=== PATIENT | male | born 1935 | race Caucasian/White ===

== ENCOUNTER 2023-05-04 15:18 | Emergency (ER) | payer MEDICARE, OTHER, SELFPAY ==
[2023-05-04 15:20] VITALS: BP 172/98
[2023-05-04 15:56] LABS: % Basophils 0.7 % (0-2); % Eosinophils 2.4 % (0-6); % Immature Granulocytes 1.1 % (0-0.5); % Lymphocytes 17.7 % (20.5-51.1); % Monocytes 7.9 % (1.7-9.3); % Neutrophils 70.2 % (42.2-75.2); Absolute Basophils 0.1 10^3/uL (0-0.2); Absolute Eosinophils 0.2 10^3/uL (0-0.7); Absolute Immature Granulocytes 0.1 10^3/uL (0-0.05); Absolute Lymphocytes 1.3 10^3/uL (1.2-3.4); Absolute Monocytes 0.6 10^3/uL (0.1-0.6); Hematocrit 36.3 % (39.0-52.0); Hemoglobin 12.8 g/dL (13.0-18.0); Mean Corp Hgb Conc. 35.3 g/dL (33.0-37.0); Mean Corpuscular Hgb 29.8 pg (27.0-31.0); Mean Corpuscular Volume 84.4 fL (80.0-94.0); Mean Platelet Volume 9.8 fL (7.4-10.4); Nucleated Red Blood Cells % 0 % (-); Platelet Count 232 10^3/uL (130-400); White Blood Cell Count 7.1 10^3/uL (4.8-10.8)
[2023-05-04 16:07] LABS: ALT (SGPT) 15 U/L (0-50); AST (SGOT) 20 U/L (17-59); Albumin 4.1 g/dl (3.5-5.0); Alkaline Phosphatase 80 U/L (38-126); Blood Urea Nitrogen 19 mg/dl (9-20); Calcium 9.5 mg/dl (8.4-10.2); Carbon Dioxide 27 mmol/L (22-30); Chloride 102 mmol/L (98-107); Glucose 137 mg/dl (70-99); Potassium 3.6 mmol/L (3.5-5.1); Sodium 139 mmol/L (135-145); Total Bilirubin 0.7 mg/dl (0.2-1.3); Total Protein 6.7 g/dl (6.3-8.2); eGFR > 60.00
[2023-05-04 16:23] VITALS: BMI 23.3
[2023-05-04 17:00] VITALS: BP 166/96
[2023-05-04 17:01] LABS: Urine Albumin Trace (Neg - Trace); Urine Bilirubin Negative (Negative); Urine Character Clear (Clear); Urine Color Yellow; Urine Glucose Negative (Negative); Urine Ketone Negative (Negative); Urine Leukocyte Negative (Negative); Urine Nitrite Negative (Negative); Urine Occult Blood Negative (Negative); Urine Urobilinogen Negative (Neg - 1+)
--- NOTE | 2023-05-04 17:20 | ED.GENMED ---
History of Present Illness
General
Chief Complaint: Weakness
Source: patient
Exam Limitations: none
Time Seen by Provider: 05/04/23 16:53
Travel History
Have you had any contact with someone who has COVID-19?: No
Do you have any symptoms of coronavirus? Fever > 100 degrees, chills, cough, shortness of breath, sore throat, loss of taste or smell, muscle aches, or headache?: No
History of Present Illness
History of Present Illness:
87-year-old male presents from home where he lives with his stating that for the past 2 weeks he had a progressive decline and weakness of both legs. Typically is ambulatory with a walker. He has been more reliant on wheelchair last several
days. No fever. No urinary symptoms. No cough. He denies shortness of breath. No headache. He is anticoagulated for A-fib. No known sick contacts. No other complaints at this time
Past History
Past History
ED Past Medical History: Arrthythmia, HTN, Hypercholesterolemia, NIDDM, Other (Kidney stones) and Other (Syncope)
ED Past Surgical History: Negative Cardiac
Social History
Tobacco: Non-smoker
Alcohol: Occasional
Drug: None
Personal:
Living: with family
Employment: Retired
Family History
Family History: Other (Noncontributory)
Phy Exam
Physical Exam
Physical Exam:
General: Well-appearing male no acute respiratory distress
HEENT: Normal cephalic atraumatic mucosa moist neck is supple
Heart: Irregular rate and rhythm no murmurs
Lungs: Clear no wheeze or rales
Extremities: No cyanosis or edema
Skin: Warm no rash
Abdomen soft nontender numbness
Course
Orders/Labs/Results
Orders:
Orders
05/04/23 15:29
Complete Blood Count/With Diff Urgent
Comprehensive Metabolic Panel Urgent
UA [Urinalysis] Urgent
Date Specimen was Collected: 05/04/23
Time Specimen was Collected: 15:24
05/04/23 17:18
CR Chest - 2 Views Urgent
Comment:
Reason For Exam: weakness
05/04/23 18:09
COVID-19 Antigen Urgent
Source: Nasal Swab
Influenza A+B Rapid Molecular Urgent
MARY Source: Nasal Swab
Specimen Description:
05/04/23 21:11
Case Management Consult ONCE
Case Management Consult: VN/Home Care
Abnormal Lab Results
05/04/23
15:29
RBC 4.30 L 10^6/uL
(4.70-6.10)
Hgb 12.8 L g/dL
(13.0-18.0)
Hct 36.3 L %
(39.0-52.0)
RDW 15.0 H %
(11.5-14.5)
Abs Immat Gran (auto) 0.1 H 10^3/uL
(0-0.05)
Immature Gran % 1.1 H %
(0-0.5)
Lymphocytes % 17.7 L %
(20.5-51.1)
Glucose 137 H mg/dl
(70-99)
05/04/23 15:29
05/04/23 15:29
Vital Signs
Initial and Last Documented VS:
Initial Vital Signs
Temp Pulse Resp BP Pulse Ox
97.6 F 69 18 172/98 99
05/04/23 15:20 05/04/23 15:20 05/04/23 15:20 05/04/23 15:20 05/04/23 15:20
Last Documented Vital Signs
Temp Pulse Resp BP Pulse Ox
97.6 F 69 18 172/98 92
05/04/23 15:20 05/04/23 15:20 05/04/23 15:20 05/04/23 15:20 05/04/23 17:00
MDM/Problems Addressed
Differential Diagnosis Includes:
Generalized weakness. No unilateral findings to suggest stroke. Consider underlying infectious source such as UTI COVID or flu. Will check chest x-ray for pneumonia. Check labs
*Critical Care Note
Total Time (30-74mins, 75-104mins- exclusive of procedures): Not Applicable
Update Note
Update Note:
Workup here essentially negative. Upon further questioning patient states he has been declining over 9 months. I suspect no acute change. Patient has been to rehab. Patient was given a walker here and he was able to ambulate down and back on the
hallway without any evidence of instability. At this point they are comfortable going home. Will consult case management for them to call tomorrow to help set up visiting nurses or home care. Return precautions were given
ED Attending Note
-
Portions of this chart may have been created with voice recognition software.� Occasional wrong word or��sound alike� substitutions may have occurred due to the inherent limitations of voice recognition software.
Discharge Plan
Departure
Patient Disposition: Home (Routine Discharge)
Date of Disposition: 05/04/23
Time of Disposition: 21:13
Patient with high blood pressure during this ER visit?: No
Discharge Problem:
Ambulatory dysfunction
Instructions: Generalized Weakness (DC)
Prescriptions:
No Action
diltiazem HCl 120 MG capsule,extended release 24hr
120 mg PO DAILY
metformin 500 MG tablet extended release 24 hr
500 mg PO BID
Eliquis 5 MG tablet
5 mg PO BID
tolterodine 2 mg capsule,extended release 24hr
2 mg PO HS
latanoprost 0.005 % drops
1 drp BOTH EYES HS
tamsulosin 0.4 mg capsule
0.4 mg PO BID
bepotastine besilate 1.5 % drops
1 drp BOTH EYES DAILY
labetalol 100 mg Tablet
100 mg PO BID Qty: 30 0RF
Referrals:
Shon Zambrano MD [Family Provider] -
Activity Restrictions/Additional Instructions:
Please continue to use walker for ambulation. Please follow-up with family doctor. Case management should be calling to help set up visiting nurses. Return here for any worsening symptoms
Interventions
Interventions:
*Risk Screen - Suicide Last Done: 05/04/23 15:22
*General Assessment Last Done: 05/04/23 15:22
*Neglect/Abuse Screening Last Done: 05/04/23 15:22
ED- Fall Risk Assessment Last Done: 05/04/23 16:23
*ED COVID-19 Vaccine History Last Done: 05/04/23 16:23
ED- Cardiac Assessment Last Done: 05/04/23 16:23
ED- Neurological Assessment Last Done: 05/04/23 16:23
ED- Pulmonary Assessment Last Done: 05/04/23 16:23
[2023-05-04 18:08] VITALS: BP 168/86
[2023-05-04 18:34] LABS: COVID-19 Antigen Negative (Negative)
[2023-05-04 19:00] VITALS: BP 160/103
[2023-05-04 20:00] VITALS: BP 180/93
--- NOTE | 2023-05-05 10:22 | CM ---
CM received consult to discuss home care options with patient. CM spoke with patient's via phone. Patient's stated that they have had home care in the past, but cannot remember the agency. Patient's is now agreeable to [facility]. CM sent
referral via [facility] for [facility].
PLAN: Home with [facility].
--- NOTE | 2023-05-05 12:03 | CM ---
[facility] has accepted.
== END 2023-05-04 21:57 | disposition home or self-care (01) ==
LOC: EMR 15:18
PROVIDERS: Physician Assistant; Student in an Organized Health Care Education/Training Program; EMERGENCY PHYSICIAN Emergency Medicine; FAMILY PHYSICIAN Family Medicine
DX: R26.2 Difficulty in walking, not elsewhere classified (principal); R53.1 Weakness; I48.91 Unspecified atrial fibrillation; Z79.01 Long term (current) use of anticoagulants; Z11.52 Encounter for screening for COVID-19; E11.9 Type 2 diabetes mellitus without complications; I10 Essential (primary) hypertension
CPT/HCPCS: 99284; 71046; 80053; 81003; 85025; 87502; 87811

== ENCOUNTER → 2023-05-25 11:48 | Outpatient (REF) | payer MEDICARE, OTHER, SELFPAY ==
[2023-05-25 12:42] LABS: % Basophils 0.6 % (0-2); % Eosinophils 3.9 % (0-6); % Immature Granulocytes 0.5 % (0-0.5); % Lymphocytes 18.5 % (20.5-51.1); % Monocytes 7.4 % (1.7-9.3); % Neutrophils 69.1 % (42.2-75.2); Absolute Eosinophils 0.3 10^3/uL (0-0.7); Absolute Lymphocytes 1.2 10^3/uL (1.2-3.4); Absolute Monocytes 0.5 10^3/uL (0.1-0.6); Absolute Neutrophils 4.6 10^3/uL (1.4-6.5); Hemoglobin 12.6 g/dL (13.0-18.0); Mean Corp Hgb Conc. 34.1 g/dL (33.0-37.0); Mean Corpuscular Hgb 29.4 pg (27.0-31.0); Mean Corpuscular Volume 86.2 fL (80.0-94.0); Mean Platelet Volume 10.1 fL (7.4-10.4); Nucleated Red Blood Cells % 0 % (-); Platelet Count 215 10^3/uL (130-400); Red Blood Cell Count 4.29 10^6/uL (4.70-6.10); White Blood Cell Count 6.6 10^3/uL (4.8-10.8)
[2023-05-25 12:56] LABS: ALT (SGPT) 16 U/L (0-50); AST (SGOT) 20 U/L (17-59); Albumin 3.9 g/dl (3.5-5.0); Alkaline Phosphatase 84 U/L (38-126); Blood Urea Nitrogen 17 mg/dl (9-20); Calcium 8.9 mg/dl (8.4-10.2); Carbon Dioxide 26 mmol/L (22-30); Chloride 106 mmol/L (98-107); Glucose 147 mg/dl (70-99); Potassium 3.9 mmol/L (3.5-5.1); Sodium 136 mmol/L (135-145); Total Bilirubin 0.8 mg/dl (0.2-1.3); Total Protein 6.6 g/dl (6.3-8.2); eGFR 58.89
[2023-05-26 11:15] LABS: Glycohemoglobin (HgbA1c) 7.5 % (4.0-5.6)
== END ==
LOC: OLAB 11:48
PROVIDERS: ATTENDING PHYSICIAN Family Medicine
DX: E11.21 Type 2 diabetes mellitus with diabetic nephropathy (principal); I10 Essential (primary) hypertension
CPT/HCPCS: 80053; 83036; 85025

== ENCOUNTER → 2023-05-29 14:24 | Outpatient (REF) | payer MEDICARE, OTHER, SELFPAY ==
[2023-05-29 15:48] LABS: Urine Albumin Trace (Neg - Trace); Urine Bilirubin 1+ (Negative); Urine Character Slightly Cloudy (Clear); Urine Color Yellow; Urine Glucose 2+ (Negative); Urine Ketone Trace (Negative); Urine Leukocyte Trace (Negative); Urine Nitrite Negative (Negative); Urine Occult Blood 4+ (Negative); Urine Urobilinogen Negative (Neg - 1+)
[2023-05-29 15:57] LABS: Urine Bacteria Few (Negative); Urine Hyaline Cast 0-2 /LPF (0-2); Urine Red Blood Cell >100 /HPF (0-2); Urine Squamous Cell 0-2 /LPF (Few); Urine White Cell 0-2 /HPF (0-5)
== END ==
LOC: REG 14:24
PROVIDERS: ATTENDING PHYSICIAN Family Medicine
DX: R35.0 Frequency of micturition (principal)
CPT/HCPCS: 81003; 81015; 87086

== ENCOUNTER → 2023-06-05 13:25 | Outpatient (REF) | payer MEDICARE, OTHER, SELFPAY ==
[2023-06-05 13:59] LABS: Urine Albumin 1+ (Neg - Trace); Urine Bilirubin 1+ (Negative); Urine Character Clear (Clear); Urine Color Yellow; Urine Glucose Trace (Negative); Urine Ketone Negative (Negative); Urine Leukocyte Negative (Negative); Urine Nitrite Negative (Negative); Urine Occult Blood Negative (Negative); Urine Urobilinogen Negative (Neg - 1+)
[2023-06-05 14:09] LABS: Urine Bacteria Few (Negative); Urine Mucus Few; Urine Red Blood Cell 0-2 /HPF (0-2); Urine Squamous Cell 0-2 /LPF (Few); Urine White Cell 0-2 /HPF (0-5)
== END ==
LOC: REG 13:25
PROVIDERS: ATTENDING PHYSICIAN Surgery; FAMILY PHYSICIAN Family Medicine
DX: N39.0 Urinary tract infection, site not specified (principal)
CPT/HCPCS: 81003; 81015; 87086

== ENCOUNTER → 2023-10-05 15:11 | Outpatient (REF) | payer MEDICARE, OTHER, SELFPAY ==
[2023-10-05 15:43] LABS: Urine Albumin 2+ (Neg - Trace); Urine Bilirubin 2+ (Negative); Urine Character Very Cloudy (Clear); Urine Color Brown; Urine Glucose Trace (Negative); Urine Ketone 1+ (Negative); Urine Leukocyte 1+ (Negative); Urine Nitrite Positive (Negative); Urine Occult Blood 4+ (Negative); Urine Urobilinogen 1+ (Neg - 1+)
[2023-10-05 15:51] LABS: Urine Red Blood Cell >100 /HPF (0-2)
[2023-10-05 15:52] LABS: Urine Bacteria Many (Negative)
== END ==
LOC: REG 15:11
PROVIDERS: ATTENDING PHYSICIAN Surgery; FAMILY PHYSICIAN Family Medicine
DX: N39.0 Urinary tract infection, site not specified (principal)
CPT/HCPCS: 81003; 81015; 87086

== ENCOUNTER 2023-10-07 22:12 | Emergency (ER) | payer MEDICARE, OTHER, SELFPAY ==
[2023-10-07 22:13] VITALS: BP 146/95; BMI 24.2
[2023-10-07 22:33] LABS: % Basophils 0.5 % (0-2); % Eosinophils 3.2 % (0-6); % Immature Granulocytes 0.4 % (0-0.5); % Lymphocytes 13.7 % (20.5-51.1); % Monocytes 7.1 % (1.7-9.3); % Neutrophils 75.1 % (42.2-75.2); Absolute Basophils 0.1 10^3/uL (0-0.2); Absolute Eosinophils 0.3 10^3/uL (0-0.7); Absolute Lymphocytes 1.5 10^3/uL (1.2-3.4); Absolute Monocytes 0.8 10^3/uL (0.1-0.6); Hematocrit 36.5 % (39.0-52.0); Hemoglobin 12.8 g/dL (13.0-18.0); Mean Corp Hgb Conc. 35.1 g/dL (33.0-37.0); Mean Corpuscular Hgb 29.1 pg (27.0-31.0); Mean Platelet Volume 8.8 fL (7.4-10.4); Nucleated Red Blood Cells % 0 % (-); Platelet Count 226 10^3/uL (130-400); Red Cell Dist. Width 14.5 % (11.5-14.5); White Blood Cell Count 10.7 10^3/uL (4.8-10.8)
[2023-10-07 22:36] LABS: Urine Albumin 1+ (Neg - Trace); Urine Bilirubin Negative (Negative); Urine Character Clear (Clear); Urine Color Yellow; Urine Glucose Negative (Negative); Urine Ketone Trace (Negative); Urine Leukocyte Trace (Negative); Urine Nitrite Negative (Negative); Urine Occult Blood 4+ (Negative); Urine Urobilinogen Negative (Neg - 1+); Urine pH 6.5 (5.0-9.0)
[2023-10-07 22:55] LABS: ALT (SGPT) 14 U/L (0-50); Albumin 4.6 g/dl (3.5-5.0); Alkaline Phosphatase 83 U/L (38-126); Blood Urea Nitrogen 31 mg/dl (9-20); Calcium 9.6 mg/dl (8.4-10.2); Carbon Dioxide 26 mmol/L (22-30); Chloride 102 mmol/L (98-107); Estimated Creatinine Clearance 32 ml/min; Glucose 159 mg/dl (70-99); Lipase 51 U/L (23-300); Sodium 137 mmol/L (135-145); Total Bilirubin 0.6 mg/dl (0.2-1.3); eGFR 45.06
[2023-10-07 23:08] LABS: AST (SGOT) 18 U/L (17-59); Urine Red Blood Cell 60-70 /HPF (0-2); Urine Squamous Cell 0-2 /LPF (Few)
[2023-10-07 23:09] LABS: Urine Bacteria Few (Negative)
--- NOTE | 2023-10-08 00:39 | ED.GENMED ---
History of Present Illness
General
Chief Complaint: Abdominal Pain
Source: patient and family
Exam Limitations: none
Time Seen by Provider: 10/08/23 00:29
Nursing documentation reviewed up to this point in time: agreed with
History of Present Illness
History of Present Illness:
87-year-old male with past medical history of A-fib currently on Eliquis, hypertension hyperlipidemia, previous kidney stones presenting to the emergency department today for concerns of intermittent flank pain as well as hematuria over the past few
days. Denies any nausea vomiting diarrhea or fevers.
Past History
Past History
ED Past Medical History: Arrthythmia, HTN, Hypercholesterolemia, NIDDM, Other (Kidney stones) and Other (Syncope)
ED Past Surgical History: Negative Cardiac
Social History
Tobacco: Non-smoker
Alcohol: Occasional
Drug: None
Personal:
Living: with family
Employment: Retired
Family History
Family History: Other (Noncontributory)
Review of Systems
Review of Systems
Allergies reviewed?: Yes
All Other Systems: ROS reviewed and negative except as documented in HPI and ROS
Phy Exam
Physical Exam
Physical Exam:
GENERAL: Alert , in no apparent distress
EYE: pupils equal and reactive
NECK: Supple, no significant adenopathy.
ENT: o/p clr, mmm.
CARDIAC: Regular rate and rhythm .
LUNGS: Clear breath sounds bilaterally, no acute respiratory distress, no wheezes/rales/rhonchi
ABDOMEN: Soft, without focal tenderness, no r/g, no cvat
NEUROLOGICAL: Alert and oriented, no focal neuro deficits
SKIN: Warm and dry, skin intact.
MUSCULOSKELETAL: No edema, well perfused.
PSYCH: Normal and appropriate interaction.
Course
Orders/Labs/Results
Orders:
Orders
10/07/23 22:25
Complete Blood Count/With Diff Urgent
Comprehensive Metabolic Panel Urgent
Lipase Urgent
Urinalysis Reflex To Culture Urgent
Date Specimen was Collected: 10/07/23
Time Specimen was Collected: 22:16
Urine Microscopic Reflex Cult Urgent
Urine Culture Urgent
MARY Source: U
Specimen Description:
Date Specimen was Collected: 10/07/23
Time Specimen was Collected: 22:16
10/08/23 00:35
CT Abd/pel Without Iv Or Oral Urgent
Comment:
Reason For Exam: flank pain hematuria hx of stones
10/08/23 00:40
0.9% Sodium Chloride 500 ml [Nss] 500 ml IV BOLUS
Abnormal Lab Results
10/07/23
22:25
RBC 4.40 L 10^6/uL
(4.70-6.10)
Hgb 12.8 L g/dL
(13.0-18.0)
Hct 36.5 L %
(39.0-52.0)
Absolute Neuts (auto) 8.0 H 10^3/uL
(1.4-6.5)
Absolute Monos (auto) 0.8 H 10^3/uL
(0.1-0.6)
Lymphocytes % 13.7 L %
(20.5-51.1)
BUN 31 H mg/dl
(9-20)
Creatinine 1.5 H mg/dL
(0.7-1.3)
Glucose 159 H mg/dl
(70-99)
Urine Ketones Trace A
(Negative)
Ur Occult Blood Reflex 4+ A
(Negative)
Leukocyte Esterase Rfl Trace A
(Negative)
Urine RBC 60-70 A /HPF
(0-2)
Urine WBC (Reflex) 11-15 A /HPF
(0-5)
Urine Bacteria (Reflex) Few A
(Negative)
Urine Albumin (Reflex) 1+ A
(Neg - Trace)
10/07/23 22:25
10/07/23 22:25
Vital Signs
Initial and Last Documented VS:
Initial Vital Signs
Temp Pulse Resp BP Pulse Ox
98.2 F 70 20 146/95 96
10/07/23 22:13 10/07/23 22:13 10/07/23 22:13 10/07/23 22:13 10/07/23 22:13
Last Documented Vital Signs
Temp Pulse Resp BP Pulse Ox
98.2 F 70 20 146/95 96
10/07/23 22:13 10/07/23 22:13 10/07/23 22:13 10/07/23 22:13 10/07/23 22:13
MDM/Problems Addressed
MDM/Problems Addressed:
87-year-old male presenting to the emergency department today with concerns of intermittent abdominal pain flank pain over the past few days as well as hematuria. Upon arrival patient in no distress vital signs normal no white count creatinine 1.5
slightly above patient's baseline was given some fluids. Additionally urinalysis showing 60-70 red blood cells 11-15 white blood cells few bacteria trace leuks nitrites. CT scan showing evidence of likely recently passed stone. This was discussed
with the patient he was treated for potential mild and otherwise will follow-up closely as an outpatient return precautions given.
*Critical Care Note
Total Time (30-74mins, 75-104mins- exclusive of procedures): Not Applicable
ED Attending Note
-
Portions of this chart may have been created with voice recognition software.� Occasional wrong word or��sound alike� substitutions may have occurred due to the inherent limitations of voice recognition software.
Discharge Plan
Departure
Patient Disposition: Home (Routine Discharge)
Date of Disposition: 10/08/23
Time of Disposition: 02:32
Patient with high blood pressure during this ER visit?: No
Condition: Good
Covid-19: Not Applicable
Discharge Problem:
Kidney stone, UTI (urinary tract infection)
Instructions: Urinary Tract Infection, Adult ED
Prescriptions:
New
cephalexin 500 mg capsule
500 mg PO TID 7 Days Qty: 21 0RF
No Action
diltiazem HCl 120 MG capsule,extended release 24hr
120 mg PO DAILY
metformin 500 MG tablet extended release 24 hr
500 mg PO BID
Eliquis 5 MG tablet
5 mg PO BID
tolterodine 2 mg capsule,extended release 24hr
2 mg PO HS
latanoprost 0.005 % drops
1 drp BOTH EYES HS
tamsulosin 0.4 mg capsule
0.4 mg PO BID
bepotastine besilate 1.5 % drops
1 drp BOTH EYES DAILY
labetalol 100 mg Tablet
100 mg PO BID Qty: 30 0RF
Referrals:
Alejo Brewer MD [Active] - Follow up in 5-7 days
Shon Zambrano MD [Family Provider] -
Activity Restrictions/Additional Instructions:
You came to the emergency department today with concerns of urinary symptoms. It appears that you have a recently passed stone on your CT scan. Please take the antibiotics to treat any potential infection otherwise please follow-up closely with
urology. Return to the emergency department for any worsening, new or concerning symptoms.
Interventions
Interventions:
*Risk Screen - Suicide Last Done: 10/07/23 22:13
*Neglect/Abuse Screening Last Done: 10/07/23 22:13
ED- Fall Risk Assessment Last Done: 10/07/23 22:13
Discharge Date and Time
Print Language: MONTSERRATIAN
[2023-10-08 01:00] VITALS: BP 146/85
[2023-10-08 01:30] VITALS: BP 153/75
[2023-10-08] MEDS: KEFLEX 500 MG PO (03:03)
[2023-10-08] MEDS: NSS 500 IV (03:04)
== END 2023-10-08 03:33 | disposition home or self-care (01) ==
LOC: EMR 22:12
PROVIDERS: Student in an Organized Health Care Education/Training Program; EMERGENCY PHYSICIAN Emergency Medicine; FAMILY PHYSICIAN Family Medicine
DX: N39.0 Urinary tract infection, site not specified (principal); N13.2 Hydronephrosis with renal and ureteral calculous obstruction; I48.91 Unspecified atrial fibrillation; Z79.01 Long term (current) use of anticoagulants; I10 Essential (primary) hypertension; E78.00 Pure hypercholesterolemia, unspecified
CPT/HCPCS: 99284; 96360; 74176; 80053; 81003; 81015; 83690; 85025; 87086

== ENCOUNTER → 2023-11-01 12:29 | Outpatient (REF) | payer MEDICARE, OTHER, SELFPAY ==
[2023-11-01 14:00] LABS: % Basophils 0.6 % (0-2); % Eosinophils 3.5 % (0-6); % Immature Granulocytes 0.4 % (0-0.5); % Lymphocytes 17.5 % (20.5-51.1); % Monocytes 7.8 % (1.7-9.3); % Neutrophils 70.2 % (42.2-75.2); Absolute Eosinophils 0.2 10^3/uL (0-0.7); Absolute Lymphocytes 1.2 10^3/uL (1.2-3.4); Absolute Monocytes 0.5 10^3/uL (0.1-0.6); Absolute Neutrophils 4.8 10^3/uL (1.4-6.5); Hematocrit 35.3 % (39.0-52.0); Hemoglobin 12.1 g/dL (13.0-18.0); Mean Corp Hgb Conc. 34.3 g/dL (33.0-37.0); Mean Corpuscular Hgb 29.9 pg (27.0-31.0); Mean Corpuscular Volume 87.2 fL (80.0-94.0); Mean Platelet Volume 9.7 fL (7.4-10.4); Nucleated Red Blood Cells % 0 % (-); Platelet Count 232 10^3/uL (130-400); Red Blood Cell Count 4.05 10^6/uL (4.70-6.10); Red Cell Dist. Width 14.7 % (11.5-14.5); White Blood Cell Count 6.8 10^3/uL (4.8-10.8)
[2023-11-01 14:36] LABS: ALT (SGPT) 13 U/L (0-50); AST (SGOT) 17 U/L (17-59); Alkaline Phosphatase 79 U/L (38-126); Blood Urea Nitrogen 23 mg/dl (9-20); Calcium 9.3 mg/dl (8.4-10.2); Carbon Dioxide 28 mmol/L (22-30); Chloride 101 mmol/L (98-107); Glucose 184 mg/dl (70-99); HDL Cholesterol 45 mg/dl; LDL Cholesterol, Calculated 118 mg/dl; Potassium 4.4 mmol/L (3.5-5.1); Sodium 136 mmol/L (135-145); Total Bilirubin 0.6 mg/dl (0.2-1.3); Total Cholesterol 182 mg/dl (50-199); Total Protein 6.3 g/dl (6.3-8.2); Triglyceride 98 mg/dl (10-149); Very Low Density Lipoprotein 19 mg/dl (0-30); eGFR 58.53
[2023-11-02 08:30] LABS: Glycohemoglobin (HgbA1c) 7.1 % (4.0-5.6)
== END ==
LOC: REG 12:29
PROVIDERS: ATTENDING PHYSICIAN Family Medicine
DX: I10 Essential (primary) hypertension (principal); E11.21 Type 2 diabetes mellitus with diabetic nephropathy; E78.2 Mixed hyperlipidemia
CPT/HCPCS: 36415; 80053; 80061; 83036; 85025

== ENCOUNTER 2024-05-23 10:06 | Emergency (ER) | payer MEDICARE, OTHER, SELFPAY ==
[2024-05-23 10:08] VITALS: BP 184/93
--- NOTE | 2024-05-23 10:16 | ED.GENMED ---
ED Provider Triage
<Traci Leon PA-C - Last Filed: 05/23/24 10:18>
-
Patient seen by provider in Triage?: Seen in Triage
88-year-old male with a history of multiple kidney stones, A-fib on Eliquis presents for intermittent abdominal discomfort in the center of his abdomen radiating to his right back since yesterday. Patient had some pain similar to this about 3 weeks
ago but it resolved. This morning he was having some nausea and dry heaves. He feels the urge to urinate but then does not need to pee. He does not necessarily think this is his kidney stones. He has not had any diarrhea, fever.
A medical screening examination has been initiated by a qualified medical provider. Based on the assessment performed at this time, it has been determined that an emergent medical condition may exist and the patient has been informed that further
medical evaluation and possible additional diagnostic testing may be needed.
HPI: This is a medical evaluation conducted in person to initiate diagnostic evaluation and provide initial therapeutics. Please see further documentation by the treating clinician.
GENERAL: Alert , in no apparent distress pale
ENT: No visible abnormalities
LUNGS: No acute respiratory distress
abd: No focal tenderness
Mild right lumbar tenderness
NEUROLOGICAL: Alert and oriented
SKIN: Skin intact. No visible changes.
MUSCULOSKELETAL: Moving extremities normally
PSYCH: Normal and appropriate interaction.
On review the patient's previous CT scans he has multiple stones in both kidneys, he could have obstructive uropathy versus small bowel obstruction versus diverticulitis , cholelithiasis etc. At this point I want to defer imaging based off of labs
and abdominal exam while the patient is supine
Will start with screening labs and urine
History of Present Illness
<Traci Leon PA-C - Last Filed: 05/23/24 10:18>
General
Chief Complaint: Abdominal Pain
Time Seen by Provider: 05/23/24 12:02
<Waylon Paula Jr., PA-C - Last Filed: 05/23/24 14:07>
General
Source: patient
Exam Limitations: none
Nursing documentation reviewed up to this point in time: agreed with
History of Present Illness
History of Present Illness:
88-year-old male past medical history of A-fib currently on Eliquis, diabetes presenting to the emergency department today with concerns of left flank starting this morning. Had similar symptoms a few days ago that self resolved. Has had nausea
and vomiting associated. Denies any chest pain shortness of breath. Denies any diarrhea
Past History
<Traci Leon PA-C - Last Filed: 05/23/24 10:18>
Past History
ED Past Medical History: Arrthythmia, HTN, Hypercholesterolemia, NIDDM, Other (Kidney stones) and Other (Syncope)
ED Past Surgical History: Negative Cardiac
Social History
Tobacco: Non-smoker
Alcohol: Occasional
Drug: None
Personal:
Living: with family
Employment: Retired
Family History
Family History: Other (Noncontributory)
Review of Systems
<Waylon Paula Jr., PA-C - Last Filed: 05/23/24 14:07>
Review of Systems
Allergies reviewed?: Yes
All Other Systems: ROS reviewed and negative except as documented in HPI and ROS
Phy Exam
<Waylon Paula Jr., PA-C - Last Filed: 05/23/24 14:07>
Physical Exam
Physical Exam:
GENERAL: Alert , in no apparent distress
EYE: pupils equal and reactive
NECK: Supple, no significant adenopathy.
ENT: o/p clr, mmm.
CARDIAC: Regular rate and rhythm .
LUNGS: Clear breath sounds bilaterally, no acute respiratory distress, no wheezes/rales/rhonchi
ABDOMEN: Soft, without focal tenderness, no r/g, no cvat
NEUROLOGICAL: Alert and oriented, no focal neuro deficits
SKIN: Warm and dry, skin intact.
MUSCULOSKELETAL: No edema, well perfused.
PSYCH: Normal and appropriate interaction.
Course
<Traci Leon PA-C - Last Filed: 05/23/24 10:18>
Orders/Labs/Results
Orders:
Orders
05/23/24 10:30
Complete Blood Count/With Diff Urgent
Comprehensive Metabolic Panel Urgent
Lipase Urgent
Urinalysis Reflex To Culture Urgent
Date Specimen was Collected: 05/23/24
Time Specimen was Collected: 10:21
Urine Microscopic Reflex Cult Urgent
05/23/24 12:22
Acetaminophen [Tylenol] 1,000 mg PO NOW STA
Ondansetron Injectable [Zofran] 4 mg IV NOW STA
05/23/24 12:23
CT Abd/pel Without Iv Or Oral Urgent
Comment:
Reason For Exam: right flank pain
0.9% Sodium Chloride 500 ml [Nss] 500 ml IV BOLUS
05/23/24 14:01
Prochlorperazine [Compazine] 5 mg IV NOW STA
Abnormal Lab Results
05/23/24
10:30
RBC 4.26 L 10^6/uL
(4.70-6.10)
Hgb 12.8 L g/dL
(13.0-18.0)
Hct 37.1 L %
(39.0-52.0)
RDW 14.7 H %
(11.5-14.5)
Absolute Neuts (auto) 8.8 H 10^3/uL
(1.4-6.5)
Absolute Lymphs (auto) 0.9 L 10^3/uL
(1.2-3.4)
Neutrophils % 84.7 H %
(42.2-75.2)
Lymphocytes % 8.7 L %
(20.5-51.1)
Glucose 204 H mg/dl
(70-99)
Urine Ketones 1+ A
(Negative)
Ur Occult Blood Reflex 4+ A
(Negative)
Urine RBC 90-100 A /HPF
(0-2)
Urine Glucose 2+ A
(Negative)
Urine Albumin (Reflex) 3+ A
(Neg - Trace)
05/23/24 10:30
05/23/24 10:30
Vital Signs
Initial and Last Documented VS:
Initial Vital Signs
Temp Pulse Resp BP Pulse Ox
97.7 F 79 16 184/93 99
05/23/24 10:08 05/23/24 10:08 05/23/24 10:08 05/23/24 10:08 05/23/24 10:08
Last Documented Vital Signs
Temp Pulse Resp BP Pulse Ox
97.7 F 79 16 184/93 99
05/23/24 10:08 05/23/24 10:08 05/23/24 10:08 05/23/24 10:08 05/23/24 10:08
<Waylon Paula Jr., PA-C - Last Filed: 05/23/24 14:07>
Orders/Labs/Results
Orders:
Orders
05/23/24 10:30
Complete Blood Count/With Diff Urgent
Comprehensive Metabolic Panel Urgent
Lipase Urgent
Urinalysis Reflex To Culture Urgent
Date Specimen was Collected: 05/23/24
Time Specimen was Collected: 10:21
Urine Microscopic Reflex Cult Urgent
05/23/24 12:22
Acetaminophen [Tylenol] 1,000 mg PO NOW STA
Ondansetron Injectable [Zofran] 4 mg IV NOW STA
05/23/24 12:23
CT Abd/pel Without Iv Or Oral Urgent
Comment:
Reason For Exam: right flank pain
0.9% Sodium Chloride 500 ml [Nss] 500 ml IV BOLUS
05/23/24 14:01
Prochlorperazine [Compazine] 5 mg IV NOW STA
Abnormal Lab Results
05/23/24
10:30
RBC 4.26 L 10^6/uL
(4.70-6.10)
Hgb 12.8 L g/dL
(13.0-18.0)
Hct 37.1 L %
(39.0-52.0)
RDW 14.7 H %
(11.5-14.5)
Absolute Neuts (auto) 8.8 H 10^3/uL
(1.4-6.5)
Absolute Lymphs (auto) 0.9 L 10^3/uL
(1.2-3.4)
Neutrophils % 84.7 H %
(42.2-75.2)
Lymphocytes % 8.7 L %
(20.5-51.1)
Glucose 204 H mg/dl
(70-99)
Urine Ketones 1+ A
(Negative)
Ur Occult Blood Reflex 4+ A
(Negative)
Urine RBC 90-100 A /HPF
(0-2)
Urine Glucose 2+ A
(Negative)
Urine Albumin (Reflex) 3+ A
(Neg - Trace)
05/23/24 10:30
05/23/24 10:30
Vital Signs
Initial and Last Documented VS:
Initial Vital Signs
Temp Pulse Resp BP Pulse Ox
97.7 F 79 16 184/93 99
05/23/24 10:08 05/23/24 10:08 05/23/24 10:08 05/23/24 10:08 05/23/24 10:08
Last Documented Vital Signs
Temp Pulse Resp BP Pulse Ox
97.7 F 79 16 184/93 99
05/23/24 10:08 05/23/24 10:08 05/23/24 10:08 05/23/24 10:08 05/23/24 10:08
<Waylon Paula Jr., PA-C - Last Filed: 05/23/24 14:07>
MDM/Problems Addressed
MDM/Problems Addressed:
88-year-old male presenting to the emergency department today with concerns of left flank discomfort starting this morning abruptly. Does have a history of kidney stones. Vital signs normal on arrival other than elevated blood pressure which did
improve after receiving symptomatic treatment. Labs unremarkable urinalysis with red blood cells. CT scan showing 4 mm ureteral stone likely explaining patient's symptoms. Patient was given a strainer but otherwise no signs of complication no
evidence of infection or renal dysfunction stable for outpatient follow-up with urology return precautions given.
<Waylon Paula Jr., PA-C - Last Filed: 05/23/24 14:07>
*Critical Care Note
Total Time (30-74mins, 75-104mins- exclusive of procedures): Not Applicable
ED Attending Note
<Traci Leon PA-C - Last Filed: 05/23/24 10:18>
-
Portions of this chart may have been created with voice recognition software.� Occasional wrong word or��sound alike� substitutions may have occurred due to the inherent limitations of voice recognition software.
Discharge Plan
Departure
Patient Disposition: Home (Routine Discharge)
Date of Disposition: 05/23/24
Time of Disposition: 14:04
Patient with high blood pressure during this ER visit?: No
Condition: Good
Covid-19: Not Applicable
Discharge Problem:
Kidney stone
Instructions: Kidney Stones (DC)
Prescriptions:
New
ondansetron 4 mg tablet,disintegrating
4 mg PO Q6H PRN (Reason: nausea and vomiting) Qty: 7 0RF
tamsulosin [Flomax] 0.4 mg capsule
0.4 mg PO HS 7 Days Qty: 7 0RF
No Action
diltiazem HCl 120 MG capsule,extended release 24hr
120 mg PO DAILY
metformin 500 MG tablet extended release 24 hr
500 mg PO BID
Eliquis 5 MG tablet
5 mg PO BID
tolterodine 2 mg capsule,extended release 24hr
2 mg PO HS
latanoprost 0.005 % drops
1 drp BOTH EYES HS
tamsulosin 0.4 mg capsule
0.4 mg PO BID
bepotastine besilate 1.5 % drops
1 drp BOTH EYES DAILY
labetalol 100 mg Tablet
100 mg PO BID Qty: 30 0RF
cephalexin 500 mg capsule
500 mg PO TID 7 Days Qty: 21 0RF
Referrals:
Alejo Brewer MD [Active] - Follow up in 5-7 days
Shon Zambrano MD [Family Provider] -
Activity Restrictions/Additional Instructions:
You came to the emergency department today with concerns of flank pain. You are found to have a kidney stone likely causing your symptoms. Please take the prescribed medications as needed and follow-up closely with urology for ongoing symptoms.
Return for any worsening, new or concerning symptoms.
Interventions
Interventions:
*Risk Screen - Suicide Last Done: 05/23/24 10:11
*General Assessment Last Done: 05/23/24 13:23
*Neglect/Abuse Screening Last Done: 05/23/24 10:11
AH-Dqynzg-Kcjsejyeln Assessment Last Done: 05/23/24 13:23
Discharge Date and Time
Print Language: AUSTRIAN
[2024-05-23 10:45] LABS: % Basophils 0.4 % (0-2); % Eosinophils 1.4 % (0-6); % Immature Granulocytes 0.3 % (0-0.5); % Lymphocytes 8.7 % (20.5-51.1); % Monocytes 4.5 % (1.7-9.3); % Neutrophils 84.7 % (42.2-75.2); Absolute Eosinophils 0.2 10^3/uL (0-0.7); Absolute Lymphocytes 0.9 10^3/uL (1.2-3.4); Absolute Monocytes 0.5 10^3/uL (0.1-0.6); Absolute Neutrophils 8.8 10^3/uL (1.4-6.5); Hematocrit 37.1 % (39.0-52.0); Hemoglobin 12.8 g/dL (13.0-18.0); Mean Corp Hgb Conc. 34.5 g/dL (33.0-37.0); Mean Corpuscular Volume 87.1 fL (80.0-94.0); Mean Platelet Volume 9.2 fL (7.4-10.4); Nucleated Red Blood Cells % 0 % (-); Platelet Count 226 10^3/uL (130-400); Red Blood Cell Count 4.26 10^6/uL (4.70-6.10); Red Cell Dist. Width 14.7 % (11.5-14.5); White Blood Cell Count 10.4 10^3/uL (4.8-10.8)
[2024-05-23 10:56] LABS: ALT (SGPT) 15 U/L (0-50); AST (SGOT) 18 U/L (17-59); Albumin 4.3 g/dl (3.5-5.0); Alkaline Phosphatase 88 U/L (38-126); Blood Urea Nitrogen 20 mg/dl (9-20); Calcium 9.4 mg/dl (8.4-10.2); Carbon Dioxide 26 mmol/L (22-30); Chloride 101 mmol/L (98-107); Glucose 204 mg/dl (70-99); Lipase 29 U/L (23-300); Potassium 4.2 mmol/L (3.5-5.1); Sodium 136 mmol/L (135-145); Total Protein 6.9 g/dl (6.3-8.2); eGFR > 60.00
[2024-05-23 11:08] LABS: Urine Albumin 3+ (Neg - Trace); Urine Bilirubin Negative (Negative); Urine Character Clear (Clear); Urine Color Yellow; Urine Glucose 2+ (Negative); Urine Ketone 1+ (Negative); Urine Leukocyte Negative (Negative); Urine Nitrite Negative (Negative); Urine Occult Blood 4+ (Negative); Urine Specific Gravity 1.015 (<1.030); Urine Urobilinogen Negative (Neg - 1+)
[2024-05-23 12:18] LABS: Urine Amorphous Seen; Urine Mucus Few; Urine Squamous Cell 0-2 /LPF (Few); Urine Urothelial Cell 0-2 /LPF (FEW)
[2024-05-23 12:19] LABS: Urine Hyaline Cast 0-2 /LPF (0-2)
[2024-05-23 12:20] LABS: Urine Red Blood Cell 90-100 /HPF (0-2); Urine White Cell 0-2 /HPF (0-5)
[2024-05-23] MEDS: ZOFRAN 4 MG IV (12:33)
[2024-05-23] MEDS: NSS 500 IV (12:33)
[2024-05-23] MEDS: TYLENOL 1000 MG PO (12:34)
== END 2024-05-23 14:33 | disposition home or self-care (01) ==
LOC: EMR 10:06
PROVIDERS: Emergency Medicine; Physician Assistant; EMERGENCY PHYSICIAN Emergency Medicine; FAMILY PHYSICIAN Family Medicine
DX: N20.0 Calculus of kidney (principal); I10 Essential (primary) hypertension; E78.00 Pure hypercholesterolemia, unspecified; E11.9 Type 2 diabetes mellitus without complications; I48.91 Unspecified atrial fibrillation; Z79.01 Long term (current) use of anticoagulants; Z87.442 Personal history of urinary calculi
CPT/HCPCS: 99284; 74176; 80053; 81003; 81015; 83690; 85025

== ENCOUNTER → 2024-09-23 12:22 | Outpatient (REF) | payer MEDICARE, OTHER, SELFPAY ==
[2024-09-23 13:12] LABS: % Basophils 0.7 % (0-2); % Eosinophils 2.2 % (0-6); % Immature Granulocytes 0.3 % (0-0.5); % Lymphocytes 21.2 % (20.5-51.1); % Monocytes 6.3 % (1.7-9.3); % Neutrophils 69.3 % (42.2-75.2); Absolute Basophils 0.1 10^3/uL (0-0.2); Absolute Eosinophils 0.2 10^3/uL (0-0.7); Absolute Lymphocytes 1.6 10^3/uL (1.2-3.4); Absolute Monocytes 0.5 10^3/uL (0.1-0.6); Absolute Neutrophils 5.2 10^3/uL (1.4-6.5); Hematocrit 34.1 % (39.0-52.0); Hemoglobin 11.8 g/dL (13.0-18.0); Mean Corp Hgb Conc. 34.6 g/dL (33.0-37.0); Mean Corpuscular Hgb 30.3 pg (27.0-31.0); Mean Corpuscular Volume 87.7 fL (80.0-94.0); Mean Platelet Volume 9.6 fL (7.4-10.4); Nucleated Red Blood Cells % 0 % (-); Platelet Count 212 10^3/uL (130-400); Red Blood Cell Count 3.89 10^6/uL (4.70-6.10); Red Cell Dist. Width 14.4 % (11.5-14.5); White Blood Cell Count 7.4 10^3/uL (4.8-10.8)
[2024-09-23 14:15] LABS: Glycohemoglobin (HgbA1c) 7.4 % (4.0-5.6)
[2024-09-23 14:58] LABS: ALT (SGPT) 17 U/L (0-50); AST (SGOT) 15 U/L (17-59); Albumin 4.2 g/dl (3.5-5.0); Alkaline Phosphatase 76 U/L (38-126); Blood Urea Nitrogen 22 mg/dl (9-20); Calcium 9.4 mg/dl (8.4-10.2); Carbon Dioxide 26 mmol/L (22-30); Chloride 106 mmol/L (98-107); Glucose 200 mg/dl (70-99); Sodium 141 mmol/L (135-145); Total Bilirubin 0.6 mg/dl (0.2-1.3); Total Protein 6.8 g/dl (6.3-8.2); eGFR 53.17
[2024-09-23 14:59] LABS: TSH 1.32 uIU/ml (0.47-4.68)
== END ==
LOC: REG 12:22
PROVIDERS: ATTENDING PHYSICIAN Family Medicine
DX: E11.21 Type 2 diabetes mellitus with diabetic nephropathy (principal); I10 Essential (primary) hypertension; E78.2 Mixed hyperlipidemia; N18.31 Chronic kidney disease, stage 3a; E11.42 Type 2 diabetes mellitus with diabetic polyneuropathy; D50.9 Iron deficiency anemia, unspecified; I48.0 Paroxysmal atrial fibrillation
CPT/HCPCS: 36415; 80053; 83036; 84443; 85025

== ENCOUNTER 2024-11-11 11:15 | Inpatient (IN) | payer MEDICARE, OTHER, SELFPAY ==
[2024-11-11] VITALS (22 sets, daily range): BP systolic 150–196; BP diastolic 73–119; BMI 22.4
[2024-11-11 03:52] LABS: Hematocrit 33.8 % (39.0-52.0); Hemoglobin 11.5 g/dL (13.0-18.0); Mean Corp Hgb Conc. 34.0 g/dL (33.0-37.0); Mean Corpuscular Volume 86.9 fL (80.0-94.0); Nucleated Red Blood Cells % 0 % (-); Platelet Count 208 10^3/uL (130-400); Red Cell Dist. Width 14.1 % (11.5-14.5)
[2024-11-11 04:16] LABS: ALT (SGPT) 13 U/L (0-50); AST (SGOT) 16 U/L (17-59); Albumin 4.1 g/dl (3.5-5.0); Alkaline Phosphatase 79 U/L (38-126); Blood Urea Nitrogen 19 mg/dl (9-20); Calcium 9.5 mg/dl (8.4-10.2); Carbon Dioxide 26 mmol/L (22-30); Chloride 107 mmol/L (98-107); Estimated Creatinine Clearance 46 ml/min; Glucose 173 mg/dl (70-99); Potassium 3.4 mmol/L (3.5-5.1); Sodium 140 mmol/L (135-145); Total Protein 6.8 g/dl (6.3-8.2); eGFR > 60.00
[2024-11-11 05:55] LABS: Urine Character Clear (Clear)
--- NOTE | 2024-11-11 06:41 | ED.GENMED ---
History of Present Illness
General
Chief Complaint: Male Genito-Urinary Symptoms
Source: patient
Exam Limitations: none
Time Seen by Provider: 11/11/24 06:28
History of Present Illness
History of Present Illness:
89-year-old male on Eliquis with history of BPH presents with urinary incontinence worsening recently. There was a constant flow of urine he was unable to control. His states that she was having difficulty keeping up with cleaning the sheets.
He denies significant pain. He does recall having a kidney stone about a year ago without any discomfort that presented this way. He denies fever. No other complaints at this time
Past History
Past History
ED Past Medical History: Arrthythmia, HTN, Hypercholesterolemia, NIDDM, Other (Kidney stones) and Other (Syncope)
ED Past Surgical History: Negative Cardiac
Social History
Tobacco: Non-smoker
Alcohol: Occasional
Drug: None
Personal:
Living: with family
Employment: Retired
Family History
Family History: Other (Noncontributory)
Phy Exam
Physical Exam
Physical Exam:
General: Well-appearing male no acute distress
HEENT: Normocephalic atraumatic
Heart: Irregular rate and rhythm
Lungs: Clear no wheeze
Abdomen is soft nontender
Extremities: No cyanosis
Course
Orders/Labs/Results
Orders:
Orders
11/11/24 03:38
Bladder Scan- Treatment ONCE
Bladder Scan As Directed
Follow Bladder Retention/Intermittent Cath Algorithm?: Yes
PRN if no void in __ hours: 6
Frequency: Per Retention Algorithm
If Bladder Scan Result >: 400
then:: Straight cath
Straight Cath As Directed
Frequency: Per Retention Algorithm
Additional Instructions: straight cath as needed per acute urinary retention algorithm for 24 hrs
Additional Instructions: for bladder scan greater than 400 mL
11/11/24 03:42
CMP [Comprehensive Metabolic Panel] Urgent
Complete Blood Count/With Diff Urgent
11/11/24 05:32
Urinalysis Reflex To Culture Urgent
Date Specimen was Collected: 11/11/24
Time Specimen was Collected: 03:37
Urine Microscopic Reflex Cult Urgent
11/11/24 06:41
CT Abd/pel Without Iv Or Oral Urgent
Comment:
Reason For Exam: hematuria, frequency
Abnormal Lab Results
11/11/24 11/11/24
03:42 05:32
RBC 3.89 L 10^6/uL
(4.70-6.10)
Hgb 11.5 L g/dL
(13.0-18.0)
Hct 33.8 L %
(39.0-52.0)
Lymphocytes % 16.4 L %
(20.5-51.1)
Potassium 3.4 L mmol/L
(3.5-5.1)
Glucose 173 H mg/dl
(70-99)
AST 16 L U/L
(17-59)
Ur Occult Blood Reflex 4+ A
(Negative)
Urine RBC 16-20 A /HPF
(0-2)
Urine Glucose 1+ A
(Negative)
Urine Albumin (Reflex) 2+ A
(Neg - Trace)
11/11/24 03:42
11/11/24 03:42
Vital Signs
Initial and Last Documented VS:
Initial Vital Signs
Temp Pulse Resp
97.6 F 82 18
11/11/24 03:29 11/11/24 03:29 11/11/24 03:29
Last Documented Vital Signs
Temp Pulse Resp BP Pulse Ox
97.6 F 80 19 178/86 96
11/11/24 03:29 11/11/24 05:30 11/11/24 05:30 11/11/24 05:00 11/11/24 06:43
MDM/Problems Addressed
Differential Diagnosis Includes:
Patient presents with uncontrollable urinary incontinence. This is gotten worse recently. No significant pain. Consider UTI versus kidney stone versus urinary retention
Bedside bladder scan upon arrival showed volume of 122 mL. Condom catheter was placed. Urinalysis with hematuria but no sign of infection. Will order CT scan
*Pulse Oximetry
SaO2: 96
Oxygen Mode of Delivery: Room air
Patient hypoxic: no
*Critical Care Note
Total Time (30-74mins, 75-104mins- exclusive of procedures): Not Applicable
Update Note
Update Note:
CT demonstrates bilateral UVJ stones. Right measures 2 mm left measures 5 mm. No infection in the urine. Discussed with urology who is recommending patient stay in the hospital for operative intervention. Will keep the patient n.p.o.
ED Attending Note
-
Portions of this chart may have been created with voice recognition software.� Occasional wrong word or��sound alike� substitutions may have occurred due to the inherent limitations of voice recognition software.
Discharge Plan
Departure
Patient Disposition: Admit
Date of Disposition: 11/11/24
Time of Disposition: 08:37
Presentation/result/management discussed w/ accepting MD/DO: Hospitalist
Discharge Problem:
Bilateral ureteral calculi
Prescriptions:
No Action
diltiazem HCl 120 MG capsule,extended release 24hr
120 mg PO DAILY
metformin 500 MG tablet extended release 24 hr
500 mg PO BID
Eliquis 5 MG tablet
5 mg PO BID
tolterodine 2 mg capsule,extended release 24hr
2 mg PO HS
latanoprost 0.005 % drops
1 drp BOTH EYES HS
tamsulosin 0.4 mg capsule
0.4 mg PO BID
bepotastine besilate 1.5 % drops
1 drp BOTH EYES DAILY
labetalol 100 mg Tablet
100 mg PO BID Qty: 30 0RF
cephalexin 500 mg capsule
500 mg PO TID 7 Days Qty: 21 0RF
ondansetron 4 mg tablet,disintegrating
4 mg PO Q6H PRN (Reason: nausea and vomiting) Qty: 7 0RF
tamsulosin [Flomax] 0.4 mg capsule
0.4 mg PO HS 7 Days Qty: 7 0RF
Referrals:
UNKNOWN - PT DOES,NOT KNOW [Family Provider]
Interventions
Interventions:
*Risk Screen - Suicide Last Done: 11/11/24 03:29
*General Assessment Last Done: 11/11/24 03:29
*Neglect/Abuse Screening Last Done: 11/11/24 03:29
*ED- Fall Risk Assessment Last Done: 11/11/24 03:29
*ED COVID-19 Vaccine History Last Done: 11/11/24 03:29
ED-Male Genitourinary Assessment Last Done: 11/11/24 04:39
Discharge Date and Time
Print Language: ZIMBABWEAN
[2024-11-11 07:18] LABS: Urine Red Blood Cell 16-20 /HPF (0-2)
--- NOTE | 2024-11-11 09:01 | HPS.HSE ---
Family Physician
-
Family Physician: NOT KNOW UNKNOWN - PT DOES
Chief Complaint
-
Worsening Urinary Incontinence
History of Present Illness
89M mod afib Eliquis HTn NIDDM Dementia p/w with worsening urinary incontinence frequency. NERY Lara also endorses difficulty taking care of patient at home, requesting placement. AOx2 disoriented to time. Endorses constipation, denies
significant pain including CVA tenderness or dysuria. Hypertensive but otherwise stable respiratory status on room air appears comfortable at rest. CT abd/pelvis obtained revealed mild right hydronephrosis 2/2 2mm calculus Rt UVJ and chronic
moderate left hydronephrosis 2/2 5 mm calculus distal left ureter. Lt periureteral and perinephric inflammatory changes with associate Left perinephric and retroperitoneal lymphadenopathy. Case was discussed with urology who recommended NPO for OR
stent placement and possible Stone removal.
Medical History
Past Medical History
Past Medical History: Reports Other (as above)
Past Surgical History: Reports Other (as above)
Social History
Tobacco: Non-smoker
Alcohol: None
Drug: None
Personal:
Living: With Family
Family History
Family History: Not pertinent (reviewed)
Allergies / Home Medications
Allergies reflects when Allergies were last updated in [facility].
Home Medications with original date entered in [facility]
Allergy/Medication List:
Allergies
Allergy/AdvReac Type Severity Reaction Status Date / Time
No Known Allergies Allergy Verified 11/11/24 03:29
Home Medications
apixaban 5 mg tablet (Eliquis) 5 mg PO BID Blood clot prevention/tx 04/10/19
diltiazem HCl 120 mg capsule,extended release 24 hr 120 mg PO DAILY Blood pressure 04/10/19
metformin 500 mg tablet,extended release 24 hr 500 mg PO BID Diabetes 04/10/19
bepotastine besilate 1.5 % eye drops 1 drp BOTH EYES DAILY Eye Condition 11/10/22
latanoprost 0.005 % eye drops 1 drp BOTH EYES HS Eye Condition 11/10/22
tamsulosin 0.4 mg capsule 0.4 mg PO BID Urinary Issue 11/10/22
tolterodine 2 mg capsule,extended release 24 hr 2 mg PO BID Urinary Issue 11/10/22
Brioschi Digestive Aid 1 tsp PO BID Supplement 11/11/24
ascorbic acid (vitamin C) 500 mg tablet (Vitamin C) 500 mg PO DAILY Supplement 11/11/24
cholecalciferol (vitamin D3) 25 mcg (1,000 unit) tablet (Vitamin D3) 25 mcg PO DAILY Supplement 11/11/24
cyanocobalamin (vitamin B-12) 1,000 mcg tablet 1,000 mcg PO DAILY Supplement 11/11/24
labetalol 100 mg tablet 100 mg PO BID Blood Pressure 11/11/24
Review of Systems
-
A 12 point ROS was completed and negative except as noted: Yes
Constitutional: Reports Other (as below)
Physical Exam
Vital Signs
Vital Signs
Temp Pulse Resp BP Pulse Ox
97.6 F 86 16 153/119 96
11/11/24 03:29 11/11/24 08:53 11/11/24 08:53 11/11/24 08:53 11/11/24 08:53
Physical Exam
General: Other (as below)
Laboratory Results
-
11/11/24 03:42
11/11/24 03:42
Laboratory Results
Total Bilirubin 0.9 mg/dl (0.2-1.3) 11/11/24 03:42
AST 16 U/L (17-59) L 11/11/24 03:42
ALT 13 U/L (0-50) 11/11/24 03:42
Alkaline Phosphatase 79 U/L (38-126) 11/11/24 03:42
Impression/Plan
-
ROS
General: Denies fever chills night sweats unexpected weight loss
Neuro: Denies seizure shaking loss of consciousness dizziness vertigo
Psych: denies depression hallucinations confusion manic episodes
Endocrine: Denies polyuria polydipsia polyphagia heat/cold intolerance
HEENT: Denies blindness visual disturbances epistaxis
Pulmonary: denies coughing hemoptysis sneezing sob dyspnea on exertion
Cardiovascular: denies chest pain palpitations leg swelling
Hematology: denies signs symptoms of anemia easy bruising/bleeding
Gastrointestinal: Reports constipation denies nausea vomiting diarrhea hematemesis hematochezia melena
: denies retention dysuria reports urinary frequency incontinence
Musculoskeletal: denies joint pain weakness
Dermatology: denies rash laceration bruising
Physical Exam
General: No pallor, cyanosis, or jaundice.
HEENT: Throat clear. PERRLA Normocephalic atraumatic Hard of Hearing
NECK: Supple. No JVD Carotid Bruits
RESPIRATORY: Lungs clear to auscultation. No crackles wheezes stridor
CVS: S1, S2 normal. RRR. No murmur, rub or gallop.
ABDOMEN: Soft, non-tender. No distension. BS+/normal.
EXTREMITIES: No peripheral cyanosis or edema.
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
IMPRESSION:
89M mod afib Eliquis HTn NIDDM Dementia p/w with worsening urinary incontinence frequency. NERY Lara also endorses difficulty taking care of patient at home, requesting placement. AOx2 disoriented to time. Endorses constipation, denies
significant pain including CVA tenderness or dysuria. Hypertensive but otherwise stable respiratory status on room air appears comfortable at rest. CT abd/pelvis obtained revealed mild right hydronephrosis 2/2 2mm calculus Rt UVJ and chronic
moderate left hydronephrosis 2/2 5 mm calculus distal left ureter. Lt periureteral and perinephric inflammatory changes with associate Left perinephric and retroperitoneal lymphadenopathy. Case was discussed with urology who recommended NPO for OR
stent placement and possible Stone removal.
PLAN:
#B/L Kidney Stones with associate Hydronephrosis
#Urinary urgency incontinence
#Dementia, poa unable to take care at [facility]
Tele admit
Urology Eval Appreciated npo for OR stent placement and possible stone removal
urinalysis not suggestive of infection, Vital signs stable.
Eventual PT/OT eval
case mgmt consult for discharge planning/placement
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
hold Eliquis for procedure as above
resume home Cardizem with holding parameters
#HTN
home Cardizem labetalol with holding parameters
#DM
recent A1c 7.4
low dose sliding scale for now
glycemic control
hold home Metformin for now
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
unchanged from prior imaging
abd soft nontender
monitor for now
#Constipation
bowel regimen
DVT ppx scd
DNR as per patient and patient's nery Lara
I spent a total of 80 minutes with the patient or on the floor. More than 50% of this time involved counseling and coordination of care.
--- NOTE | 2024-11-11 10:57 | CM ---
Addendum entered by Joselyn Jaffe 11/11/24 11:11:
Hx [facility] and [facility]
Original Note:
CM met with pt bedside in ED and spoke to his Jane over the phone. Pt lives with in 2 story home, has half BA on first floor, has stair glide to get to second floor.
Per pt needs assistance with ADLs and personal care, has RW but cannot stand or walk. Does have wheelchair.
Per they have a woman who comes 3 mornings a week and does housework, also has a man who comes 2 mornings a week to assist with Antonio's personal care, per [employer] pays for that.
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
Jane states they have looked at [facility] for placement for Antonio, she doesn't think they can afford to pay for it. She is also interested in [facility]. We discussed SNF and need for 3 night stay to have it covered by insurance.
They have 3 children, 1 son lives a mile away and provides support, other son lives in [place], visits weekly. Their daughter is estranged from them.
PCP: Dr Shon Zambrano
Pharmacy: [facility] [place] [address] [place]
CM will continue to follow for all discharge planning needs.
[2024-11-11] MEDS: LR 1000 IV ×2 (11:25→15:29)
--- NOTE | 2024-11-11 12:13 | CONS.URO ---
Consultation
-
Date/Time Consultation Performed: 1213 on 11/11/24
Performing Provider: Peffer
Reason for Consultation: Kidney stones
Medical History
History of Present Illness
89-year-old male on Eliquis with history of BPH, last seeing Dr. Brewer around 12/2023
Was in ER 04/2024 for urinary symptoms and was found to have a 4mm L distal ureteral stone
It does not appear that he follow up after this
Presents today with urinary incontinence worsening recently. There was a constant flow of urine he was unable to control. His states that she was having difficulty keeping up with cleaning the sheets.
He denies significant pain - no flank pain or gross hematuria
No fevers, chills, nausea or vomiting
He does recall having a kidney stone about a year ago without any discomfort that presented this way
CT scan showed bilateral distal ureteral stones
5mm on L and 2mm on R
A few small b/l renal stones
Past Medical History
Past Medical History: Other ( Arrthythmia, HTN, Hypercholesterolemia, NIDDM, Other (Kidney stones) and Other (Syncope))
Past Surgical History: Cardiac
Social History
Tobacco: Non-smoker
Alcohol: Occasional
Drug: None
Family History
Family History: Reviewed & Not Pertinent
Allergies/Home Medications
Allergies
Allergy/AdvReac Type Severity Reaction Status Date / Time
No Known Allergies Allergy Verified 11/11/24 03:29
Home Medications
�Medication �Instructions �Recorded �Confirmed �Type
apixaban 5 mg tablet (Eliquis) 5 mg PO BID Blood clot 04/10/19 11/11/24 History
prevention/tx
diltiazem HCl 120 mg 120 mg PO DAILY Blood pressure 04/10/19 11/11/24 History
capsule,extended release 24 hr
metformin 500 mg tablet,extended 500 mg PO BID Diabetes 04/10/19 11/11/24 History
release 24 hr
bepotastine besilate 1.5 % eye 1 drp BOTH EYES DAILY 11/10/22 11/11/24 History
drops
latanoprost 0.005 % eye drops 1 drp BOTH EYES HS 11/10/22 11/11/24 History
tamsulosin 0.4 mg capsule 0.4 mg PO BID 11/10/22 11/11/24 History
tolterodine 2 mg capsule,extended 2 mg PO BID 11/10/22 11/11/24 History
release 24 hr
labetalol 100 mg tablet 100 mg PO BID #30 tabs 11/14/22 11/11/24 Rx
Brioschi Digestive Aid 1 tsp PO BID 11/11/24 11/11/24 History
ascorbic acid (vitamin C) 500 mg 500 mg PO DAILY 11/11/24 11/11/24 History
tablet (Vitamin C)
cholecalciferol (vitamin D3) 25 25 mcg PO DAILY 11/11/24 11/11/24 History
mcg (1,000 unit) tablet (Vitamin
D3)
cyanocobalamin (vitamin B-12) 1,000 mcg PO DAILY 11/11/24 11/11/24 History
1,000 mcg tablet
Physical Exam
Vital Signs
Vital Signs
Temp Pulse Resp BP Pulse Ox
97.6 F 89 16 168/80 97
11/11/24 03:29 11/11/24 11:44 11/11/24 11:44 11/11/24 11:44 11/11/24 11:44
Lab / Testing Results
Laboratory Results
11/11/24 03:42
11/11/24 03:42
Physical Exam
General: Well Developed, Well Nourished and No Apparent Distress
Respiratory: Clear
GI: Soft and Non Tender
Genito-urinary: No Costovertebral Tend
Neuro: AO x 3
Psych: Calm and Intact Judgement
Assessment / Plan
-
89M presenting with urinary frequency and incontinence found to have bilateral distal ureteral stones
No acute renal failure or sepsis
No symptoms of infection and negative UA
- Given presence of b/l partially obstructing ureteral stones and likely persistence of the L ureteral stone since at least 04/2024, recommend OR for cystoscopy, bilateral ureteral stent placement, possible bilateral ureteroscopy if able to access
stones and not impaired by bleeding due to active anticoagulation on Eliquis
- Ceftriaxone for ppx
- NPO
- Hold Eliquis today, okay to resume tomorrow if minimal hematuria
- Some chronic retroperitoneal lymphadenopathy which may require further assessment in follow up
Data Reviewed
-
CT Scan: Image personally visualized and interpreted
Lab Data: Labs Reviewed
--- NOTE | 2024-11-11 13:12 | W.SUR.PREOP ---
Pre-Operative Surgical Note
-
I have examined this patient prior to the performance of the scheduled procedure.
The patient's condition is unchanged from the time of the current History and
Physical and the patient is able to undergo the scheduled procedure.
2 mm right UVJ and 5 mm distal left ureteral stones w/ obstruction.
On Eliquis (held this AM).
- To OR for bilateral URS/stone extraction (possible)/stent placement
- Surgical consent signed on chart
- IV Ancef 2g ordered
D/w patient.
--- NOTE | 2024-11-11 13:42 | W.IMMPOSTOP ---
Surgical Immed Post Op Note
-
Primary Surgeon: Osman
Pre-op Diagnosis: Obstructing right UVJ and distal left ureteral stones, BPH
Post-op Diagnosis: Same, bulbar urethral stricture
Procedure Performed: cystoscopy + bulbar stricture dilation, bilateral ureteral stent placement, complicated catheter placement
Anesthesia Type: LMA
Specimen / Cultures: None/None
Drains:
1. 4.7Fr x 24 cm JJ bilateral ureteral stents
2. 18Fr Coude catheter
Estimated Blood Loss: Negligible
Complications: None
Operative Findings:
Moderate bulbar urethral stricture dilated w/ rigid cystoscope - due to impaired visualization from mild oozing (on Eliquis), bilateral ureteral stent placement ONLY performed.
No bladder tumors/stones on detailed cystoscopy.
Urine hand-irrigated to clear at conclusion of procedure.
[2024-11-11 14:02] LABS: Glucose - Point of Care 137 mg/dl (70-99)
--- NOTE | 2024-11-11 14:48 | SUR.PHASEI ---
Pt will elevated bp and Dr Rodriguez made aware. No tx at this time.
[2024-11-11] MEDS: CARDIZEM CD 120 MG PO (16:06)
[2024-11-11] MEDS: APRESOLINE 5 MG IV (16:06)
[2024-11-11 17:05] LABS: Glucose - Point of Care 145 mg/dl (70-99)
--- NOTE | 2024-11-11 17:06 | CM ---
Spoke with patient's spouse and she would like patient skilled at [facility], if patient qualifies.
Plan; Await PT/OT and send referral to [facility].
[2024-11-11] MEDS: NOVOLOG FLEXPEN-LOW RESISTANCE SC (17:11)
[2024-11-11] MEDS: TRANDATE 100 MG PO (17:37)
--- NOTE | 2024-11-11 18:00 | PTCARENOTE ---
11/11- Patient was on commode having a bowel movement. This RN observed him groaning and mumbling then leaned forward onto bed. He was responsive to tactile stimulation but still mumbling incoherent speech and no eye contact. Pupils equal at 2mm
and reactive. HR=55, RR=12, MT=045/88, POX=98%. Skin=pale with cool extremities but +PulsesX4. Patient made eye contact and responded to verbal after ~1minute. He was still mumbling but coherent. Large brown BM found in commode. After cleaning
patient and helping him back into bed without issue, cleaned BM. Heme-tested BM, and was positive. Notified Physician.
--- NOTE | 2024-11-11 18:03 | PTCARENOTE ---
Patient arrived from PACU, at 1600, accompanied by and son. AAO x 3, hard of hearing. Unsteady gait when moving from stretcher to bed--requires a two person assist. Skin check completed by two RNs. BP elevated. Provider notified. PRN
hydralazine administered yet, ineffective; thus, evening dose of labetalol administered--approved by provider. See order history. Will recheck. Estrada catheter in place draining blood colored urine. Catheter care completed. Patient oriented to room.
Bed alarm in place. Call zavala and personal belongings within reach.
[2024-11-11] MEDS: SENOKOT-S 1 TABLET PO (20:36)
[2024-11-11] MEDS: FLOMAX 0.4 MG PO (20:37)
[2024-11-11] MEDS: XALATAN OPHTHALMIC SOLUTION 1 DROP BOTH EYES (21:38)
[2024-11-11 22:14] LABS: Glucose - Point of Care 250 mg/dl (70-99)
[2024-11-12] VITALS (8 sets, daily range): BP systolic 137–166; BP diastolic 70–98; PULSE 71–72; O2SAT 94
[2024-11-12] MEDS: LR 1000 IV (03:03)
[2024-11-12 07:40] LABS: Glucose - Point of Care 181 mg/dl (70-99)
[2024-11-12 07:58] LABS: Hematocrit 32.3 % (39.0-52.0); Hemoglobin 11.2 g/dL (13.0-18.0); Mean Corp Hgb Conc. 34.7 g/dL (33.0-37.0); Mean Corpuscular Volume 85.7 fL (80.0-94.0); Platelet Count 209 10^3/uL (130-400); Red Cell Dist. Width 13.9 % (11.5-14.5)
[2024-11-12 08:25] LABS: Blood Urea Nitrogen 18 mg/dl (9-20); Calcium 8.9 mg/dl (8.4-10.2); Carbon Dioxide 26 mmol/L (22-30); Chloride 105 mmol/L (98-107); Estimated Creatinine Clearance 46 ml/min; Glucose 179 mg/dl (70-99); Potassium 3.4 mmol/L (3.5-5.1); Sodium 137 mmol/L (135-145); eGFR > 60.00
[2024-11-12 08:41] LABS: Magnesium 1.4 mg/dl (1.6-2.3)
[2024-11-12] MEDS: VITAMIN C 500 MG PO (08:49)
[2024-11-12] MEDS: VITAMIN B-12 1000 MCG PO (08:49)
[2024-11-12] MEDS: FLOMAX 0.4 MG PO ×2 (08:49→20:00)
[2024-11-12] MEDS: SENOKOT-S 1 TABLET PO ×2 (08:50→20:00)
[2024-11-12] MEDS: VITAMIN D3 (cholecalciferol) 25 MCG PO (08:50)
[2024-11-12] MEDS: CARDIZEM CD 120 MG PO (08:54)
[2024-11-12] MEDS: MIRALAX 17 GRAMS PO (08:54)
[2024-11-12] MEDS: TRANDATE 100 MG PO ×2 (08:54→20:00)
[2024-11-12] MEDS: NOVOLOG FLEXPEN-LOW RESISTANCE 1 UNITS SC (08:55)
[2024-11-12] MEDS: OLOPATADINE 0.1% OPHTHALMIC SOLUTION 1 DROP OPHTH (08:55)
--- NOTE | 2024-11-12 08:58 | W.PN.HOSP.TC ---
Addendum entered and electronically signed by Jean Claude Ireland MD 11/13/24 09:43:
permanent atrial fibrillation
Original Note:
Today's Communication/Plan
-
Discharge planning SNF rehab
Assessment / Plan
Assessment / Plan
Physical Exam
General: No pallor, cyanosis, or jaundice.
HEENT: Throat clear. PERRLA Normocephalic atraumatic Hard of Hearing
NECK: Supple. No JVD Carotid Bruits
RESPIRATORY: Lungs clear to auscultation. No crackles wheezes stridor
CVS: S1, S2 normal. RRR. No murmur, rub or gallop.
ABDOMEN: Soft, non-tender. No distension. BS+/normal.
EXTREMITIES: No peripheral cyanosis or edema.
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
IMPRESSION:
89M mod afib Eliquis HTn NIDDM Dementia p/w with worsening urinary incontinence frequency. NERY Lara also endorsed difficulty taking care of patient at home, requesting placement. AOx2 disoriented to time. Endorsed constipation, denied
significant pain including CVA tenderness or dysuria. Hypertensive but otherwise stable respiratory status on room air appeared comfortable at rest. CT abd/pelvis obtained revealed mild right hydronephrosis 2/2 2mm calculus Rt UVJ and chronic
moderate left hydronephrosis 2/2 5 mm calculus distal left ureter. Lt periureteral and perinephric inflammatory changes with associate Left perinephric and retroperitoneal lymphadenopathy. Case was discussed with urology who recommended NPO for OR
stent placement and possible Stone removal.
PLAN:
#B/L Kidney Stones with associate Hydronephrosis
#Urinary urgency incontinence
#Dementia, poa unable to take care of pt at home
Tele admit
Urology Eval Appreciated s/p cystoscopy 11/11/24 b/l ureteral stent placement incidental finding urethral stricture dilated, Estrada placed to maintain at discharge to allow stricture healing, cleared to resume Eliquis,
Outpatient follow up with Dr. Brewer to discuss eventual ureteroscopy and ureteral stone removal
urinalysis not suggestive of infection, Vital signs stable.
PT/OT eval appreciated SNF rehab
case mgmt consult appreciated
#Afib
air sampling and monitoring
Eliquis resumed
resume home Cardizem with holding parameters
#HTN
home Cardizem labetalol with holding parameters
#DM
recent A1c 7.4
low dose sliding scale for now
glycemic control
hold home Metformin for now
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
unchanged from prior imaging
abd soft nontender
monitor for now
#Constipation
bowel regimen
DVT ppx scd
DNR
discussed with pt and pt's Jane
I spent a total of 45 minutes with the patient or on the floor. More than 50% of this time involved counseling and coordination of care.
Anticipated Discharge: 24 - 48 hours
Subjective/Interval History
-
Date of Service: November 12, 2024
No acute distress, resting comfortably in bed, overall reports feeling well. Jane present during evaluation.
Objective Data
-
Labs:
Laboratory Results
11/12/24
07:34
WBC 9.4
Hgb 11.2 L
Hct 32.3 L
Plt Count 209
Sodium 137
Potassium 3.4 L
Chloride 105
Carbon Dioxide 26
BUN 18
Creatinine 1.0
Glucose 179 H
Calcium 8.9
Vital Signs:
Vital Signs
Temp Pulse Resp BP Pulse Ox
98.8 F 96 18 155/86 96
11/12/24 07:00 11/12/24 07:00 11/12/24 07:00 11/12/24 07:00 11/12/24 07:00
I&O
08/11/12/24 11/13/24
06:59 06:59 06:59
Intake Total 680 / 680
Output Total 450 / 450 500 / 500
Balance 230 / 230 -500 / -500
[2024-11-12] MEDS: KCL 40 MEQ PO (10:40)
[2024-11-12] MEDS: MAGNESIUM SULFATE 100 IV (10:42)
[2024-11-12 11:37] LABS: Glucose - Point of Care 200 mg/dl (70-99)
[2024-11-12] MEDS: NOVOLOG FLEXPEN-LOW RESISTANCE 2 UNITS SC ×2 (11:42→16:59)
--- NOTE | 2024-11-12 12:10 | W.PN.URO.CBU ---
Today's Communication / Plan
-
- Maintain conklin catheter at discharge to allow stricture healing
- Okay to resume Eliquis, trend hematuria
- Outpatient follow up with Dr. Brewer to discuss eventual ureteroscopy and ureteral stone removal
Assessment / Plan
-
89M presenting with urinary frequency and incontinence found to have bilateral distal ureteral stones
s/p cystoscopy 11/11/24 for bilateral ureteral stent placement, incidentally found urethral stricture which was dilated
- Maintain conklin catheter at discharge to allow stricture healing
- Okay to resume Eliquis, trend hematuria
- Outpatient follow up with Dr. Brewer to discuss eventual ureteroscopy and ureteral stone removal
Dr. Brewer will have the office call to arrange follow up
Diagnosis
-
Date of Service: November 12, 2024
-
Patient Diagnosis:
bilateral ureteral stones
urethral stricture
Post Op Day: s/p dilation of urethral stricture, bilateral ureteral stent placement
Subjective
-
no events overnight
Objective
-
Vital Signs
Temp Pulse Resp BP Pulse Ox
98.1 F 78 16 143/90 98
11/12/24 11:24 11/12/24 11:24 11/12/24 11:24 11/12/24 11:24 11/12/24 11:24
Intake and Output
11/11/24 11/12/24 11/13/24
06:59 06:59 06:59
Intake Total 680 / 680
Output Total 450 / 450 500 / 500
Balance 230 / 230 -500 / -500
Intake:
Oral fluids 480 / 480
IV fluids (Total) 200 / 200
Normosol 200 / 200
Output:
Urine, Conklin 450 / 450
Urine, Voided 500 / 500
Laboratory Results
11/12/24 07:34
11/12/24 07:34
Physical Exam
-
General - well developed, well nourished, no acute distress
Chest - clear bilaterally
Abdomen - soft, non-tender
Conklin in place, light pink urine
--- NOTE | 2024-11-12 14:49 | PN.CDI ---
CDI
- -
CDI:
Physician Documentation Request
Admit Date: 11/11/24 11:15
Dear Doctor Shu,
Please review the following and provide your response in the progress notes.
Clinical Indicators:
Pt admitted with bilateral kidney stone with obstruction s/p bilateral ureteral stenting
Documented per H&P, ' #Afib nuclear monitoring technician hold Eliquis for procedure as above resume home Cardizem with holding parameters...'
Documented per past visit progress note 11/11/22, ' Permanent atrial fibrillation Resume calcium channel blockers, Cardizem CD 120 mg daily On anticoagulation, Eliquis 5 mg p.o. twice a day...'
If possible, please provide further specificity regarding atrial fibrillation, such as:
Permanent atrial fibrillation - when a decision has been made to accept the presence of AF and there is no further attempt to restore or maintain sinus rhythm
Paroxysmal atrial fibrillation - terminates spontaneously or with intervention within 7 days of onset
Persistent atrial fibrillation - episodes of continuous AF that last more than 7 days and do not self-terminate
Other - please specify
Use of terms such as suspected, likely, concern for, or probable (associated with a specific diagnosis that is being evaluated, monitored, or treated as if it exists) are acceptable and can be coded in the inpatient setting, when documented at the
time of discharge.
Thank you,
Sarah Hinton RN
CDI Specialist
[employer]
Please use your independent medical judgment in providing your response.
[2024-11-12 16:37] LABS: Glucose - Point of Care 243 mg/dl (70-99)
[2024-11-12] MEDS: XALATAN OPHTHALMIC SOLUTION 1 DROP BOTH EYES (20:00)
[2024-11-12] MEDS: ELIQUIS 5 MG PO (20:00)
[2024-11-12 21:53] LABS: Glucose - Point of Care 250 mg/dl (70-99)
[2024-11-13] VITALS (9 sets, daily range): BP systolic 127–211; BP diastolic 88–115; PULSE 101–112
--- NOTE | 2024-11-13 02:54 | DOWNTIME ---
There was a [employer] Client Die Developer Downtime on 11/13/2024 from 0100 to 11/13/2024 at 0235. Downtime documentation of patient's care, including medication administrations, has been reconciled in the electronic record per guidelines. Refer to the
patient's paper chart under the miscellaneous tab to see printed paper medication records and downtime forms.
[2024-11-13] MEDS: LR 1000 IV (07:20)
--- NOTE | 2024-11-13 07:57 | W.PN.HOSP.TC ---
Today's Communication/Plan
-
transferred to IVU for closer monitoring titratable Cardizem
strict NPO tentative plan for EGD tomorrow
prn IV labetalol hydralazine for hypertension
Eliquis on hold for hematuria possible TOV tomorrow
Glycemic control
Empiric Ceftriaxone started for possible UTI
Assessment / Plan
Assessment / Plan
Physical Exam
General: No pallor, cyanosis, or jaundice.
HEENT: Throat clear. PERRLA Normocephalic atraumatic Hard of Hearing
NECK: Supple. No JVD Carotid Bruits
RESPIRATORY: Lungs clear to auscultation. No crackles wheezes stridor
CVS: S1, S2 normal. RRR. No murmur, rub or gallop.
ABDOMEN: Soft, non-tender. No distension. BS+/normal.
EXTREMITIES: No peripheral cyanosis or edema.
UROLOGY PHYSICIAN: AOx2 disoriented to Time
Psych: occasional tangential speech endorsing suicidal ideation unclear sincerity no plan 'the problem is we need a plan'
IMPRESSION:
89M mod afib Eliquis HTn NIDDM Dementia p/w with worsening urinary incontinence frequency. NERY Lara also endorsed difficulty taking care of patient at home, requesting placement. AOx2 disoriented to time. Endorsed constipation, denied
significant pain including CVA tenderness or dysuria. Hypertensive but otherwise stable respiratory status on room air appeared comfortable at rest. CT abd/pelvis obtained revealed mild right hydronephrosis 2/2 2mm calculus Rt UVJ and chronic
moderate left hydronephrosis 2/2 5 mm calculus distal left ureter. Lt periureteral and perinephric inflammatory changes with associate Left perinephric and retroperitoneal lymphadenopathy. Case was discussed with urology who recommended NPO for OR
stent placement and possible Stone removal.
PLAN:
#B/L Kidney Stones with associate Hydronephrosis
#Urinary urgency incontinence
#Dementia, poa unable to take care of pt at home
Tele admit
Urology Eval Appreciated s/p cystoscopy 11/11/24 b/l ureteral stent placement incidental finding urethral stricture dilated, Estrada placed to allow stricture healing, cleared to resume Eliquis initially, placed back on hold as per urology d/t
persistent hematuria tentative plan for TOV 11/15/24
urinalysis not suggestive of infection, Vital signs stable.
PT/OT eval appreciated SNF rehab
case mgmt consult appreciated
#Mild Leukocytosis post-procedure suspect UTI
urinalysis reflex cx repeated
empiric ceftriaxone started
#11/13/24 developed severe Dysphagia unclear etiology unable to swallow meds
CT head noted no acute abn's
GI eval appreciated tentative plan for EGD 11/14 strict NPO in the meantime
#permanent Afib
#Hypertensive Urgency
swatch maker
Eliquis on hold d/t persistent hematuria as above
Home Cardizem switched to gtt while strict NPO as above
PO labetalol on hold d/t strict NPO, IV hydralazine and IV labetalol prn
relatively high risk situation
transferred to IVU for closer monitoring and titratable Cardizem gtt
Cardio eval requested
#Dementia
#Suicidal ideation 11/13/24
1:1
psych eval requested
#DM
recent A1c 7.4
low dose sliding scale for now
glycemic control
hold home Metformin for now
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
unchanged from prior imaging
abd soft nontender
monitor for now
#Constipation
bowel regimen
DVT ppx scd
DNR
discussed with pt and pt's Jane
I spent a total of 55 minutes with the patient or on the floor. More than 50% of this time involved counseling and coordination of care.
Anticipated Discharge: 24 - 48 hours
Subjective/Interval History
-
Date of Service: November 13, 2024
No acute distress, AOx2 disoriented to year, sometimes tangential speech. Hard of hearing. endorsing suicidal ideation. No clear plan, unclear how earnest patient is. present during evaluation reports patient has been endorsing SI all day
long. also reported patient accused her of trying to kill him when she first came in. Otherwise has been relatively calm and redirectable. Developed severe dysphagia unclear etiology, unable to swallow meds
Objective Data
-
Labs:
Laboratory Results
11/13/24
06:00
WBC Pending
Hgb Pending
Hct Pending
Plt Count Pending
Sodium Pending
Potassium Pending
Chloride Pending
Carbon Dioxide Pending
BUN Pending
Creatinine Pending
Glucose Pending
Calcium Pending
Vital Signs:
Vital Signs
Temp Pulse Resp BP Pulse Ox
97.6 F 95 16 156/98 92
11/13/24 03:44 11/13/24 03:44 11/13/24 03:44 11/13/24 03:44 11/13/24 03:44
I&O
11/12/24 11/13/24 11/14/24
06:59 06:59 06:59
Intake Total 680 / 680 600 / 600
Output Total 450 / 450 1900 / 1900
Balance 230 / 230 -1300 / -1300
[2024-11-13 08:04] LABS: Glucose - Point of Care 188 mg/dl (70-99)
[2024-11-13 08:42] LABS: Hematocrit 33.0 % (39.0-52.0); Hemoglobin 11.4 g/dL (13.0-18.0); Mean Corp Hgb Conc. 34.5 g/dL (33.0-37.0); Mean Corpuscular Volume 86.2 fL (80.0-94.0); Platelet Count 195 10^3/uL (130-400); Red Cell Dist. Width 13.8 % (11.5-14.5)
[2024-11-13 09:04] LABS: Blood Urea Nitrogen 17 mg/dl (9-20); Calcium 8.7 mg/dl (8.4-10.2); Carbon Dioxide 26 mmol/L (22-30); Chloride 104 mmol/L (98-107); Estimated Creatinine Clearance 46 ml/min; Glucose 185 mg/dl (70-99); Magnesium 1.9 mg/dl (1.6-2.3); Potassium 3.6 mmol/L (3.5-5.1); Sodium 137 mmol/L (135-145); eGFR > 60.00
[2024-11-13] MEDS: NOVOLOG FLEXPEN-LOW RESISTANCE 1 UNITS SC (09:07)
[2024-11-13] MEDS: OLOPATADINE 0.1% OPHTHALMIC SOLUTION 1 DROP OPHTH (09:10)
[2024-11-13] MEDS: XALATAN OPHTHALMIC SOLUTION 1 DROP BOTH EYES (09:15)
[2024-11-13] MEDS: APRESOLINE 5 MG IV ×2 (09:18→16:44)
[2024-11-13] MEDS: FLOMAX PO (10:13)
[2024-11-13] MEDS: TRANDATE PO (10:13)
[2024-11-13] MEDS: MIRALAX PO (10:13)
[2024-11-13] MEDS: ELIQUIS PO (10:13)
[2024-11-13] MEDS: SENOKOT-S PO (10:13)
[2024-11-13] MEDS: VITAMIN C PO (10:14)
[2024-11-13] MEDS: VITAMIN B-12 PO (10:14)
[2024-11-13] MEDS: VITAMIN D3 (cholecalciferol) PO (10:15)
[2024-11-13] MEDS: CARDIZEM CD PO (10:16)
--- NOTE | 2024-11-13 12:03 | W.PN.URO.CBU ---
Today's Communication / Plan
-
- Continue HOLDING Eliquis
- Plan for AM voiding trial 11/14 - Urology will order
- Outpatient F/U in 2 weeks to discuss/schedule bilateral ureteroscopy/stone extraction
D/w patient, spouse, son.
D/w RN.
D/w Hospitalist.
Assessment / Plan
-
89M presenting with urinary frequency and incontinence noted to have bilateral distal ureteral stones on CT imaging.
11/11: s/p cystoscopy, bilateral ureteral stent placement, bulbar stricture dilation.
11/12: UOP faintly pink-tinged UOP POD#1 - Eliquis restarted by primary team 11/12 (last dose in PM).
11/13: UOP light punch but aqueous w/o clots.
Irrigates easily w/o clot return.
Diagnosis
-
Date of Service: November 13, 2024
-
Diagnosis:
Bilateral ureteral stones
Bulbar urethral stricture
Post Op Day:
11/11: s/p dilation of urethral stricture, bilateral ureteral stent placement
Subjective
-
Confused from baseline this AM.
Urine light red in tubing w/o clots - draining well.
Objective
-
Vital Signs
Temp Pulse Resp BP Pulse Ox
97.7 F 115 18 203/115 96
11/13/24 07:00 11/13/24 10:16 11/13/24 07:00 11/13/24 10:16 11/13/24 07:00
Intake and Output
11/12/24 11/13/24 11/14/24
06:59 06:59 06:59
Intake Total 680 / 680 600 / 600
Output Total 450 / 450 1900 / 1900
Balance 230 / 230 -1300 / -1300
Intake:
Oral fluids 480 / 480 600 / 600
IV fluids (Total) 200 / 200
Normosol 200 / 200
Output:
Urine, Estrada 450 / 450 1400 / 1400
Urine, Voided 500 / 500
Laboratory Results
11/13/24 08:15
11/13/24 08:15
Physical Exam
-
General - well developed, well nourished, no acute distress
Abdomen - soft, non-tender, non-distended
- 20Fr Coude w/ light red aqueous UOP w/o clots
Skin - warm & dry with no rash
Neuro - slightly confused, awake
Care Review
Data Reviewed
Discussed with: Hospitalist, Nursing and Family
CT Scan: Report Pers Reviewed and Image Pers Reviewed
Total Time Spent with Patient (in minutes): 20
[2024-11-13 12:04] LABS: Glucose - Point of Care 198 mg/dl (70-99)
[2024-11-13 12:05] LABS: Urine Character Bloody (Clear)
[2024-11-13] MEDS: POTASSIUM PHOSPHATE 259.0909 MEQ IV (12:15)
[2024-11-13] MEDS: LANTUS 0.05 UNITS SC ×2 (12:17→23:42)
[2024-11-13] MEDS: NOVOLOG FLEXPEN-LOW RESISTANCE 300 UNITS SC (12:18)
[2024-11-13] MEDS: CARDIZEM 125 IV (12:19)
[2024-11-13] MEDS: FLUSH (NSS) 2 FLUSH IV (12:22)
[2024-11-13 12:24] LABS: Urine Red Blood Cell >100 /HPF (0-2); Urine Squamous Cell 0-2 /LPF (Few)
[2024-11-13] MEDS: STERILE WATER FOR INJECTION 10 ML IV (12:26)
[2024-11-13] MEDS: ROCEPHIN 1000 MG IV (12:26)
--- NOTE | 2024-11-13 13:54 | PTOTSP ---
Speech Therapy Evaluation:
Pt with chronic risk factors of dysphagia including dementia. Suspect some level of underlying pharyngeal dysphagia given report of intermittent coughing and recent 'hacking' on PO. At bedside, pt was observed with abundant secretions,
requiring consistent expectoration. Pt would swallow PO without difficulty or s/sx of aspiration, however shortly after, pt would expectorate large amounts of saliva mixed with small amounts of PO. This occurred across trials. Pt's reported
this was new. No chest imaging completed thus far.
Recommend:
1. Strict NPO
2. Medications non oral
3. Oral care 3x daily
4. Consider GI consult given aforementioned areas of concern
5. SENIOR SOFTWARE QUALITY ENGINEER to closely follow assess candidacy for diet initiation and/or if instrumental assessment warranted
--- NOTE | 2024-11-13 14:26 | CM ---
correctional manager reviewed patient's chart and physical therapy are recommending skilled options reviewed with patient and spouse and they have selected [facility], referral sent to [facility]. correctional manager spoke with patient's spouse today about possible
skilled placement.
Plan; Skilled placement, referral sent to [facility], waiting on determination.
--- NOTE | 2024-11-13 14:35 | CON.GI ---
Addendum entered and electronically signed by Lissette Grant Do, MD 11/13/24 17:30:
I saw and examined the patient.
The DICE DEALER's note was reviewed and I agree with the note.
Comment: Antonio is an 89yo M with dementia, afib on eliquis and DM who was admitted with bilateral ureteral stones s/p cystoscopy with stent placement. GI consulted for dysphagia and oral intolerance. States that gave him a pill one week ago
and it caused pain. Since then he is spitting up saliva and trouble eating. He did eat scrambled eggs this AM that did not come back. Speech was concerned about doing evaluation today given this spitting. He denies abd pain or chest pains. VSS
exam NTTP, NABS, spitting up clear mucous, drank water sip without coughing or issues. Labs reviewed
Impression
- Dysphagia
Suspect pill esophagitis, other consideration is esophagitis or stricture
- Afib on eliquis
- Recent cystoscopy and ureteral stent placement
- DM
- Dementia
Recommendations
- C/w PPI IV BID
- Improved BP management
- Plan for EGD tomorrow
- Risk/benefits discussed also gives permission
- Continue to hold eliquis
- NPO for now
Will follow with you
Original Note:
Consultation
-
Date/Time Consultation Requested: 11/13/241999
Date/Time Consultation Performed: 11/13/24 1430
Requesting Provider: J Luis Larry MD
Performing Provider: BRIANNA Fernandes, Lissette Bernal MD
Reason for Consultation: dysphagia
Medical History
Chief Complaint / HPI
History of Present Illness:
Pt is an 89yo presents with hx afib on Eliquis, HTN, NIDDM, dementia presents with worsening incontinence and frequency with concern for b/l ureteral stones requiring cystoscopy with b/l ureteral stent placement and bulbar stricture dilation.
Asked to see as noted with spitting up saliva. He has been seen by speech with noted concern for intermittent coughing and increased need to spit up secretions. Pt with limited history due to dementia. He denies feeling of dysphagia and in review
with no chronic history of dysphagia. He was noted over last week with increased issues with swallowing. He seemed to think it was after taking a pill. Pt has been seen by speech therapy with concern for pharyngeal dysphagia with noted with
swallow then expectorate secretions after drinking. recommended NPO med non oral means and GI eval. He denies GERD, nausea, vomiting, abdominal pain, diarrhea, constipation, blood or black in stools. Family did not recall hx EGD in past.
colonoscopy [address] Stout with diverticulosis, non bleeding hemorrhoids, right side nodule.
Past Medical History
Past Medical History: Arrhythmias (afib on Elquis ), HTN, Hypercholesterolemia, NIDDM and Other (syncope)
Social History
Tobacco: Non-Smoker
Alcohol: Other (social in past )
Drug: None
Personal:
Living: With Family
Employment: Retired
Family History
Family History: Other (no family hx colon cA or GI issues )
Allergies / Home Medications
Allergy/AdvReac Type Severity Reaction Status Date / Time
No Known Allergies Allergy Verified 11/11/24 03:29
�Medication �Instructions �Recorded
apixaban 5 mg tablet (Eliquis) 5 mg PO BID Blood clot 04/10/19
prevention/tx
diltiazem HCl 120 mg 120 mg PO DAILY Blood pressure 04/10/19
capsule,extended release 24 hr
metformin 500 mg tablet,extended 500 mg PO BID Diabetes 04/10/19
release 24 hr
bepotastine besilate 1.5 % eye 1 drp BOTH EYES DAILY Eye Condition 11/10/22
drops
latanoprost 0.005 % eye drops 1 drp BOTH EYES HS Eye Condition 11/10/22
tamsulosin 0.4 mg capsule 0.4 mg PO BID Urinary Issue 11/10/22
tolterodine 2 mg capsule,extended 2 mg PO BID Urinary Issue 11/10/22
release 24 hr
Brioschi Digestive Aid 1 tsp PO BID Supplement 11/11/24
ascorbic acid (vitamin C) 500 mg 500 mg PO DAILY Supplement 11/11/24
tablet (Vitamin C)
cholecalciferol (vitamin D3) 25 25 mcg PO DAILY Supplement 11/11/24
mcg (1,000 unit) tablet (Vitamin
D3)
cyanocobalamin (vitamin B-12) 1,000 mcg PO DAILY Supplement 11/11/24
1,000 mcg tablet
labetalol 100 mg tablet 100 mg PO BID Blood Pressure 11/11/24
Review of Systems
-
Unable to obtain full review of systems at this time due to: Dementia
History Source: Patient and Family
Constitutional: Reports Weight Loss (over time )
EENT: Reports Other (difficulty swallowing )
Respiratory: Reports No Symptoms
Cardiac: Reports No Symptoms
Abdomen/GI: Reports Other (continuous coughing up secretions )
: Reports Bleeding and Other (conklin in place )
Musculoskeletal: Reports No Symptoms
Skin: Reports No Symptoms
Neurological: Reports Weakness and Other (confusions worse with currrent illness )
Endocrine: Reports No Symptoms
Hematologic/Lymphatic: Reports Bleeding
Vital Signs
Temp Pulse Resp BP Pulse Ox
98.7 F 101 20 211/108 95
11/13/24 11:00 11/13/24 11:00 11/13/24 11:00 11/13/24 11:00 11/13/24 11:00
Physical Exam
Exam
General: Other (elderly male confused with some anxiety and trying to get up)
HEENT: Normocephalic, Anicteric and Other (noted with bringing up clear secretions )
Respiratory: Clear
Cardiac: Other (tachy)
GI: Soft, Non Tender and Non Distended
Musculoskeletal: No Clubbing and No Cyanosis
Skin: Warm and Dry
Neuro: Awake, Alert and Other (confused )
Psych: Agitated
Results
WBC 12.4 10^3/uL (4.8-10.8) H 11/13/24 08:15
Hgb 11.4 g/dL (13.0-18.0) L 11/13/24 08:15
Hct 33.0 % (39.0-52.0) L 11/13/24 08:15
MCV 86.2 fL (80.0-94.0) 11/13/24 08:15
Plt Count 195 10^3/uL (130-400) 11/13/24 08:15
Absolute Neuts (auto) 5.8 10^3/uL (1.4-6.5) 11/11/24 03:42
Sodium 137 mmol/L (135-145) 11/13/24 08:15
Potassium 3.6 mmol/L (3.5-5.1) 11/13/24 08:15
Chloride 104 mmol/L (98-107) 11/13/24 08:15
Carbon Dioxide 26 mmol/L (22-30) 11/13/24 08:15
BUN 17 mg/dl (9-20) 11/13/24 08:15
Creatinine 1.0 mg/dL (0.7-1.3) 11/13/24 08:15
Calcium 8.7 mg/dl (8.4-10.2) 11/13/24 08:15
Total Bilirubin 0.9 mg/dl (0.2-1.3) 11/11/24 03:42
AST 16 U/L (17-59) L 11/11/24 03:42
ALT 13 U/L (0-50) 11/11/24 03:42
Alkaline Phosphatase 79 U/L (38-126) 11/11/24 03:42
Diagnostic Image Results:
11/11/24 CT Abd/pel Without Iv Or Oral
1. Mild right hydronephrosis secondary to 2 mm calculus at the right ureterovesical junction. Chronic moderate left hydronephrosis secondary to 5 mm calculus the distal left ureter. Left periureteral and perinephric inflammatory changes. Left
nephrolithiasis. Left perinephric and retroperitoneal lymphadenopathy which could be related to the chronic left renal process.
2. Moderate to large volume of stool within the colon, no obstruction.
3. Mesenteric panniculitis, unchanged.
Prior GI Procedures:
EGD: none
Colonoscopy: [address] Stout with diverticulosis, non bleeding hemorrhoids, right side nodule.
Assessment / Plan
-
Pt is an 89yo presents with hx afib on Eliquis, HTN, NIDDM, dementia presents with worsening incontinence and frequency with concern for b/l ureteral stones requiring cystoscopy with b/l ureteral stent placement and bulbar stricture dilation.
Asked to see as noted with spitting up saliva. He has been seen by speech with noted concern for intermittent coughing and increased need to spit up secretions. Pt with limited history due to dementia. He denies feeling of dysphagia and in review
with no chronic history of dysphagia. He was noted over last week with increased issues with swallowing. He seemed to think it was after taking a pill. Pt has been seen by speech therapy with concern for pharyngeal dysphagia with noted with
swallow then expectorate secretions after drinking. recommended NPO med non oral means and GI eval. He denies GERD, nausea, vomiting, abdominal pain, diarrhea, constipation, blood or black in stools. Family did not recall hx EGD in past.
colonoscopy [address] Stout with diverticulosis, non bleeding hemorrhoids, right side nodule.
-acute onset dysphagia with bringing up secretion
-afib on Eliquis
- b/l ureteral stones requiring cystoscopy with b/l ureteral stent placement and bulbar stricture dilation
- HTN/tachycardia
-mesenteric panniculitis with similar finding on prior CT
-constipation on CT on admission with stool after admission
other med problems:
-NIDDM
-dementia
PLAN:
etiology of symptoms of acute dysphagia and abnormal speech eval with increase saliva and concern for pill esophagitis, food impaction but did tolerate some water, esophageal ulcer, esophagitis vs other
Plan for EGD in AM as marked HTN/tachycardia noted this afternoon
reviewed with Dr. larry for HR and BP management
strict NPO
will add PPI BID
bowel regiment when oral intake advanced - dulcolax PRN for now but did have stool after admission with large stool burden on Ct
Ct also noted mesenteric panniculitis as noted on prior CT-- will review with Dr. Do any other follow up needed
reviewed with agreeable to proceed with EGD in AM
trend hbg with hematuria
Eliquis hold prior to EGD - last dose 11/[address] Larry and nursing staff
-
-
Thank you for consultation and allowing me to participate in the patient's care. Please call the transportation engineering technician GI physician during the after hours with any questions or concerns.
[2024-11-13] MEDS: NSS 1000 IV (15:01)
[2024-11-13 18:32] LABS: Glucose - Point of Care 122 mg/dl (70-99)
[2024-11-13] MEDS: NOVOLOG FLEXPEN-LOW RESISTANCE SC (18:41)
--- NOTE | 2024-11-13 19:18 | W.PN.UPDATE ---
Update Note
Progress Note Update
Severe dysphagia unclear etiology unable to tolerate PO meds, GI evaluating tentative plan for EGD tomorrow
Micheal also remains on hold d/t persistent hematuria
In afib rvr and hypertensive urgency, cardizem gtt d/t inability to tolerate PO, transferring to IVU for closer monitoring and titration Cardizem
Patient also endorsing suicidal ideation, at bedside confirms that this has been all day long
AOx2 disoriented to time patient otherwise seems pleasantly demented/cheerful re-directable, unclear how earnest he is regarding SI but regardless 1:1 ordered, consulting psych to see tomorrow
--- NOTE | 2024-11-13 19:45 | PTCARENOTE ---
Patient to be transferred to IMU per physician order for Cardizem drip titration. Report given to Adriel GROSS via telephone. Await clean bed availability. Nightshift RENATO Matute updated.
--- NOTE | 2024-11-13 21:00 | PTCARENOTE ---
Pt arrived to floor in bed from 4W; Slid over to new bed in IMU; AAO x 1, confused at baseline. Pt pleasant and cheerful, denies suicidal ideation at the moment. Denies pain; Estrada catheter intact draining punch-colored urine; NSS @ 80/hr and
Cardizem @ 5mg/hr infusing into RAC - elbow immobilizer in place to prevent Pt from bending arm. HR ~ 108, cardizem increased to 10mg/hr; B/P = 190/91, PRN labetalol IV administered. Attempted to orient pt to room, call zavala within reach. 1:1
present in room. Will continue to monitor and assess.
[2024-11-13] MEDS: TRANDATE 10 MG IV (21:35)
[2024-11-13] MEDS: PROTONIX IV 40 MG IV (22:05)
[2024-11-13] MEDS: NSS (PRESERVATIVE FREE) 10 ML IV (22:07)
[2024-11-13 23:42] LABS: Glucose - Point of Care 117 mg/dl (70-99)
[2024-11-14] VITALS (19 sets, daily range): BP systolic 116–178; BP diastolic 56–108; PULSE 100
[2024-11-14] MEDS: APRESOLINE 5 MG IV (04:26)
[2024-11-14] MEDS: NSS 1000 IV ×2 (04:26→18:41)
[2024-11-14 04:40] LABS: Hematocrit 32.6 % (39.0-52.0); Hemoglobin 11.4 g/dL (13.0-18.0); Mean Corp Hgb Conc. 35.0 g/dL (33.0-37.0); Mean Corpuscular Volume 86.0 fL (80.0-94.0); Platelet Count 208 10^3/uL (130-400); Red Cell Dist. Width 13.8 % (11.5-14.5)
[2024-11-14 04:53] LABS: INR 1.33; PT 17.0 Sec (11.4-14.6)
[2024-11-14 05:08] LABS: Blood Urea Nitrogen 18 mg/dl (9-20); Calcium 8.8 mg/dl (8.4-10.2); Carbon Dioxide 24 mmol/L (22-30); Chloride 107 mmol/L (98-107); Estimated Creatinine Clearance 57 ml/min; Glucose 113 mg/dl (70-99); Magnesium 1.8 mg/dl (1.6-2.3); Potassium 3.9 mmol/L (3.5-5.1); Sodium 139 mmol/L (135-145); eGFR > 60.00
[2024-11-14 05:54] LABS: Glucose - Point of Care 119 mg/dl (70-99)
--- NOTE | 2024-11-14 08:25 | W.PN.GI.CBS2 ---
Today's Communication / Plan
-
NO EGD today given acute events overnight (HTN urgency and worsening confusion/SI)
When mental status improves recommend esophagram
Will follow with you
Assessment / Plan
-
Antonio is an 89yo M with dementia, afib on eliquis and DM who was admitted with bilateral ureteral stones s/p cystoscopy with stent placement. GI consulted for dysphagia and oral intolerance. States that gave him a pill one week ago and it
caused pain. Since then he is spitting up saliva and trouble eating. He did eat scrambled eggs this AM that did not come back. Speech was concerned about doing evaluation today given this spitting. He denies abd pain or chest pains. VSS exam
NTTP, NABS, spitting up clear mucous, drank water sip without coughing or issues. Labs reviewed
Impression
- Dysphagia
Suspect pill esophagitis, other consideration is esophagitis or stricture
- Afib on eliquis
- Recent cystoscopy and ureteral stent placement
- DM
- Dementia
Recommendations
- C/w PPI IV BID
- No EGD today given transfer to IMU with hypertensive urgency needing Cardizem gtt and suicidal ideations
- No further spitting up so clinically improved
- Continue to hold eliquis
- NPO ok for ice chips for now
- When mental status improves consider esophagram
Will follow with you.
Subjective
Subjective
Date of Service: November 14, 2024
He had some tachycardia
Objective
Data Reviewed
Laboratory Data:
Laboratory Results
11/14/24 04:33
11/14/24 04:33
Laboratory Results
PT 17.0 Sec (11.4-14.6) H 11/14/24 04:33
INR 1.33 11/14/24 04:33
Phosphorus 3.1 mg/dl (2.5-4.5) 11/14/24 04:33
Magnesium 1.8 mg/dl (1.6-2.3) 11/14/24 04:33
Total Bilirubin 0.9 mg/dl (0.2-1.3) 11/11/24 03:42
AST 16 U/L (17-59) L 11/11/24 03:42
ALT 13 U/L (0-50) 11/11/24 03:42
Alkaline Phosphatase 79 U/L (38-126) 11/11/24 03:42
Vital Signs and I&O:
Vital Signs
Temp Pulse Resp BP Pulse Ox
98.7 F 92 20 116/77 96
11/14/24 07:23 11/14/24 08:00 11/14/24 08:00 11/14/24 08:00 11/14/24 07:23
I&O
11/13/24 11/14/24 11/15/24
06:59 06:59 06:59
Intake Total 600 / 600 1450 / 1450
Output Total 1900 / 1900 1825 / 1825
Balance -1300 / -1300 -375 / -375
--- NOTE | 2024-11-14 09:15 | W.PN.HOSP.TC ---
Addendum entered and electronically signed by Jean Claude Ireland MD 11/18/24 06:45:
Hypokalemia
Hypophosphatemia
-monitor and replete as necessary.
Original Note:
Today's Communication/Plan
-
Stable for downgrade to IVU
Cardizem gtt
maintain Estrada
Urine cx neg
Ceftriaxone switched to Unasyn given concern aspiration
ok to dc 1:1
Assessment / Plan
Assessment / Plan
Physical Exam
General: No pallor, cyanosis, or jaundice.
HEENT: Throat clear. PERRLA Normocephalic atraumatic Hard of Hearing
NECK: Supple. No JVD Carotid Bruits
RESPIRATORY: Lungs clear to auscultation. No crackles wheezes stridor
CVS: S1, S2 normal. RRR. No murmur, rub or gallop.
ABDOMEN: Soft, non-tender. No distension. BS+/normal.
EXTREMITIES: No peripheral cyanosis or edema.
OUTSOLE CASER: AOx1 oriented only to self conversant largely coherent
Psych: calm
IMPRESSION:
89M mod afib Eliquis HTn NIDDM Dementia p/w with worsening urinary incontinence frequency. NERY Lara also endorsed difficulty taking care of patient at home, requesting placement. AOx2 disoriented to time. Endorsed constipation, denied
significant pain including CVA tenderness or dysuria. Hypertensive but otherwise stable respiratory status on room air appeared comfortable at rest. CT abd/pelvis obtained revealed mild right hydronephrosis 2/2 2mm calculus Rt UVJ and chronic
moderate left hydronephrosis 2/2 5 mm calculus distal left ureter. Lt periureteral and perinephric inflammatory changes with associate Left perinephric and retroperitoneal lymphadenopathy. Case was discussed with urology who recommended NPO for OR
stent placement and possible Stone removal.
PLAN:
#B/L Kidney Stones with associate Hydronephrosis
#Urinary urgency incontinence
#Dementia, poa unable to take care of pt at home
Tele admit
Urology Eval Appreciated s/p cystoscopy 11/11/24 b/l ureteral stent placement incidental finding urethral stricture dilated, Estrada placed to allow stricture healing, cleared to resume Eliquis initially, placed back on hold as per urology d/t
persistent hematuria tentative plan for TOV 11/16/24
PT/OT eval appreciated SNF rehab
case mgmt consult appreciated
#Mild Leukocytosis post-procedure suspect UTI ruled out
#aspiration pna
urinalysis reflex cx repeated, empiric ceftriaxone started
urine cx however neg, suspect aspiration given severe dysphagia, ceftriaxone switched to unasyn
#11/13/24 developed severe Dysphagia unclear etiology unable to swallow meds
CT head noted no acute abn's
GI eval appreciated suspect esophagitis vs stricture, PPI BID, strict NPO for now, plans for EGD canceled given multiple ongoing acute issues, tentative plan for barium esophagram when more stable
#permanent Afib
#Hypertensive Urgency
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
Eliquis on hold d/t persistent hematuria as above
Home Cardizem switched to gtt while strict NPO as above
PO labetalol on hold d/t strict NPO, IV hydralazine and IV labetalol prn
relatively high risk situation
transferred to IVU for closer monitoring and titratable Cardizem gtt (initially placed in IMU d/t lack of bed availability)
Cardio eval appreciated
#Dementia
#Suicidal ideation 11/13/24
psych eval appreciated, patient no longer endorsing SI, ok to dc 1:1
#B/l shoulders pain R>L
likely arthritic
bengay-like cream shoulders
IV toradol Q8 while strict NPO, PPI GI ppx while on Toradol
#DM
recent A1c 7.4
Lantus 5U
low dose sliding scale for now
glycemic control
hold home Metformin for now
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
unchanged from prior imaging
abd soft nontender
monitor for now
#Constipation
bowel regimen on hold d/t strict NPO as above
DVT ppx scd
DNR
discussed with pt and pt's Jane
I spent a total of 50 minutes with the patient or on the floor. More than 50% of this time involved counseling and coordination of care.
Anticipated Discharge: 24 - 48 hours
Subjective/Interval History
-
Date of Service: November 14, 2024
No acute distress, appears comfortable at this time. Reporting b/l shoulder pain R>L, Jane present during evaluation.
Objective Data
-
Labs:
Laboratory Results
11/14/24
04:33
WBC 12.2 H
Hgb 11.4 L
Hct 32.6 L
Plt Count 208
PT 17.0 H
INR 1.33
Sodium 139
Potassium 3.9
Chloride 107
Carbon Dioxide 24
BUN 18
Creatinine 0.8
Glucose 113 H
Calcium 8.8
Vital Signs:
Vital Signs
Temp Pulse Resp BP Pulse Ox
98.7 F 92 20 116/77 96
11/14/24 07:23 11/14/24 08:00 11/14/24 08:00 11/14/24 08:00 11/14/24 07:23
I&O
11/13/24 11/14/24 11/15/24
06:59 06:59 06:59
Intake Total 600 / 600 1450 / 1450
Output Total 1900 / 1900 1825 / 1825
Balance -1300 / -1300 -375 / -375
--- NOTE | 2024-11-14 10:17 | CON.CAR ---
Addendum entered and electronically signed by Aldair Zelaya MD 11/14/24 14:58:
I saw and examined the patient independently.
The RIGHT OF WAY CUTTER's note was reviewed and I agree with the note with changes/additions below.
Comment:
89 yo male with PMH of permanent A fib on eliquis, moderate admitted with ureteral stones s/p stents. Eliquis has been held for hematuria. Also having dysphagia and not taking PO. Exam with irregular rhythm, II/ systolic murmur, no edema.
Tele: Afib 80s-90s.
Permanent A fib. NPO due to dysphagia. We will use diltiazem drip for rate control. Trend tele.
Hematuria. Hold AC and montitor Hgb.
Original Note:
Consultation
Consultation Request
Date/Time Consultation Requested: 11/13/241916
Date/Time Consultation Performed: 11/14/24 1015
Requesting Provider: Dr. Ireland
Performing Provider: Cindy REED for Dr. Zelaya
Reason for Consultation: AFIB, HTN
Medical History
-
Chief Complaint: worsening urinary incontinence
History of Present Illness:
89 y/o male (cardiology patient of Dr. Caro) with permanent AFIB on Eliquis, moderate , DM2, hypertension, dyslipidemia, and dementia per chart who is here with complaints of worsening of urinary incontinence. Bilateral ureteral stones noted
and he is s/p stenting with urology. Hematuria is noted and Eliquis held. He is having significant dysphasia, such that he is not able to take PO pills at this time. GI and speech on the case. We are consulted due to AFIB and HTN. His heart rates
are currently controlled on IV diltiazem. BP's improved with this and IV labetalol and IV hydralazine. Otherwise, psychiatry is on the case due to suicidal ideation. He is in no distress at the time of my assessment and is pleasantly confused.
at bedside. He is laying flat in bed and denies any CP, SOB, palpitations.
Past Medical History
Past Medical History: Arrhythmias, HTN, Hypercholesterolemia, NIDDM and Valvular Disease
Social History
Personal:
Family History
Family History: Reviewed & Not Pertinent
Allergies / Home Medications
Allergy/AdvReac Type Severity Reaction Status Date / Time
No Known Allergies Allergy Verified 11/11/24 03:29
�Medication �Instructions �Recorded �Confirmed �Type
apixaban 5 mg tablet (Eliquis) 5 mg PO BID Blood clot 04/10/19 11/11/24 History
prevention/tx
diltiazem HCl 120 mg 120 mg PO DAILY Blood pressure 04/10/19 11/11/24 History
capsule,extended release 24 hr
metformin 500 mg tablet,extended 500 mg PO BID Diabetes 04/10/19 11/11/24 History
release 24 hr
bepotastine besilate 1.5 % eye 1 drp BOTH EYES DAILY Eye Condition 11/10/22 11/11/24 History
drops
latanoprost 0.005 % eye drops 1 drp BOTH EYES HS Eye Condition 11/10/22 11/11/24 History
tamsulosin 0.4 mg capsule 0.4 mg PO BID Urinary Issue 11/10/22 11/11/24 History
tolterodine 2 mg capsule,extended 2 mg PO BID Urinary Issue 11/10/22 11/11/24 History
release 24 hr
Brioschi Digestive Aid 1 tsp PO BID Supplement 11/11/24 11/11/24 History
ascorbic acid (vitamin C) 500 mg 500 mg PO DAILY Supplement 11/11/24 11/11/24 History
tablet (Vitamin C)
cholecalciferol (vitamin D3) 25 25 mcg PO DAILY Supplement 11/11/24 11/11/24 History
mcg (1,000 unit) tablet (Vitamin
D3)
cyanocobalamin (vitamin B-12) 1,000 mcg PO DAILY Supplement 11/11/24 11/11/24 History
1,000 mcg tablet
labetalol 100 mg tablet 100 mg PO BID Blood Pressure 08/18/25 08/18/25 History
Review of Systems
-
Unable to obtain full review of systems at this time due to: Dementia
History Source: Patient, Family and Other (chart)
Abdomen/GI: Other (trouble swallowing)
: Other (increased urinary incontinence)
Physical Exam
Vital Signs
Temp Pulse Resp BP Pulse Ox
98.7 F 92 20 116/77 96
11/14/24 07:23 11/14/24 08:00 11/14/24 08:00 11/14/24 08:00 11/14/24 07:23
Lab Results
11/14/24 04:33
11/14/24 04:33
Physical Exam
General: Well Developed and No Apparent Distress
HEENT: Normocephalic and Anicteric
Respiratory: Clear and Non Labored Respirations
Cardiac: Irregular Rhythm and Murmur (II/ systolic)
Skin: Warm and Dry
Neuro: Awake, Alert and Oriented (self- name)
Psych: Calm
Impression / Plan
-
Ureteral stones s/p cystoscopy, bilateral ureteral stent placement:
-urology on the case
-continue to hold AC per urology, hematuria noted
AFIB: permanent
-rates controlled on IV diltiazem- continue this for now (patient NPO for dysphagia). This requires intensive monitoring.
-AC held due to hematuria as above - resume when safe
HTN: severely elevated this admit
-improved with IV diltiazem, as well as labetalol and hydralazine
-once taking PO again, can adjust medicines as appropriate
Moderate :
-continue to monitor as OP
-denies CP, SOB
Data:
Echo 11/11/22: EF 60-65%. Severely dilated left atrium. Moderately dilated right atrium. Mild to moderate mitral regurgitation. Probable trileaflet, calcified aortic valve with restricted leaflet motion (essentially immobile right coronary cusp).
Likely moderate aortic stenosis; peak/mean gradients are 27/14 mmHg, calculated ARSENIO = 1.33 cm2. Mild to moderate aortic regurgitation. Mild to moderate tricuspid regurgitation. Estimated pulmonary artery pressure of 45-50 mmHg, assuming a right
atrial pressure of 3 mmHg.
Data Reviewed
-
EKG: Tracing Personally Visualized and interpreted (AFIB, nonspecific ST/T abnormalities)
CT Scan: Report Reviewed by me (Head CT: No acute intracranial abnormality noted.)
Medical Tests (Nuc Med, Echo etc): Report Reviewed by me (Echo as noted)
Labs: Labs Reviewed by me
[2024-11-14] MEDS: OLOPATADINE 0.1% OPHTHALMIC SOLUTION 1 DROP OPHTH (10:20)
[2024-11-14] MEDS: NSS (PRESERVATIVE FREE) 10 ML IV ×2 (10:20→20:39)
[2024-11-14] MEDS: PROTONIX IV 40 MG IV ×2 (10:20→20:39)
[2024-11-14] MEDS: TYLENOL/FEVERALL 650 MG RECTAL (11:02)
[2024-11-14] MEDS: TORADOL 15 MG IV ×3 (11:02→23:00)
--- NOTE | 2024-11-14 11:13 | W.PN.UPDATE ---
Update Note
Progress Note Update
patient seen chart reviewed. discussed with nursing and with dr larry. at bedside. this consult is being done today november 14 2024. patient is an 89 year old male admitted for urinary incontinence. he was found to have obstructing renal stones
and underwent urological procedure for stenting. he also has complained of dysphagia and regurgitating food. egd had been planned for today but was canceled given bp and other issues. he made some comments re suicide hence this consult. the patient
has no hx of psychiatric treatment. he was a vigorous man for much of his life. 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 she does note that since he retired which was in his 80's he has become rather
depressed and she feels that he has been experiencing memory issues. at the present moment he denies that he would hurt himself. this he answered readily 'i was emotional' but otherwise he was a notably poor historian unable to give dr larry his
name and unable to tell me where he was 'the library ' or the year. he did tell me he has three kids which is correct but said he had three grandkids as well and he has only one. he appeared to be in considerable discomfort. he said the pain was in
his left shoulder and was examined by dr larry. he takes no psychotropic medication.
past psych hx patient has not been treated for any psychiatric reason
medical hx see above re renal issues. hx hld carenoma ckd dm htn permanent a fib htn fe def hgb 11.4 tsh ok bp 116/77 currently conklin hx constipation stones in the past abd CAT hydronephrosis, ureteral stones lymphadenopathy c.o
constipation hx bph ecg afib qtc okay barium swallow planned when patient can tolerate
fh non contributory
substance abuse denied
social resides w who appears supportive. 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 even after retiring he was hired by a company in [place] who wanted him to stay for several years but he did not want to live in
[facility].
mse patient clearly in some physical distress speech was sparse initially i could not get him to answer at all. in the end he answered a few ? (see above) but was disoriented x3 unable to assess thought process. did not appear to hallucinate. he
did deny that he would hurt self but i could not get an answer as to whether he considered self depressed. cognition impaired insight lacking judgment may be fair
dx tme secondary to medical issues r/o depression r/o early dementia.
plan i do not see patient as a suicide risk currently although no one can predict the future with 100 per cent accuracy. would dc one to one for now as he is in the imu. patient clearly with encephalopathy likely related to medical would not see
need for antidepressants or other psych at this time. check b12 folate check in w him tomorrrow
[2024-11-14 12:24] LABS: Glucose - Point of Care 129 mg/dl (70-99)
[2024-11-14] MEDS: UNASYN IV ×3 (13:14→23:01)
[2024-11-14] MEDS: BenGay-Like 1 APPLIC TOPICAL ×3 (13:14→21:32)
[2024-11-14] MEDS: CARDIZEM 125 IV (14:30)
--- NOTE | 2024-11-14 14:35 | PN.CDI ---
CDI
- -
CDI:
Physician Documentation Request
Admit Date: 11/11/24 11:15
Dear Doctor Shu,
Please review the following and provide your response in the progress notes.
Clinical Indicators:
Pt admitted with bilateral kidney stone with obstruction s/p bilateral ureteral stenting
Potassium levels are as below /Pt did get Potassium Phos 40 MEQ IV on 11/13
Laboratory Tests
11/11/24 11/12/24
03:42 07:34
Potassium 3.4 L 3.4 L
Based on the above, could you clarify in the progress notes, the appropriate diagnosis, if significant, that supports the above abnormalities and additional evaluation, monitoring and/or treatment rendered:
Hypokalemia
Abnormal lab value
Other ( please specify)
Use of terms such as suspected, likely, concern for, or probable (associated with a specific diagnosis that is being evaluated, monitored, or treated as if it exists) are acceptable and can be coded in the inpatient setting, when documented at the
time of discharge.
Thank you,
Sarah Hinton RN
CDI Specialist
[facility]
Please use your independent medical judgment in providing your response.
--- NOTE | 2024-11-14 14:59 | CM ---
Patient seen at bedside in IMU and spoke with psych. Patient to have 1/ d/c per psych and plan continue to be placement pending physician assessment. CM will send updated notes to SNF options when psych updates notes and confirms plan. CM will
continue to follow for discharge planning needs.
Plan; SNF
--- NOTE | 2024-11-14 16:36 | PTCARENOTE ---
Oriented to self only. 1:[address] Corona. OT and PT got patient into chair, chair alarm on.
[2024-11-14 18:33] LABS: Glucose - Point of Care 125 mg/dl (70-99)
[2024-11-14] MEDS: XALATAN OPHTHALMIC SOLUTION 1 DROP BOTH EYES (21:48)
[2024-11-14 22:19] LABS: Glucose - Point of Care 117 mg/dl (70-99)
[2024-11-14] MEDS: LANTUS 0.05 UNITS SC (22:56)
--- NOTE | 2024-11-14 23:38 | PTCARENOTE ---
Pt. rec'd as transfer into room 2242 from U AAOx1, pt. disoriented to place and time; generally pleasant. A-fib on the monitor rate 80's-90's Cardizem gtt infusing at 10mg/hr. Estrada draining maroon colored urine, no blood clots seen, pt. denies
any pain/discomfort. Pt. tired, wishing to sleep. Bed alarm on for safety.
[2024-11-15] VITALS (17 sets, daily range): BP systolic 114–176; BP diastolic 76–122; PULSE 80–98; O2SAT 98
[2024-11-15] MEDS: CARDIZEM 125 IV (01:03)
[2024-11-15 03:14] LABS: Hematocrit 30.7 % (39.0-52.0); Hemoglobin 10.4 g/dL (13.0-18.0); Mean Corp Hgb Conc. 33.9 g/dL (33.0-37.0); Mean Corpuscular Volume 86.7 fL (80.0-94.0); Platelet Count 205 10^3/uL (130-400); Red Cell Dist. Width 14.0 % (11.5-14.5)
[2024-11-15 03:45] LABS: Blood Urea Nitrogen 22 mg/dl (9-20); Calcium 8.3 mg/dl (8.4-10.2); Carbon Dioxide 21 mmol/L (22-30); Chloride 111 mmol/L (98-107); Estimated Creatinine Clearance 51 ml/min; Glucose 108 mg/dl (70-99); Magnesium 1.9 mg/dl (1.6-2.3); Potassium 3.8 mmol/L (3.5-5.1); Sodium 141 mmol/L (135-145); eGFR > 60.00
[2024-11-15 04:53] LABS: Folate 7.9 ng/ml (2.76-20); Vitamin B12 338 pg/ml (239-931)
[2024-11-15 05:56] LABS: Glucose - Point of Care 99 mg/dl (70-99)
[2024-11-15] MEDS: UNASYN IV ×4 (05:57→23:24)
[2024-11-15] MEDS: NSS 1000 IV (05:57)
[2024-11-15 06:52] LABS: Glucose - Point of Care 80 mg/dl (70-99)
--- NOTE | 2024-11-15 07:40 | PTCARENOTE ---
Assumed care of pt from prev nsg shift; Pt AAOx1-oriented to self only, but able to express if he has pain & make general needs known. Pt w/VSS w/HR in the 90's & BP 154/97 this AM. Pt w/IVF & IV Cardizem infusing through 2 separate patent IV lines
as ordered. Pt w/no c/o CP or SOB. Pt w/bed alarm place for safety & is awaiting his arriving this AM. Plan of care ongoing.
--- NOTE | 2024-11-15 08:32 | W.PN.CD ---
Today's Communication / Plan
-
Continue Diltiazem drip while NPO
Resume AC once heamturia clears and ok to take PO
Impression / Plan
-
Ureteral stones s/p cystoscopy, bilateral ureteral stent placement:
-urology on the case
-continue to hold AC per urology, hematuria noted
AFIB: permanent
-rates controlled on IV diltiazem- continue this for now (patient NPO for dysphagia). This requires intensive monitoring.
-AC held due to hematuria as above - resume when safe
HTN: severely elevated this admit
-improved with IV diltiazem, as well as labetalol and hydralazine
-once taking PO again, can adjust medicines as appropriate
Moderate :
-continue to monitor as OP
-denies CP, SOB
Subjective: Denies complaints. Pleasantly demented.
Physical Exam
Vital Signs/Labs
Vital Signs
Temp Pulse Resp BP Pulse Ox
98.1 F 91 19 154/97 91
11/15/24 06:48 11/15/24 08:00 11/15/24 06:48 11/15/24 06:52 11/15/24 06:52
11/15/24 02:13
11/15/24 02:13
PT 17.0 Sec (11.4-14.6) H 11/14/24 04:33
INR 1.33 11/14/24 04:33
Magnesium 1.9 mg/dl (1.6-2.3) 11/15/24 02:13
Physical Exam
Constitutional: No acute distress and Comfortable
Cardiovascular: Pedal edema is absent, Rhythm/rate is irregular and Systolic murmur present
Respiratory: Respiratory effort normal and Lungs clear to auscul.
Data Reviewed
-
Date of Service: November 15, 2024
Medical Decision Making: Reviewed Test Results, Independent Historian Assessment, Test Interpretation and Review of Case with other Provider
EKG: Tracing Personally Visualized and interpreted
Echo: Report Reviewed by me
Labs: Labs Reviewed by me
--- NOTE | 2024-11-15 09:53 | W.PN.GI.CBS2 ---
Today's Communication / Plan
-
Feeling better today
Continue protonix BID for possible pill esophagitis or reflux esophagitis
Ask Speech to re-eval given his improvement
If fails Speech eval, consider esophagram next
Assessment / Plan
-
Antonio is an 89yo M with dementia, afib on eliquis and DM who was admitted with bilateral ureteral stones s/p cystoscopy with stent placement. GI consulted for dysphagia and oral intolerance. States that gave him a pill one week ago and it
caused pain. Since then he is spitting up saliva and trouble eating. He did eat scrambled eggs this AM that did not come back. Speech was concerned about doing evaluation today given this spitting. He denies abd pain or chest pains. VSS exam
NTTP, NABS, spitting up clear mucous, drank water sip without coughing or issues. Labs reviewed
Impression
- Dysphagia
Suspect pill esophagitis, other consideration is esophagitis or stricture
- Afib on eliquis
- Recent cystoscopy and ureteral stent placement
- DM
- Dementia
Subjective
Subjective
Date of Service: November 15, 2024
Pt reports less saliva in back of throat. No gagging overnight
Objective
Data Reviewed
Laboratory Data:
Laboratory Results
11/15/24 02:13
11/15/24 02:13
Laboratory Results
PT 17.0 Sec (11.4-14.6) H 11/14/24 04:33
INR 1.33 11/14/24 04:33
Phosphorus 3.1 mg/dl (2.5-4.5) 11/15/24 02:13
Magnesium 1.9 mg/dl (1.6-2.3) 11/15/24 02:13
Total Bilirubin 0.9 mg/dl (0.2-1.3) 11/11/24 03:42
AST 16 U/L (17-59) L 11/11/24 03:42
ALT 13 U/L (0-50) 11/11/24 03:42
Alkaline Phosphatase 79 U/L (38-126) 11/11/24 03:42
Vital Signs and I&O:
Vital Signs
Temp Pulse Resp BP Pulse Ox
98.1 F 91 19 154/97 91
11/15/24 06:48 11/15/24 08:00 11/15/24 06:48 11/15/24 06:52 11/15/24 06:52
I&O
11/14/24 11/15/24 11/16/24
06:59 06:59 06:59
Intake Total 1450 / 1450 960 / 960
Output Total 1825 / 1825 800 / 800
Balance -375 / -375 160 / 160
Physical Exam
Physical Exam
GI: Soft and Non Distended
[2024-11-15] MEDS: PROTONIX IV 40 MG IV ×2 (10:54→20:54)
[2024-11-15] MEDS: BenGay-Like 1 APPLIC TOPICAL ×2 (10:54→18:36)
[2024-11-15] MEDS: NSS (PRESERVATIVE FREE) 10 ML IV ×2 (10:55→20:54)
[2024-11-15] MEDS: OLOPATADINE 0.1% OPHTHALMIC SOLUTION 1 DROP OPHTH (10:55)
[2024-11-15] MEDS: FLUSH (NSS) 3 FLUSH IV (10:56)
[2024-11-15] MEDS: TORADOL 15 MG IV (10:56)
[2024-11-15 11:27] LABS: Glucose - Point of Care 105 mg/dl (70-99)
--- NOTE | 2024-11-15 11:30 | W.PN.HOSP.TC ---
Today's Communication/Plan
-
Start a diet
PO meds resatrted
TOV today
RTestart anticoagulation when OK with Urology
Assessment / Plan
Assessment / Plan
89-year-old man with bilateral kidney stones and stent placement developed sudden severe dysphagia. Transferred to IV for Cardizem drip and blood pressure control for hypertensive urgency.
CVS: S1-S2 irregular
Chest: CTA B/L
Abdomen: Soft, NT / Bowel sounds present
Extremities: No edema
Hematuria
# Bilateral kidney stones with hydronephrosis
Status post cystoscopy with bilateral ureteral stent placement. Incidental finding of urethral stricture dilated. Estrada placed to allow stricture healing.
Initially Eliquis restarted and placed on hold secondary to hematuria.
TOV 11/15/24
Flomax restarted
#Severe dysphagia-started
Developed on 11/13/[address]24
CT without any acute changes
GI eval appreciated-suspect esophagitis versus stricture
PPI twice daily
Plans for EGD canceled given multiple ongoing issues
Cleared for IDDSI 5 diet on 11/15/24
# Permanent atrial fibrillation-Eliquis on hold due to persistent hematuria
On Cardizem drip, change to PO
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
# Hypertensive urgency-currently on Cardizem drip
Was on labetalol 100 mg twice daily, Cardizem 120 mg daily as outpatient
# Dementia
Suicidal ideation 11/13/2024
Psychiatric evaluation appreciated-off one-to-one
# Diabetes-hemoglobin A1c 7.4
Was on metformin 500 mg twice daily as outpatient
Currently on Lantus 5 units, Accu-Cheks and sliding scale coverage
# Hypokalemia-resolved
# Anemia-check iron studies
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
# Bilateral shoulder pain right more than left likely arthritic
Pain control
# Constipation-bowel regimen
# DVT prophylaxis-SCDs
# DNR status
Discussed with cardiology
D/W RN
D/W Case management at bed side
D/W and son at bed side
Part of this note was created using voice recognition system. Occasional wrong word or��sound alike� substitutions may have inadvertently occurred due to the inherent limitations of voice recognition software. If noted kindly bring it to my
attention for correction.
Anticipated Discharge: Within 24 hours
Subjective/Interval History
-
Date of Service: November 15, 2024
Objective Data
-
Labs:
Laboratory Results
11/15/24
02:13
WBC 8.5
Hgb 10.4 L
Hct 30.7 L
Plt Count 205
Sodium 141
Potassium 3.8
Chloride 111 H
Carbon Dioxide 21 L
BUN 22 H
Creatinine 0.9
Glucose 108 H
Calcium 8.3 L
Vital Signs:
Vital Signs
Temp Pulse Resp BP Pulse Ox
97.5 F 101 17 154/97 98
11/15/24 11:23 11/15/24 11:23 11/15/24 11:23 11/15/24 06:52 11/15/24 11:23
I&O
11/14/24 11/15/24 11/16/24
06:59 06:59 06:59
Intake Total 1450 / 1450 960 / 960
Output Total 1825 / 1825 800 / 800
Balance -375 / -375 160 / 160
[2024-11-15] MEDS: TRANDATE 100 MG PO ×2 (12:40→20:52)
--- NOTE | 2024-11-15 13:41 | CM ---
Addendum entered by Santa Colon 11/15/24 17:08:
Met with Mrs. Tanner who states she is concerned that she does not have a definite bed for Mr. Tanner. So at this time she is cancelling her procedure at [facility] and is considering taking him home. Will leave referrals is place and check on
bed availability on Monday if she reconsiders SNF/Placement.
Original Note:
Reviewed chart. Mr. Tanner was transferred to IVU Met with Mr. and Mrs. Tanner and their son to review discharge plans. Mrs. Tanner states she is looking for SNF/Rehab.. She states she is going to [facility] on Monday to for a
procedure. 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 Telephone call to [facility] Admissions to check on status of referral. [facility] Admissions states they will not have a bed over the weekend.
[facility] Admission will review again on Monday. Gave Mrs. Tanner the Nursing Home application. for [facility] as requested by [facility]. Reviewed other options for SNF/Rehab. Spouse was willing to consider [facility] also as
an option. Telephone call to [facility] to make the referral. Sent referral. Mrs. Tanner states he has long tern care policy but has a 90 day waiting period. Medical work-up in progress. The discharge plan is to go to
SNF/Rehab.-hopefully [facility] when medically stable and bed available.
--- NOTE | 2024-11-15 14:26 | W.PN.UPDATE ---
Update Note
Progress Note Update
patient seen chart reviewed. discussed with nursing. the patient was initially quite positive. said he felt much better than yesterday and was happy he had gotten some food. then complained that the food took 'five hours' to arrive (not true
according to ns) then apologized for complaining. we reviewed. who i was and why i was seeing him. i told him there had been concerned that he had mentioned ending his life. he told me that was bc he had watched a film about suicide. (not sure
this is so...) but the fact is that yesterday when i saw him he was writing in pain and today seemed very comfortable and he was able to say he did not want to rather he wanted to get well and go home. he does remain confused...he did know
where he was today and could tell me his name but could not tell me the year '....' as far as the reason for a psych consult, i do not feel he is signficiantly depressed or suicidal. he does have cognitive issues right now. how much that
has to do w a dementia process ...whether it will improve with resolution of medical issues i cannot say at thisp point. psych will sign off . if you want us to return please reconsult.
[2024-11-15] MEDS: BenGay-Like TOPICAL ×2 (14:43→21:05)
[2024-11-15 14:56] LABS: Glucose - Point of Care 174 mg/dl (70-99)
--- NOTE | 2024-11-15 15:45 | W.PN.URO.CBU ---
Today's Communication / Plan
-
Voiding trial today - replace Estrada catheter if post-void bladder scans >300 cc
Hold Eliquis - recommend restarting Sun 11/17 if hematuria improving
F/U w/ Dr. Brewer in 2 weeks for preop visit to schedule definitive outpatient kidney stone surgery
Assessment / Plan
-
89M presenting with urinary frequency and incontinence noted to have bilateral distal ureteral stones on CT imaging.
11/11: s/p cystoscopy, bilateral ureteral stent placement, bulbar stricture dilation.
11/12: UOP faintly pink-tinged UOP POD#1 - Eliquis restarted by primary team 11/12 (last dose in PM).
11/13: UOP light punch but aqueous w/o clots.
11/15: UOP aqueous dark maroon c/w lysing clots and old blot - no clots in tubing.
Diagnosis
-
Date of Service: November 15, 2024
-
Diagnosis:
Bilateral ureteral stones
Bulbar urethral stricture
Post Op Day:
11/11: s/p dilation of urethral stricture, bilateral ureteral stent placement
Subjective
-
Tolerating diet.
Mentation significantly improved.
Estrada catheter removed this AM.
Objective
-
Vital Signs
Temp Pulse Resp BP Pulse Ox
97.7 F 110 14 152/80 97
11/15/24 14:52 11/15/24 14:52 11/15/24 14:52 11/15/24 11:29 11/15/24 14:52
Intake and Output
11/14/24 11/15/24 11/16/24
06:59 06:59 06:59
Intake Total 1450 / 1450 960 / 960
Output Total 1825 / 1825 800 / 800
Balance -375 / -375 160 / 160
Intake:
IV fluids (Total) 1040 / 1040 960 / 960
Nss 1,000 ml @ 80 mls/hr IV . 960 / 960
[id number] [facility] Rx#:[id number]
IV piggybacks 410 / 410
Output:
Urine, Estrada 1825 / 1825 800 / 800
Laboratory Results
11/15/24 02:13
11/15/24 02:13
Physical Exam
-
General - well developed, well nourished, no acute distress
Abdomen - soft, non-tender
Skin - warm & dry with no rash
Neuro - awake, alert, no motor deficits
Extremities - no clubbing, no cyanosis, no edema
Care Review
Data Reviewed
Discussed with: Hospitalist and Nursing
CT Scan: Report Pers Reviewed and Image Pers Reviewed
[2024-11-15] MEDS: SENOKOT-S PO (20:43)
[2024-11-15] MEDS: CARDIZEM CD 120 MG PO (20:54)
[2024-11-15] MEDS: FLOMAX 0.4 MG PO (20:54)
[2024-11-15] MEDS: XALATAN OPHTHALMIC SOLUTION 1 DROP BOTH EYES (21:09)
[2024-11-15 21:28] LABS: Glucose - Point of Care 232 mg/dl (70-99)
[2024-11-15] MEDS: NOVOLOG FLEXPEN-LOW RESISTANCE 2 UNITS SC (21:28)
[2024-11-15] MEDS: LANTUS 0.05 UNITS SC (21:28)
[2024-11-15] MEDS: APRESOLINE 5 MG IV (21:33)
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
[2024-11-16] VITALS (18 sets, daily range): BP systolic 123–199; BP diastolic 79–110; PULSE 87–93; BMI 22.7
[2024-11-16] MEDS: APRESOLINE 5 MG IV (02:27)
[2024-11-16 02:42] LABS: Hematocrit 31.6 % (39.0-52.0); Hemoglobin 11.3 g/dL (13.0-18.0); Mean Corp Hgb Conc. 35.8 g/dL (33.0-37.0); Mean Corpuscular Volume 83.2 fL (80.0-94.0); Platelet Count 230 10^3/uL (130-400); Red Cell Dist. Width 14.1 % (11.5-14.5)
[2024-11-16 03:07] LABS: Blood Urea Nitrogen 24 mg/dl (9-20); Calcium 8.4 mg/dl (8.4-10.2); Carbon Dioxide 19 mmol/L (22-30); Chloride 111 mmol/L (98-107); Estimated Creatinine Clearance 51 ml/min; Glucose 153 mg/dl (70-99); Magnesium 1.8 mg/dl (1.6-2.3); Potassium 3.7 mmol/L (3.5-5.1); Sodium 139 mmol/L (135-145); eGFR > 60.00
[2024-11-16 07:47] LABS: Glucose - Point of Care 145 mg/dl (70-99)
[2024-11-16] MEDS: NOVOLOG FLEXPEN-LOW RESISTANCE SC ×2 (07:51→14:47)
[2024-11-16] MEDS: UNASYN IV ×3 (07:59→17:23)
--- NOTE | 2024-11-16 07:59 | W.PN.URO.CBU ---
Today's Communication / Plan
-
check pvr
trend hematuria
Assessment / Plan
-
89M presenting with urinary frequency and incontinence noted to have bilateral distal ureteral stones on CT imaging.
11/11: s/p cystoscopy, bilateral ureteral stent placement, bulbar stricture dilation.
11/12: UOP faintly pink-tinged UOP POD#1 - Eliquis restarted by primary team 11/12 (last dose in PM).
11/13: UOP light punch but aqueous w/o clots.
11/15: UOP aqueous dark maroon c/w lysing clots and old blot - no clots in tubing.
check pvr
with hematuria would continue to hold eliquis for now
eventual plan for outpt stone removal
Diagnosis
-
Date of Service: November 16, 2024
-
Diagnosis:
Bilateral ureteral stones
Bulbar urethral stricture
Post Op Day:
11/11: s/p dilation of urethral stricture, bilateral ureteral stent placement
Subjective
-
pt confused
conklin out- incontinent
nurses report urine still bloody- but no clots
Objective
-
Vital Signs
Temp Pulse Resp BP Pulse Ox
97.2 F 109 22 193/94 96
11/16/24 07:00 11/16/24 07:00 11/16/24 07:00 11/16/24 07:00 11/16/24 07:00
Intake and Output
11/15/24 11/16/24 11/17/24
06:59 06:59 06:59
Intake Total 960 / 960
Output Total 800 / 800 200 / 200
Balance 160 / 160 -200 / -200
Intake:
IV fluids (Total) 960 / 960
Nss 1,000 ml @ 80 mls/hr IV . 960 / 960
[id number] [facility] Rx#:[id number]
Output:
Urine, Conklin 800 / 800
Urine, Voided 200 / 200
Other:
Number of approximated MODERATE 1
amounts of urine
How many times incontinent 1
MODERATE amount urine
Laboratory Results
11/16/24 02:31
11/16/24 02:31
Review of Systems
-
Unable to obtain full review of systems at this time due to: Other (confused- but no specific complaints)
Physical Exam
-
General -no acute distress
Abdomen - soft, non-tender
[2024-11-16] MEDS: VITAMIN D3 (cholecalciferol) 25 MCG PO (08:00)
[2024-11-16] MEDS: FLOMAX 0.4 MG PO ×2 (08:00→19:04)
[2024-11-16] MEDS: BenGay-Like 1 APPLIC TOPICAL (08:00)
[2024-11-16] MEDS: CARDIZEM CD 120 MG PO (08:00)
[2024-11-16] MEDS: TRANDATE 100 MG PO ×2 (08:00→11:56)
[2024-11-16] MEDS: SENOKOT-S 1 TABLET PO ×2 (08:00→19:04)
[2024-11-16] MEDS: VITAMIN B-12 1000 MCG PO (08:00)
[2024-11-16] MEDS: OLOPATADINE 0.1% OPHTHALMIC SOLUTION 1 DROP OPHTH (08:01)
[2024-11-16] MEDS: PROTONIX IV 40 MG IV ×2 (08:01→19:05)
[2024-11-16] MEDS: FLUSH (NSS) 3 FLUSH IV (08:01)
[2024-11-16] MEDS: NSS (PRESERVATIVE FREE) 10 ML IV ×2 (08:01→19:05)
[2024-11-16] MEDS: MIRALAX 17 GRAMS PO (08:01)
--- NOTE | 2024-11-16 09:07 | W.PN.GI.CBS2 ---
Today's Communication / Plan
-
Cleared for minced and moist diet and tolerating
Told pt he can see GI after d/c if he has any recurrence of his swallowing symptoms
Will sign off for now. Please call back if needed
Assessment / Plan
-
Antonio is an 89yo M with dementia, afib on eliquis and DM who was admitted with bilateral ureteral stones s/p cystoscopy with stent placement. GI consulted for dysphagia and oral intolerance. States that gave him a pill one week ago and it
caused pain. Since then he is spitting up saliva and trouble eating. He did eat scrambled eggs this AM that did not come back. Speech was concerned about doing evaluation today given this spitting. He denies abd pain or chest pains. VSS exam
NTTP, NABS, spitting up clear mucous, drank water sip without coughing or issues. Labs reviewed
Impression
- Dysphagia- cleared by Speech for minced and moist diet 11/15
Suspect pill esophagitis, other consideration is esophagitis or stricture
- Afib on eliquis
- Recent cystoscopy and ureteral stent placement
- DM
- Dementia
Subjective
Subjective
Date of Service: November 16, 2024
Cleared by Speech for diet and tolerating
Objective
Data Reviewed
Laboratory Data:
Laboratory Results
11/16/24 02:31
11/16/24 02:31
Laboratory Results
PT 17.0 Sec (11.4-14.6) H 11/14/24 04:33
INR 1.33 11/14/24 04:33
Phosphorus 3.1 mg/dl (2.5-4.5) 11/15/24 02:13
Magnesium 1.8 mg/dl (1.6-2.3) 11/16/24 02:31
Total Bilirubin 0.9 mg/dl (0.2-1.3) 11/11/24 03:42
AST 16 U/L (17-59) L 11/11/24 03:42
ALT 13 U/L (0-50) 11/11/24 03:42
Alkaline Phosphatase 79 U/L (38-126) 11/11/24 03:42
Vital Signs and I&O:
Vital Signs
Temp Pulse Resp BP Pulse Ox
97.2 F 109 22 193/94 96
11/16/24 07:00 11/16/24 07:00 11/16/24 07:00 11/16/24 07:00 11/16/24 07:00
I&O
11/15/24 11/16/24 11/17/24
06:59 06:59 06:59
Intake Total 960 / 960
Output Total 800 / 800 200 / 200
Balance 160 / 160 -200 / -200
Physical Exam
Physical Exam
GI: Soft, Non Distended and Non Tender
--- NOTE | 2024-11-16 10:08 | W.PN.CD ---
Today's Communication / Plan
-
Increase diltiazem to 180 mg twice daily and labetalol to 200 mg twice daily
Continue to hold anticoagulation
Impression / Plan
-
Ureteral stones s/p cystoscopy, bilateral ureteral stent placement:
-urology on the case
-continue to hold AC per urology, hematuria noted
AFIB: permanent
-Increase diltiazem to 180 mg twice daily and labetalol to 200 mg twice daily. Rates are high and he is hypertensive.
-AC held due to hematuria as above - resume when safe
HTN: severely elevated this admit
-Increase labetalol and diltiazem as above
Moderate :
-continue to monitor as OP
-denies CP, SOB
Subjective: Denies complaints. Very labile affect. Wants to see his . Also asking about where his money is.
Physical Exam
Vital Signs/Labs
Vital Signs
Temp Pulse Resp BP Pulse Ox
97.2 F 109 22 193/94 96
11/16/24 07:00 11/16/24 07:00 11/16/24 07:00 11/16/24 07:00 11/16/24 07:00
11/16/24 02:31
11/16/24 02:31
PT 17.0 Sec (11.4-14.6) H 11/14/24 04:33
INR 1.33 11/14/24 04:33
Magnesium 1.8 mg/dl (1.6-2.3) 11/16/24 02:31
Physical Exam
Constitutional: No acute distress and Confusion
Cardiovascular: Pedal edema is absent, Rhythm/rate is irregular and Systolic murmur present
Respiratory: Respiratory effort normal
Data Reviewed
-
Date of Service: November 16, 2024
Medical Decision Making: Reviewed Test Results, Independent Historian Assessment, Test Interpretation and Review of Case with other Provider
EKG: Tracing Personally Visualized and interpreted
Echo: Report Reviewed by me
Labs: Labs Reviewed by me
--- NOTE | 2024-11-16 10:55 | W.PN.HOSP.TC ---
Today's Communication/Plan
-
Hold Eliquis
Labetalol and Cardizem doses increased. Watch blood pressure
Encourage out of bed
Once blood pressure is stable will discharge to rehab
Add aspirin 81 mg
Assessment / Plan
Assessment / Plan
89-year-old man with bilateral kidney stones and stent placement developed sudden severe dysphagia. Transferred to IV for Cardizem drip and blood pressure control for hypertensive urgency.
CVS: S1-S2 irregular
Chest: CTA B/L
Abdomen: Soft, NT / Bowel sounds present
Extremities: No edema
Hematuria
# Bilateral kidney stones with hydronephrosis
Status post cystoscopy with bilateral ureteral stent placement. Incidental finding of urethral stricture dilated. Estrada placed to allow stricture healing.
Initially Eliquis restarted and placed on hold secondary to hematuria.
TOV 11/15/24, doing well
Flomax restarted
#Severe dysphagia-started
Developed on 11/13/[address]24
CT without any acute changes
GI eval appreciated-suspect esophagitis versus stricture
PPI twice daily
Plans for EGD canceled given multiple ongoing issues
Cleared for IDDSI 5 diet on 11/15/24
# Permanent atrial fibrillation-Eliquis on hold due to persistent hematuria
Cardizem changed to 180 mg twice daily
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
# Hypertensive urgency-
Was on labetalol 100 mg twice daily, Cardizem 120 mg daily as outpatient
Labetalol increased to 200 mg twice daily and Cardizem increased to 180 mg twice daily
# Dementia
Suicidal ideation 11/13/2024
Psychiatric evaluation appreciated-off one-to-one
# Diabetes-hemoglobin A1c 7.4
Was on metformin 500 mg twice daily as outpatient
Currently on Lantus 5 units, Accu-Cheks and sliding scale coverage
# Hypokalemia-resolved
# Anemia-check iron studies
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
# Bilateral shoulder pain right more than left likely arthritic
Pain control
# Constipation-bowel regimen
# DVT prophylaxis-SCDs
# DNR status
Discussed with cardiology
Discussed with urology. Prefers to hold anticoagulation for longer duration until stone is taken care of because of hematuria. Will do aspirin
D/W RN
Part of this note was created using voice recognition system. Occasional wrong word or��sound alike� substitutions may have inadvertently occurred due to the inherent limitations of voice recognition software. If noted kindly bring it to my
attention for correction.
Anticipated Discharge: Within 24 hours
Subjective/Interval History
-
Date of Service: November 16, 2024
Objective Data
-
Labs:
Laboratory Results
11/16/24
02:31
WBC 9.0
Hgb 11.3 L
Hct 31.6 L
Plt Count 230
Sodium 139
Potassium 3.7
Chloride 111 H
Carbon Dioxide 19 L
BUN 24 H
Creatinine 0.9
Glucose 153 H
Calcium 8.4
Vital Signs:
Vital Signs
Temp Pulse Resp BP Pulse Ox
97.2 F 109 22 193/94 96
11/16/24 07:00 11/16/24 07:00 11/16/24 07:00 11/16/24 07:00 11/16/24 07:00
I&O
11/15/24 11/16/24 11/17/24
06:59 06:59 06:59
Intake Total 960 / 960
Output Total 800 / 800 200 / 200
Balance 160 / 160 -200 / -200
[2024-11-16 11:48] LABS: Glucose - Point of Care 193 mg/dl (70-99)
[2024-11-16] MEDS: CARDIZEM 60 MG PO (11:56)
[2024-11-16] MEDS: ASPIR LOW (ENTERIC COATED) 81 MG PO (11:57)
[2024-11-16] MEDS: BenGay-Like TOPICAL ×3 (14:47→21:03)
[2024-11-16 16:24] LABS: Glucose - Point of Care 229 mg/dl (70-99)
[2024-11-16] MEDS: NOVOLOG FLEXPEN-LOW RESISTANCE 2 UNITS SC (16:59)
[2024-11-16] MEDS: CARDIZEM CD 180 MG PO (19:04)
[2024-11-16] MEDS: TRANDATE 200 MG PO (19:04)
--- NOTE | 2024-11-16 20:10 | PTCARENOTE ---
Patient received at change of shift resting in the bed. Alert to self only. Cooperative with care overall. Afib on telemetry. Oxygen saturation 95% on room air. Bed alarm in place as patient is confused and forgetful and does attempt to frequently
exit the bed without calling staff for assistance. The patient presently denies pain or discomfort. Plan of care discussed. Call zavala within reach. Care ongoing.
[2024-11-16] MEDS: XALATAN OPHTHALMIC SOLUTION 1 DROP BOTH EYES (21:03)
[2024-11-16 21:22] LABS: Glucose - Point of Care 156 mg/dl (70-99)
[2024-11-16] MEDS: LANTUS 0.05 UNITS SC (21:23)
[2024-11-16] MEDS: NOVOLOG FLEXPEN-LOW RESISTANCE 1 UNITS SC (21:24)
[2024-11-16] MEDS: TYLENOL 650 MG PO (22:30)
[2024-11-17] VITALS (14 sets, daily range): BP systolic 124–179; BP diastolic 76–106; PULSE 95–122
[2024-11-17] MEDS: UNASYN IV ×5 (01:00→23:24)
[2024-11-17 04:13] LABS: Hematocrit 29.5 % (39.0-52.0); Hemoglobin 10.2 g/dL (13.0-18.0); Mean Corp Hgb Conc. 34.6 g/dL (33.0-37.0); Mean Corpuscular Volume 86.0 fL (80.0-94.0); Platelet Count 227 10^3/uL (130-400); Red Cell Dist. Width 14.2 % (11.5-14.5)
[2024-11-17 04:41] LABS: Blood Urea Nitrogen 26 mg/dl (9-20); Calcium 8.3 mg/dl (8.4-10.2); Carbon Dioxide 23 mmol/L (22-30); Chloride 110 mmol/L (98-107); Estimated Creatinine Clearance 46 ml/min; Glucose 129 mg/dl (70-99); Magnesium 1.9 mg/dl (1.6-2.3); Potassium 3.6 mmol/L (3.5-5.1); Sodium 139 mmol/L (135-145); eGFR > 60.00
[2024-11-17] MEDS: TYLENOL 650 MG PO (05:05)
[2024-11-17 07:36] LABS: Glucose - Point of Care 117 mg/dl (70-99)
[2024-11-17] MEDS: NOVOLOG FLEXPEN-LOW RESISTANCE SC ×2 (08:40→22:30)
[2024-11-17] MEDS: ASPIR LOW (ENTERIC COATED) 81 MG PO (08:50)
[2024-11-17] MEDS: CARDIZEM CD 180 MG PO ×2 (08:50→20:12)
[2024-11-17] MEDS: TRANDATE 200 MG PO ×2 (08:50→20:14)
--- NOTE | 2024-11-17 08:50 | W.PN.HOSP.TC ---
Addendum entered and electronically signed by Safia Galvan MD 11/17/24 14:15:
spoke to and updated.
Original Note:
Today's Communication/Plan
-
Await cardiology rounds today
Possible discharge if the patient has a rehab bed
Assessment / Plan
Assessment / Plan
89-year-old man with bilateral kidney stones and stent placement developed sudden severe dysphagia. Transferred to IV for Cardizem drip and blood pressure control for hypertensive urgency.
CVS: S1-S2 irregular
Chest: CTA B/L
Abdomen: Soft, NT / Bowel sounds present
Extremities: No edema
Hematuria persists , but no clots
# Bilateral kidney stones with hydronephrosis
Status post cystoscopy with bilateral ureteral stent placement. Incidental finding of urethral stricture dilated. Estrada placed to allow stricture healing.
Initially Eliquis restarted and placed on hold secondary to hematuria.
TOV 11/15/24, doing well
Flomax restarted
#Severe dysphagia-started
Developed on 11/13/[address]24
CT without any acute changes
GI eval appreciated-suspect esophagitis versus stricture
PPI twice daily
Plans for EGD canceled given multiple ongoing issues
Cleared for IDDSI 5 diet on 11/15/24
# Permanent atrial fibrillation-Eliquis on hold due to persistent hematuria
Cardizem changed to 180 mg twice daily
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
# Hypertensive urgency-
Was on labetalol 100 mg twice daily, Cardizem 120 mg daily as outpatient
Labetalol increased to 200 mg twice daily and Cardizem increased to 180 mg twice daily
# Dementia
Suicidal ideation 11/13/2024
Psychiatric evaluation appreciated-off one-to-one
# Diabetes-hemoglobin A1c 7.4
Was on metformin 500 mg twice daily as outpatient
Currently on Lantus 5 units, Accu-Cheks and sliding scale coverage
# Hypokalemia-resolved
# Anemia-check iron studies
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
# Bilateral shoulder pain right more than left likely arthritic
Pain control
# Constipation-bowel regimen
# DVT prophylaxis-SCDs
# DNR status
Discussed with cardiology
Discussed with urology. Prefers to hold anticoagulation for longer duration until stone is taken care of because of hematuria. Will do aspirin
D/W RN
Part of this note was created using voice recognition system. Occasional wrong word or��sound alike� substitutions may have inadvertently occurred due to the inherent limitations of voice recognition software. If noted kindly bring it to my
attention for correction.
Anticipated Discharge: Within 24 hours
Subjective/Interval History
-
Date of Service: November 17, 2024
Objective Data
-
Labs:
Laboratory Results
11/17/24
03:45
WBC 6.5
Hgb 10.2 L
Hct 29.5 L
Plt Count 227
Sodium 139
Potassium 3.6
Chloride 110 H
Carbon Dioxide 23
BUN 26 H
Creatinine 1.0
Glucose 129 H
Calcium 8.3 L
Vital Signs:
Vital Signs
Temp Pulse Resp BP Pulse Ox
97.8 F 76 16 158/97 97
11/17/24 07:33 11/17/24 06:00 11/17/24 03:41 11/17/24 03:42 11/17/24 03:41
I&O
11/16/24 11/17/24 11/18/24
06:59 06:59 06:59
Intake Total 480 / 480
Output Total 200 / 200 400 / 400 125 / 125
Balance -200 / -200 80 / 80 -125 / -125
[2024-11-17] MEDS: PROTONIX IV 40 MG IV ×2 (08:51→20:14)
[2024-11-17] MEDS: VITAMIN D3 (cholecalciferol) 25 MCG PO (08:51)
[2024-11-17] MEDS: VITAMIN B-12 1000 MCG PO (08:51)
[2024-11-17] MEDS: NSS (PRESERVATIVE FREE) 10 ML IV ×2 (08:51→20:14)
[2024-11-17] MEDS: SENOKOT-S 1 TABLET PO (08:51)
[2024-11-17] MEDS: MIRALAX 17 GRAMS PO (08:51)
[2024-11-17] MEDS: FLOMAX 0.4 MG PO ×2 (08:52→20:13)
[2024-11-17] MEDS: OLOPATADINE 0.1% OPHTHALMIC SOLUTION 1 DROP OPHTH (08:52)
[2024-11-17] MEDS: BenGay-Like 1 APPLIC TOPICAL ×3 (08:53→18:25)
[2024-11-17 09:25] LABS: Iron 64 ug/dl (49-181)
--- NOTE | 2024-11-17 09:30 | PTCARENOTE ---
PT received AAOx1 w/o complaints of pain; Afib on monitor VSS; RA clear / decreased; GI wnl; urinal/ incontinent ; skin CDI; PIVx1 wnl; see worklist for detailed assessment
[2024-11-17 09:34] LABS: Total Iron Binding Capacity 207 ug/dl (261-462)
--- NOTE | 2024-11-17 10:58 | W.PN.CD ---
Today's Communication / Plan
-
This admission diltiazem was increased to 180 mg twice daily and labetalol to 200 mg twice daily for elevated heart rates and blood pressures. Continue those doses.
Eliquis is being held on discharge for hematuria per urology
We will see him in the office for follow-up and discuss watchman versus resumption of anticoagulation if okay with urology
He will be discharged on aspirin 81 mg daily alone
Okay for discharge from a cardiovascular standpoint.
Impression / Plan
-
Ureteral stones s/p cystoscopy, bilateral ureteral stent placement:
-urology on the case
-continue to hold AC per urology, hematuria noted
-Per urology, plan for outpatient stone removal
AFIB: permanent
-Continue diltiazem 180 mg twice daily and labetalol 200 mg twice daily. Rates are well-controlled.
-AC held due to hematuria as above - urology would like to hold on discharge and just do aspirin
-We will see him in the office for follow-up and discuss watchman vs. resuming AC if ok with urology
HTN: severely elevated this admit
-Increased labetalol and diltiazem. BPs still high but acceptable
-Titrate at OP follow-up
Moderate :
-continue to monitor as OP
-denies CP, SOB
Subjective: Denies complaints. He is much calmer today with his at bedside.
Physical Exam
Vital Signs/Labs
Vital Signs
Temp Pulse Resp BP Pulse Ox
97.8 F 76 16 158/97 97
11/17/24 07:33 11/17/24 06:00 11/17/24 03:41 11/17/24 03:42 11/17/24 03:41
11/16/24 11/17/24 11/18/24
06:59 06:59 06:59
Actual Weight 140 lb 10.479 oz
11/17/24 03:45
11/17/24 03:45
PT 17.0 Sec (11.4-14.6) H 11/14/24 04:33
INR 1.33 11/14/24 04:33
Magnesium 1.9 mg/dl (1.6-2.3) 11/17/24 03:45
Physical Exam
Constitutional: No acute distress and Comfortable
Cardiovascular: Pedal edema is absent, Rhythm/rate is irregular and Murmur/rub/gallop absent
Respiratory: Respiratory effort normal
Data Reviewed
-
Date of Service: November 17, 2024
Medical Decision Making: Reviewed Test Results, Independent Historian Assessment, Test Interpretation and Review of Case with other Provider
EKG: Tracing Personally Visualized and interpreted (Rate controlled atrial fibrillation on telemetry)
Echo: Report Reviewed by me
Labs: Labs Reviewed by me
[2024-11-17 11:01] LABS: Ferritin 132.0 ng/ml (17.9-464.0)
[2024-11-17 11:15] LABS: Vitamin B12 483 pg/ml (239-931)
--- NOTE | 2024-11-17 12:00 | PTCARENOTE ---
no change from previous assessment
[2024-11-17 12:34] LABS: Glucose - Point of Care 199 mg/dl (70-99)
[2024-11-17] MEDS: NOVOLOG FLEXPEN-LOW RESISTANCE 1 UNITS SC (12:40)
[2024-11-17 16:39] LABS: Glucose - Point of Care 220 mg/dl (70-99)
--- NOTE | 2024-11-17 17:00 | PTCARENOTE ---
no change from previous assessment
[2024-11-17] MEDS: NOVOLOG FLEXPEN-LOW RESISTANCE 2 UNITS SC (17:45)
[2024-11-17] MEDS: SENOKOT-S PO (20:17)
[2024-11-17 22:28] LABS: Glucose - Point of Care 198 mg/dl (70-99)
[2024-11-17] MEDS: BenGay-Like TOPICAL (22:36)
[2024-11-17] MEDS: XALATAN OPHTHALMIC SOLUTION 1 DROP BOTH EYES (22:37)
[2024-11-17] MEDS: LANTUS 0.05 UNITS SC (22:37)
--- NOTE | 2024-11-17 23:19 | PTCARENOTE ---
Received patient at change of shift. Afib on the monitor, HR in the 90s. Oriented to self, disoriented to place and time, no change from baseline. Bed alarm in place. Aspiration precautions in place. Systolic BPs in the 170s prior to 20:00
medications, now in the 150s. No complaints from pt at this time, call zavala within reach.
[2024-11-18] VITALS (11 sets, daily range): BP systolic 135–189; BP diastolic 59–112; PULSE 91–95; O2SAT 97
[2024-11-18] MEDS: APRESOLINE 5 MG IV (03:12)
[2024-11-18] MEDS: UNASYN IV ×3 (05:40→18:03)
[2024-11-18 07:52] LABS: Glucose - Point of Care 106 mg/dl (70-99)
[2024-11-18] MEDS: NOVOLOG FLEXPEN-LOW RESISTANCE SC ×2 (07:58→18:03)
[2024-11-18] MEDS: TRANDATE 200 MG PO ×2 (07:58→20:12)
[2024-11-18] MEDS: SENOKOT-S 1 TABLET PO (07:59)
[2024-11-18] MEDS: VITAMIN B-12 1000 MCG PO (07:59)
[2024-11-18] MEDS: VITAMIN D3 (cholecalciferol) 25 MCG PO (07:59)
[2024-11-18] MEDS: FLOMAX 0.4 MG PO ×2 (07:59→20:12)
[2024-11-18] MEDS: ASPIR LOW (ENTERIC COATED) 81 MG PO (07:59)
[2024-11-18] MEDS: CARDIZEM CD 180 MG PO ×2 (07:59→20:11)
[2024-11-18] MEDS: PROTONIX IV 40 MG IV ×2 (07:59→20:12)
[2024-11-18] MEDS: OLOPATADINE 0.1% OPHTHALMIC SOLUTION 1 DROP OPHTH (07:59)
[2024-11-18] MEDS: NSS (PRESERVATIVE FREE) 10 ML IV ×2 (07:59→20:12)
[2024-11-18] MEDS: MIRALAX 17 GRAMS PO (08:00)
[2024-11-18] MEDS: BenGay-Like 1 APPLIC TOPICAL ×2 (08:00→18:03)
--- NOTE | 2024-11-18 10:11 | W.PN.HOSP.TC ---
Addendum entered and electronically signed by Safia Galvan MD 11/18/24 16:07:
89-year-old man with bilateral kidney stones and stent placement developed sudden severe dysphagia. Transferred to IV for Cardizem drip and blood pressure control for hypertensive urgency.
CVS: S1-S2 irregular
Chest: CTA B/L
Abdomen: Soft, NT / Bowel sounds present
Extremities: No edema
Hematuria persists , but no clots
# Bilateral kidney stones with hydronephrosis
Status post cystoscopy with bilateral ureteral stent placement. Incidental finding of urethral stricture dilated. Estrada placed to allow stricture healing.
Initially Eliquis restarted and placed on hold secondary to hematuria.
TOV 11/15/24, doing well
Flomax restarted
#Severe dysphagia-started
Developed on 11/13/2024
CT without any acute changes
GI eval appreciated-suspect esophagitis versus stricture
PPI twice daily
Plans for EGD canceled given multiple ongoing issues
Cleared for IDDSI 5 diet on 11/15/24
# Permanent atrial fibrillation
Eliquis on hold due to persistent hematuria
Cardizem changed to 180 mg twice daily
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
# Hypertensive urgency-
Was on labetalol 100 mg twice daily, Cardizem 120 mg daily as outpatient
Labetalol increased to 200 mg twice daily and Cardizem increased to 180 mg twice daily
Added lisinopril 5 mg
# Dementia
Suicidal ideation 11/13/2024
Psychiatric evaluation appreciated-off one-to-one
# Diabetes-hemoglobin A1c 7.4
Was on metformin 500 mg twice daily as outpatient
Currently on Lantus 5 units, Accu-Cheks and sliding scale coverage
# Hypokalemia-resolved
# Anemia-check iron studies
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
# Bilateral shoulder pain right more than left likely arthritic-Pain control
# Constipation-bowel regimen
# DVT prophylaxis-SCDs
# DNR status
Original Note:
Today's Communication/Plan
-
Add lisinopril 5 for BP control at rate appears controlled
Regular diet
Assessment / Plan
Assessment / Plan
89-year-old man with bilateral kidney stones and stent placement developed sudden severe dysphagia. Transferred to IV for Cardizem drip and blood pressure control for hypertensive urgency.
# Bilateral kidney stones with hydronephrosis
--s/p cystoscopy with bilateral ureteral stent placement. Incidental finding of urethral stricture which was dilated. Estrada placed to allow stricture healing. TOV 11/15/24, doing well
--Initially Eliquis restarted and placed on hold secondary to hematuria - urology prefers ASA until stones removed - scheduled outpatient
--Flomax restarted
#Severe dysphagia-started
--Developed on 11/13/2024
--CT without any acute changes
--GI eval appreciated-suspect esophagitis versus stricture
--PPI twice daily
--Plans for EGD canceled given multiple ongoing issues
--Cleared for IDDSI 7 diet on 11/18/24
# Permanent atrial fibrillation
-- Hold Eliquis due to persistent hematuria
--Cardizem changed to 180 BID, labetalol 200 BID
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
# Hypertensive urgency-
-- Home meds labetalol 100 BID and Cardizem 120 mg daily
--Cardizem changed to 180 BID, labetalol 200 BID
--Still hypertensive. Added lisinopril 5mg daily.
# Dementia
--Suicidal ideation 11/13/2024
--Psychiatric evaluation appreciated-off one-to-one
# Diabetes-hemoglobin A1c 7.4
--Was on metformin 500 mg twice daily as outpatient
--Currently on Lantus 5 units, Accu-Cheks and sliding scale coverage
# Hypokalemia-resolved
# Anemia
--Iron and B12 adequate. Pattern on anemia of chronic disease
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
# Bilateral shoulder pain right more than left likely arthritic
--Pain control
# Constipation-bowel regimen
DVT prophylaxis-SCDs
DNR status
Anticipated Discharge: 24 - 48 hours
Subjective/Interval History
-
Date of Service: November 18, 2024
Tearful. Forgetful. Not alert to place or time.
Objective Data
-
Vital Signs:
Vital Signs
Temp Pulse Resp BP Pulse Ox
97.7 F 118 20 178/112 96
11/18/24 08:02 11/18/24 07:58 11/18/24 08:02 11/18/24 07:58 11/18/24 08:02
I&O
11/17/24 11/18/24 11/19/24
06:59 06:59 06:59
Intake Total 480 / 480 540 / 540
Output Total 400 / 400 1675 / 1675 300 / 300
Balance 80 / 80 -1135 / -1135 -300 / -300
Review of Systems
-
History Source: Patient
Constitutional: Reports No Symptoms
EENT: Reports No Symptoms Reported
Respiratory: Reports No Symptoms
Cardiac: Reports No Symptoms
Abdomen/GI: Reports No Symptoms
Neuro: Reports No Symptoms
Physical Exam
-
General: Other (Tearful, forgetful)
HEENT: Normocephalic
Respiratory: Clear to Auscultation
Cardiac: Irregular Rhythm
GI: Soft, Nontender, Nondistended and Normal Bowel Sounds
Musculoskeletal: No Cyanosis and No Edema
Skin: Warm and Dry
Neuro: AO x 3
Psych: Calm
--- NOTE | 2024-11-18 10:37 | PTCARENOTE ---
Pt is AOx1, confused to time and place. Assist x1-2 OOB with walker. Afib on tele monitor, BP elevated, MD aware. Pt tearful with care. Will work with PT later today. Bed alarm on and audible. Call zavala within reach.
[2024-11-18] MEDS: ZESTRIL 5 MG PO (11:02)
[2024-11-18 12:52] LABS: Glucose - Point of Care 184 mg/dl (70-99)
[2024-11-18] MEDS: NOVOLOG FLEXPEN-LOW RESISTANCE 1 UNITS SC (12:52)
[2024-11-18] MEDS: BenGay-Like TOPICAL ×2 (13:45→22:23)
--- NOTE | 2024-11-18 16:48 | CM ---
Reviewed chart. [facility] and [facility] declined patient. Met with Mr. and Mrs. Tanner and son to review discharge plans. Gave them the snf list to review for other options. Mrs. Tanner also asking for
private caregiver information. Gave her the private caregiving information to see is she can get provate caregivers int he home. Referrals sent to [facility], [facility], [facility], [facility] and [facility] to
check on ability to accept. Not sure she will agree to another SNF/Rehab. Medical work-up in progress. The discharge plan is to go to SNF/Rehab. if bed available or home with spouse , VNA and private caregivers when medically stable.
[2024-11-18 17:50] LABS: Glucose - Point of Care 142 mg/dl (70-99)
[2024-11-18] MEDS: SENOKOT-S PO (20:12)
[2024-11-18 21:56] LABS: Glucose - Point of Care 200 mg/dl (70-99)
[2024-11-18] MEDS: XALATAN OPHTHALMIC SOLUTION 1 DROP BOTH EYES (22:23)
[2024-11-18] MEDS: LANTUS 0.05 UNITS SC (22:24)
[2024-11-19] MEDS: UNASYN IV ×5 (00:05→23:20)
[2024-11-19 02:12] VITALS: BP 110/72
--- NOTE | 2024-11-19 02:24 | PTCARENOTE ---
At change of shift, pt reports the need to move his bowels. This RN and day shift RN transferred pt to the [facility], pt unsteady and weak when ambulating. He denies any dizziness, and had a brown soft/loose BM. Pt oriented to self only, confused at
baseline. Attempted to reorient pt often, pt remains confused/forgetful. [employer] in b/l ears. Tele monitor shows Afib. Denies any pain or SOB. VSS. Pt inc of urine at times, and voids blood tinged urine. Denies any burning. Bed alarm active, call zavala
within reach.
[2024-11-19 02:30] LABS: Hematocrit 29.9 % (39.0-52.0); Hemoglobin 10.4 g/dL (13.0-18.0); Mean Corp Hgb Conc. 34.8 g/dL (33.0-37.0); Mean Corpuscular Volume 86.4 fL (80.0-94.0); Platelet Count 240 10^3/uL (130-400); Red Cell Dist. Width 14.1 % (11.5-14.5)
[2024-11-19 02:59] LABS: Blood Urea Nitrogen 19 mg/dl (9-20); Calcium 8.3 mg/dl (8.4-10.2); Carbon Dioxide 23 mmol/L (22-30); Chloride 109 mmol/L (98-107); Estimated Creatinine Clearance 42 ml/min; Glucose 115 mg/dl (70-99); Potassium 3.7 mmol/L (3.5-5.1); Sodium 140 mmol/L (135-145); eGFR > 60.00
[2024-11-19 06:43] LABS: Glucose - Point of Care 104 mg/dl (70-99)
[2024-11-19 06:45] VITALS: BP 131/96
[2024-11-19] MEDS: NOVOLOG FLEXPEN-LOW RESISTANCE SC ×2 (08:25→11:38)
--- NOTE | 2024-11-19 08:33 | W.PN.HOSP.TC ---
Addendum entered and electronically signed by Safia Galvan MD 11/19/24 15:54:
CVS: S1-S2 irregular
Chest: CTA B/L
Abdomen: Soft, NT / Bowel sounds present
Extremities: No edema
Seen and examined the patient with resident
Agree with plan
Stable for discharge
Original Note:
Today's Communication/Plan
-
BP stable
Okay for discharge pending placement
Assessment / Plan
Assessment / Plan
89-year-old man with bilateral kidney stones and stent placement developed sudden severe dysphagia. Transferred to IV for Cardizem drip and blood pressure control for hypertensive urgency.
# Bilateral kidney stones with hydronephrosis
--s/p cystoscopy with bilateral ureteral stent placement. Incidental finding of urethral stricture which was dilated. Estrada placed to allow stricture healing. TOV 11/15/24, doing well
--Initially Eliquis restarted and placed on hold secondary to hematuria - urology prefers ASA until stones removed - scheduled outpatient
--Flomax restarted
#Severe dysphagia-started
--Developed on 11/13/2024
--CT without any acute changes
--GI eval appreciated-suspect esophagitis versus stricture
--PPI twice daily
--Plans for EGD canceled given multiple ongoing issues
--Cleared for IDDSI 7 diet on 11/18/24
# Permanent atrial fibrillation
-- Hold Eliquis due to persistent hematuria
--Cardizem changed to 180 BID, labetalol 200 BID
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
# Hypertensive urgency-
-- Home meds labetalol 100 BID and Cardizem 120 mg daily
--Cardizem changed to 180 BID, labetalol 200 BID
--Still hypertensive. Added lisinopril 5mg daily - Today BP stable. Okay for discharge.
# Dementia
--Suicidal ideation 11/13/2024
--Psychiatric evaluation appreciated-off one-to-one
# Diabetes-hemoglobin A1c 7.4
--Was on metformin 500 mg twice daily as outpatient
--Currently on Lantus 5 units, Accu-Cheks and sliding scale coverage
# Hypokalemia-resolved
# Anemia
--Iron and B12 adequate. Pattern on anemia of chronic disease
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
# Bilateral shoulder pain right more than left likely arthritic
--Pain control
# Constipation-bowel regimen
DVT prophylaxis-SCDs
DNR status
According to case management difficult to place with patients baseline confusion. She is working on finding placed but has already received multiple rejections.
Anticipated Discharge: Today
Subjective/Interval History
-
Date of Service: November 19, 2024
Still confused, but less tearful than yesterday. No complaints.
Objective Data
-
Labs:
Laboratory Results
11/19/24
02:21
WBC 8.4
Hgb 10.4 L
Hct 29.9 L
Plt Count 240
Sodium 140
Potassium 3.7
Chloride 109 H
Carbon Dioxide 23
BUN 19
Creatinine 1.1
Glucose 115 H
Calcium 8.3 L
Vital Signs:
Vital Signs
Temp Pulse Resp BP Pulse Ox
98 F 69 14 110/72 95
11/19/24 06:39 11/19/24 06:39 11/19/24 06:39 11/19/24 02:12 11/19/24 06:39
I&O
11/18/24 11/19/24 11/20/24
06:59 06:59 06:59
Intake Total 540 / 540 120 / 120
Output Total 1675 / 1675 475 / 475
Balance -1135 / -1135 -355 / -355
Review of Systems
-
History Source: Patient
Constitutional: Reports No Symptoms
EENT: Reports No Symptoms Reported
Respiratory: Reports No Symptoms
Cardiac: Reports No Symptoms
Abdomen/GI: Reports No Symptoms
Genitourinary: Reports Bleeding
Skin: Reports No Symptoms
Neuro: Reports No Symptoms
Physical Exam
-
General: No Apparent Distress
HEENT: Normocephalic
Respiratory: Clear to Auscultation
Cardiac: Regular Rhythm and S1/S2
GI: Soft, Nontender, Nondistended and Normal Bowel Sounds
Musculoskeletal: No Cyanosis and No Edema
Neuro: Awake
Psych: Calm
[2024-11-19] MEDS: ASPIR LOW (ENTERIC COATED) 81 MG PO (09:18)
[2024-11-19] MEDS: VITAMIN D3 (cholecalciferol) 25 MCG PO (09:18)
[2024-11-19] MEDS: TRANDATE 200 MG PO ×2 (09:18→19:37)
[2024-11-19] MEDS: ZESTRIL 5 MG PO (09:19)
[2024-11-19] MEDS: MIRALAX 17 GRAMS PO (09:19)
[2024-11-19] MEDS: FLOMAX 0.4 MG PO ×2 (09:19→19:36)
[2024-11-19] MEDS: SENOKOT-S 1 TABLET PO ×2 (09:20→19:36)
[2024-11-19] MEDS: CARDIZEM CD 180 MG PO ×2 (09:23→19:36)
[2024-11-19] MEDS: VITAMIN B-12 1000 MCG PO (09:23)
[2024-11-19] MEDS: BenGay-Like 1 APPLIC TOPICAL (09:24)
[2024-11-19] MEDS: NSS (PRESERVATIVE FREE) 10 ML IV ×2 (09:25→19:37)
[2024-11-19] MEDS: PROTONIX IV 40 MG IV ×2 (09:25→19:37)
[2024-11-19] MEDS: OLOPATADINE 0.1% OPHTHALMIC SOLUTION 1 DROP OPHTH (09:26)
[2024-11-19 11:13] LABS: Glucose - Point of Care 147 mg/dl (70-99)
[2024-11-19] MEDS: BenGay-Like TOPICAL ×3 (11:50→22:50)
[2024-11-19 12:37] VITALS: BP 126/70
[2024-11-19 14:59] VITALS: BP 118/73
--- NOTE | 2024-11-19 16:49 | PTCARENOTE ---
Pt still voiding dk blood tinged urine, more tea colored now.
[2024-11-19 17:13] LABS: Glucose - Point of Care 273 mg/dl (70-99)
[2024-11-19] MEDS: NOVOLOG FLEXPEN-LOW RESISTANCE 3 UNITS SC (17:16)
[2024-11-19 19:20] VITALS: BP 129/98
[2024-11-19 20:51] LABS: Glucose - Point of Care 226 mg/dl (70-99)
[2024-11-19 22:50] VITALS: BP 138/76
[2024-11-19] MEDS: XALATAN OPHTHALMIC SOLUTION 1 DROP BOTH EYES (22:50)
[2024-11-19] MEDS: LANTUS 0.05 UNITS SC (22:50)
--- NOTE | 2024-11-19 23:12 | PTCARENOTE ---
Received patient at change of shift. Afib on the monitor HR in the 70s. Aspiration precautions. OOB to chair. Patient disoriented to time and place but pleasant. Bed alarm in place. No complaints from pt at this time, call zavala within reach.
[2024-11-20] VITALS (9 sets, daily range): BP systolic 120–177; BP diastolic 62–95; PULSE 85; O2SAT 95
[2024-11-20 03:46] LABS: Blood Urea Nitrogen 23 mg/dl (9-20); Calcium 8.3 mg/dl (8.4-10.2); Carbon Dioxide 23 mmol/L (22-30); Chloride 110 mmol/L (98-107); Estimated Creatinine Clearance 33 ml/min; Glucose 158 mg/dl (70-99); Potassium 3.8 mmol/L (3.5-5.1); Sodium 138 mmol/L (135-145); eGFR 48.34
[2024-11-20] MEDS: UNASYN IV (06:24)
[2024-11-20 06:55] LABS: Glucose - Point of Care 157 mg/dl (70-99)
--- NOTE | 2024-11-20 08:10 | W.PN.HOSP.TC ---
Addendum entered and electronically signed by Safia Galvan MD 11/20/24 13:58:
Seen and examined the patient with the resident plan formulated together and agree
Patient still having hematuria
He denies any other complaints of abdominal pain difficulty urinating chest pain or shortness of breath
Exam is unremarkable
Creatinine is elevated at 1.4
Check bladder scan to rule out retention
Urology has been informed about elevated creatinine to see if they have any further recommendations
Case management has been working to get the patient to rehab.
Original Note:
Today's Communication/Plan
-
Hold lisinopril
Hydralazine 25 BID for BP
Bladder US
Possible renal US pending urology recommendation
Assessment / Plan
Assessment / Plan
89-year-old man with bilateral kidney stones and stent placement developed sudden severe dysphagia. Transferred to IV for Cardizem drip and blood pressure control for hypertensive urgency.
# Bilateral kidney stones with hydronephrosis
--s/p cystoscopy with bilateral ureteral stent placement. Incidental finding of urethral stricture which was dilated. Estrada placed to allow stricture healing. TOV 11/15/24, doing well
--Initially Eliquis restarted and placed on hold secondary to hematuria - urology prefers ASA until stones removed - scheduled outpatient
--Flomax restarted
#EVAN
--Cr bump from 1.1 to 1.4
--Likely due to PRIYANKA - Hold lisinopril
--Bladder US to rule out retention
--Urology aware - will order renal US pending their recommendations to eval stents
# Hypertensive urgency-
-- Home meds labetalol 100 BID and Cardizem 120 mg daily
--Cardizem changed to 180 BID, labetalol 200 BID
--Still hypertensive. Added lisinopril 5mg daily -> stopped due to EVAN -> BP bumped back to 177/79 -> hydralazine 25 BID added as maxed out on BB, CCB
#Severe dysphagia-started
--Developed on 11/13/2024
--CT without any acute changes
--GI eval appreciated-suspect esophagitis versus stricture
--PPI twice daily
--Plans for EGD canceled given multiple ongoing issues
--Cleared for IDDSI 7 diet on 11/18/24
# Permanent atrial fibrillation
-- Hold Eliquis due to persistent hematuria
--Cardizem changed to 180 BID, labetalol 200 BID
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
# Dementia
--Suicidal ideation 11/13/2024
--Psychiatric evaluation appreciated-off one-to-one
# Diabetes-hemoglobin A1c 7.4
--Was on metformin 500 mg twice daily as outpatient
--Currently on Lantus 5 units, Accu-Cheks and sliding scale coverage
# Hypokalemia-resolved
# Anemia
--Iron and B12 adequate. Pattern on anemia of chronic disease
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
# Bilateral shoulder pain right more than left likely arthritic
--Pain control
# Constipation-bowel regimen
DVT prophylaxis-SCDs
DNR status
According to case management difficult to place with patients baseline confusion. She is working on finding placed but has already received multiple rejections.
Anticipated Discharge: Within 24 hours
Subjective/Interval History
-
Date of Service: November 20, 2024
Overall no complaints. Denies any increased urinary frequency, urgency or burning with urination. No back pain, no CVA tenderness. In a cheerful mood this morning. Urine appears dark red.
Objective Data
-
Labs:
Laboratory Results
11/20/24
02:28
Sodium 138
Potassium 3.8
Chloride 110 H
Carbon Dioxide 23
BUN 23 H
Creatinine 1.4 H
Glucose 158 H
Calcium 8.3 L
Vital Signs:
Vital Signs
Temp Pulse Resp BP Pulse Ox
97.7 F 84 14 177/79 96
11/20/24 06:52 11/20/24 06:56 11/20/24 06:52 11/20/24 06:56 11/20/24 06:56
I&O
11/19/24 11/20/24 11/21/24
06:59 06:59 06:59
Intake Total 120 / 120
Output Total 475 / 475 300 / 300
Balance -355 / -355 -300 / -300
Review of Systems
-
History Source: Patient
EENT: Reports No Symptoms Reported
Respiratory: Reports No Symptoms
Cardiac: Reports No Symptoms
Abdomen/GI: Reports No Symptoms
Genitourinary: Reports Bleeding and Dark Urine
Neuro: Reports No Symptoms
Physical Exam
-
General: No Apparent Distress and Comfortable
Respiratory: Clear to Auscultation
Cardiac: S1/S2 and Irregular Rhythm
GI: Soft, Nontender, Nondistended and Normal Bowel Sounds
Genito-urinary: No Costovertebral Tender and Bloody Urine
Musculoskeletal: No Cyanosis and No Edema
Neuro: AO x 3
Psych: Calm
[2024-11-20] MEDS: BenGay-Like TOPICAL ×4 (08:44→21:15)
[2024-11-20] MEDS: FLOMAX 0.4 MG PO ×2 (08:45→19:52)
[2024-11-20] MEDS: APRESOLINE 25 MG PO ×2 (08:45→19:53)
[2024-11-20] MEDS: CARDIZEM CD 180 MG PO ×2 (08:46→19:53)
[2024-11-20] MEDS: TRANDATE 200 MG PO ×2 (08:46→19:52)
[2024-11-20] MEDS: VITAMIN B-12 1000 MCG PO (08:46)
[2024-11-20] MEDS: VITAMIN D3 (cholecalciferol) 25 MCG PO (08:46)
[2024-11-20] MEDS: SENOKOT-S 1 TABLET PO ×2 (08:46→19:53)
[2024-11-20] MEDS: MIRALAX 17 GRAMS PO (08:47)
[2024-11-20] MEDS: NSS (PRESERVATIVE FREE) 10 ML IV ×2 (08:47→19:53)
[2024-11-20] MEDS: PROTONIX IV 40 MG IV ×2 (08:47→19:53)
[2024-11-20] MEDS: ASPIR LOW (ENTERIC COATED) 81 MG PO (08:47)
[2024-11-20] MEDS: OLOPATADINE 0.1% OPHTHALMIC SOLUTION 1 DROP OPHTH (08:48)
[2024-11-20] MEDS: NOVOLOG FLEXPEN-LOW RESISTANCE 1 UNITS SC ×2 (09:44→13:21)
--- NOTE | 2024-11-20 11:43 | PTCARENOTE ---
~2954-1064: Handoff report received from nightshift RN. Pt oriented to self and place only at this time. Afib 70s-80s on tele, SBP 170s this AM prior to meds. D/t EVAN, lisinopril held this AM per order. Post AM meds, SBP 130s. Pt denies pain at this
time. Pt OOB with PT/OT, ambulated with Ax2 and walker to bathroom and then back to chair. Patient incontinent at times of urine. Urine rust colored and dark, urology is aware. hygiene care completed and linens changed. All needs met at this time,
call zavala within reach.
~[id number]: Report called to [facility]W. Patient transported via stretcher in stable condition with transport staff. Son present at this time and belongings sent with patient.
[2024-11-20 11:50] LABS: Vitamin D, 25-OH*** 36.4 ng/mL (30-80)
[2024-11-20 12:03] LABS: Glucose - Point of Care 192 mg/dl (70-99)
--- NOTE | 2024-11-20 12:26 | PTCARENOTE ---
Pt received at 1146 via stretcher accompanied by IVU staff. Pt transferred from stretcher to bed with seedling puller assist of 2. Pt tolerated well. Personal items and call light within reach. pt oriented to staff, call light system and environment.
All needs met.
[2024-11-20 16:47] LABS: Glucose - Point of Care 306 mg/dl (70-99)
[2024-11-20] MEDS: NSS 1000 IV (17:51)
[2024-11-20] MEDS: NOVOLOG FLEXPEN-LOW RESISTANCE 4 UNITS SC (18:03)
[2024-11-20 21:14] LABS: Glucose - Point of Care 109 mg/dl (70-99)
[2024-11-20] MEDS: LANTUS 0.05 UNITS SC (21:16)
[2024-11-20] MEDS: XALATAN OPHTHALMIC SOLUTION 1 DROP BOTH EYES (21:17)
[2024-11-21] VITALS (7 sets, daily range): BP systolic 119–175; BP diastolic 65–92; PULSE 72
[2024-11-21 07:09] LABS: Glucose - Point of Care 117 mg/dl (70-99)
[2024-11-21 07:34] LABS: Hematocrit 30.1 % (39.0-52.0); Hemoglobin 10.3 g/dL (13.0-18.0); Mean Corp Hgb Conc. 34.2 g/dL (33.0-37.0); Mean Corpuscular Volume 86.7 fL (80.0-94.0); Platelet Count 278 10^3/uL (130-400); Red Cell Dist. Width 14.4 % (11.5-14.5)
--- NOTE | 2024-11-21 08:09 | W.PN.HOSP.TC ---
Addendum entered and electronically signed by Safia Galvan MD 11/21/24 13:33:
I saw and evaluated the patient. I reviewed the resident�s note and agree with findings and plan as documented in the resident�s note.
Ultrasound without any hydronephrosis or obstruction
Creatinine 1.4
Check urine sodium
Unclear if the elevation in creatinine is secondary to PRIYANKA inhibitor
IV fluids today
Discussed with urology
D/WRN
Original Note:
Today's Communication/Plan
-
Renal US
Assessment / Plan
Assessment / Plan
89-year-old man with bilateral kidney stones and stent placement developed sudden severe dysphagia. Transferred to IV for Cardizem drip and blood pressure control for hypertensive urgency.
# Bilateral kidney stones with hydronephrosis
--s/p cystoscopy with bilateral ureteral stent placement. Incidental finding of urethral stricture which was dilated. Estrada placed to allow stricture healing. TOV 11/15/24, doing well
--Initially Eliquis restarted and placed on hold secondary to hematuria - urology prefers ASA until stones removed - scheduled outpatient
--Flomax restarted
#EVAN
--Cr bump from 1.1 to 1.4 -> 1.4
--Likely due to PRIYANKA - d/c lisinopril now on hydralazine
--No post-void residual volume on bladder scan
--Will get Renal US
# Hypertensive urgency-
-- Home meds labetalol 100 BID and Cardizem 120 mg daily
--Cardizem changed to 180 BID, labetalol 200 BID
--Still hypertensive. Added lisinopril 5mg daily -> stopped due to EVAN -> hydralazine 25 BID added as maxed out on BB, CCB - BP now stable
#Severe dysphagia-started
--Developed on 11/13/2024
--CT without any acute changes
--GI eval appreciated-suspect esophagitis versus stricture
--PPI twice daily
--Plans for EGD canceled given multiple ongoing issues
--Cleared for IDDSI 7 diet on 11/18/24
# Permanent atrial fibrillation
-- Hold Eliquis due to persistent hematuria
--Cardizem changed to 180 BID, labetalol 200 BID
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
# Dementia
--Suicidal ideation 11/13/2024
--Psychiatric evaluation appreciated-off one-to-one
# Diabetes-hemoglobin A1c 7.4
--Was on metformin 500 mg twice daily as outpatient
--Currently on Lantus 5 units, Accu-Cheks and sliding scale coverage
# Hypokalemia-resolved
# Anemia
--Iron and B12 adequate. Pattern on anemia of chronic disease
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
# Bilateral shoulder pain right more than left likely arthritic
--Pain control
# Constipation-bowel regimen
DVT prophylaxis-SCDs
DNR status
Anticipated Discharge: Within 24 hours
Subjective/Interval History
-
Date of Service: November 21, 2024
Tearful this morning because he has not seen his the past few days as she went in for a surgery. With his underlying cognitive impairment he does not understand. Physically no complaints. Still shannon colored urine.
Objective Data
-
Labs:
Laboratory Results
11/21/24
07:12
WBC 9.1
Hgb 10.3 L
Hct 30.1 L
Plt Count 278
Sodium Pending
Potassium Pending
Chloride Pending
Carbon Dioxide Pending
BUN Pending
Creatinine Pending
Glucose Pending
Calcium Pending
Vital Signs:
Vital Signs
Temp Pulse Resp BP Pulse Ox
98.0 F 74 18 139/65 98
08/28/25 07:24 11/21/24 07:24 11/21/24 07:24 11/21/24 07:24 11/21/24 07:24
I&O
11/20/24 11/21/24 11/22/24
06:59 06:59 06:59
Intake Total 740 / 740
Output Total 300 / 300 615 / 615
Balance -300 / -300 125 / 125
Review of Systems
-
History Source: Patient
EENT: Reports No Symptoms Reported
Respiratory: Reports No Symptoms
Cardiac: Reports No Symptoms
Abdomen/GI: Reports No Symptoms
Genitourinary: Reports Bleeding and Dark Urine
Neuro: Reports No Symptoms
Physical Exam
-
General: Comfortable
HEENT: Normocephalic
Respiratory: Clear to Auscultation
Cardiac: Irregular Rhythm
GI: Soft, Nontender, Nondistended and Normal Bowel Sounds
Genito-urinary: No Costovertebral Tender and Bloody Urine
Musculoskeletal: No Cyanosis and No Edema
Neuro: Awake and Alert
Psych: Confused
[2024-11-21] MEDS: NOVOLOG FLEXPEN-LOW RESISTANCE SC (08:12)
[2024-11-21] MEDS: CARDIZEM CD 180 MG PO ×2 (08:14→20:15)
[2024-11-21] MEDS: MIRALAX 17 GRAMS PO (08:14)
[2024-11-21] MEDS: TRANDATE 200 MG PO ×2 (08:14→20:15)
[2024-11-21] MEDS: NSS (PRESERVATIVE FREE) 10 ML IV ×2 (08:15→20:14)
[2024-11-21] MEDS: APRESOLINE 25 MG PO ×2 (08:15→20:15)
[2024-11-21] MEDS: VITAMIN D3 (cholecalciferol) 25 MCG PO (08:15)
[2024-11-21] MEDS: ASPIR LOW (ENTERIC COATED) 81 MG PO (08:15)
[2024-11-21] MEDS: FLOMAX 0.4 MG PO ×2 (08:15→20:14)
[2024-11-21] MEDS: VITAMIN B-12 1000 MCG PO (08:15)
[2024-11-21] MEDS: SENOKOT-S 1 TABLET PO ×2 (08:16→20:14)
[2024-11-21] MEDS: OLOPATADINE 0.1% OPHTHALMIC SOLUTION 1 DROP OPHTH (08:16)
[2024-11-21] MEDS: PROTONIX IV 40 MG IV ×2 (08:16→20:14)
[2024-11-21 08:20] LABS: Blood Urea Nitrogen 27 mg/dl (9-20); Calcium 8.9 mg/dl (8.4-10.2); Carbon Dioxide 22 mmol/L (22-30); Chloride 111 mmol/L (98-107); Estimated Creatinine Clearance 33 ml/min; Glucose 111 mg/dl (70-99); Potassium 3.8 mmol/L (3.5-5.1); Sodium 139 mmol/L (135-145); eGFR 48.34
[2024-11-21] MEDS: NSS 1000 IV ×2 (08:27→23:47)
[2024-11-21] MEDS: BenGay-Like TOPICAL ×4 (08:32→21:47)
--- NOTE | 2024-11-21 10:12 | W.PN.URO.CBU ---
Today's Communication / Plan
-
await renalu/s
Assessment / Plan
-
89M presenting with urinary frequency and incontinence noted to have bilateral distal ureteral stones on CT imaging.
11/11: s/p cystoscopy, bilateral ureteral stent placement, bulbar stricture dilation.
11/12: UOP faintly pink-tinged UOP POD#1 - Eliquis restarted by primary team 11/12 (last dose in PM).
11/13: UOP light punch but aqueous w/o clots.
11/15: UOP aqueous dark maroon c/w lysing clots and old blot - no clots in tubing.
Creatinkieremains 1.4 up from 1.1 will obtain renal u/s to see if obstructed but most liely answer is medical
eventual plan for outpt stone removal
Diagnosis
-
Date of Service: November 21, 2024
-
Patient Diagnosis:
Post Op Day:
Diagnosis:
Bilateral ureteral stones
Bulbar urethral stricture
Post Op Day:
11/11: s/p dilation of urethral stricture, bilateral ureteral stent placement
Subjective
-
asx
Objective
-
Vital Signs
Temp Pulse Resp BP Pulse Ox
98.0 F 74 18 139/65 98
11/21/24 07:24 11/21/24 07:24 11/21/24 07:24 11/21/24 07:24 11/21/24 07:24
Intake and Output
11/20/24 11/21/24 11/22/24
06:59 06:59 06:59
Intake Total 740 / 740
Output Total 300 / 300 615 / 615
Balance -300 / -300 125 / 125
Intake:
Oral fluids 740 / 740
Output:
Urine, Voided 300 / 300 615 / 615
Other:
How many times incontinent 3
MODERATE amount urine
Laboratory Results
11/21/24 07:12
11/21/24 07:12
Review of Systems
-
Abdomen/GI: No Symptoms
: No Symptoms
Physical Exam
-
General - well developed, well nourished, no acute distress
Chest - clear bilaterally
Abdomen - soft, non-tender, positive bowel sounds, no CVAT, no incisional pain or distention
Genitalia - normal
Rectal - normal
Skin - warm & dry with no rash
Neuro - AOx3, no motor deficits
Extremities - no clubbing, no cyanosis, no edema
Incision - clean, dry
Dressing - clean, dry, intact
Care Review
Data Reviewed
Discussed with: Hospitalist and Nursing
Ultrasound: Image Pers Reviewed
[2024-11-21 11:50] LABS: Glucose - Point of Care 176 mg/dl (70-99)
--- NOTE | 2024-11-21 12:02 | CM ---
Addendum entered by Payton Fortune 11/21/24 13:34:
per hospitalist stable for tomorrow for discharge
notified [facility] liaison
PLAN: [facility] when stable
Report #: [id number]
Fax #: [phone]
transportation forms on chart
Addendum entered by Payton Fortune 11/21/24 13:25:
bed available at [facility] today - /son agreeable to [facility]
tt hospitalist
PLAN: [facility]
Report #: [id number]
Fax #: [phone]
transportation forms on chart
Addendum entered by Payton Fortune 11/21/24 12:53:
per [facility] liaison - was going to tour [facility] today
Original Note:
spoke with patient regarding referrals
per hospitalist patient is stable for discharge
IMM explained & signed. In chart
met with gal Baugh at bedside.
[facility] declined
CM spoke with Cindy at [facility], she will get back to CM if bed available
Left message with [facility] liaison
no preauth
PLAN: SNF, pending acceptance/bed availability
[2024-11-21] MEDS: NOVOLOG FLEXPEN-LOW RESISTANCE 1 UNITS SC (13:12)
[2024-11-21 17:02] LABS: Glucose - Point of Care 221 mg/dl (70-99)
[2024-11-21] MEDS: NOVOLOG FLEXPEN-LOW RESISTANCE 2 UNITS SC (18:22)
[2024-11-21] MEDS: FLUSH (NSS) 1 FLUSH IV (20:15)
[2024-11-21 21:40] LABS: Glucose - Point of Care 244 mg/dl (70-99)
[2024-11-21] MEDS: XALATAN OPHTHALMIC SOLUTION 1 DROP BOTH EYES (21:48)
[2024-11-21] MEDS: LANTUS 0.05 UNITS SC (21:49)
[2024-11-22 02:58] VITALS: BP 125/53
[2024-11-22 07:19] VITALS: BP 165/103
[2024-11-22 07:37] LABS: Hematocrit 30.2 % (39.0-52.0); Hemoglobin 10.0 g/dL (13.0-18.0)
--- NOTE | 2024-11-22 07:37 | W.PN.URO.CBU ---
Today's Communication / Plan
-
NO INTERVENTION
Assessment / Plan
-
89M presenting with urinary frequency and incontinence noted to have bilateral distal ureteral stones on CT imaging.
11/11: s/p cystoscopy, bilateral ureteral stent placement, bulbar stricture dilation.
11/12: UOP faintly pink-tinged UOP POD#1 - Eliquis restarted by primary team 11/12 (last dose in PM).
11/13: UOP light punch but aqueous w/o clots.
11/15: UOP aqueous dark maroon c/w lysing clots and old blot - no clots in tubing.
Creatinkieremains 1.4 up from 1.1 u/s neg for hydro ie medical etiology of EVAN
Diagnosis
-
Date of Service: November 22, 2024
-
Patient Diagnosis:
Post Op Day:
Patient Diagnosis:
Post Op Day:
Diagnosis:
Bilateral ureteral stones
Bulbar urethral stricture
Post Op Day:
11/11: s/p dilation of urethral stricture, bilateral ureteral stent placement
Subjective
-
poor communication
Objective
-
Vital Signs
Temp Pulse Resp BP Pulse Ox
97.5 F 79 17 165/103 97
11/22/24 07:19 11/22/24 07:19 11/22/24 07:19 11/22/24 07:19 11/22/24 07:19
Intake and Output
11/21/24 11/22/24 11/23/24
06:59 06:59 06:59
Intake Total 740 / 740 1380 / 1380
Output Total 615 / 615 100 / 100
Balance 125 / 125 1280 / 1280
Intake:
Oral fluids 740 / 740 480 / 480
IV fluids (Total) 900 / 900
Output:
Urine, Voided 615 / 615 100 / 100
Other:
Number of approximated MODERATE 3
amounts of urine
Review of Systems
-
: Difficulty Voiding
Physical Exam
-
General - well developed, well nourished, no acute distress
Chest - clear bilaterally
Abdomen - soft, non-tender, positive bowel sounds, no CVAT, no incisional pain or distention
Genitalia - normal
Rectal - normal
Skin - warm & dry with no rash
Neuro - AOx3, no motor deficits
Extremities - no clubbing, no cyanosis, no edema
Incision - clean, dry
Dressing - clean, dry, intact
[2024-11-22 07:43] LABS: Glucose - Point of Care 142 mg/dl (70-99)
[2024-11-22 08:04] LABS: Blood Urea Nitrogen 22 mg/dl (9-20); Calcium 8.7 mg/dl (8.4-10.2); Carbon Dioxide 23 mmol/L (22-30); Chloride 112 mmol/L (98-107); Estimated Creatinine Clearance 38 ml/min; Glucose 144 mg/dl (70-99); Potassium 3.9 mmol/L (3.5-5.1); Sodium 139 mmol/L (135-145); eGFR 58.17
--- NOTE | 2024-11-22 08:39 | W.PN.HOSP.TC ---
Addendum entered and electronically signed by Safia Galvan MD 11/22/24 14:04:
Seen and examined the patient earlier today with the resident. Agree with the plan formulated
Patient denied any symptoms
Creatinine has improved from 1.4-1.2 no hydronephrosis noted on the ultrasound.
Likely reason for the elevated creatinine was lisinopril which we have discontinued. Hydralazine increased.
Blood pressure numbers have stabilized
Resident discussed with patient's I was not able to reach her on the phone
Discussed with case management
Discharge coordination time more than 30 minutes
Original Note:
Today's Communication/Plan
-
Discharge to [facility]
Assessment / Plan
Assessment / Plan
89-year-old man with bilateral kidney stones and stent placement developed sudden severe dysphagia. Transferred to for Cardizem drip and blood pressure control for hypertensive urgency.
# Bilateral kidney stones with hydronephrosis
--s/p cystoscopy with bilateral ureteral stent placement. Incidental finding of urethral stricture which was dilated. Estrada placed to allow stricture healing. TOV 11/15/24, doing well
--Initially Eliquis restarted and placed on hold secondary to hematuria - urology prefers ASA until stones removed - scheduled outpatient
--Flomax restarted
#EVAN
--Cr bump from 1.1 to 1.4 -> 1.4 -> 1.2
--Likely due to PRIYANKA - d/c lisinopril now on hydralazine
--No post-void residual volume on bladder scan
--Renal US no hydronephrosis, okay for discharge pending SNF
# Hypertensive urgency
-- Home meds labetalol 100 BID and Cardizem 120 mg daily
--Cardizem changed to 180 BID, labetalol 200 BID
--Still hypertensive. Added lisinopril 5mg daily -> stopped due to EVAN -> hydralazine 25 BID added as maxed out on BB, CCB - BP now stable
#Severe dysphagia-started
--Developed on 11/13/2024
--CT without any acute changes
--GI eval appreciated-suspect esophagitis versus stricture
--PPI twice daily
--Plans for EGD canceled given multiple ongoing issues
--Cleared for IDDSI 7 diet on 11/18/24
# Permanent atrial fibrillation
-- Hold Eliquis due to persistent hematuria
--Cardizem changed to 180 BID, labetalol 200 BID
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
# Dementia
--Suicidal ideation 11/13/2024
--Psychiatric evaluation appreciated-off one-to-one
# Diabetes-hemoglobin A1c 7.4
--Was on metformin 500 mg twice daily as outpatient
--Currently on Lantus 5 units, Accu-Cheks and sliding scale coverage
# Hypokalemia-resolved
# Anemia
--Iron and B12 adequate. Pattern on anemia of chronic disease
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
# Bilateral shoulder pain right more than left likely arthritic
--Pain control
# Constipation-bowel regimen
DVT prophylaxis-SCDs
DNR status
Anticipated Discharge: Today
Subjective/Interval History
-
Date of Service: November 22, 2024
No complaints overnight.
Objective Data
-
Labs:
Laboratory Results
11/22/24
07:18
Hgb 10.0 L
Hct 30.2 L
Sodium 139
Potassium 3.9
Chloride 112 H
Carbon Dioxide 23
BUN 22 H
Creatinine 1.2
Glucose 144 H
Calcium 8.7
Vital Signs:
Vital Signs
Temp Pulse Resp BP Pulse Ox
97.5 F 79 17 165/103 97
11/22/24 07:19 11/22/24 07:19 11/22/24 07:19 11/22/24 07:19 11/22/24 07:19
I&O
11/21/24 11/22/24 11/23/24
06:59 06:59 06:59
Intake Total 740 / 740 1380 / 1380
Output Total 615 / 615 100 / 100
Balance 125 / 125 1280 / 1280
Review of Systems
-
History Source: Patient
Respiratory: Reports No Symptoms
Cardiac: Reports No Symptoms
Abdomen/GI: Reports No Symptoms
Genitourinary: Reports Bleeding and Dark Urine
Neuro: Reports No Symptoms
Physical Exam
-
General: No Apparent Distress and Comfortable
Respiratory: Clear to Auscultation
Cardiac: Irregular Rhythm
GI: Soft, Nontender, Nondistended and Normal Bowel Sounds
Genito-urinary: No Costovertebral Tender and Bloody Urine
Musculoskeletal: No Cyanosis and No Edema
Skin: Warm and Dry
Neuro: Awake and Alert
Psych: Calm
[2024-11-22] MEDS: TRANDATE 200 MG PO (08:48)
[2024-11-22] MEDS: CARDIZEM CD 180 MG PO (08:48)
[2024-11-22] MEDS: NOVOLOG FLEXPEN-LOW RESISTANCE SC (08:48)
[2024-11-22] MEDS: SENOKOT-S 1 TABLET PO (08:48)
[2024-11-22] MEDS: NSS (PRESERVATIVE FREE) 10 ML IV (08:48)
[2024-11-22] MEDS: ASPIR LOW (ENTERIC COATED) 81 MG PO (08:49)
[2024-11-22] MEDS: MIRALAX 17 GRAMS PO (08:49)
[2024-11-22] MEDS: VITAMIN D3 (cholecalciferol) 25 MCG PO (08:49)
[2024-11-22] MEDS: VITAMIN B-12 1000 MCG PO (08:49)
[2024-11-22] MEDS: FLOMAX 0.4 MG PO (08:49)
[2024-11-22] MEDS: PROTONIX IV 40 MG IV (08:49)
[2024-11-22] MEDS: APRESOLINE 25 MG PO ×2 (08:54→11:18)
[2024-11-22] MEDS: BenGay-Like TOPICAL ×2 (08:54→13:17)
[2024-11-22] MEDS: OLOPATADINE 0.1% OPHTHALMIC SOLUTION 1 DROP OPHTH (09:00)
--- NOTE | 2024-11-22 09:39 | CM ---
Addendum entered by Payton Fortune 11/22/24 13:18:
3:30 transport set -notified [facility]
Addendum entered by Payton Fortune 11/22/24 10:27:
call back from [facility] liaison - bed available today at [facility]
Original Note:
[facility] accepted patient
Left message with [facility] liaison at [facility] to re-confirm bed today
Left message with
IMM explained yesterday - in chart
PLAN: [facility]
Report #: [phone]
Fax #: [phone]
transportation forms on chart
[2024-11-22 10:22] VITALS: BP 146/72
[2024-11-22] MEDS: NSS 1000 IV (10:56)
[2024-11-22 11:37] LABS: Glucose - Point of Care 207 mg/dl (70-99)
[2024-11-22] MEDS: NOVOLOG FLEXPEN-LOW RESISTANCE 2 UNITS SC (13:15)
[2024-11-22 14:45] VITALS: BP 149/73
--- NOTE | 2024-11-22 15:07 | W.DCSUMMARY ---
Discharge Summary
Discharge Data
Date of Admission: 11/11/24
Date of Discharge: 11/22/24
-
Pending Results: No
Hospital Course
Primary Diagnosis:
Bilateral kidney stones with hydronephrosis
Severe dysphagia
Hypertensive urgency
Permanent atrial fibrillation
Dementia
Suicidal Ideation
Hypokalemia
Valvular heart disease - moderate MR, mild
Secondary Diagnosis:
Anemia of chronic disease
constipation
Bilateral shoulder pain
Hospital Course:
89 y/o male presented to ED on 11/11/24 for worsening urinary incontinence.
# Bilateral kidney stones with hydronephrosis
--CT ab/pelvis revealed mild right hydronephrosis with 2mm calculus and chronic moderate left hydronephrosis with 5 mm calculus. Urology consulted and cystoscopy, urethral stricture dilation and bilateral ureteral stents were placed. Estrada placed to
help with healed and removed on 11/15 and doing well.
--Initially Eliquis for a.fib was restarted post op, but later placed on hold secondary to hematuria. Urology requests aspirin for anticoagulation until outpatient evaluation for stone removal is done as hematuria ongoing.
--Flomax was restarted, tolterodine n hold to prevent any urinary retention that could result in post-renal EVAN until seen by urology
#EVAN
--1.1 to 1.4 after adding lisinopril for BP -> no hydro on renal US and no post-void residual volume -> hydralazine -> resolved to 1.2 at discharge
#Severe dysphagia-started
--Developed on 11/13/2024
--Head CT without any acute changes
--GI saw him and suspected esophagitis versus stricture
--PPI twice daily was started
--Plans for EGD canceled given multiple ongoing issues
--He was cleared for regular (IDDSI 7) diet on 11/18/24 with no ongoing concerns
# Hypertensive urgency
--On 11/13, pt also found to be in a.fib with RVR and hypertensive urgency. Due to dysphagia, transferred to IVU to be placed on Cardizem drip and closer monitoring.
-- Home meds labetalol 100 BID and Cardizem 120 mg daily were changed to labetalol 200 BID and Cardizem 180 BID by cardiology.
--He was found to still be significantly hypertensive but HR controlled so lisinopril 5mg daily was added -> EVAN -> no hydro on renal US or postvoid residual volume -> hydralazine increased to 50 BID -> controlled
# Permanent atrial fibrillation
-- Eliquis on hold due to hematuria until cleared by urology. On ASA for anticoagulation.
-- Cardizem changed to 180 BID, labetalol 200 BID
# Dementia
--Suicidal ideation 11/13/2024 as well
--Psychiatry evaluated him and thought his suicidal comments were more related to his acute condition rather than true depression. He was initially placed on 1 to 1 observation which was later discontinued.
--His mood stabilized as his health improved
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
# Diabetes-hemoglobin A1c 7.4
--Metformin held during admission to favor insulin during acute illness. Okay to restart metformin outpatient.
# Hypokalemia
--repleted and resolved
# Anemia
--Iron and B12 adequate. Pattern on anemia of chronic disease
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
# Bilateral shoulder pain right more than left likely arthritic
--Pain control
# Constipation
--provided bowel regimen
Today, patient is medically stable for discharge. His BP and HR medications have been adjusted to labetalol 200 BID and Cardizem 180 BID by cardiology. Hydralazine 50mg BID was added for BP as maxed out on CCB, BB and EVAN with lisinopril. He is on
ASA 81 for anticoagulation until seen by urology for outpatient stone removal as he has ongoing hematuria. He will likely restart Eliquis after this. Due to severe dysphagia during hospitalization, he is also being discharge on pantoprazole 40mg BID
for one month. After that we recommend further evaluation by PCP to see if he needs to continue or not.
Imaging:
Ab/pelvic CT 11/11/24:
IMPRESSION:
1. Mild right hydronephrosis secondary to 2 mm calculus at the right ureterovesical junction. Chronic moderate left hydronephrosis secondary to 5 mm calculus the distal left ureter. Left periureteral and perinephric inflammatory changes. Left
nephrolithiasis. Left perinephric and retroperitoneal lymphadenopathy which could be related to the chronic left renal process.
2. Moderate to large volume of stool within the colon, no obstruction.
3. Mesenteric panniculitis, unchanged.
Renal US 11/21/24:
No hydronephrosis.
Simple right renal cyst. Stable
Nonobstructing bilateral renal stones. Increased in size
Bilateral urinary stents. New
Mild bladder debris. New. Mild bladder wall trabeculations. This can be seen with chronic cystitis
Moderate prostate hypertrophy. Stable
Discharge Plan
-
Patient Disposition: Usp/SNF
Discharge Diagnosis/Procedures: Bilateral kidney stones with hydronephrosis status post cystoscopy, bilateral ureteral stent placement, bulbar stricture dilation.
Severe Dysphagia
Hypertensive emergency
Dementia
Suicidal ideation
Permanent atrial fibrillation
Valvular heart disease
Hypokalemia
Condition: Fair
Diet: Diabetic, Carb Controlled
Activity: As tolerated
Driving Restrictions: Not until seen by your Dr
Bathing Restrictions: None
Activity Restrictions/Additional Instructions:
Follow-up with urology to get the stents out and for stone procedure
Instructions: Kidney stones in adults
Referrals:
Alejo Brewer MD [Active, Urology] - in one to two weeks
UNKNOWN - PT DOES,NOT KNOW [Family Provider]
Additional Discharge Medication Instructions: Repeat BMP in one week to follow kidney function.
Take Pantoprazole 40mg BID for one month, then discuss with PCP if you need to continue taking it.
Hold Eliquis until you get urology procedure. Restart when okay from urology standpoint. At that time discontinue aspirin
Prescriptions:
New
diltiazem HCl 180 mg Capsule,Extended Release 24hr
180 mg PO BID Qty: 60 0RF
aspirin 81 mg Tablet,Delayed Release (Dr/Ec)
81 mg PO DAILY Qty: 30 0RF
labetalol 200 mg Tablet
200 mg PO BID Qty: 60 0RF
pantoprazole 40 mg tablet,delayed release (DR/EC)
40 mg PO BID Qty: 60 0RF
hydralazine 50 mg Tablet
50 mg PO BID Qty: 60 0RF
Continued
metformin 500 MG tablet extended release 24 hr
500 mg PO BID
latanoprost 0.005 % drops
1 drp BOTH EYES HS
tamsulosin 0.4 mg capsule
0.4 mg PO BID
bepotastine besilate 1.5 % drops
1 drp BOTH EYES DAILY
cyanocobalamin (vitamin B-12) 1,000 mcg Tablet
1,000 mcg PO DAILY
ascorbic acid (vitamin C) [Vitamin C] 500 mg Tablet
500 mg PO DAILY
cholecalciferol (vitamin D3) [Vitamin D3] 25 mcg (1,000 unit) Tablet
25 mcg PO DAILY
Brioschi Digestive Aid
1 tsp PO BID
Patient Comments:
Sugar, Sodium Bicarbonate (active), malic acid, glucose syrup, natural lemon flavor (dehydrated lemon juice. No artificial flavorings or colorants.
Held
Eliquis 5 MG tablet
5 mg PO BID
Hold Instructions: Until seen by urology
tolterodine 2 mg capsule,extended release 24hr
2 mg PO BID
Hold Instructions: Until seen by urology
Discontinued
diltiazem HCl 120 MG capsule,extended release 24hr
120 mg PO DAILY
labetalol 100 mg tablet
100 mg PO BID
Discharge Orders:
Discharge Patient (As Directed); Ordered 11/22/24
Ordered By: Safia Galvan
Care Plan Goals
Care Plan Goals:
Problem: Readiness for enhanced knowledge related to diagnosis and treatment plan
Goal: Understand your diagnosis and treatment plan needs, including medications if applicable.
Instructions: Know your diagnosis, underlying causes and treatment plan options, including medications if applicable. Consult with your health care team to learn about your diagnosis and treatment plan, including medications if applicable.
Discharge Date and Time
Print Language: ITALIAN
== END 2024-11-22 15:53 | DRG 659 ==
LOC: 3 WEST ACU 11:15
PROVIDERS: Emergency Medicine; Nurse Practitioner Adult Health; Psychiatry & Neurology Psychiatry; Radiology Diagnostic Radiology; Surgery; ADMITTING PHYSICIAN Internal Medicine; ATTENDING PHYSICIAN Hospitalist; CONSULT PHYSICIAN Internal Medicine Gastroenterology; CONSULT PHYSICIAN Urology; EMERGENCY PHYSICIAN Emergency Medicine; OTHER PHYSICIAN Internal Medicine
PROC: 0T788DZ Dilation of Bilateral Ureters with Intraluminal Device, Via Natural or Artificial Opening Endoscopic (ICD-10-PCS; 2024-11-11)
PROC: 0T7D8ZZ Dilation of Urethra, Via Natural or Artificial Opening Endoscopic (ICD-10-PCS; 2024-11-11)
PROC: BT1F1ZZ Fluoroscopy of Left Kidney, Ureter and Bladder using Low Osmolar Contrast (ICD-10-PCS; 2024-11-11)
DX: N13.2 Hydronephrosis with renal and ureteral calculous obstruction (principal); G92.8 Other toxic encephalopathy; J69.0 Pneumonitis due to inhalation of food and vomit; I48.21 Permanent atrial fibrillation; K65.4 Sclerosing mesenteritis; R45.851 Suicidal ideations; I16.1 Hypertensive emergency; D68.32 Hemorrhagic disorder due to extrinsic circulating anticoagulants; N39.498 Other specified urinary incontinence; N40.1 Benign prostatic hyperplasia with lower urinary tract symptoms; E11.9 Type 2 diabetes mellitus without complications; N35.912 Unspecified bulbous urethral stricture, male; R13.10 Dysphagia, unspecified; E78.00 Pure hypercholesterolemia, unspecified; I10 Essential (primary) hypertension; R59.0 Localized enlarged lymph nodes; N39.41 Urge incontinence; K59.00 Constipation, unspecified; H91.90 Unspecified hearing loss, unspecified ear; D72.829 Elevated white blood cell count, unspecified; E87.6 Hypokalemia; N17.9 Acute kidney failure, unspecified; G31.84 Mild cognitive impairment of uncertain or unknown etiology; E83.39 Other disorders of phosphorus metabolism; D63.8 Anemia in other chronic diseases classified elsewhere; M25.512 Pain in left shoulder; M25.511 Pain in right shoulder; I35.0 Nonrheumatic aortic (valve) stenosis; N28.1 Cyst of kidney, acquired; N32.89 Other specified disorders of bladder; Z66 Do not resuscitate; Z79.01 Long term (current) use of anticoagulants; Z79.84 Long term (current) use of oral hypoglycemic drugs; Z87.442 Personal history of urinary calculi
CPT/HCPCS: 70450; 74176; 74420; 76000; 76770; 80048; 80053; 81003; 81015; 82306; 82607; 82728; 82746; 82962; 83540; 83550; 83735; 84100; 84300; 85014; 85018; 85025; 85027; 85610; 86850; 86900; 86901; 87086; 92526; 92610; 93005; 97116; 97163; 97166; 97530; 97535; 99285; C2617

== ENCOUNTER 2024-11-25 20:39 | Observation (INO) | payer MEDICARE, OTHER, SELFPAY ==
[2024-11-25 15:04] VITALS: BP 148/62
--- NOTE | 2024-11-25 17:17 | ED.GENMED ---
History of Present Illness
General
Chief Complaint: Social Service Referral
Source: patient
Exam Limitations: clinical condition
Time Seen by Provider: 11/25/24 16:48
Nursing documentation reviewed up to this point in time: agreed with
History of Present Illness
History of Present Illness:
see MDM
Past History
Past History
ED Past Medical History: Arrthythmia, HTN, Hypercholesterolemia, NIDDM, Other (Kidney stones) and Other (Syncope)
ED Past Surgical History: Negative Cardiac
Social History
Tobacco: Non-smoker
Alcohol: Occasional
Drug: None
Personal:
Living: with family
Employment: Retired
Family History
Family History: Other (Noncontributory)
Review of Systems
Review of Systems
Allergies reviewed?: Yes
All Other Systems: Not applicable
Phy Exam
Physical Exam
Physical Exam:
GENERAL: Alert , in no apparent distress
EYE: pupils equal and reactive
NECK: Supple
ENT: o/p clr, mmm.
CARDIAC: Regular rate and rhythm .
LUNGS: Clear breath sounds bilaterally, no acute respiratory distress, no wheezes/rales/rhonchi
ABDOMEN: Soft, without focal tenderness, no r/g, no cvat, normal bowel sounds
gu: in diaper; pt has eryehatmous skin scrotum c/w fungal/yeast
NEUROLOGICAL: Alert and oriented, no focal neuro deficits
SKIN: Warm and dry, skin intact.
MUSCULOSKELETAL: No edema, well perfused.
PSYCH: N tearful, anxious
Course
Orders/Labs/Results
Orders:
Orders
11/25/24 Dinner
Regular
At Your Request: Full Participation
11/25/24 17:42
Complete Blood Count/With Diff Urgent
Comprehensive Metabolic Panel Urgent
11/25/24 18:54
0.9% Sodium Chloride 500 ml [Nss] 500 ml IV BOLUS
11/25/24 19:58
Abdomen/Pelvis wo Contrast CT [CT Abd/pelvis Wo Iv Cont] Urgent
Comment: NO CONTRAST
Reason For Exam: angela leukocytosis recent stents
11/25/24 20:00
Bladder Scan As Directed
Follow Bladder Retention/Intermittent Cath Algorithm?: Yes
PRN if no void in __ hours: 6
Frequency: Per Retention Algorithm
If Bladder Scan Result >: 400
then:: Straight cath
Straight Cath As Directed
Frequency: Per Retention Algorithm
Additional Instructions: straight cath as needed per acute urinary retention algorithm for 24 hrs
Additional Instructions: for bladder scan greater than 400 mL
11/25/24 20:01
Admit/Transfer Patient As Directed
Co-Sign Provider:
Level of Care: Observation services
Assign to:: Medical/Surgical
Physician / Group: akshat rubio
Diagnosis: dementia self care def, angela, leukocytosis
Code Status As Directed
Resuscitation Status: Do not resuscitate
Reached after discussion with pt or family/Healthcare POA: Yes
Based on pt advanced directive or healthcare POA form: Yes
Decision communicated with: per chart
DNR Bracelet Application ONCE
11/25/24 20:03
PRN Pain Medication Management As Directed
May give lesser potent ordered pain med per pt: Yes
preference::
Protocol:: Medication orders for pain may be administered in a
manner that supports deferring to patient preference
when the pt is:
- Requesting an ordered lesser potent pain medication.
Least to most potent pain medications are defined
as: acetaminophen < NSAID < tramadol < opioids
(morphine, oxycodone, hydromorphone).
- Requesting a lesser dose of the same medication IF
ORDERED.
- Requesting a less intrusive route of administration
if both routes are prescribed by the provider (PO <
IV).
11/25/24 21:59
Acetaminophen [Tylenol] 650 mg PO Q4HPRN PRN
Bisacodyl [Dulcolax] 10 mg RECTAL [id number] PRN
Dextrose 50%-Water [Dextrose 50% Syringe] 12.5 grams IV [id number] PRN
Docusate W/Senna [Senokot-S] 1 tablet PO BIDPRN PRN
Glucagon [GlucaGen] 1 mg IM PRN PRN
HydrALAZINE [Apresoline] 50 mg PO BID
Labetalol [Trandate] 200 mg PO BID
Polyethylene Glycol Powder [Miralax] 17 grams PO DAILYPRN PRN
11/25/24 21:59
Activity As Directed
Activity Level: With Assistance
Bedside Glucose Monitoring As Directed
Frequency: AC&HS
Additional Instructions:: Change to q6h if pt on TPN, tube feeding or not eating
Intake/ Output As Directed
Frequency: Per unit guidelines
Pneumatic Compression Sleeves As Directed
Type: Knee high
Vital Signs As Directed
Frequency: Per unit guidelines
DX Deep Vein Thrombosis Video Routine
11/25/24 22:00
Latanoprost [Xalatan Ophthalmic Solution] 1 drop BOTH EYES HS
11/25/24 23:48
Urinalysis Reflex To Culture Urgent
Date Specimen was Collected: 11/25/24
Time Specimen was Collected: 23:39
11/26/24 06:00
Complete Blood Count/With Diff IN AM
Comprehensive Metabolic Panel IN AM
Glycohemoglobin (HgbA1c) IN AM
11/26/24 07:30
Insulin Aspart Corrective Low [Novolog Flexpen-Low Resistance] See Protocol SC AC
11/26/24 08:00
Aspirin Low Dose EC [Aspir Low (Enteric Coated)] 81 mg PO DAILY
Cholecalciferol (Vitamin D3) [VITAMIN D3 (cholecalciferol)] 25 mcg PO DAILY
Cyanocobalamin [Vitamin B-12] 1,000 mcg PO DAILY
Diltiazem Extended Release [Cardizem Cd] 180 mg PO BID
Pantoprazole [Protonix] 40 mg PO BID
Tamsulosin [Flomax] 0.4 mg PO BID
bepotastine besilate 1 drop BOTH EYES DAILY
11/27/24 06:00
Complete Blood Count/With Diff IN AM
Comprehensive Metabolic Panel IN AM
Abnormal Lab Results
11/25/24
17:42
WBC 16.9 H 10^3/uL
(4.8-10.8)
RBC 3.12 L 10^6/uL
(4.70-6.10)
Hgb 9.4 L g/dL
(13.0-18.0)
Hct 27.7 L %
(39.0-52.0)
RDW 14.6 H %
(11.5-14.5)
Abs Immat Gran (auto) 0.1 H 10^3/uL
(0-0.05)
Absolute Neuts (auto) 14.6 H 10^3/uL
(1.4-6.5)
Absolute Lymphs (auto) 1.1 L 10^3/uL
(1.2-3.4)
Absolute Monos (auto) 0.9 H 10^3/uL
(0.1-0.6)
Neutrophils % 86.2 H %
(42.2-75.2)
Lymphocytes % 6.4 L %
(20.5-51.1)
BUN 29 H mg/dl
(9-20)
Creatinine 1.4 H mg/dL
(0.7-1.3)
Glucose 196 H mg/dl
(70-99)
Total Protein 5.7 L g/dl
(6.3-8.2)
Albumin 3.4 L g/dl
(3.5-5.0)
11/25/24 17:42
11/25/24 17:42
Vital Signs
Initial and Last Documented VS:
Initial Vital Signs
Temp Pulse Resp BP Pulse Ox
37.2 C 76 18 148/62 98
11/25/24 15:04 11/25/24 15:04 11/25/24 15:04 11/25/24 15:04 11/25/24 15:04
Last Documented Vital Signs
Temp Pulse Resp BP Pulse Ox
36.5 C 103 16 172/88 98
11/25/24 23:15 11/25/24 23:15 11/25/24 23:15 11/25/24 23:15 11/25/24 23:15
MDM/Problems Addressed
Differential Diagnosis Includes:
see MDM
MDM/Problems Addressed:
Note:
CHIEF COMPLAINT(S)
- Difficulty with mobility and emotional distress after a recent kidney stone surgery.
HISTORY OF PRESENT ILLNESS
The patient is an 89-year-old M from home via 911
because cannot take care of him herself.
pt was admitted 11/11-11/22 for b/l kidney stones and rising cr
he had b/l stents placed
multiple other issues addressed
d/c'd to SNF at [facility].
stayed there 24 hours and said conditions were horrific so she took him home.
he home and she realizes she needs help caring for him
pt is currently experiencing emotional distress and expressed feeling overwhelmed, stating, 'Its too overwhelming.' The patient reports having not been able to walk since before this and denies any vomiting, diarrhea, or chest pain. He mentions
discomfort in the genital area, which appears to have been moist, but denies any significant pain elsewhere.
PAST MEDICAL AND SURGICAL HISTORY
- Recent kidney operation for kidney stone removal.
SOCIAL DETERMINANTS AFFECTING HEALTH
Post-surgery care has been challenging at home due to the patients limited mobility and the spouses inability to manage his care, which has been described as 'too overwhelming.' The patient previously had access to a rehabilitation facility but
chose to return home prematurely, resulting in increased stress on the family dynamic.
PHYSICAL EXAM
- Examination of the genital area reveals it to be excessively moist.
- No vomiting, diarrhea, or chest pain reported by the patient.
- Nursing notes reviewed and vital signs reviewed.
PLAN
- Contact the patients spouse to discuss the current situation and explore potential support options, ensuring adequate care for the patient.
- Address the patients emotional needs and discomfort in the genital area by coordinating with nursing staff for appropriate skin care management.
- Consider reevaluating the patients rehabilitation plan to support mobility and alleviate the caregiver burden on the spouse.
DIFFERENTIAL DIAGNOSIS
The Differential Diagnosis includes, in no particular order and is not limited to:
1. Postsurgical recovery complications.
2. Urinary tract infection.
3. Depression or emotional distress.
4. Geriatric failure to thrive.
5. Incontinence-related dermatitis.
6. Deconditioning due to prolonged immobility.
7. Hydronephrosis due to retained kidney stone fragments.
8. Anxiety disorders due to overwhelming home care responsibilities.
9. Malnutrition due to inadequate dietary intake.
10. Pressure ulcer formation.
89 y/o M
poor historian
just admitted for b/l kidney stones, has stents
went to SNF and family took him out
initially pt's was unavailable by linnea but she came to the ER and i psoke with her
she seems to have expectation that instead of marie to a facility, he should stay here for care until she can get more care at home, and also so that he can have his outpatient appointments with specifialists inpatient
pt's informed this was not likely - but case managementconsulted
today he has leukocytosis but no complaints
no fever
cr still 1.4
ua ordered
holding on imaging for now
*Pulse Oximetry
SaO2: 98
Oxygen Mode of Delivery: Room air
Patient hypoxic: no (98)
*Critical Care Note
Total Time (30-74mins, 75-104mins- exclusive of procedures): Not Applicable
ED Attending Note
-
Portions of this chart may have been created with voice recognition software.� Occasional wrong word or��sound alike� substitutions may have occurred due to the inherent limitations of voice recognition software.
Discharge Plan
Departure
Patient Disposition: Admit
Date of Disposition: 11/25/24
Time of Disposition: 19:13
Admit to: Med/Surg
Presentation/result/management discussed w/ accepting MD/DO: Hospitalist
Condition: Fair
Covid-19: Not Applicable
Discharge Problem:
Leukocytosis, Ambulatory dysfunction
Interventions
Interventions:
*Risk Screen - Suicide Last Done: 11/25/24 15:04
*General Assessment Last Done: 11/25/24 15:04
*Neglect/Abuse Screening Last Done: 11/25/24 15:04
*ED- Fall Risk Assessment Last Done: 11/25/24 15:04
*ED COVID-19 Vaccine History Last Done: 11/25/24 23:19
*Nursing Disposition Last Done: 11/25/24 22:03
ED-Psychological Assessment Last Done: 11/25/24 15:04
Discharge Date and Time
Discharge Date/Time: 11/25/24 22:03
[2024-11-25 17:49] LABS: Hematocrit 27.7 % (39.0-52.0); Hemoglobin 9.4 g/dL (13.0-18.0); Mean Corp Hgb Conc. 33.9 g/dL (33.0-37.0); Mean Corpuscular Volume 88.8 fL (80.0-94.0); Nucleated Red Blood Cells % 0 % (-); Platelet Count 333 10^3/uL (130-400); Red Cell Dist. Width 14.6 % (11.5-14.5)
[2024-11-25 18:00] VITALS: BP 134/76
[2024-11-25 18:05] LABS: ALT (SGPT) 23 U/L (0-50); AST (SGOT) 18 U/L (17-59); Albumin 3.4 g/dl (3.5-5.0); Alkaline Phosphatase 86 U/L (38-126); Blood Urea Nitrogen 29 mg/dl (9-20); Calcium 8.4 mg/dl (8.4-10.2); Carbon Dioxide 22 mmol/L (22-30); Chloride 106 mmol/L (98-107); Glucose 196 mg/dl (70-99); Potassium 3.6 mmol/L (3.5-5.1); Sodium 135 mmol/L (135-145); Total Protein 5.7 g/dl (6.3-8.2); eGFR 48.34
--- NOTE | 2024-11-25 19:23 | HPS.HSE ---
Family Physician
-
Family Physician: NOT KNOW UNKNOWN - PT DOES
Chief Complaint
-
Unable to care for self at home
History of Present Illness
89-year-old male from home by EMS due to not being able to care for him however he had a recent admission 11/11 - 11/22/[address] [facility] was discharged to [facility] on 11/22/2024 she reportedly took him home on 11/24/2024 from
[facility] because his did not like the care there. The patient tells me his did take him home from the rehab however she is not able to care for him at home she does not have any of his medications and he came back to the hospital due
to this reason and wanting to go back to rehab. I did speak with his son via phone who is unaware his mother took his father out of the rehab. I did attempt to call the patient's but she did not answer. The patient denies dysuria/hematuria
however the nurse in the ER noted hematuria on the sheets. The patient denies headache, fever, chills, chest pain, palpitations, shortness of breath, cough, abdominal pain, nausea, vomiting, diarrhea. He does report his memory is significantly
worsened since his recent kidney stone surgery.
The patient was admitted with bilateral kidney stones with hydronephrosis underwent cystoscopy for 5 mm calculus urethral stricture dilation with bilateral ureteral stents placed. Was briefly on Eliquis for A-fib but then held due to hematuria had
initial Estrada catheter that was removed on 11/15/2024 he was also treated for dysphagia cleared for regular diet, had blood pressure medication adjusted due to hypertensive urgency. He has past medical history of dementia, depression,
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
constipation
Medical History
Past Medical History
Past Medical History: Reports Other
Additional Past Medical History:
Dementia
Depression
Permanent A-fib
HTN/hypertensive urgency
HLD
EVAN, bilateral renal calculi with hydronephrosis 11/11/2024
BPH
anemia of chronic disease
DM 2
Valvular heart disease�moderate MR, mild ,
bilateral chronic shoulder pain right greater than left
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
constipation
Past Surgical History: Reports Other
Additional Past Surgical History:
Tonsillectomy
Lithotripsy
Bilateral kidney stones with hydronephrosis status post cystoscopy, bilateral ureteral stent placement, bulbar stricture dilation 11/11/2024
Social History
Tobacco: Non-smoker
Alcohol: None
Personal:
Living: With Family
Family History
Family History: Not pertinent
Allergies / Home Medications
Allergies reflects when Allergies were last updated in [employer].
Home Medications with original date entered in [employer]
Allergy/Medication List:
Allergies
Allergy/AdvReac Type Severity Reaction Status Date / Time
No Known Allergies Allergy Verified 11/11/24 03:29
Home Medications
apixaban 5 mg tablet (Eliquis) 5 mg PO BID Blood clot prevention/tx 04/10/19
Held on 11/22/24. Instructions: Until seen by urology
metformin 500 mg tablet,extended release 24 hr 500 mg PO BID Diabetes 04/10/19
bepotastine besilate 1.5 % eye drops 1 drp BOTH EYES DAILY Eye Condition 11/10/22
latanoprost 0.005 % eye drops 1 drp BOTH EYES HS Eye Condition 11/10/22
tamsulosin 0.4 mg capsule 0.4 mg PO BID Urinary Issue 11/10/22
tolterodine 2 mg capsule,extended release 24 hr 2 mg PO BID Urinary Issue 11/10/22
Held on 11/22/24. Instructions: Until seen by urology
Brioschi Digestive Aid 1 tsp PO BID Supplement 11/11/24
ascorbic acid (vitamin C) 500 mg tablet (Vitamin C) 500 mg PO DAILY Supplement 11/11/24
cholecalciferol (vitamin D3) 25 mcg (1,000 unit) tablet (Vitamin D3) 25 mcg PO DAILY Supplement 11/11/24
cyanocobalamin (vitamin B-12) 1,000 mcg tablet 1,000 mcg PO DAILY Supplement 11/11/24
aspirin 81 mg tablet,delayed release 81 mg PO DAILY Blood clot prevention/tx #30 tabs 11/19/24
diltiazem HCl 180 mg capsule,extended release 24 hr 180 mg PO BID Arrhythmia #60 caps 11/19/24
labetalol 200 mg tablet 200 mg PO BID Arrhythmia #60 tabs 11/19/24
pantoprazole 40 mg tablet,delayed release 40 mg PO BID Gastrointestinal issue #60 tabs 11/19/24
hydralazine 50 mg tablet 50 mg PO BID Blood pressure #60 tabs 11/22/24
Review of Systems
-
History Source: Patient and Other (ER record)
A 12 point ROS was completed and negative except as noted: Yes
Constitutional: Denies Fever or Chills
EENT: Denies Sore Throat or Runny Nose
Respiratory: Denies Cough or Trouble Breathing
Cardiac: Denies Chest Pain, Diaphoresis, Palpitations or Syncope
Abdomen/GI: Denies Abdominal Pain, Nausea, Vomiting, Diarrhea, Constipated or Bloody Stools
: Reports Other (Scant hematuria); Denies Dysuria, Frequency, Flank Pain, Incontinence or Difficulty Voiding
Musculoskeletal: Denies Joint Pain or Edema
Skin: Denies Itching or Rash
Neurological: Denies Dizzy, Headache or Weakness
Endocrine: Reports No Symptoms
Hematologic/Lymphatic: Reports No Symptoms
Psych: Reports Calm
Physical Exam
Vital Signs
Vital Signs
Temp Pulse Resp BP Pulse Ox
98.9 F 76 18 148/62 98
11/25/24 15:04 11/25/24 15:04 11/25/24 15:04 11/25/24 15:04 11/25/24 17:20
Physical Exam
General: Comfortable and Conversant; No Pain, Fever or Chills
HEENT: NormoCephalic, Anicteric, Moist mucous membranes, PERRLA, Odem Conjunctivae and No Ptosis
Respiratory: Clear; No Wheezes, Rales or Rhonchi
Cardiac: S1/S2 and Regular Rhythm; No Murmur, Rub, Gallop or Peripheral Edema
GI: Soft, Non Tender, Non Distended, Normal Bowel Sounds and No Hepatosplenomegaly
Rectal: Deferred by Provider
Genito-urinary: Deferred by me
Musculoskeletal: No Clubbing, No Cyanosis and No Edema
Skin: Warm and Dry; No Rash
Neuro: Awake, Alert, Oriented (To name, place Amber, , summa recent events is aware has dementia with worsening memory he states), No Motor Deficits (While in bed), Nonfocal/grossly intact, Cranial Nerves Intact and No Sensory Deficits; No
Slurred Speech, Facial Droop, Tremors or Sedated
Psych: Calm
Laboratory Results
-
11/25/24 17:42
11/25/24 17:42
Laboratory Results
Total Bilirubin 0.6 mg/dl (0.2-1.3) 11/25/24 17:42
AST 18 U/L (17-59) 11/25/24 17:42
ALT 23 U/L (0-50) 11/25/24 17:42
Alkaline Phosphatase 86 U/L (38-126) 11/25/24 17:42
Data Reviewed
-
Lab Data: Labs Reviewed by me
Impression/Plan
-
Impression/plan:
Observation MedSurg
#Dementia with self-care deficit
#History of depression recently evaluated by psychiatry on 11/13/2024
- Consult case management for placement was unhappy with [facility]
#Acute leukocytosis
WBC 16.9 with left shift, 98.9F, HR 76
-Check bladder scan
-Repeat UA and culture
Patient was given IV NSS 1 L in ER
#Bilateral kidney stones with hydronephrosis S/P Cystoscopy 5 mm calculus, urethral stricture dilation and bilateral ureteral stents were placed. Estrada placed to help with healed and removed on 11/15 and doing well.
-Continue Flomax patient had hematuria when Eliquis was resumed
-May continue aspirin
- Check CT abdomen pelvis evaluate for hydro and current stents
- Patient is due to see urology [address] Salazar will need appointment set up right now Eliquis is on hold given he had significant hematuria when it was restarted during recent inpatient admission
#EVAN possibly secondary to EVAN
Creat 1.4 was 1.2 at discharge initially was 1.4 on admission for hydro
Follow CMP
- Hold metformin
- Will cover with sliding scale low
Patient was given IV NSS 1 L in ER
# History of severe dysphagia suspect related to esophagitis was cleared on 11/18/2024 for regular diet
--Developed on 11/13/2024
--Plans for EGD canceled given multiple ongoing issues
-Continue PPI twice daily
# HTN/hypertensive urgency hx
BP 148/62
-- Home meds labetalol 100 BID and Cardizem 120 mg daily were changed to labetalol 200 BID and Cardizem 180 BID by cardiology.
-Continue hydralazine 50 mg twice daily
# Permanent atrial fibrillation
Recent A-fib with RVR on 11/13/2024
-- Eliquis on hold due to hematuria until cleared by urology. On ASA for anticoagulation.
-- Cardizem changed to 180 BID, labetalol 200 BID recent admission
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
# Diabetes-hemoglobin A1c 7.4
--Metformin held during recent admission to favor insulin during acute illness.
-Will hold metformin given EVAN this was restarted on 11/22/2024
# Hypokalemia
--repleted and resolved
# Anemia of chronic disease
Hgb 9.4
--Iron and B12 adequate on recent admission
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
# Bilateral shoulder pain right more than left likely arthritic
--Pain control
# Constipation
--provided bowel regimen
DVT prophylaxis
SCDs
DNR
--- NOTE | 2024-11-25 19:46 | W.PN.UPDATE ---
Update Note
Progress Note Update
Patient seen in conjunction with MANAGER OCCUPATIONAL. I agree the findings on history and physical. I concur with assessment and plan.
Briefly, this is a 89-year-old male with past medical history significant for dementia, hypertension, hyperlipidemia, diabetes, atrial fibrillation on anticoagulation who was admitted for bilateral ureteral calculi requiring bilateral stent
placement with hospital course complicated by postop bleeding in the setting of anticoagulation, hypertensive urgency, dysphagia, EVAN which all were treated and or resolved at time of discharge 2 days ago. He was discharged to [facility] but
spouse does not like the place and took him back home but was unable to care for him so called 911. Patient has not recieved his usual day time meds today. He denies any acute symptoms.
In ED he was afebrile, blood pressure was acceptable at 150/60 with a pulse of 76 and he was satting 98% on room air. He did have a leukocytosis to 16.9 which is new, his hemoglobin is stable at 9.4 with normal platelets. His electrolytes were
stable. BUN and creatinine slightly increased at 29 and 1.4 compared to his discharge a creatinine of 1.2. Glucose was 196.
Patient is to be admitted mostly for placement as spouse unable to care for hime at home.
1. Placement
- admit to med/surg obs
- PT consult
- Case management
2. Leukocytosis - new leukocytosis but no focal source of infection evident. Still has bilateral stents with preserved renal function. Still has mild hematuria likely from recent stents.
- u/a
- rule out bladder retention
- rule out hydronephrosis w/ non-con CT
- monitor fever profile
3. Nephrolithiais - bilateral ureteral calculi s/p cystoscopy, urethral stricture dilation and bilateral ureteral stents
- continue flomax
- ct to evaluate hydro and stent placement given leukocytosis
- outpatient urology f/u if above stable
- holding tolterodine
4. AFIB
- holding eliquis until urology follow up, on aspirin for now
- continue cardizem
5. HTN
- continue cardizem, labetolol and hydralazine
6. Renal function - appears slightly increased compared to discharge
- monitor for hydro with imaging and bladder scan as above
- avoid nephrotoxins
- trend creatiine for now, lisinopril discontinued
7. Dysphagia
- ppi bid
- IDDSA 7 diet
- following up with outpatient GI
DVT PPX - SCDs
Code status - DNR
[2024-11-25] MEDS: NSS 500 IV (19:56)
[2024-11-25] MEDS: TRANDATE 200 MG PO (22:25)
[2024-11-25] MEDS: APRESOLINE 50 MG PO (22:26)
[2024-11-25 23:03] LABS: Glucose - Point of Care 240 mg/dl (70-99)
[2024-11-25] MEDS: XALATAN OPHTHALMIC SOLUTION 1 DROP BOTH EYES (23:05)
[2024-11-25 23:15] VITALS: BP 172/88; BMI 21.5
[2024-11-26 00:21] LABS: Urine Character Bloody (Clear)
[2024-11-26 00:31] VITALS: BMI 21.5
[2024-11-26 00:31] LABS: Urine Red Blood Cell >100 /HPF (0-2); Urine Squamous Cell None seen /LPF (Few); Urine White Cell 0-2 /HPF (0-5)
--- NOTE | 2024-11-26 02:53 | PTCARENOTE ---
Patient received from ED via stretcher. Patient able to stand on scale but became very weak and was unable to ambulate into room. Patient arrived to floor with a Covidien saturated with hematuria. This RN asked patient if this was new and he stated
that it was not and has been happening 'since my surgery'. Patient outstanding for a urine sample which was sent upon arrival to floor. Urine appears to be all dark blood. No clots. Urine showed to BRIANNA Michel. No new orders received.
Patient also with multiple loose stools since arrival to floor. Stool sample sent to lab. Patient placed on Enhanced Precautions, nursing instrument assembly supervisor made aware. Will continue to monitor.
[2024-11-26 03:36] VITALS: BP 149/84
[2024-11-26 07:00] VITALS: BP 143/73
[2024-11-26 07:48] LABS: Glucose - Point of Care 173 mg/dl (70-99)
[2024-11-26] MEDS: TRANDATE 200 MG PO (07:58)
[2024-11-26] MEDS: VITAMIN D3 (cholecalciferol) 25 MCG PO (07:59)
[2024-11-26] MEDS: CARDIZEM CD 180 MG PO (07:59)
[2024-11-26] MEDS: PROTONIX 40 MG PO (07:59)
[2024-11-26] MEDS: APRESOLINE 50 MG PO (07:59)
[2024-11-26] MEDS: VITAMIN B-12 1000 MCG PO (07:59)
[2024-11-26] MEDS: FLOMAX 0.4 MG PO (07:59)
[2024-11-26] MEDS: DESENEX/MITRAZOL/ZEASORB 1 APPLIC TOPICAL (08:00)
[2024-11-26] MEDS: ASPIR LOW (ENTERIC COATED) 81 MG PO (08:05)
[2024-11-26 08:06] LABS: Hematocrit 26.2 % (39.0-52.0); Hemoglobin 8.8 g/dL (13.0-18.0); Mean Corp Hgb Conc. 33.6 g/dL (33.0-37.0); Mean Corpuscular Volume 88.5 fL (80.0-94.0); Nucleated Red Blood Cells % 0 % (-); Platelet Count 313 10^3/uL (130-400); Red Cell Dist. Width 14.6 % (11.5-14.5)
[2024-11-26] MEDS: NOVOLOG FLEXPEN-LOW RESISTANCE 1 UNITS SC ×2 (08:10→12:42)
--- NOTE | 2024-11-26 08:33 | W.PN.UPDATE ---
Addendum entered and electronically signed by Brian Lopez MD 11/26/24 12:52:
Total time spent on d/c = 31 min. This included today's physical exam, progress note, review of laboratory and diagnostic data, preparation of discharge documents and prescriptions, and discussions about the pt's hospital course and discharge plan
with the patient and other medical collections specialist involved in the patient's care.
Original Note:
Update Note
Progress Note Update
I saw and evaluated the patient. I reviewed the resident�s note and agree with findings and plan as documented in the resident�s note.
Denies CP/SOB/abd pain
Gen: NAD, awake and alert
Eyes: EOMI, PERRLA, no scleral icterus.
Neck: supple.
CV: RRR, +S1/S2, no m/r/g.
Resp: CTAB, no rales, wheezes, or rhonchi.
Abd: +BS, soft, NT, ND
Skin: No rashes.
Neuro: CN 2-12 intact, non-focal.
Psych: Normal mood and affect.
CT A/P: Bilateral double-J ureteral stents without evidence of hydronephrosis. There are nonobstructing renal calculi measuring up to 5 mm in the lower pole left kidney. There is mild circumferential urinary bladder wall thickening which is similar
to prior. If there is concern for acute cystitis recommend correlation with urinalysis. There is wall thickening and likely stranding along the sigmoid colon and rectum which likely represents proctocolitis. Small right and trace left pleural
effusions with adjacent atelectasis.
Acute C diff colitis:
-start PO Vanco x 10 days
-leukocytosis improving
Need for assistance with personal care:
-Patient came to the ER because the was unhappy with [facility]
-Social admission
-CM
Bilateral kidney stones with hydronephrosis:
-s/p cystoscopy 5 mm calculus, urethral stricture dilation and bilateral ureteral stents were placed. Estrada placed to help with healed and removed on 11/15 and doing well.
-Continue Flomax
-patient had hematuria when Eliquis was resumed, ASA only at this time
Other problems:
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
DM2: SSI/accuchecks
h/o severe dysphagia likely due to to esophagitis, OK for reg diet, cont PPI
Essential HTN: cont Cardizem/hydralazine/labetalol
Permanent atrial fibrillation: No Eliquis with recent hematuria, cont ASA only, cont Cardizem/Labetalol
Recent A-fib with RVR on 11/13/2024
Valvular heart disease: mod , mild-mod MR, mild-mod Ar, mild-mod TR
Anemia of chronic disease: trend Hb
B/L shoulder pain: likely arthritic, Pain control
Constipation: bowel regimen
DNR/SCDs
Medically cleared for d/c. Case management aware.
[2024-11-26 08:38] LABS: Glycohemoglobin (HgbA1c) 7.5 % (4.0-5.6)
--- NOTE | 2024-11-26 08:45 | W.PN.HOSP.TC ---
Today's Communication/Plan
-
CM to find another SNF
Oral vanc for c.diff
Repeat H&H in PM
Miconazole for groin rash
Assessment / Plan
Assessment / Plan
89-year-old male with recent hospitalization from 11/11 to 11/22 for bilateral hydronephrosis s/p bilateral ureteral stent placement complicated by a.fib with RVR and hypertensive emergency discharged on aspirin instead of eliquis due to ongoing
hematuria presents to the ER because the cannot take care of him at home. He was recently discharged to [facility] on 11/22/2024 and took him home on 11/24 because she was not happy with the care. After trying to take care of him at
home, patient said it was too hard and brought him to the ER. Found to have leukocytosis and C. difficile toxin positive.
Imaging:
CT ab/pelvis without IV contrast 11/25/24:
Bilateral double-J ureteral stents without evidence of hydronephrosis. There are nonobstructing renal calculi measuring up to 5 mm in the lower pole left kidney. There is mild circumferential urinary bladder wall thickening which is similar to
prior. If there is concern for acute cystitis recommend correlation with urinalysis.
There is wall thickening and likely stranding along the sigmoid colon and rectum which likely represents proctocolitis.
Small right and trace left pleural effusions with adjacent atelectasis.
Plan:
Dementia and self care deficit
History of depression
--CM for placement as pt unhappy with [facility]
--PT/OT
C. diff toxin (+)
Proctocolitis on CT
Leukocytosis
--C.diff ordered due to diarrhea with distinct smell per nursing
--Start oral vancomycin
--Monitor CBC and temp curve
EVAN
--1.4 on admission - now resolved
--Restart metformin
Bilateral kidney stones with hydronephrosis s/p bilateral ureteral stents
--Eliquis on hold cont with aspirin for anticoagulation due to ongoing hematuria per urology at discharge
--Continue flomax
--Has urology appointment in 1-2 weeks to eval stone removal and restarting eliquis
Acute on chronic blood loss anemia
--hematuria ongoing
--Hg small drop from baseline at last admission
--Recheck H&H this pm - consider urology consult if hg continues to drop and hold ASA
History of severe dysphagia - resolved during last hospital stay
--Continue pantoprazole 40mg BID until 12/22 (one month from last discharge) then re-eval with GI/PCP
--Cleared for regular diet per speech on 11/18/24
HTN
--Continue hydralazine 50 BID, labetolol 200 BID and Diltiazem 180 BID
Paroxsymal a.fib
--Eliquis on hold in setting of hematuria - on ASA per urology
--Labetolol 200 BID and Diltiazem 180 BID
--Tele
Diabetes
--Hg A1c 7.5
--Metformin held for AKA - restart
--SSI
Groin rash
--Appears fungal
--Miconazole nitrate BID
# Valvular heart disease - moderate aortic stenosis/mild to moderate MR, mild to moderate AI, mild to moderate TR
# Bilateral shoulder pain - pain control
# History of suicidal ideation during last hospitalization
DVT - SCD
DNR
Anticipated Discharge: Within 24 hours
Subjective/Interval History
-
Date of Service: November 26, 2024
Motor oil colored urine per nursing. C. diff toxin (+). Patient is tearful that he is no longer 'strong.'
Objective Data
-
Labs:
Laboratory Results
11/26/24
07:45
WBC 12.0 H
Hgb 8.8 L
Hct 26.2 L
Plt Count 313
Sodium Pending
Potassium Pending
Chloride Pending
Carbon Dioxide Pending
BUN Pending
Creatinine Pending
Glucose Pending
Calcium Pending
Total Bilirubin Pending
AST Pending
ALT Pending
Alkaline Phosphatase Pending
Vital Signs:
Vital Signs
Temp Pulse Resp BP Pulse Ox
98.1 F 95 19 143/73 96
11/26/24 07:00 11/26/24 07:58 11/26/24 07:00 11/26/24 07:58 11/26/24 07:00
I&O
11/25/24 11/26/24 11/27/24
06:59 06:59 06:59
Output Total 100 / 100
Balance -100 / -100
Review of Systems
-
History Source: Patient
Respiratory: Reports No Symptoms
Cardiac: Reports No Symptoms
Abdomen/GI: Reports Nausea and Diarrhea
Genitourinary: Reports Bleeding
Neuro: Reports No Symptoms
Physical Exam
-
General: Comfortable
Respiratory: Clear to Auscultation
Cardiac: Irregular Rhythm
GI: Soft, Nontender, Nondistended and Normal Bowel Sounds
Genito-urinary: No Costovertebral Tender and Bloody Urine
Skin: Warm and Dry
Neuro: Awake and Alert
Psych: Calm
[2024-11-26 08:51] LABS: ALT (SGPT) 20 U/L (0-50); AST (SGOT) 13 U/L (17-59); Albumin 2.9 g/dl (3.5-5.0); Alkaline Phosphatase 72 U/L (38-126); Blood Urea Nitrogen 23 mg/dl (9-20); Calcium 8.4 mg/dl (8.4-10.2); Carbon Dioxide 24 mmol/L (22-30); Chloride 110 mmol/L (98-107); Estimated Creatinine Clearance 40 ml/min; Glucose 165 mg/dl (70-99); Potassium 3.6 mmol/L (3.5-5.1); Sodium 138 mmol/L (135-145); Total Protein 5.1 g/dl (6.3-8.2); eGFR > 60.00
[2024-11-26] MEDS: FIRVANQ 125 MG PO ×2 (09:17→12:42)
--- NOTE | 2024-11-26 11:23 | W.PN.UPDATE ---
Update Note
Progress Note Update
Primary diagnosis:
Acute C. difficile colitis
Acute kidney injury
Dementia with self-care deficits
History of bilateral ureteral stent placement
Secondary diagnoses:
Anemia of chronic disease
constipation
Bilateral shoulder pain
Dysphagia
Hospital course:
89-year-old male with recent hospitalization from 11/11 to 11/22 for bilateral hydronephrosis s/p bilateral ureteral stent placement complicated by a.fib with RVR and hypertensive emergency discharged on aspirin instead of Eliquis due to ongoing
hematuria presents to the ER because the cannot take care of him at home. He was recently discharged to [facility] on 11/22/2024 and took him home on 11/24 because she was not happy with the care. After trying to take care of him at
home, patient's said it was too hard and brought him to the ER. Found to have leukocytosis and EVAN. Ab/pelvic CT was done and revealed no hydronephrosis but proctocolitis. He was admitted for further workup and hopes for better skilled rehab
facility placement. Due to the smell of his diarrhea, C.diff was tested and found to be positive. The next day his EVAN resolved with creatinine back to normal limits. Groin rash was also noted and patient started on miconazole.
Today, patient is clinically stable for discharge. Per 's request she wants to take him home with visiting nurses. He is being discharged with oral vancomycin 125 mg p.o. every 6 hours for 10 days (started 11/26. Finish 12/06), miconazole for
groin rash. Eliquis remains on hold due to ongoing hematuria. Continue with aspirin until seen by urology. Tolterodine also on hold until seen by urology for fear of urinary retention.
Imaging:
Abdomen/pelvis CT without IV or oral contrast 11/25/2024:
Bilateral double-J ureteral stents without evidence of hydronephrosis. There are nonobstructing renal calculi measuring up to 5 mm in the lower pole left kidney. There is mild circumferential urinary bladder wall thickening which is similar to
prior. If there is concern for acute cystitis recommend correlation with urinalysis.
There is wall thickening and likely stranding along the sigmoid colon and rectum which likely represents proctocolitis.
Small right and trace left pleural effusions with adjacent atelectasis.
11/25/24 23:48 C. difficile GDH Antigen & Toxins - Final
Feces/Stool Toxigenic C.difficile Positive
[2024-11-26 11:41] LABS: Glucose - Point of Care 195 mg/dl (70-99)
--- NOTE | 2024-11-26 12:22 | CM ---
Pt readmitted from [facility] via ED due to family unwillingness to continue care there. Pt's son reportedly was unhappy with the facility, although pt's had toured and was agreeable to transfer to [facility] at the time of
discharge.
CM met with pt's to discuss discharge plans. She does not want to consider SNF, would prefer home care and private duty aids at home. She is interested in [facility] for VN and private duty. Referral sent to Margarita at [facility] who will contact pt's
to discuss services as well as details about pt's LTC insurance coverage which per have paid for in home care in the past.
Plan: Pt to return home [facility] VN and aid services pending acceptance.
--- NOTE | 2024-11-26 12:58 | W.DCSUMMARY ---
Discharge Summary
Discharge Data
Date of Admission: 11/25/24
Date of Discharge: 11/26/24
-
Pending Results: No
Hospital Course
Primary diagnosis:
Acute C. difficile colitis
Acute kidney injury
Dementia with self-care deficits
History of bilateral ureteral stent placement
Secondary diagnoses:
Anemia of chronic disease
constipation
Bilateral shoulder pain
Dysphagia
Hospital course:
89-year-old male with recent hospitalization from 11/11 to 11/22 for bilateral hydronephrosis s/p bilateral ureteral stent placement complicated by a.fib with RVR and hypertensive emergency discharged on aspirin instead of Eliquis due to ongoing
hematuria presents to the ER because the cannot take care of him at home. He was recently discharged to [facility] on 11/22/2024 and took him home on 11/24 because she was not happy with the care. After trying to take care of him at
home, patient's said it was too hard and brought him to the ER. Found to have leukocytosis and EVAN. Ab/pelvic CT was done and revealed no hydronephrosis but proctocolitis. He was admitted for further workup and hopes for better skilled rehab
facility placement. Due to the smell of his diarrhea, C.diff was tested and found to be positive. The next day his EVAN resolved with creatinine back to normal limits. Groin rash was also noted and patient started on miconazole.
Today, patient is clinically stable for discharge. Per 's request she wants to take him home with visiting nurses. He is being discharged with oral vancomycin 125 mg p.o. every 6 hours for 10 days (started 11/26. Finish 12/06), miconazole for
groin rash. Eliquis remains on hold due to ongoing hematuria. Continue with aspirin until seen by urology. Tolterodine also on hold until seen by urology for fear of urinary retention.
Imaging:
Abdomen/pelvis CT without IV or oral contrast 11/25/2024:
Bilateral double-J ureteral stents without evidence of hydronephrosis. There are nonobstructing renal calculi measuring up to 5 mm in the lower pole left kidney. There is mild circumferential urinary bladder wall thickening which is similar to
prior. If there is concern for acute cystitis recommend correlation with urinalysis.
There is wall thickening and likely stranding along the sigmoid colon and rectum which likely represents proctocolitis.
Small right and trace left pleural effusions with adjacent atelectasis.
11/25/24 23:48 C. difficile GDH Antigen & Toxins - Final
Feces/Stool Toxigenic C.difficile Positive
Discharge Plan
-
Patient Disposition: Shelter/SNF
Discharge Diagnosis/Procedures: Acute C. difficile colitis
Dementia with self-care deficit
Acute kidney injury
History of bilateral kidney stones with hydronephrosis
Condition: Fair
Diet: Diabetic, Carb Controlled
Activity: As tolerated
Driving Restrictions: Not until seen by your Dr
Bathing Restrictions: None
Referrals:
UNKNOWN - PT DOES,NOT KNOW [Family Provider]
Additional Discharge Medication Instructions: Please follow-up with urology as scheduled previously
Please see PCP within a week
Vancomycin is a 10 day course
Prescriptions:
New
miconazole nitrate [Miconazorb AF] 2 % Powder
1 applic topical BID Qty: 85 0RF
vancomycin 125 mg capsule
125 mg PO QID Qty: 40 0RF
Continued
metformin 500 MG tablet extended release 24 hr
500 mg PO BID
latanoprost 0.005 % drops
1 drp BOTH EYES HS
tamsulosin 0.4 mg capsule
0.4 mg PO BID
bepotastine besilate 1.5 % drops
1 drp BOTH EYES DAILY
cyanocobalamin (vitamin B-12) 1,000 mcg Tablet
1,000 mcg PO DAILY
ascorbic acid (vitamin C) [Vitamin C] 500 mg Tablet
500 mg PO DAILY
cholecalciferol (vitamin D3) [Vitamin D3] 25 mcg (1,000 unit) Tablet
25 mcg PO DAILY
Brioschi Digestive Aid
1 tsp PO BID
Patient Comments:
Sugar, Sodium Bicarbonate (active), malic acid, glucose syrup, natural lemon flavor (dehydrated lemon juice. No artificial flavorings or colorants.
diltiazem HCl 180 mg Capsule,Extended Release 24hr
180 mg PO BID Qty: 60 0RF
aspirin 81 mg Tablet,Delayed Release (Dr/Ec)
81 mg PO DAILY Qty: 30 0RF
labetalol 200 mg Tablet
200 mg PO BID Qty: 60 0RF
pantoprazole 40 mg tablet,delayed release (DR/EC)
40 mg PO BID Qty: 60 0RF
hydralazine 50 mg Tablet
50 mg PO BID Qty: 60 0RF
Held
Eliquis 5 MG tablet
5 mg PO BID
Hold Instructions: Until seen by urologist.
Rx Instructions:
on hold untill seen by urology
tolterodine 2 mg capsule,extended release 24hr
2 mg PO BID
Hold Instructions: Until seen by urology.
Discharge Orders:
Discharge Patient (As Directed); Ordered 11/26/24
Ordered By: Brian Lopez
Discharge Date and Time
Print Language: FIJIAN
[2024-11-26 14:45] VITALS: BP 146/71
== END 2024-11-26 14:46 | disposition home health service (06) ==
LOC: 3 WEST ACU 20:39
PROVIDERS: Clinical Nurse Specialist Family Health; Physician Assistant; ADMITTING PHYSICIAN Internal Medicine; ATTENDING PHYSICIAN Internal Medicine; EMERGENCY PHYSICIAN Emergency Medicine
DX: A04.72 Enterocolitis due to Clostridium difficile, not specified as recurrent (principal); N17.9 Acute kidney failure, unspecified; I10 Essential (primary) hypertension; E78.00 Pure hypercholesterolemia, unspecified; E11.9 Type 2 diabetes mellitus without complications; F03.A0 Unspecified dementia, mild, without behavioral disturbance, psychotic disturbance, mood disturbance, and anxiety; R26.2 Difficulty in walking, not elsewhere classified; D63.8 Anemia in other chronic diseases classified elsewhere; R13.10 Dysphagia, unspecified; N40.0 Benign prostatic hyperplasia without lower urinary tract symptoms; N32.89 Other specified disorders of bladder; J90 Pleural effusion, not elsewhere classified; R21 Rash and other nonspecific skin eruption; J84.10 Pulmonary fibrosis, unspecified; K59.00 Constipation, unspecified; J98.11 Atelectasis; D62 Acute posthemorrhagic anemia; I35.0 Nonrheumatic aortic (valve) stenosis; M25.512 Pain in left shoulder; M25.511 Pain in right shoulder; R31.9 Hematuria, unspecified; G89.29 Other chronic pain; I48.21 Permanent atrial fibrillation; Z66 Do not resuscitate; Z87.442 Personal history of urinary calculi; Z79.84 Long term (current) use of oral hypoglycemic drugs; Z90.89 Acquired absence of other organs; Z74.09 Other reduced mobility; Z02.2 Encounter for examination for admission to residential institution; Z91.51 Personal history of suicidal behavior
CPT/HCPCS: 51798; 74176; 80053; 81003; 81015; 82962; 83036; 85025; 87086; 87324; 87449; 99285; G0378

== ENCOUNTER 2024-11-27 16:31 | Observation (INO) | payer MEDICARE, OTHER, SELFPAY ==
[2024-11-27] VITALS (12 sets, daily range): BP systolic 140–172; BP diastolic 66–99; BMI 21.7; BMI 21.4
--- NOTE | 2024-11-27 10:42 | ED.GENMED ---
History of Present Illness
General
Chief Complaint: Weakness
Source: patient
Exam Limitations: none
Time Seen by Provider: 11/27/24 10:17
Nursing documentation reviewed up to this point in time: agreed with
History of Present Illness
History of Present Illness:
Patient discharged to the hospital yesterday on antibiotics secondary to C. difficile associated diarrhea, presents to ED from home secondary to worsening generalized weakness. Per spouse, patient has been sleeping constantly since being discharged
home and is too weak to ambulate. Patient's does not feel safe taking care of him. Patient's recent medical history is also significant for previous admission secondary to obstructing kidney stone, which required stent placement. Denies
abdominal pain. Denies coughing. Denies vomiting. Denies back pain. Denies fever.
Past History
Past History
ED Past Medical History: Arrthythmia, HTN, Hypercholesterolemia, NIDDM, Other (Kidney stones) and Other (Syncope)
ED Past Surgical History: Negative Cardiac
Social History
Tobacco: Non-smoker
Alcohol: Occasional
Drug: None
Personal:
Living: with family
Employment: Retired
Family History
Family History: Other (Noncontributory)
Review of Systems
Review of Systems
Allergies reviewed?: Yes
All Other Systems: ROS reviewed and negative except as documented in HPI and ROS
Constitutional: Reports no symptoms; Denies fever
Respiratory: Reports no symptoms; Denies cough
Cardiac: Reports no symptoms
ABD/GI: Reports diarrhea; Denies vomiting
Musculoskeletal: Reports no symptoms
Skin: Reports no symptoms
Neurological: Reports no symptoms
Phy Exam
Physical Exam
Physical Exam:
Physical Exam
General: no apparent distress, not acutely ill. afebrile
Head: nc/at. eomi
Neck: supple. normal range of motion
Heart: s1/s2 regular rate and rhythm
Lungs: no acute respiratory distress. clear bilaterally
Abdomen: normal bowel sounds. not tender. no distention
Neuro: alert and oriented x 3. no focal neurological deficits
Skin: no rash
Psychiatric: well kept. interactive and cooperative
Extremities: no edema. no calf tenderness.
Course
Orders/Labs/Results
Orders:
Orders
11/27/24 10:41
0.9% Sodium Chloride 500 ml [Nss] 500 ml IV BOLUS
11/27/24 11:05
Complete Blood Count/With Diff Urgent
Comprehensive Metabolic Panel Urgent
Magnesium Urgent
Vancomycin HCl [Firvanq] 125 mg PO NOW STA
11/27/24 11:52
Case Management Consult ONCE
Case Management Consult: Discharge Planning
11/27/24 14:02
Urinalysis Reflex To Culture Urgent
Date Specimen was Collected: 11/27/24
Time Specimen was Collected: 13:59
Urine Microscopic Reflex Cult Urgent
Urine Culture Urgent
MARY Source: U
Specimen Description:
Date Specimen was Collected: 11/27/24
Time Specimen was Collected: 13:59
11/27/24 Dinner
Cholesterol Lowering
At Your Request: Limited Participation
Cholesterol Lowering: Sodium, 2 Gram
1600 sagrario/13 CHO Diabetic
11/27/24 16:12
COVID-19 Antigen Urgent
Source: Nasal Swab
11/27/24 16:15
Admit/Transfer Patient As Directed
Co-Sign Provider:
Level of Care: Observation services
Assign to:: Medical/Surgical
Physician / Group: hospitalist
Diagnosis: cdiff colitis, dementia with selfcare deficits
11/27/24 16:16
PRN Pain Medication Management As Directed
May give lesser potent ordered pain med per pt: Yes
preference::
Protocol:: Medication orders for pain may be administered in a
manner that supports deferring to patient preference
when the pt is:
- Requesting an ordered lesser potent pain medication.
Least to most potent pain medications are defined
as: acetaminophen < NSAID < tramadol < opioids
(morphine, oxycodone, hydromorphone).
- Requesting a lesser dose of the same medication IF
ORDERED.
- Requesting a less intrusive route of administration
if both routes are prescribed by the provider (PO <
IV).
11/27/24 16:25
Code Status As Directed
Resuscitation Status: Do not resuscitate
Reached after discussion with pt or family/Healthcare POA: Yes
11/27/24 16:26
DNR Bracelet Application ONCE
11/27/24 22:27
0.9% Sodium Chloride 1000 ml [Nss] 1,000 ml IV 40 mls/hr
Acetaminophen [Tylenol] 650 mg PO Q4HPRN PRN
Bisacodyl [Dulcolax] 10 mg RECTAL [id number] PRN
Diltiazem Extended Release [Cardizem Cd] 180 mg PO BID
Docusate W/Senna [Senokot-S] 1 tablet PO BIDPRN PRN
HydrALAZINE [Apresoline] 50 mg PO BID
Labetalol [Trandate] 200 mg PO BID
Latanoprost [Xalatan Ophthalmic Solution] 1 drop BOTH EYES HS
Metformin Extended Release [Glucophage Xr Extended Release] 500 mg PO BID@0800,1700
Miconazole Nitrate [Desenex/Mitrazol/Zeasorb] 1 applic TOPICAL BID
Pantoprazole [Protonix] 40 mg PO BID
Polyethylene Glycol Powder [Miralax] 17 grams PO DAILYPRN PRN
Tamsulosin [Flomax] 0.4 mg PO BID
vancomycin 125 mg PO QID
11/27/24 22:27
Activity As Directed
Activity Level: As Tolerated
Pneumatic Compression Sleeves As Directed
Type: Knee high
Precautions As Directed
Type of Precautions: Enhanced
Vital Signs As Directed
Frequency: Per unit guidelines
DX Deep Vein Thrombosis Video Routine
11/28/24 06:33
Basic Metabolic Panel IN AM
Complete Blood Count/No Diff IN AM
11/28/24 08:00
Aspirin Low Dose EC [Aspir Low (Enteric Coated)] 81 mg PO DAILY
bepotastine besilate 1 drop BOTH EYES DAILY
Abnormal Lab Results
11/27/24 11/27/24
11:05 14:02
WBC 11.0 H 10^3/uL
(4.8-10.8)
RBC 3.11 L 10^6/uL
(4.70-6.10)
Hgb 9.3 L g/dL
(13.0-18.0)
Hct 27.4 L %
(39.0-52.0)
Abs Immat Gran (auto) 0.1 H 10^3/uL
(0-0.05)
Absolute Neuts (auto) 8.7 H 10^3/uL
(1.4-6.5)
Absolute Lymphs (auto) 1.1 L 10^3/uL
(1.2-3.4)
Absolute Monos (auto) 0.7 H 10^3/uL
(0.1-0.6)
Neutrophils % 79.1 H %
(42.2-75.2)
Lymphocytes % 9.8 L %
(20.5-51.1)
Chloride 110 H mmol/L
(98-107)
BUN 23 H mg/dl
(9-20)
Glucose 147 H mg/dl
(70-99)
AST 16 L U/L
(17-59)
Total Protein 5.5 L g/dl
(6.3-8.2)
Albumin 3.2 L g/dl
(3.5-5.0)
Ur Occult Blood Reflex 4+ A
(Negative)
Urine Nitrite (Reflex) Positive A
(Negative)
Leukocyte Esterase Rfl 2+ A
(Negative)
Urine RBC >100 A /HPF
(0-2)
Urine WBC (Reflex) 30-40 A /HPF
(0-5)
Urine Bacteria (Reflex) Moderate A
(Negative)
Urine Albumin (Reflex) 4+ A
(Neg - Trace)
11/27/24 11:05
11/27/24 11:05
Vital Signs
Initial and Last Documented VS:
Initial Vital Signs
Pulse Resp BP Pulse Ox
79 16 148/80 96
11/27/24 09:41 11/27/24 09:41 11/27/24 09:41 11/27/24 09:41
Last Documented Vital Signs
Temp Pulse Resp BP Pulse Ox
97.5 F 81 16 151/81 93
11/28/24 07:00 11/28/24 08:39 11/28/24 07:00 11/28/24 08:39 11/28/24 08:39
MDM/Problems Addressed
MDM/Problems Addressed:
History and exam consistent with likely ongoing generalized weakness, likely secondary to deconditioning along with recently identified C. difficile toxin. Patient evaluated by case management and ED. Unfortunately, patient unable to be placed
tonight to SNF. As such, patient to be admitted to hospitalist service for continual evaluation, including antibiotics and IV fluids.
*Pulse Oximetry
SaO2: 95
Oxygen Mode of Delivery: Room air
Patient hypoxic: no
*Critical Care Note
Total Time (30-74mins, 75-104mins- exclusive of procedures): Not Applicable
ED Attending Note
-
Portions of this chart may have been created with voice recognition software.� Occasional wrong word or��sound alike� substitutions may have occurred due to the inherent limitations of voice recognition software.
Discharge Plan
Departure
Patient Disposition: Admit
Date of Disposition: 11/27/24
Time of Disposition: 14:43
Admit to: Med/Surg
Presentation/result/management discussed w/ accepting MD/DO: Hospitalist
Discharge Problem:
Weakness, C. difficile diarrhea
Interventions
Interventions:
*Risk Screen - Suicide Last Done: 11/28/24 00:38
*General Assessment Last Done: 11/27/24 09:50
*Neglect/Abuse Screening Last Done: 11/27/24 09:51
*ED- Fall Risk Assessment Last Done: 11/27/24 09:49
*ED COVID-19 Vaccine History Last Done: 11/28/24 00:38
*Nursing Disposition Last Done: 11/27/24 22:20
ED- Cardiac Assessment Last Done: 11/27/24 09:52
ED- Neurological Assessment Last Done: 11/27/24 09:53
ED- Pulmonary Assessment Last Done: 11/27/24 09:54
[2024-11-27] MEDS: NSS 500 IV (11:03)
[2024-11-27 11:29] LABS: Hematocrit 27.4 % (39.0-52.0); Hemoglobin 9.3 g/dL (13.0-18.0); Mean Corp Hgb Conc. 33.9 g/dL (33.0-37.0); Mean Corpuscular Volume 88.1 fL (80.0-94.0); Nucleated Red Blood Cells % 0 % (-); Platelet Count 343 10^3/uL (130-400); Red Cell Dist. Width 14.5 % (11.5-14.5)
[2024-11-27 11:44] LABS: ALT (SGPT) 18 U/L (0-50); AST (SGOT) 16 U/L (17-59); Albumin 3.2 g/dl (3.5-5.0); Alkaline Phosphatase 82 U/L (38-126); Blood Urea Nitrogen 23 mg/dl (9-20); Calcium 8.7 mg/dl (8.4-10.2); Carbon Dioxide 22 mmol/L (22-30); Chloride 110 mmol/L (98-107); Estimated Creatinine Clearance 40 ml/min; Glucose 147 mg/dl (70-99); Magnesium 1.7 mg/dl (1.6-2.3); Potassium 3.8 mmol/L (3.5-5.1); Sodium 137 mmol/L (135-145); Total Protein 5.5 g/dl (6.3-8.2); eGFR > 60.00
[2024-11-27] MEDS: FIRVANQ 125 MG PO ×2 (12:10→23:34)
--- NOTE | 2024-11-27 13:32 | CM ---
Addendum entered by Mahsa Farrar 11/27/24 15:56:
Spouse did not arrive for visit
Visit with son in [facility]- PAC list provided
Per son, dtr/Charis who is listed on chart, not involved
Other son/Dimas Tanner([phone]) also involved
SNFs referral sent via [facility]
Son became verbally aggressive with CM during dc planning discussion- son left ED
VM left for spouse- [facility] has offered iso bed tomorrow
Awaiting from response from spouse
Original Note:
ED CM consulted for dc planning
Call to spouse but unable to speak with CM at this time
Meeting with son/Amauri Tanner [phone] in [facility]
Pt and spouse reside together in a 2SH, pt has a hospital bed and WC
of late, he is non-ambulatory and unable to stand
He has a WC and family assist with all personal care tasks
Pt typically has a CG 5x weekly for bathing and cleaning
Pt admitted to [facility] from 11/11-11/22 inpatient , discharged to [facility]
Family took pt home rather quickly as they were not pleased with care
Pt readmitted to [facility] from 11/25-11/26 OBS, went home yesterday with Surinder BREWER
Difficulty with caring at home
Per son, plan is to increase care in the home through [facility]
Will await spouse's arrival to discuss further dc planning
Of note, pt c-diff+ 11/25 and will need remain on vanco per ED physician
Discharge Disposition- SNF STR vs home with / care
[2024-11-27 14:11] LABS: Urine Character Cloudy (Clear)
[2024-11-27 14:42] LABS: Urine Red Blood Cell >100 /HPF (0-2); Urine Squamous Cell 0-2 /LPF (Few)
[2024-11-27 14:43] LABS: Urine White Cell 30-40 /HPF (0-5)
--- NOTE | 2024-11-27 15:05 | W.PN.UPDATE ---
Update Note
Progress Note Update
This note serves as an addendum to the H&P by Ree Correa
HPI
89[address] RD/C from 11/25/24 ( Teaching service ) DXs CDAD/Colitis on PO Vancomycinwith worsening generalized weakness.
- worsening generalized weakness.
- patient has been sleeping constantly since being discharged home and is too weak to ambulate. Patient's does not feel safe taking care of him.
- Pt evaluated by case management. Unable to be placed tonight.
Relevant VS
Temp Pulse Resp BP Pulse Ox
97.4 F 83 18 148/80 95
11/27/24 09:43 11/27/24 09:45 11/27/24 12:00 11/27/24 09:43 11/27/24 10:46
PE
General: no apparent distress, not acutely ill. afebrile
HEENT: anicteric
CVS: S1S2
Lungs: no acute respiratory distress. clear bilaterally
Abdomen:NT NG ND
Neuro: alert and oriented x 3. no focal neurological deficits
Skin: no rash
Psychiatric: well kept. interactive and cooperative
Extremities: no edema. no calf tenderness.
Relevant Data
11/25/24 11/26/24 11/27/24
23:48 07:45 11:05
WBC 12.0 H 11.0 H
Hgb 8.8 L 9.3 L
Sodium 138 137
Potassium 3.6 3.8
Creatinine 1.1 1.1
eGFR > 60.00 > 60.00
Glucose 165 H
Albumin 2.9 L 3.2 L
Urine Nitrite (Reflex) POS
Leukocyte Esterase Rfl 1+ A 2+
Urine RBC >100 A >100
Urine WBC (Reflex) 0-2 30-40
L9/ CT A/P: Bilateral double-J ureteral stents without evidence of hydronephrosis. There are nonobstructing renal calculi measuring up to 5 mm in the lower pole left kidney. There is mild circumferential urinary bladder wall thickening which is
similar to prior. If there is concern for acute cystitis recommend correlation with urinalysis. There is wall thickening and likely stranding along the sigmoid colon and rectum which likely represents proctocolitis. Small right and trace left
pleural effusions with adjacent atelectasis.
Relevant Data
Last hospitalist admission: Date of Admission: 11/25/24 - Date of Discharge: 11/26/24
Primary diagnosis:
Acute C. difficile colitis
Acute kidney injury
Dementia with self-care deficits
History of bilateral ureteral stent placement
Secondary diagnoses:
Anemia of chronic disease
constipation
Bilateral shoulder pain
Dysphagia
ASSESSMENT & PLAN
Pending Rx reconciliation
Lethargy - acute or subacute
Suspect encephalopathy suspect multifactorial
Abn UA suspect UTI but unable to provid symtoms
- F/U UCx
- Hold off ABx for now
C Diff colitis:
- c/w PO Vanco x 10 days
- leukocytosis improving
Need for assistance with personal care:
-Patient came to the ER because the was unhappy with [facility]
-Social admission
-CM for placement
Bilateral kidney stones with hydronephrosis:
-s/p cystoscopy 5 mm calculus, urethral stricture dilation and bilateral ureteral stents were placed. Estrada placed to help with healed and removed on 11/15 and doing well.
- on Flomax
- hematuria when Eliquis was resumed, ASA only at this time
Other problems:
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
DM2: SSI/AccuCheck
HX severe dysphagia likely due to to esophagitis, OK for reg diet, cont PPI
Essential HTN: cont Cardizem/hydralazine/labetalol
Permanent atrial fibrillation: No Eliquis with recent hematuria, cont ASA only, cont Cardizem/Labetalol
Recent A-fib with RVR on 11/13/2024
Valvular heart disease: mod , mild-mod MR, mild-mod Ar, mild-mod TR
Anemia of chronic disease: trend Hb
B/L shoulder pain: likely arthritic, Pain control
Constipation: bowel regimen
DVT Px: on ASA
DNR
OBS MS
--- NOTE | 2024-11-27 15:38 | HPS.HSE ---
Family Physician
-
Family Physician: Shon Zambrano
Chief Complaint
-
Cdiff colitis
History of Present Illness
Pleasant 89 year old male with history of dementia, NIDDM, hypertension, BPH, hyperlipidemia, recent admissions for cdiff colitis, EVAN, afin+RVR, bilateral hydronephrosis s/p bilateral ureteral stenting, who presents today from home because his
struggles to care for him at home. He has been taking Vancomycin 125mg Q6 since 11/26 to be completed on 12/06. He also has ongoing hematuria for 3 weeks for which Eliquis has been held. He was recently placed at [facility] but family had him
brought home due to their dissatisfaction with their care. is agreeable to placement and would like case management involvement.
Medical History
Past Medical History
Past Medical History: Reports Arrhythmia (permanent Afib), HTN, Hypercholesterolemia, NIDDM, Valvular Disease (Moderate MR, Mild ), Psychiatric (depression, dementia) and Other (NIDDM, ambulatory dysfunction, C-diff colitis, anemia of chronic
disease, bilateral chronic shoulder pain, constipation)
Past Surgical History: Reports Tonsilectomy and Urological (Bilateral ureteral stents, lithotripsy)
Social History
Tobacco: Non-smoker
Alcohol: None
Personal:
Living: With Family
Family History
Family History: Not pertinent
Allergies / Home Medications
Allergies reflects when Allergies were last updated in [facility].
Home Medications with original date entered in Out[facility]
Allergy/Medication List:
Allergies
Allergy/AdvReac Type Severity Reaction Status Date / Time
No Known Allergies Allergy Verified 11/11/24 03:29
Home Medications
apixaban 5 mg tablet (Eliquis) 5 mg PO BID Blood clot prevention/tx 04/10/19
Held on 11/26/24. Instructions: Until seen by urologist.
metformin 500 mg tablet,extended release 24 hr 500 mg PO BID Diabetes 04/10/19
bepotastine besilate 1.5 % eye drops 1 drp BOTH EYES DAILY Eye Condition 11/10/22
latanoprost 0.005 % eye drops 1 drp BOTH EYES HS Eye Condition 11/10/22
tamsulosin 0.4 mg capsule 0.4 mg PO BID Urinary Issue 11/10/22
tolterodine 2 mg capsule,extended release 24 hr 2 mg PO BID Urinary Issue 11/10/22
Held on 11/26/24. Instructions: Until seen by urology.
Brioschi Digestive Aid 1 tsp PO BID Supplement 11/11/24
ascorbic acid (vitamin C) 500 mg tablet (Vitamin C) 500 mg PO DAILY Supplement 11/11/24
cholecalciferol (vitamin D3) 25 mcg (1,000 unit) tablet (Vitamin D3) 25 mcg PO DAILY Supplement 11/11/24
cyanocobalamin (vitamin B-12) 1,000 mcg tablet 1,000 mcg PO DAILY Supplement 11/11/24
aspirin 81 mg tablet,delayed release 81 mg PO DAILY Blood clot prevention/tx #30 tabs 11/19/24
diltiazem HCl 180 mg capsule,extended release 24 hr 180 mg PO BID Arrhythmia #60 caps 11/19/24
labetalol 200 mg tablet 200 mg PO BID Arrhythmia #60 tabs 11/19/24
pantoprazole 40 mg tablet,delayed release 40 mg PO BID Gastrointestinal issue #60 tabs 11/19/24
hydralazine 50 mg tablet 50 mg PO BID Blood pressure #60 tabs 11/22/24
miconazole nitrate 2 % topical powder (Miconazorb AF) 1 applic topical BID Groin rash #85 grams 11/26/24
vancomycin 125 mg capsule 125 mg PO QID #40 caps 11/26/24
Review of Systems
-
Constitutional: Denies Fever, Night Sweats or Chills
Respiratory: Denies Cough or Trouble Breathing
Cardiac: Denies Chest Pain, Diaphoresis or Palpitations
Abdomen/GI: Reports Diarrhea; Denies Abdominal Pain, Nausea or Vomiting
: Reports Bleeding; Denies Dysuria, Frequency, Flank Pain or Difficulty Voiding
Physical Exam
Vital Signs
Vital Signs
Temp Pulse Resp BP Pulse Ox
97.4 F 83 18 148/80 95
11/27/24 09:43 11/27/24 09:45 11/27/24 12:00 11/27/24 09:43 11/27/24 10:46
Physical Exam
General: Well Nourished, No Apparent Distress, Comfortable, Conversant and Other (pleasant)
HEENT: NormoCephalic, Anicteric, Moist mucous membranes and Good Dentition
Respiratory: Clear and Non Labored Respirations; No Wheezes, Rales, Rhonchi or Crackles
Cardiac: S1/S2, Irregular Rhythm and Other (normal rate); No Murmur, Rub, Gallop, Peripheral Edema or Calf Tenderness
GI: Soft, Non Tender, Non Distended and Normal Bowel Sounds
Genito-urinary: Bloody Urine and No costovertebral tender; No Estrada
Musculoskeletal: No Clubbing, No Cyanosis and No Edema
Skin: Warm and Dry
Neuro: Awake and Alert
Psych: Calm and Confused (mildly confused)
Laboratory Results
-
11/27/24 11:05
11/27/24 11:05
Laboratory Results
Total Bilirubin 0.7 mg/dl (0.2-1.3) 11/27/24 11:05
AST 16 U/L (17-59) L 11/27/24 11:05
ALT 18 U/L (0-50) 11/27/24 11:05
Alkaline Phosphatase 82 U/L (38-126) 11/27/24 11:05
Impression/Plan
-
IMPRESSION:
Pleasant 89 year old male with history of dementia, NIDDM, hypertension, BPH, hyperlipidemia, recent admissions for cdiff colitis, EVAN, afin+RVR, bilateral hydronephrosis s/p bilateral ureteral stenting, who presents with cdiff colitis with
inadequate home care
PLAN:
Acute toxigenic C.diff colitis:
Toxigenic cdiff on stool cx 11/25:
- WBC mildly elevated but downtrending from prior
- continue PO vancomycin 125mg Q6h through 12/06
- IVF as needed
- Contact precautions
Dementia with self care deficits:
Ambulatory dysfunction:
- Bed bound status. reports inability to keep up with his daily routine care, toileting, transfering, etc
- Case management consult for placement
Recent hydronephrosis with bilateral double J ureteral stent placement:
Hematuria:
asymptomatic bacteriuria;
BPH:
- No flank pain/tenderness
- Ongoing hematuria x 3 weeks helce Eliquis held. Continue holding Eliquis
- Tolteridone held. Continue to hold until urology follow up
- Urinalysis positive but patient denies new urinary symptoms. No fever/chills. WBC downtrend from treatment for cdiff colitis. Likely asymptomatic bacteriuria. Will hold abx for now, Urine Cx pending. Monitor kidney function
Permanent Afib:
- currently rate controlled afib. Continue Diltiazem PO
- Holding Eliquis for ongoing gross hematuria
Essential hypertension:
- Continue home antihypertensives
Hyperlipidemia:
Non insulin dependent diabetes mellitus:
- HbA1c 7.5
- Continue Metformin
Anemia of chronic disease:
- hematuria likely contributory
- Hgb stable 9.3
- Monitor
BPH:
- Continue tamsulosin
Calcular heart disease:
Moderate MR, mild
Bilateral chronic shoulder pain:
- PRN pain control
Constipation:
- Monitor
DVT ppx: SCDs (gross hematuria)
Code status: DNR
[2024-11-27 16:43] LABS: COVID-19 Antigen Negative (Negative)
--- NOTE | 2024-11-27 18:44 | CM ---
Call received from Mrs Tanner, she stated she was returning a VM she received earlier today. She stated that the discharge plan for her would be to a SNF. I did make her aware Son was in the ED earlier today and stated the plan was for
them to take him home. She stated she understood that his visit did not go well and that there was an outburst. She said that sometimes he can get very emotional. She said during one of his recent admits [facility]
him, and they were her first and second choice. I stated that the CM had reached out to her today to obtain SNF choices from her. She stated she lives close to [facility], so would like something in [place]. I provided the names of some of the
SNF's that are in [place] . She stated [facility] may be a little far for her to drive. I stated that we could provide a list of facilities from [employer] for her to review . I said I would ask the CM that has him tomorrow to provide the list
as well as ask the physician to order a PT Eval. She also had many questions in regards to his C.Diff and the treatment he has received, which I directed her to his physician to answer . She said she has not decided on whether this stay in a SNF may
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 She stated they did not want him to go back to
[facility], as his first room mate was playing the TV too loudly and they would not ask him to turn it down. She did say they were gracious enough to find another room for him, but they ultimately decided to take him out of that facility due to
finding him with a wet diaper and not being comfortable leaving him there . She asked when was he going to be discharged and I stated that he was in observation level of care presently and that he is being held overnight for us to find skilled
nursing facility for him, so the may order discharge tomorrow but we would need to wait to see what his note indicates in the morning. Update to CM
[2024-11-27 23:30] LABS: Glucose - Point of Care 187 mg/dl (70-99)
[2024-11-27] MEDS: APRESOLINE 50 MG PO (23:33)
[2024-11-27] MEDS: CARDIZEM CD 180 MG PO (23:33)
[2024-11-27] MEDS: FLOMAX 0.4 MG PO (23:33)
[2024-11-27] MEDS: DESENEX/MITRAZOL/ZEASORB 1 APPLIC TOPICAL (23:33)
[2024-11-27] MEDS: GLUCOPHAGE XR EXTENDED RELEASE 500 MG PO (23:33)
[2024-11-27] MEDS: TRANDATE 200 MG PO (23:34)
[2024-11-27] MEDS: NSS 1000 IV (23:34)
[2024-11-27] MEDS: PROTONIX 40 MG PO (23:34)
[2024-11-27] MEDS: XALATAN OPHTHALMIC SOLUTION 1 DROP BOTH EYES (23:34)
[2024-11-28 00:48] VITALS: BMI 21.4
--- NOTE | 2024-11-28 00:53 | PTCARENOTE ---
Patient arrived from the ED via stretcher at approximately 2230. Patient stood and pivoted from stretcher to bed x1 assist - gait unsteady. Patient AAOx2 - disoriented to time, [place], confused and forgetful. VSS as documented. Assessment as
documented. Patient oriented to room. Bed in lowest position. Bed alarm in place for patient safety. Call zavala within reach.
[2024-11-28 03:50] VITALS: BP 131/76
[2024-11-28 07:00] VITALS: BP 151/81
[2024-11-28 07:12] LABS: Blood Urea Nitrogen 17 mg/dl (9-20); Calcium 8.3 mg/dl (8.4-10.2); Carbon Dioxide 23 mmol/L (22-30); Chloride 111 mmol/L (98-107); Estimated Creatinine Clearance 48 ml/min; Glucose 143 mg/dl (70-99); Potassium 3.3 mmol/L (3.5-5.1); Sodium 138 mmol/L (135-145); eGFR > 60.00
[2024-11-28 07:41] LABS: Hematocrit 26.5 % (39.0-52.0); Hemoglobin 8.9 g/dL (13.0-18.0); Mean Corp Hgb Conc. 33.6 g/dL (33.0-37.0); Mean Corpuscular Volume 87.2 fL (80.0-94.0); Platelet Count 333 10^3/uL (130-400); Red Cell Dist. Width 14.2 % (11.5-14.5)
[2024-11-28 07:49] LABS: Glucose - Point of Care 144 mg/dl (70-99)
--- NOTE | 2024-11-28 07:52 | W.PN.UPDATE ---
Update Note
Progress Note Update
I saw and evaluated the patient. I reviewed the resident�s note and agree with findings and plan as documented in the resident�s note.
Patient currently denies chest pain, shortness of breath, abdominal pain, diarrhea, dysuria, change in urinary frequency.
Gen: NAD, AAOx3.
Eyes: EOMI, PERRLA, no scleral icterus.
Neck: supple.
CV: irreg/irreg, +S1/S2, no m/r/g.
Resp: CTAB, no rales, wheezes, or rhonchi.
Abd: +BS, soft, NT, ND
Skin: No rashes.
Neuro: CN 2-12 intact, non-focal.
Psych: Normal mood and affect.
Subacute C diff colitis:
-currently pt denies diarrhea
-afebrile, currently no leukocytosis, abdominal pain, or reports of diarrhea
-cont prior course of PO Vanco
Other problems:
Bilateral kidney stones with hydronephrosis: s/p cystoscopy 5 mm calculus, urethral stricture dilation and bilateral ureteral stents were placed. cont Flomax. Patient had hematuria when Eliquis was resumed, ASA only at this time.
DM2: cont Metformin, SSI/accuchecks
h/o severe dysphagia likely due to to esophagitis, OK for reg diet on prior admission, speech to see, cont PPI
Essential HTN: cont Cardizem/hydralazine/labetalol
Permanent atrial fibrillation: No Eliquis with recent hematuria, cont ASA only, cont Cardizem/Labetalol
Valvular heart disease: mod , mild-mod MR, mild-mod Ar, mild-mod TR
Anemia of chronic disease: trend Hb
B/L shoulder pain: likely arthritic, Pain control
DNR/SCDs
Medically cleared for discharge. Case management aware.
[2024-11-28] MEDS: APRESOLINE 50 MG PO (08:39)
[2024-11-28] MEDS: KCL ELIXIR 40 MEQ PO (08:39)
[2024-11-28] MEDS: GLUCOPHAGE XR EXTENDED RELEASE 500 MG PO ×2 (08:39→16:43)
[2024-11-28] MEDS: PROTONIX 40 MG PO (08:39)
[2024-11-28] MEDS: ASPIR LOW (ENTERIC COATED) 81 MG PO (08:39)
[2024-11-28] MEDS: FIRVANQ 125 MG PO ×3 (08:39→16:43)
[2024-11-28] MEDS: FLOMAX 0.4 MG PO (08:40)
[2024-11-28] MEDS: CARDIZEM CD 180 MG PO (08:40)
--- NOTE | 2024-11-28 08:40 | PTOTSP ---
Speech Language Pathology
Pt seen for clinical bedside swallow evaluation. Known to PUTTYING AND CALKING SUPERVISOR service line from recent admission. On that admission, pt initially had signs of esophageal dysphagia with regurgitation of large amounts of saliva mixed with food. However, this
resolved, and pt was recommended regular solids/thin liquids.
This date, P.O. trials of puree, regular solids, and thin liquids provided. Also seen for med pass with RN with meds 1 at a time whole with liquid. Slightly prolonged mastication of regular solids noted, suspect secondary to cognition, but this
was functional given additional time. No overt signs of aspiration with food/liquid. With med pass, pt took meds without difficulty until very last pill (of approximately 6) with brief cough response. Pt stated some water 'went down the wrong
way.' Clear voice following.
Recommend:
(1) Regular solids/thin liquids
(2) General aspiration precautions
(3) Meds 1 at a time whole with liquid. If coughing consistently noted with meds, can place whole in puree
(4) PUTTYING AND CALKING SUPERVISOR to follow, likely briefly
[2024-11-28 09:25] VITALS: BP 135/89; PULSE 93; O2SAT 97
[2024-11-28 09:29] VITALS: BP 135/89; PULSE 73; O2SAT 97
--- NOTE | 2024-11-28 09:40 | W.PN.HOSP.TC ---
Addendum entered and electronically signed by Brian Lopez MD 11/28/24 14:20:
Total time spent on d/c = 35 min. This included today's physical exam, progress note, review of laboratory and diagnostic data, preparation of discharge documents and prescriptions, and discussions about the pt's hospital course and discharge plan
with the patient and other medical csr involved in the patient's care.
Original Note:
Today's Communication/Plan
-
Find placement for skilled rehab -case management aware
Continue vancomycin
Speech therapy
Assessment / Plan
Assessment / Plan
89-year-old male with recent hospitalization from 11/11 to 11/22 for bilateral hydronephrosis s/p bilateral ureteral stent placement complicated by a.fib with RVR and hypertensive emergency discharged on aspirin instead of eliquis due to ongoing
hematuria presents to the ER because the cannot take care of him at home. He was recently discharged to [facility] on 11/22/2024 and took him home on 11/24 because she was not happy with the care. After trying to take care of him at
home, patient said it was too hard and brought him to the ER. Found to have leukocytosis and C. difficile toxin positive. He was started on oral vancomycin and discharged home with visiting nurses per 's request. He presented back to the ER
last night if as cannot take care of him. Now looking for skilled rehab facility.
Imaging:
CT ab/pelvis without IV contrast 11/25/24:
Bilateral double-J ureteral stents without evidence of hydronephrosis. There are nonobstructing renal calculi measuring up to 5 mm in the lower pole left kidney. There is mild circumferential urinary bladder wall thickening which is similar to
prior. If there is concern for acute cystitis recommend correlation with urinalysis.
There is wall thickening and likely stranding along the sigmoid colon and rectum which likely represents proctocolitis.
Small right and trace left pleural effusions with adjacent atelectasis.
Plan:
Dementia and self care deficit
History of depression
--CM for placement as pt unhappy with [facility] and unable to take care of him at home with visiting nurses
--PT/OT
C. diff toxin (+)
Proctocolitis on CT
Leukocytosis - resolved
--Continue oral vancomycin
--Monitor CBC and temp curve
Asymptomatic bacteriuria
-- Leukocyte esterase noted in urine
-- Cultures pending, but highly unlikely to be UTI as prior culture done on 11/25 was negative
Bilateral kidney stones with hydronephrosis s/p bilateral ureteral stents
--Eliquis on hold cont with aspirin for anticoagulation due to ongoing hematuria per urology at discharge
--Continue flomax
--Has urology appointment in 1-2 weeks to eval stone removal and restarting eliquis
History of severe dysphagia - resolved during last hospital stay
--Continue pantoprazole 40mg BID until 12/22 (one month from last discharge) then re-eval with GI/PCP
--Cleared for regular diet per speech on 11/18/24
-- Appreciate speech therapy as nurse reported difficulty swallowing pills
HTN
--Continue hydralazine 50 BID, labetolol 200 BID and Diltiazem 180 BID
Paroxsymal a.fib
--Eliquis on hold in setting of hematuria - on ASA per urology
--Labetolol 200 BID and Diltiazem 180 BID
--Tele
Diabetes
--Hg A1c 7.5
--Metformin ER
--SSI
Groin rash
--Appears fungal
--Miconazole nitrate BID
# Valvular heart disease - moderate aortic stenosis/mild to moderate MR, mild to moderate AI, mild to moderate TR
# Bilateral shoulder pain - pain control
# History of suicidal ideation during last hospitalization
DVT - SCD
DNR
Anticipated Discharge: Within 24 hours
Anticipated Discharge: Within 24 hours
Subjective/Interval History
-
Date of Service: November 28, 2024
No complaints. Denies any urinary frequency/urgency/dysuria or CVA tenderness. Hematuria ongoing with urine shannon color.
Objective Data
-
Labs:
Laboratory Results
11/28/24
06:33
WBC 9.4
Hgb 8.9 L
Hct 26.5 L
Plt Count 333
Sodium 138
Potassium 3.3 L
Chloride 111 H
Carbon Dioxide 23
BUN 17
Creatinine 0.9
Glucose 143 H
Calcium 8.3 L
Vital Signs:
Vital Signs
Temp Pulse Resp BP Pulse Ox
97.5 F 81 16 151/81 93
11/28/24 07:00 11/28/24 08:39 11/28/24 07:00 11/28/24 08:39 11/28/24 07:00
I&O
11/27/24 11/28/24 11/29/24
06:59 06:59 06:59
Intake Total 120 / 120
Output Total 550 / 550 85 / 85
Balance -430 / -430 -85 / -85
Review of Systems
-
History Source: Patient
Respiratory: Reports No Symptoms
Cardiac: Reports No Symptoms
Abdomen/GI: Reports No Symptoms
Genitourinary: Reports Bleeding and Dark Urine
Neuro: Reports No Symptoms
Physical Exam
-
General: No Apparent Distress and Comfortable
HEENT: Normocephalic
Respiratory: Clear to Auscultation
Cardiac: Irregular Rhythm
GI: Soft, Nontender, Nondistended and Normal Bowel Sounds
Musculoskeletal: No Cyanosis and No Edema
Neuro: Awake and Alert
Psych: Calm
[2024-11-28] MEDS: TRANDATE 200 MG PO (09:44)
[2024-11-28] MEDS: DESENEX/MITRAZOL/ZEASORB 1 APPLIC TOPICAL (09:44)
--- NOTE | 2024-11-28 11:52 | CM ---
Addendum entered by Nell Calvert RN 11/28/24 14:26:
Spouse and patient agreeable to short term at [facility].
Plan: Discharge to [facility] today.
Call report to: [phone]
Fax report to: [phone]
Medical necessity and transport forms on chart.
Original Note:
Reviewed the chart notes and spoke with Maria Luz from [facility]. Able to accept today after 4pm. Will need Covid screen. CM spoke with the patient's spouse regarding SNF and the patient being admitted under observational status. [facility] letter
explained. The patient's spouse had no questions with regards to the letter.
Per spouse, she is not ready for him to go to SNF, wants him home, but does not have help in the home. Reviewed with the spouse that the reason patient is here at is because she claimed not to be able to care for him in the home. Patient's
spouse wants a few hours to think about the situation. CM contact information provided to the patient's spouse. Awaiting decision from spouse. Other facilities declined the patient. CM continues to be available to patient/family and is
monitoring medical plan for needs at discharge.
Plan: Discharge plans will depend on the patient's spouse's decision.
[2024-11-28 11:53] LABS: Glucose - Point of Care 213 mg/dl (70-99)
[2024-11-28 15:00] VITALS: BP 141/64
[2024-11-28 15:05] LABS: COVID-19 Antigen Negative (Negative)
--- NOTE | 2024-11-28 17:23 | W.DCSUMMARY ---
Discharge Summary
Discharge Data
Date of Admission: 11/27/24
Date of Discharge: 11/28/24
-
Pending Results: No
Hospital Course
Primary diagnosis:
Dementia with self-care deficits
History of bilateral ureteral stent placement
Acute C. difficile colitis
Secondary diagnoses:
Anemia of chronic disease
Dysphagia
Hospital course:
89-year-old male with recent hospitalization from 11/11 to 11/22 for bilateral hydronephrosis s/p bilateral ureteral stent placement complicated by a.fib with RVR and hypertensive emergency discharged on aspirin instead of Eliquis due to ongoing
hematuria presents to the ER because the cannot take care of him at home. He was recently discharged to [facility] on 11/22/2024 and took him home on 11/24 because she was not happy with the care. After trying to take care of him at
home, patient's said it was too hard and brought him to the ER. Found to have leukocytosis and EVAN. Ab/pelvic CT was done and revealed no hydronephrosis but proctocolitis. He was admitted for further workup and hopes for better skilled rehab
facility placement. Due to the smell of his diarrhea, C.diff was tested and found to be positive. The next day his EVAN resolved with creatinine back to normal limits. Groin rash was also noted and patient started on miconazole. He was discharged
home on 11/26/24 with home care with instructions to continue oral vancomycin to treat c.dif with continuation to hold eliquis and tolterodine until he sees urology. On 11/27, the patient returned to the ED because his could not take care of
him. There was no significant change in his condition.
Today, the patient is clinically stable for discharge. His wants to try to take him home again with visiting nurses. He is being discharged with oral vancomycin 125 mg p.o. every 6 hours for 10 days (started 11/26. Finish 12/06), miconazole for
groin rash. Eliquis remains on hold due to ongoing hematuria. Continue with aspirin until seen by urology. Tolterodine also on hold until seen by urology for fear of urinary retention.
Imaging:
Abdomen/pelvis CT without IV or oral contrast 11/25/2024:
Bilateral double-J ureteral stents without evidence of hydronephrosis. There are nonobstructing renal calculi measuring up to 5 mm in the lower pole left kidney. There is mild circumferential urinary bladder wall thickening which is similar to
prior. If there is concern for acute cystitis recommend correlation with urinalysis.
There is wall thickening and likely stranding along the sigmoid colon and rectum which likely represents proctocolitis.
Small right and trace left pleural effusions with adjacent atelectasis.
Discharge Plan
-
Patient Disposition: Home (Routine Discharge)
Discharge Diagnosis/Procedures: difficulty with self care
Condition: Fair
Diet: Diabetic, Carb Controlled
Activity: With assistance
Driving Restrictions: No driving
Blood Work: CMP, Mg, and CBC in 1 week, script from PCP
Specialty Instructions: Weigh Daily- Call MD for wt gain/loss 3 lbs overnight/5 lbs in 1 week
Referrals:
Shon Zambrano MD [Family Provider, Family Practice]
Prescriptions:
Continued
metformin 500 MG tablet extended release 24 hr
500 mg PO BID
tolterodine 2 mg capsule,extended release 24hr
2 mg PO BID
latanoprost 0.005 % drops
1 drp BOTH EYES HS
tamsulosin 0.4 mg capsule
0.4 mg PO BID
bepotastine besilate 1.5 % drops
1 drp BOTH EYES DAILY
cyanocobalamin (vitamin B-12) 1,000 mcg Tablet
1,000 mcg PO DAILY
ascorbic acid (vitamin C) [Vitamin C] 500 mg Tablet
500 mg PO DAILY
cholecalciferol (vitamin D3) [Vitamin D3] 25 mcg (1,000 unit) Tablet
25 mcg PO DAILY
Brioschi Digestive Aid
1 tsp PO BID
Patient Comments:
Sugar, Sodium Bicarbonate (active), malic acid, glucose syrup, natural lemon flavor (dehydrated lemon juice. No artificial flavorings or colorants.
diltiazem HCl 180 mg Capsule,Extended Release 24hr
180 mg PO BID Qty: 60 0RF
aspirin 81 mg Tablet,Delayed Release (Dr/Ec)
81 mg PO DAILY Qty: 30 0RF
labetalol 200 mg Tablet
200 mg PO BID Qty: 60 0RF
pantoprazole 40 mg tablet,delayed release (DR/EC)
40 mg PO BID Qty: 60 0RF
hydralazine 50 mg Tablet
50 mg PO BID Qty: 60 0RF
miconazole nitrate [Miconazorb AF] 2 % Powder
1 applic topical BID Qty: 85 0RF
vancomycin 125 mg capsule
125 mg PO QID Qty: 40 0RF
Rx Instructions:
for 10 days starting 11/26/24
Discontinued
Eliquis 5 MG tablet
5 mg PO BID
Rx Instructions:
on hold untill seen by urology
Discharge Orders:
Discharge Patient (As Directed); Ordered 11/28/24
Ordered By: Brian Lopez
Discharge Date and Time
Print Language: HUNGARIAN
== END 2024-11-28 17:53 ==
LOC: 2 NORTH 16:31
PROVIDERS: Student in an Organized Health Care Education/Training Program; ADMITTING PHYSICIAN Internal Medicine; ATTENDING PHYSICIAN Internal Medicine; EMERGENCY PHYSICIAN Emergency Medicine; FAMILY PHYSICIAN Family Medicine
DX: A04.72 Enterocolitis due to Clostridium difficile, not specified as recurrent (principal); R53.1 Weakness; F03.A0 Unspecified dementia, mild, without behavioral disturbance, psychotic disturbance, mood disturbance, and anxiety; E78.00 Pure hypercholesterolemia, unspecified; I11.9 Hypertensive heart disease without heart failure; E11.9 Type 2 diabetes mellitus without complications; N17.9 Acute kidney failure, unspecified; D63.8 Anemia in other chronic diseases classified elsewhere; K59.00 Constipation, unspecified; M25.512 Pain in left shoulder; M25.511 Pain in right shoulder; R13.10 Dysphagia, unspecified; R53.83 Other fatigue; N13.2 Hydronephrosis with renal and ureteral calculous obstruction; J90 Pleural effusion, not elsewhere classified; J98.11 Atelectasis; R82.71 Bacteriuria; R21 Rash and other nonspecific skin eruption; I35.0 Nonrheumatic aortic (valve) stenosis; N40.0 Benign prostatic hyperplasia without lower urinary tract symptoms; G89.29 Other chronic pain; I48.21 Permanent atrial fibrillation; F32.A Depression, unspecified; Z66 Do not resuscitate; Z79.899 Other long term (current) drug therapy; Z87.442 Personal history of urinary calculi; Z74.1 Need for assistance with personal care; Z02.2 Encounter for examination for admission to residential institution; Z79.84 Long term (current) use of oral hypoglycemic drugs; Z79.2 Long term (current) use of antibiotics; Z79.01 Long term (current) use of anticoagulants; Z74.01 Bed confinement status; Z11.52 Encounter for screening for COVID-19
CPT/HCPCS: 80048; 80053; 81003; 81015; 82962; 83735; 85025; 85027; 87086; 87811; 92610; 97163; 97167; 97535; 99285; G0378

== ENCOUNTER 2024-12-04 14:34 | Inpatient (IN) | payer MEDICARE, OTHER, SELFPAY ==
[2024-12-04] VITALS (8 sets, daily range): BP systolic 102–131; BP diastolic 47–79
[2024-12-04] MEDS: LR 1000 IV (11:51)
[2024-12-04 12:01] LABS: Venous Blood Gas B.E. -3.0 mmol/L (-4 to +4); Venous Blood Gas O2 Sat % 99.5 %
[2024-12-04 12:05] LABS: Hematocrit 28.4 % (39.0-52.0); Hemoglobin 9.8 g/dL (13.0-18.0); Mean Corp Hgb Conc. 34.5 g/dL (33.0-37.0); Mean Corpuscular Volume 85.0 fL (80.0-94.0); Platelet Count 242 10^3/uL (130-400); Red Cell Dist. Width 14.7 % (11.5-14.5)
[2024-12-04 12:15] LABS: ALT (SGPT) 34 U/L (0-50); AST (SGOT) 23 U/L (17-59); Albumin 3.0 g/dl (3.5-5.0); Alkaline Phosphatase 136 U/L (38-126); Blood Urea Nitrogen 43 mg/dl (9-20); Calcium 8.6 mg/dl (8.4-10.2); Carbon Dioxide 20 mmol/L (22-30); Chloride 105 mmol/L (98-107); Glucose 387 mg/dl (70-99); Potassium 4.2 mmol/L (3.5-5.1); Sodium 136 mmol/L (135-145); Total Protein 5.5 g/dl (6.3-8.2); eGFR 26.64
[2024-12-04 12:20] LABS: INR 1.57; PT 19.3 Sec (11.4-14.6)
--- NOTE | 2024-12-04 12:50 | ED.GENMED ---
History of Present Illness
General
Chief Complaint: Change in Mental Status
Time Seen by Provider: 12/04/24 11:27
History of Present Illness
History of Present Illness:
89-year-old male with history of A-fib, hypertension, hyperlipidemia, and [id number] diabetes presents to the emergency department via EMS from [facility] due to altered mental status. According nursing facility staff he
was in his normal mental status normal health last night but this morning was essentially unarousable. EMS reported a prehospital blood glucose of approximately 460. Of note he is soon to complete a course of oral vancomycin due to C. difficile
colitis. On arrival the patient is pale and ill-appearing, somnolent, arousable only to loud tactile/painful stimuli, minimally verbal
Past History
Past History
ED Past Medical History: Arrthythmia, HTN, Hypercholesterolemia, NIDDM, Other (Kidney stones) and Other (Syncope)
ED Past Surgical History: Negative Cardiac
Social History
Tobacco: Non-smoker
Alcohol: Occasional
Drug: None
Personal:
Living: with family
Employment: Retired
Family History
Family History: Other (Noncontributory)
Review of Systems
Review of Systems
Allergies reviewed?: Yes
All Other Systems: ROS reviewed and negative except as documented in HPI and ROS
Phy Exam
Physical Exam
Physical Exam:
GEN: Toxic appearing, pale, somnolent
HEENT: Oral mucosa dry
Cardiac: Irregular but controlled rate
Lung: Tachypneic and hypopneic, clear lungs globally
MSK: No gross deformity or injuries
Skin: Generally pale, no jaundice
Neuro: Somnolent, arouses to loud voice and tactile stimuli, does not follow commands, withdraws to pain x 4,, minimally verbal, GCS of 8
Psych: Calm, cooperative
Sepsis
Sepsis Screening
Sepsis Assessment: Severe Sepsis
Sepsis Screening: Lactate >2mmol/L
Sepsis Screen
Sepsis Screen: Severe Sepsis
Date: 12/04/24
Time: 14:17
Course
Orders/Labs/Results
Orders:
Orders
12/04/24
Electrocardiogram (*1) Stat
Reason for Study: Chest Pain
Comment: ALREADY DONE
12/04/24 11:28
Lactic Acid Q4H
Comment: CANCEL 2nd LACTIC ACID IF 1st LACTIC ACID IS LESS THAN 2
12/04/24 11:29
CT Head W/o Iv Contrast Urgent
Comment:
Reason For Exam: AMS
Lactated Ringers [Lr] 1,000 ml IV BOLUS
CR Chest Portable - 1 View Urgent
Comment:
Reason For Exam: AMS/tachypnea
Reason Study Needs to be Portable: Other
12/04/24 11:32
Complete Blood Count/With Diff Urgent
Venous Blood Gas Urgent
%Oxygen/Room Air: 95
Blood Culture Q30M
MARY Source: Blood/Venous
Specimen Description:
Blood Culture Q30M
MARY Source: Blood/Venous
Specimen Description:
12/04/24 11:33
Acetone [B-Hydroxybutyrate] Urgent
Comprehensive Metabolic Panel Urgent
Prothrombin Time Urgent
12/04/24 11:48
Type+Screen Urgent
12/04/24 11:55
Urinalysis Reflex To Culture Urgent
Date Specimen was Collected: 12/04/24
Time Specimen was Collected: 11:48
Urine Microscopic Reflex Cult Urgent
Urine Culture Urgent
MARY Source: U
Specimen Description:
Date Specimen was Collected: 12/04/24
Time Specimen was Collected: 11:48
12/04/24 12:21
CT Abd/pel Without Iv Or Oral Urgent
Comment:
Reason For Exam: renal failure, sepsis, bilat uret stents
12/04/24 13:15
Cefepime HCl [Maxipime] 2,000 mg IV NOW STA
12/04/24 14:09
Admit/Transfer Patient As Directed
Co-Sign Provider:
Level of Care: Inpatient admission
Assign to:: Medical/Surgical
Physician / Group: nicholas
Diagnosis: sepsis uti
Reason for Hospitalization: sepsis uti
Expected length of stay greater than two midnights?: Yes
ELOS- Estimated Length of Stay in days: 2
I certify the patient meets the requirements for IP care: Yes
Code Status As Directed
Resuscitation Status: Do not resuscitate
Reached after discussion with pt or family/Healthcare POA: Yes
PRN Pain Medication Management As Directed
May give lesser potent ordered pain med per pt: Yes
preference::
Protocol:: Medication orders for pain may be administered in a
manner that supports deferring to patient preference
when the pt is:
- Requesting an ordered lesser potent pain medication.
Least to most potent pain medications are defined
as: acetaminophen < NSAID < tramadol < opioids
(morphine, oxycodone, hydromorphone).
- Requesting a lesser dose of the same medication IF
ORDERED.
- Requesting a less intrusive route of administration
if both routes are prescribed by the provider (PO <
IV).
12/04/24 14:11
DNR Bracelet Application ONCE
Abnormal Lab Results
12/04/24 12/04/24 12/04/24
11:28 11:32 11:33
WBC 26.2 H 10^3/uL
(4.8-10.8)
RBC 3.34 L 10^6/uL
(4.70-6.10)
Hgb 9.8 L g/dL
(13.0-18.0)
Hct 28.4 L %
(39.0-52.0)
RDW 14.7 H %
(11.5-14.5)
Abs Immat Gran (auto) 0.3 H 10^3/uL
(0-0.05)
Absolute Neuts (auto) 24.4 H 10^3/uL
(1.4-6.5)
Absolute Lymphs (auto) 0.5 L 10^3/uL
(1.2-3.4)
Absolute Monos (auto) 0.9 H 10^3/uL
(0.1-0.6)
Immature Gran % 1.3 H %
(0-0.5)
Neutrophils % 93.3 H %
(42.2-75.2)
Lymphocytes % 1.8 L %
(20.5-51.1)
PT 19.3 H Sec
(11.4-14.6)
VBG pCO2 31 L mmHg
(35-48)
VBG pO2 153 H mmHg
(30-50)
VBG HCO3 20.6 L mmol/L
(22-27)
Carbon Dioxide 20 L mmol/L
(22-30)
BUN 43 H mg/dl
(9-20)
Creatinine 2.3 H mg/dL
(0.7-1.3)
Glucose 387 H mg/dl
(70-99)
Lactic Acid 2.9 H mmol/L
(0.7-2.0)
Alkaline Phosphatase 136 H U/L
(38-126)
Total Protein 5.5 L g/dl
(6.3-8.2)
Albumin 3.0 L g/dl
(3.5-5.0)
Ur Occult Blood Reflex
Leukocyte Esterase Rfl
Urine WBC (Reflex)
Urine Bacteria (Reflex)
Urine Glucose
Urine Albumin (Reflex)
12/04/24
11:55
WBC
RBC
Hgb
Hct
RDW
Abs Immat Gran (auto)
Absolute Neuts (auto)
Absolute Lymphs (auto)
Absolute Monos (auto)
Immature Gran %
Neutrophils %
Lymphocytes %
PT
VBG pCO2
VBG pO2
VBG HCO3
Carbon Dioxide
BUN
Creatinine
Glucose
Lactic Acid
Alkaline Phosphatase
Total Protein
Albumin
Ur Occult Blood Reflex 4+ A
(Negative)
Leukocyte Esterase Rfl 3+ A
(Negative)
Urine WBC (Reflex) >100 A /HPF
(0-5)
Urine Bacteria (Reflex) Many A
(Negative)
Urine Glucose 3+ A
(Negative)
Urine Albumin (Reflex) 4+ A
(Neg - Trace)
12/04/24 11:32
12/04/24 11:33
Vital Signs
Initial and Last Documented VS:
Initial Vital Signs
Temp Pulse Resp BP Pulse Ox
97.1 F 94 25 115/60 96
12/04/24 11:29 12/04/24 11:29 12/04/24 11:29 12/04/24 11:29 12/04/24 11:29
Last Documented Vital Signs
Temp Pulse Resp BP Pulse Ox
97.1 F 87 22 125/62 94
12/04/24 11:29 12/04/24 14:00 12/04/24 14:00 12/04/24 14:00 12/04/24 14:00
MDM/Problems Addressed
MDM/Problems Addressed:
Patient found to be severely septic with lactic acidosis and severe leukocytosis secondary to urinary tract infection. Imaging shows no evidence for displaced ureteral stent or hydronephrosis. Will start broad-spectrum IV antibiotics and fluid
resuscitation and admit the patient to the hospitalist service for further management
Comment
Comment:
EKG independently interpreted by me shows a an atrial fibrillation with a rate of 83, no ischemic change
*Pulse Oximetry
SaO2: 96
Oxygen Mode of Delivery: Room air
Patient hypoxic: no
*Critical Care Note
Total Time (30-74mins, 75-104mins- exclusive of procedures): 40 minutes
comment:
Critical care time: 40 minutes
Critical care time was exclusive of: Separately billable procedures, treating other patients, and teaching time
Critical care was necessary to treat or prevent imminent or life-threatening deterioration of the following conditions: Severe sepsis
Critical care time spent personally by me on the following activities:
[x] Review of old charts
[x] Obtaining history from patient or surrogate
[x] Ordering and review of the laboratory studies
[x] Ordering and review of radiographic studies
[x] Ordering and performing treatments and interventions
[x] Patient patient's response to treatment
[x] Development of treatment plan with patient or surrogate
Update Note
Update Note:
Discussed case with at the bedside, confirmed DNR/DNI status
ED Attending Note
-
Portions of this chart may have been created with voice recognition software.� Occasional wrong word or��sound alike� substitutions may have occurred due to the inherent limitations of voice recognition software.
Discharge Plan
Departure
Patient Disposition: Admit
Date of Disposition: 12/04/24
Time of Disposition: 13:46
Admit to: Med/Surg
Presentation/result/management discussed w/ accepting MD/DO: Hospitalist
Discharge Problem:
Severe sepsis, Urinary tract infection
Prescriptions:
No Action
metformin 500 MG tablet extended release 24 hr
500 mg PO BID
latanoprost 0.005 % drops
1 drp BOTH EYES HS
tamsulosin 0.4 mg capsule
0.4 mg PO BID
bepotastine besilate 1.5 % drops
1 drp BOTH EYES DAILY
cyanocobalamin (vitamin B-12) 1,000 mcg Tablet
1,000 mcg PO DAILY
ascorbic acid (vitamin C) [Vitamin C] 500 mg Tablet
500 mg PO DAILY
cholecalciferol (vitamin D3) [Vitamin D3] 25 mcg (1,000 unit) Tablet
25 mcg PO DAILY
diltiazem HCl 180 mg Capsule,Extended Release 24hr
180 mg PO BID Qty: 60 0RF
aspirin 81 mg Tablet,Delayed Release (Dr/Ec)
81 mg PO DAILY Qty: 30 0RF
labetalol 200 mg Tablet
200 mg PO BID Qty: 60 0RF
pantoprazole 40 mg tablet,delayed release (DR/EC)
40 mg PO BID Qty: 60 0RF
hydralazine 50 mg Tablet
50 mg PO BID Qty: 60 0RF
miconazole nitrate [Miconazorb AF] 2 % Powder
1 applic topical BID Qty: 85 0RF
vancomycin 125 mg capsule
125 mg PO QID Qty: 40 0RF
Rx Instructions:
for 10 days starting 11/26/24
oxybutynin chloride 5 mg Tablet Extended Release 24hr
5 mg PO DAILY
Saccharomyces boulardii [Florastor] 250 mg Capsule
500 mg PO BID
acetaminophen [Tylenol] 325 mg Tablet
650 mg PO Q6HPRN PRN (Reason: mild pain)
magnesium hydroxide [Milk of Magnesia] 400 mg/5 mL Suspension
2,400 mg PO [id number] PRN (Reason: constipation)
bisacodyl [Dulcolax (bisacodyl)] 10 mg Suppository
10 mg UT DAILYPRN PRN (Reason: if no bm aftr mom)
Fleet Enema 19-7 gram/118 mL Enema
118 ml UT DAILYPRN PRN (Reason: if no bm aftr dulcalax)
Referrals:
Arvind Reyes MD [Family Provider, Family Practice]
Interventions
Interventions:
*General Assessment Last Done: 12/04/24 11:29
ED- Pulmonary Assessment Last Done: 12/04/24 12:05
ED- Neurological Assessment Last Done: 12/04/24 12:05
ED- Cardiac Assessment Last Done: 12/04/24 12:05
Discharge Date and Time
Print Language: ANDORRAN
[2024-12-04 12:57] LABS: Nucleated Red Blood Cells % 0 % (-)
[2024-12-04] MEDS: MAXIPIME 2000 MG IV (13:27)
[2024-12-04 13:44] LABS: Urine Character Cloudy (Clear)
[2024-12-04 14:04] LABS: Urine Squamous Cell 0-2 /LPF (Few)
[2024-12-04 14:05] LABS: Urine Red Blood Cell 0-2 /HPF (0-2); Urine White Cell >100 /HPF (0-5)
--- NOTE | 2024-12-04 14:17 | HPS.HSE ---
Family Physician
-
Family Physician: Arvind Reyes MD
Chief Complaint
-
Allergies
Allergy/AdvReac Type Severity Reaction Status Date / Time
No Known Allergies Allergy Verified 12/04/24 11:28
Home Medications
metformin 500 mg tablet,extended release 24 hr 500 mg PO BID Diabetes 04/10/19
bepotastine besilate 1.5 % eye drops 1 drp BOTH EYES DAILY Eye Condition 11/10/22
latanoprost 0.005 % eye drops 1 drp BOTH EYES HS Eye Condition 11/10/22
tamsulosin 0.4 mg capsule 0.4 mg PO BID Urinary Issue 11/10/22
ascorbic acid (vitamin C) 500 mg tablet (Vitamin C) 500 mg PO DAILY Supplement 11/11/24
cholecalciferol (vitamin D3) 25 mcg (1,000 unit) tablet (Vitamin D3) 25 mcg PO DAILY Supplement 11/11/24
cyanocobalamin (vitamin B-12) 1,000 mcg tablet 1,000 mcg PO DAILY Supplement 11/11/24
aspirin 81 mg tablet,delayed release 81 mg PO DAILY Blood clot prevention/tx #30 tabs 11/19/24
diltiazem HCl 180 mg capsule,extended release 24 hr 180 mg PO BID Arrhythmia #60 caps 11/19/24
labetalol 200 mg tablet 200 mg PO BID Arrhythmia #60 tabs 11/19/24
pantoprazole 40 mg tablet,delayed release 40 mg PO BID Gastrointestinal issue #60 tabs 11/19/24
hydralazine 50 mg tablet 50 mg PO BID Blood pressure #60 tabs 11/22/24
miconazole nitrate 2 % topical powder (Miconazorb AF) 1 applic topical BID Groin rash #85 grams 11/26/24
vancomycin 125 mg capsule 125 mg PO QID #40 caps 11/26/24
Saccharomyces boulardii 250 mg capsule (Florastor) 500 mg PO BID 12/04/24
acetaminophen 325 mg tablet (Tylenol) 650 mg PO Q6HPRN PRN mild pain 12/04/24
bisacodyl 10 mg rectal suppository (Dulcolax (bisacodyl)) 10 mg MA DAILYPRN PRN if no bm aftr mom 12/04/24
magnesium hydroxide 400 mg/5 mL oral suspension (Milk of Magnesia) 2,400 mg PO [id number] PRN constipation 12/04/24
oxybutynin chloride 5 mg tablet,extended release 24 hr 5 mg PO DAILY 12/04/24
sodium phosphates 19 gram-7 gram/118 mL enema (Fleet Enema) 118 ml MA DAILYPRN PRN if no bm aftr dulcalax 12/04/24
History of Present Illness
89-year-old male past medical history of paroxysmal atrial fibrillation, moderate mitral regurgitation, mild aortic stenosis, dementia, diabetes, hypertension, BPH, nephrolithiasis status post bilateral ureteral stent, hyperlipidemia, C. difficile
colitis, anemia of chronic disease, constipation, bilateral shoulder pain, prior suicidal ideation, severe dysphagia presenting from [facility] with altered mental status. He was in his normal mental state last night but this morning
he was unarousable. EMS noted blood sugar of 460. History is obtained from . She does not have any further history from the skilled nursing or from the patient.
He was recently admitted from 11/27 to 11/28 for proctocolitis. He was found to be positive for C. difficile. He was treated with oral vancomycin. He also had a groin rash and was started miconazole.
He was previously admitted from 11/11 to 11/22 for bilateral hydronephrosis status post bilateral ureteral stent placement complicated by A-fib with RVR and hematuria at which time Eliquis was stopped.
Patient does not smoke or drink alcohol.
Medical History
Past Medical History
Past Medical History: Reports Other (paroxysmal atrial fibrillation, moderate mitral regurgitation, mild aortic stenosis, dementia, diabetes, hypertension, BPH, nephrolithiasis status post bilateral ureteral stent, hyperlipidemia, C. difficile
colitis, anemia of chronic disease, constipation, bilateral shoulder pain, prior suicidal oleg)
Past Surgical History: Reports Other (Tonsilectomy and Urological (Bilateral ureteral stents, lithotripsy))
Social History
Tobacco: Non-smoker
Alcohol: None
Drug: None
Family History
Family History: Not pertinent
Allergies / Home Medications
Allergies reflects when Allergies were last updated in [employer].
Home Medications with original date entered in [employer]
Allergy/Medication List:
Allergies
Allergy/AdvReac Type Severity Reaction Status Date / Time
No Known Allergies Allergy Verified 12/04/24 11:28
Home Medications
metformin 500 mg tablet,extended release 24 hr 500 mg PO BID Diabetes 04/10/19
bepotastine besilate 1.5 % eye drops 1 drp BOTH EYES DAILY Eye Condition 11/10/22
latanoprost 0.005 % eye drops 1 drp BOTH EYES HS Eye Condition 11/10/22
tamsulosin 0.4 mg capsule 0.4 mg PO BID Urinary Issue 11/10/22
ascorbic acid (vitamin C) 500 mg tablet (Vitamin C) 500 mg PO DAILY Supplement 11/11/24
cholecalciferol (vitamin D3) 25 mcg (1,000 unit) tablet (Vitamin D3) 25 mcg PO DAILY Supplement 11/11/24
cyanocobalamin (vitamin B-12) 1,000 mcg tablet 1,000 mcg PO DAILY Supplement 11/11/24
aspirin 81 mg tablet,delayed release 81 mg PO DAILY Blood clot prevention/tx #30 tabs 11/19/24
diltiazem HCl 180 mg capsule,extended release 24 hr 180 mg PO BID Arrhythmia #60 caps 11/19/24
labetalol 200 mg tablet 200 mg PO BID Arrhythmia #60 tabs 11/19/24
pantoprazole 40 mg tablet,delayed release 40 mg PO BID Gastrointestinal issue #60 tabs 11/19/24
hydralazine 50 mg tablet 50 mg PO BID Blood pressure #60 tabs 11/22/24
miconazole nitrate 2 % topical powder (Miconazorb AF) 1 applic topical BID Groin rash #85 grams 11/26/24
vancomycin 125 mg capsule 125 mg PO QID #40 caps 11/26/24
Saccharomyces boulardii 250 mg capsule (Florastor) 500 mg PO BID 12/04/24
acetaminophen 325 mg tablet (Tylenol) 650 mg PO Q6HPRN PRN mild pain 12/04/24
bisacodyl 10 mg rectal suppository (Dulcolax (bisacodyl)) 10 mg MA DAILYPRN PRN if no bm aftr mom 12/04/24
magnesium hydroxide 400 mg/5 mL oral suspension (Milk of Magnesia) 2,400 mg PO [id number] PRN constipation 12/04/24
oxybutynin chloride 5 mg tablet,extended release 24 hr 5 mg PO DAILY 12/04/24
sodium phosphates 19 gram-7 gram/118 mL enema (Fleet Enema) 118 ml MA DAILYPRN PRN if no bm aftr dulcalax 12/04/24
Review of Systems
-
History Source: Patient
A 12 point ROS was completed and negative except as noted: Yes
Constitutional: Reports No Symptoms
EENT: Reports No Symptoms
Respiratory: Reports No Symptoms
Cardiac: Reports No Symptoms
Abdomen/GI: Reports No Symptoms
: Reports No Symptoms
Musculoskeletal: Reports No Symptoms
Skin: Reports No Symptoms
Neurological: Reports No Symptoms
Endocrine: Reports No Symptoms
Hematologic/Lymphatic: Reports No Symptoms
Psych: Reports No Symptoms
Physical Exam
Vital Signs
Vital Signs
Temp Pulse Resp BP Pulse Ox
97.1 F 87 22 125/62 94
12/04/24 11:29 12/04/24 14:00 12/04/24 14:00 12/04/24 14:00 12/04/24 14:00
Physical Exam
General: Well Developed, Well Nourished and No Apparent Distress
HEENT: NormoCephalic, Moist mucous membranes and Atraumatic
Respiratory: Clear
Cardiac: S1/S2 and Regular Rhythm; No Murmur or Rub
GI: Soft, Non Tender, Non Distended and Normal Bowel Sounds; No Organomegaly
Rectal: Deferred by Provider
Musculoskeletal: No Clubbing, No Cyanosis and No Edema
Skin: No Rash
Neuro: Nonfocal/grossly intact
Laboratory Results
-
12/04/24 11:32
12/04/24 11:33
Laboratory Results
PT 19.3 Sec (11.4-14.6) H 12/04/24 11:33
INR 1.57 12/04/24 11:33
Lactic Acid 2.9 mmol/L (0.7-2.0) H 12/04/24 11:28
Lactic Acid Cancelled 12/04/24 11:28
Total Bilirubin 1.1 mg/dl (0.2-1.3) 12/04/24 11:33
AST 23 U/L (17-59) 12/04/24 11:33
ALT 34 U/L (0-50) 12/04/24 11:33
Alkaline Phosphatase 136 U/L (38-126) H 12/04/24 11:33
Data Reviewed
-
Lab Data: Labs Reviewed by me
Old Records: Reviewed
Impression/Plan
-
IMPRESSION:
PLAN:
# Sepsis (leukocytosis, tachycardia)/acute metabolic encephalopathy secondary to likely urinary tract infection
-Mental status improving
-Lactic acid 2.9, recheck lactic
- Urinalysis pending
- CT abdomen pelvis shows air in the kidneys and bladder could be related to recent stent placement versus infection, third spacing of fluid in both abdomen pelvis and soft tissues, increase in size of bilateral pleural effusions,
-CT head shows chronic atrophy/ischemic disease, polyp of the left maxillary sinus
- Urine culture, blood culture
-IV fluids
- Zosyn
# Aspiration pneumonia versus atelectasis secondary to chronic dysphagia
-Chest x-ray shows patchy airspace disease in both lower lobes early pneumonia versus atelectasis
- Empiric Zosyn for now
-Patient on a normal diet these days
-Recheck speech and swallow
# Acute kidney injury likely prerenal
- Monitor with IV fluids
- CT scan does not show any ureteral obstruction
# Ongoing hematuria
# Nephrolithiasis status post bilateral ureteral stents
- Discussed with urology who looked at scan and noted that stents are in good position and recommends Estrada catheter and outpatient follow-up with urology to remove stents after infection is cleared
# Hyperglycemia secondary to infection
#Type 2 diabetes
- Hold metformin
- Insulin sliding scale
#Recent groin fungal rash
- Continue miconazole, has improved
#History of C. difficile toxin positive
- Continue oral vancomycin which should complete on 12/06 for 10-day course starting 11/26
Paroxysmal atrial fibrillation
- Continue aspirin
- Continue diltiazem
- No longer on Eliquis due to hematuria
Moderate mitral regurgitation
Mild aortic stenosis
Essential hypertension
- Hold hydralazine, labetalol for now until sepsis improves
BPH
- Continue oxybutynin, tamsulosin
Hyperlipidemia
Anemia of chronic disease
- Hemoglobin stable at 9.8
Constipation
Bilateral shoulder pain
Prior suicidal ideation
Severe dysphagia
DNR/DNI
DVT prophylaxis�SCDs
N.p.o.
--- NOTE | 2024-12-04 16:05 | PTOTSP ---
Speech Language Pathology
Pt seen for clinical bedside swallow evaluation. P.O. trials of ice chips and thin liquids provided. Pt with difficulty with pre-feeding tasks, keeping open mouth posture with straw in oral cavity and swallowing liquid with oral cavity in open
position. Audible swallow noted, likely indicative of incoordination. Wet voice noted with inability to clear with cued cough given weakness. Pt with burp and hiccuping, stated 'yes' when asked if something felt like it was sticking in chest.
Further P.O. trials deferred.
Pt also seen for cognitive-linguistic evaluation given concerns noted during swallow evaluation. Informal assessment completed. Pt with L gaze preference with R inattention. Able to visually fixate on [employer]EL[employer] when on L, but was unable to track past
midline. Repeated 5 times with same response. Mild dysarthria noted. He was oriented to name. When asked , he perseverated on his name. With multiple choice cueing, he was able to choose correct month of .
Pt with hx of dementia, but is significantly different than when seen by this EXECUT[employer] CANDIDATE DEVELOPER on last admission 11/29. Concern for neurological involvement. reported that pt has been unable to see out of R eye for 1-2 weeks, has been having difficulty
swallowing for 1 week with oral holding at times, and has had worsened speech in the last 1-2 weeks. RN and MD notified.
Recommend:
(1) NPO
(2) Oral care 4x/day with suctioning as needed
(3) Non-oral meds
(4) Hold on Aspiration Risk Hydration Protocol (ARHP) given mentation
(5) Will consider instrumental swallowing assessment as appropriate
(6) EXEC[employer]ANDIDATE DEVELOPER to continue to follow
[2024-12-04] MEDS: NSS 1000 IV (16:50)
[2024-12-04 17:29] LABS: Glucose - Point of Care 372 mg/dl (70-99)
--- NOTE | 2024-12-04 17:47 | PTCARENOTE ---
Received patient from ED, at bedside. Patient appears to be feeling unwell, denies pain. States he is in 'a hospital', does not know the year. Patient with some slurring speech, turns in bed with assist. Mary Jane from speech therapy came up to
evaluate patient - reports concern as she worked with him at a very recent hospitalization, and he is different from his baseline, he is unable to swallow as well. Mary Jane reached out to admitting ED doctor with concerns - according to her, ED doctor
states 'do not call stroke alert or rapid' as he is heading up to see the patient for eval. Doctor up to floor and performs NIH with this nurse present. Patient has definitive scott-attention, drift on right arm, inability to hold up either leg.
Doctor states he wants to ask the the last time the patient was 'normal', however is not in room or on unit at the time. Shortly after came up to unit, this nurse called ED doctor and he spoke with the . Approx 10 minutes after
conversation ended, he let this nurse know to 'call a stroke alert' on patient due to concerns on new right sided weakness. Stroke alert called. Patient is presently in CT.
[2024-12-04] MEDS: ZOSYN 50 IV ×2 (18:14→23:33)
[2024-12-04] MEDS: NOVOLOG FLEXPEN-LOW RESISTANCE 5 UNITS SC (18:14)
[2024-12-04] MEDS: ASPIRIN 300 MG RECTAL (18:44)
--- NOTE | 2024-12-04 19:03 | CONS.URO ---
Consultation
-
Date/Time Consultation Performed: 12/04/24 1900
Performing Provider: Peffer
Reason for Consultation: UTI, sepsis, stents
Medical History
History of Present Illness
89M presenting 10/2024 with urinary frequency and incontinence noted to have bilateral distal ureteral stones on CT imaging
11/11: s/p cystoscopy, bilateral ureteral stent placement, bulbar stricture dilation
Prior to discharge he passed trial of void
He was readmitted 11/25 for ambulatory dysfunction and again 11/27 for C diff colitis
After these admissions he was taken back to SNF
He presented back to ER 12/04 for altered mental status and hyperglycemia
Found to have severe sepsis
CT showed stents in good position but with emphysemtous cystitis and pyelitis
Has had recurrent frequent urination
Conklin was replaced without difficulty
Past Medical History
Past Medical History: Other (paroxysmal atrial fibrillation, moderate mitral regurgitation, mild aortic stenosis, dementia, diabetes, hypertension, BPH, nephrolithiasis status post bilateral ureteral stent, hyperlipidemia, C. difficile colitis,
anemia of chronic disease, constipation, bilateral shoulder pain)
Social History
Tobacco: Non-smoker
Alcohol: None
Personal:
Family History
Family History: Reviewed & Not Pertinent
Allergies/Home Medications
Allergies
Allergy/AdvReac Type Severity Reaction Status Date / Time
No Known Allergies Allergy Verified 12/04/24 11:28
Home Medications
�Medication �Instructions �Recorded �Confirmed �Type
metformin 500 mg tablet,extended 500 mg PO BID Diabetes 04/10/19 12/04/24 History
release 24 hr
bepotastine besilate 1.5 % eye 1 drp BOTH EYES DAILY Eye Condition 11/10/22 12/04/24 History
drops
latanoprost 0.005 % eye drops 1 drp BOTH EYES HS Eye Condition 11/10/22 12/04/24 History
tamsulosin 0.4 mg capsule 0.4 mg PO BID Urinary Issue 11/10/22 12/04/24 History
ascorbic acid (vitamin C) 500 mg 500 mg PO DAILY Supplement 11/11/24 12/04/24 History
tablet (Vitamin C)
cholecalciferol (vitamin D3) 25 25 mcg PO DAILY Supplement 11/11/24 12/04/24 History
mcg (1,000 unit) tablet (Vitamin
D3)
cyanocobalamin (vitamin B-12) 1,000 mcg PO DAILY Supplement 11/11/24 12/04/24 History
1,000 mcg tablet
aspirin 81 mg tablet,delayed 81 mg PO DAILY Blood clot 11/19/24 12/04/24 Rx
release prevention/tx #30 tabs
diltiazem HCl 180 mg 180 mg PO BID Arrhythmia #60 caps 11/19/24 12/04/24 Rx
capsule,extended release 24 hr
labetalol 200 mg tablet 200 mg PO BID Arrhythmia #60 tabs 11/19/24 12/04/24 Rx
pantoprazole 40 mg tablet,delayed 40 mg PO BID Gastrointestinal 11/19/24 12/04/24 Rx
release issue #60 tabs
hydralazine 50 mg tablet 50 mg PO BID Blood pressure #60 11/22/24 12/04/24 Rx
tabs
miconazole nitrate 2 % topical 1 applic topical BID Groin rash 11/26/24 12/04/24 Rx
powder (Miconazorb AF) #85 grams
vancomycin 125 mg capsule 125 mg PO QID #40 caps 11/26/24 12/04/24 Rx
Saccharomyces boulardii 250 mg 500 mg PO BID 12/04/24 12/04/24 History
capsule (Florastor)
acetaminophen 325 mg tablet 650 mg PO Q6HPRN PRN mild pain 12/04/24 12/04/24 History
(Tylenol)
bisacodyl 10 mg rectal suppository 10 mg WA DAILYPRN PRN if no bm 12/04/24 12/04/24 History
(Dulcolax (bisacodyl)) aftr mom
magnesium hydroxide 400 mg/5 mL 2,400 mg PO [id number] PRN 12/04/24 12/04/24 History
oral suspension (Milk of Magnesia) constipation
oxybutynin chloride 5 mg 5 mg PO DAILY 12/04/24 12/04/24 History
tablet,extended release 24 hr
sodium phosphates 19 gram-7 118 ml WA DAILYPRN PRN if no bm 12/04/24 12/04/24 History
gram/118 mL enema (Fleet Enema) aftr dulcalax
Physical Exam
Vital Signs
Vital Signs
Temp Pulse Resp BP Pulse Ox
98.5 F 110 25 131/72 94
12/04/24 17:25 12/04/24 17:25 12/04/24 15:30 12/04/24 17:25 12/04/24 17:25
Lab / Testing Results
Laboratory Results
12/04/24 11:32
12/04/24 11:33
Physical Exam
General: Well Developed, Pain and Other (uncomfortable)
Respiratory: Clear
GI: Soft and Non Tender
Genito-urinary: No Costovertebral Tend
Assessment / Plan
-
89M with bilateral ureteral stones and urethral stricture
s/p urethral dilation and bilateral ureteral stent placement 10/2024
Readmitted with septic UTI
CT showing emphysematous cystitis and pyelitis
- Recommended conklin catheter replacement which was done without difficulty
- Continue broad spectrum abx pending cultures
- Recommend extended antibiotic course 14 days for emphysematous cystitis (gas in bladder wall tissues)
- Maintain conklin and ureteral stents until procedure to remove the ureteral stones after discharge
- Timing and follow up per Dr. Brewer
--- NOTE | 2024-12-04 20:12 | W.PN.UPDATE ---
Update Note
Progress Note Update
I received a notice from the speech therapist that although although patient is more awake and alert now he has a leftward gaze preference with drift of the right arm and having trouble swallowing with some facial asymmetry. �This was a very big
change from when she had seen the patient during the recent admission 1 week prior.
As per patient's she states that 5 days ago which was 1 day after recent discharge he developed eye vision loss (not sure which eye), slurred speech and generalized weakness. �The [facility] not suggest that he go to a hospital. �He did
not have any weakness of the upper extremities until noted today.
Patient was last seen without any right upper extremity weakness last night at around 8 PM as per records. �His vision and slurred speech did not recover from 5 days ago.
On examination patient has left-sided gaze preference, with partial drift of the right upper extremity. �He has drift of both lower extremities hitting the bed. �Unable to answer questions. �Partial right sided facial asymmetry. �NIH of 19.
Stroke alert was called. Urgent CT head/CTA head and neck to be performed.
Repeat CT head shows atherosclerosis of the internal carotid arteries bilaterally, proximal right internal carotid artery with borderline hemodynamically significant stenosis of 65 to 70% and proximal left internal carotid artery approximately 50%
stenosis.
Atherosclerosis of vertebral artery system bilaterally marked dominant left vertebral artery.
I discussed with neurologist at [facility] who states that there is no evidence of acute large vessel occlusion, findings were suggestive of prior stroke. She recommended rectal aspirin and not to initiate TNK.
Patient moved to telemetry. Check MRI brain, echo, continue rectal aspirin, neurology consulted.
[2024-12-04] MEDS: CARDIZEM 2.5 MG IV (21:34)
[2024-12-04] MEDS: DESENEX/MITRAZOL/ZEASORB 1 APPLIC TOPICAL (21:35)
[2024-12-04] MEDS: XALATAN OPHTHALMIC SOLUTION 1 DROP BOTH EYES (21:36)
[2024-12-04 22:02] LABS: Glucose - Point of Care 292 mg/dl (70-99)
[2024-12-05] VITALS (9 sets, daily range): BP systolic 127–152; BP diastolic 78–96; BMI 19.9
[2024-12-05] MEDS: CARDIZEM 2.5 MG IV ×2 (00:43→21:44)
[2024-12-05] MEDS: NSS 1000 IV ×2 (02:57→15:50)
[2024-12-05] MEDS: ZOSYN 50 IV ×2 (05:32→12:43)
[2024-12-05 08:43] LABS: Hematocrit 26.7 % (39.0-52.0); Hemoglobin 9.2 g/dL (13.0-18.0); Mean Corp Hgb Conc. 34.5 g/dL (33.0-37.0); Mean Corpuscular Volume 83.2 fL (80.0-94.0); Nucleated Red Blood Cells % 0 % (-); Platelet Count 218 10^3/uL (130-400); Red Cell Dist. Width 14.7 % (11.5-14.5)
--- NOTE | 2024-12-05 08:56 | CON.NEURO ---
Addendum entered and electronically signed by Tobi Alexandra MD 12/05/24 11:06:
Studies reviewed.
I have personally examined the patient. I reviewed and agree with the PONY EDGER's Note.
My addenda:
Awake, alert, interactive. No acute distress.
Speech thick.
Follows 2-step requests w/ difficulty. No tremor.
Extra-ocular movements grossly intact.
Facial movements full and symmetric. Hearing intact to normal conversational volume.
Normal UE movements bilaterally.
Neck: full ROM.
Chest: no dyspnea
Heart: no JVD
Ext: (-) Clubbing, (-) Cyanosis, (-) Edema
IMPRESSIONS/RECOMMENDATIONS:
Abrupt onset of weakness in the right arm and leg with some right sided inattention and underlying dementia. Patient has had recent sepsis and the possibility of septic emboli as the etiology for symptoms exists as does acute ischemic stroke as the
patient is not being able to utilize usual apixaban for atrial fibrillation
Check MRI of brain, if emboli appear to be diffuse and embolic, may not have the capacity for switching from aspirin to apixaban due to the possibility of septic emboli
Consider REYES, if appropriate for this patient with advanced dementia
Continue aspirin at this time
Rehabilitation evaluations and treatment
Consider goals of care discussion with family
Not clear that there are additional therapies available for the patient's underlying dementia
D/W patient
All questions answered.
Will continue to follow patient.
Original Note:
Documented by User: Barbra Ellis NP 12/05/24 10:38
Neuro Assessment/Plan
Assessment
Patient is an 89-year-old male past medical history of paroxysmal atrial fibrillation, moderate mitral regurgitation, mild aortic stenosis, dementia, diabetes, hypertension, BPH, nephrolithiasis status post bilateral ureteral stent, hyperlipidemia,
C. difficile colitis, anemia of chronic disease, constipation, bilateral shoulder pain, prior suicidal ideation, severe dysphagia presenting to [facility] from [facility] on 12/04/2024 with altered mental status now s/p stroke alert not a TNK
candidate due to unknown symptom onset.
Head CT: There are moderate changes of cortical atrophy and chronic ischemic disease.
CTA head/neck: Atherosclerosis of the internal carotid arteries bilaterally, proximal right internal carotid artery with borderline hemodynamically significant stenosis of 65-70% and proximal left internal carotid artery approximately 50% stenosis.
No findings to suggest internal carotid artery dissection bilaterally.
Atherosclerosis of the vertebral arterial system bilaterally with markedly dominant left vertebral artery. Relative diminutive distal right vertebral artery, cannot exclude subtle occlusion of the distal right vertebral artery with questionable
retrograde blood flow..
No findings to suggest proximal intracranial arterial stenosis bilaterally.
Bilateral pleural effusions.
Head CT: No acute intracranial abnormality. ASPECT score: 10
Brain MRI: pending
Plan
Impression: dysphasia and right hemiparesis most likely due to ischemic stroke, etiology either cardioembolic in the setting of having afib and being off of anticoagulation or septic emboli
-check MRI brain without contrast to evaluate for stroke as planned
-check carotid ultrasound
-BP goal is normotension.
-continue aspirin 300 mg ID for now, will most likely need to be back on anticoagulation
-check hemoglobin A1C. Goal is normoglycemia.
-check LDL with goal <70 may need to start the patient on atorvastatin when able to take po
-check an echocardiogram.
-PT/OT/ST evaluations
-continue neurochecks and NIHSS per unit guidelines
-stroke education material to be provided
All questions encouraged and answered, plan of care discussed with Dr. Alexandra, nurse and patient
Consultation
Order
Date of Consultation: 12/05/24
Requesting Provider: hospitalist
Reason for Consult: right hemiparesis and dysarthria
Subjective/Objective
Subjective Data
Date of Service: December 05, 2024
Patient is confused and unreliable historian, all information obtained from staff and chart. Patient is an 89-year-old male past medical history of paroxysmal atrial fibrillation, moderate mitral regurgitation, mild aortic stenosis, dementia,
diabetes, hypertension, BPH, nephrolithiasis status post bilateral ureteral stent, hyperlipidemia, C. difficile colitis, anemia of chronic disease, constipation, bilateral shoulder pain, prior suicidal ideation, severe dysphagia presenting to [facility]
from [facility] on 12/04/2024 with altered mental status. He was in his normal mental state last night but this morning he was unarousable. EMS noted blood sugar of 460. He was recently admitted from 11/27 to 11/28 for proctocolitis. He
was found to be positive for C. difficile. He was treated with oral vancomycin. He also had a groin rash and was started miconazole. He was previously admitted from 11/11 to 11/22 for bilateral hydronephrosis status post bilateral ureteral stent
placement complicated by A-fib with RVR and hematuria at which time Eliquis was stopped and was put on aspirin 81 mg daily.
Patient was being evaluated by speech therapy and noted leftward gaze preference with drift of the right arm and having trouble swallowing with some facial asymmetry. �This was a very big change from when she had seen the patient during the recent
admission 1 week prior. As per patient's she states that 5 days ago which was 1 day after recent discharge he developed eye vision loss (not sure which eye), slurred speech and generalized weakness. �The assisted did not suggest that he go
to a hospital. �He did not have any weakness of the upper extremities until day of admission. On examination patient has left-sided gaze preference, with partial drift of the right upper extremity. �He has drift of both lower extremities hitting the
bed. �Unable to answer questions. �Partial right sided facial asymmetry. �NIH of 18. Stroke alert was called. Urgent CT head/CTA head and neck to be performed. Repeat CT head shows atherosclerosis of the internal carotid arteries bilaterally,
proximal right internal carotid artery with borderline hemodynamically significant stenosis of 65 to 70% and proximal left internal carotid artery approximately 50% stenosis. Atherosclerosis of vertebral artery system bilaterally marked dominant
left vertebral artery. Case discussed with neurologist at [facility] who states that there is no evidence of acute large vessel occlusion, findings were suggestive of prior stroke. She recommended rectal aspirin and not to initiate TNK.
Current examination shows NIHSS 12. Patient with mild aphasia, severe dysarthria, confusion and right hemiparesis.
Objective Data
Vital Signs
Temp Pulse Resp BP Pulse Ox
97.6 F 130 18 135/87 93
12/05/24 07:34 12/05/24 07:34 12/05/24 07:34 12/05/24 07:34 12/05/24 07:34
Lab Results
12/05/24 07:47
PT 19.3 Sec (11.4-14.6) H 12/04/24 11:33
INR 1.57 12/04/24 11:33
Sodium 136 mmol/L (135-145) 12/04/24 11:33
Potassium 4.2 mmol/L (3.5-5.1) 12/04/24 11:33
BUN 43 mg/dl (9-20) H 12/04/24 11:33
Glucose 387 mg/dl (70-99) H 12/04/24 11:33
Calcium 8.6 mg/dl (8.4-10.2) 12/04/24 11:33
Patient Allergies
No Known Allergies Allergy (Verified 12/04/24 11:28)
CVA Assessment
Onset of Stroke Symptoms
Onset of symptoms known: No
Time pt last seen normal is known: No
NIH Stroke Score
Level of Consciousness: 0 - Alert
LOC Questions: 2-Neither correct
LOC Commands: 0-Performs both correctly
Best Horizontal Gaze: 1-Partial gaze palsy
Visual Rivas: 0=Normal, no visual loss
Facial Palsy: 1=Minor paralysis
Motor - Right Arm: 2=Partial vs. gravity
Motor - Left Arm: 0=No drift 10 seconds
Motor - Right Le-None vs. gravity
Motor - Left Le-No drift 5 seconds
Limb Ataxia: 0-Absent
Sensation: 0-Normal
Best Language: 1-Mild aphasia
Dysarthria: 2-Severe slurring
Extinction and Inattention: 0-No abnormality
NIH Total Score:: 12
Tenecteplase Contraindications
Inclusion and Exclusion criteria reviewed: Yes
Reasons for NON-Tx with Thrombolytics ABSOLUTE Exclusions: Time-out of window
Physical Exam
-
General: Appears Chronically Ill and Cachectic
HEENT: Normocephalic, Atraumatic and Anicteric
Neck: Full Range of Motion
Respiratory: No Dyspnea
Cardiac: No JVD
GI: Non-distended
Skin: Unremarkable
Extremities: No Clubbing, No Cyanosis and No Edema
Psych: Confused and Depressed
Extended Neurological Exam
Mood & Affect: Depressed and Other (teaful)
Attention Span & Concentration: Awake, Alert, Interactive, Unable to Perform 2 Step Request and Other (not oriented to time or place)
Memory: Unable to Recall
Tremor: Hand Tremor Absent and Head Tremor Absent
Speech: Expressive Aphasia, Moderately Reduced Output and Dysarthric
Cranial Nerve II: Left Eye: Visual Rivas Intact
Cranial Nerve II: Right Eye: Visual Rivas Intact
Cranial Nerves III, IV, : Extraocular Movement: Extraocular Movement Full in all Directions
Cranial Nerve VII: Facial Symmetry: Reduced (right )
Cranial Nerve VIII: Hearing: Grossly Reduced
Cranial Nerve XI: Shoulder Shrug: Reduced on Right
Muscle Strength, Overall: Reduced on Right
Data Reviewed
-
CT-A: Report Reviewed and Image Reviewed
CT Head: Report Reviewed and Image Reviewed
MRI Head: Ordered
Carotid Ultrasound: Ordered
Labs: Report Reviewed
Lipid Profile: Ordered
HgbA1C: Ordered
Reviewed with: Physician, Nurse and Patient
Old Records: Summarized
Medications
-
Active Medications
Generic Name Dose Route Start Last Admin
Trade Name Freq PRN Reason Stop Dose Admin
Acetaminophen 650 mg 12/04/24 15:48
Acetaminophen 325 Mg Tablet PO 01/01/25 15:47
Q6HPRN PRN
mild pain
Ascorbic Acid 500 mg 12/05/24 08:00
Ascorbic Acid 500 Mg Tablet PO 01/02/25 07:59
DAILY LIZETTE
Aspirin 81 mg 12/05/24 08:00
Aspirin 81 Mg (Enteric Coated) Tablet PO 01/02/25 07:59
On Hold: 12/05/24 08:31 DAILY LIZETTE
Aspirin 300 mg 12/04/24 18:14 12/04/24 18:44
Aspirin 300 Mg Rectal Suppository RECTAL 01/01/25 18:13 300 mg
DAILY LIZETTE Administration
Bisacodyl 10 mg 12/04/24 15:48
Bisacodyl 10 Mg Rectal Suppository RECTAL 01/01/25 15:47
DAILYPRN PRN
if no bm aftr mom
Cholecalciferol 25 mcg 12/05/24 08:00
Cholecalciferol (Vitamin D3) 25 Mcg Tablet (1,000 Units) PO 01/02/25 07:59
On Hold: 12/05/24 08:41 DAILY LIZETTE
Cyanocobalamin 1,000 mcg 12/05/24 08:00
Cyanocobalamin (Vitamin B-12) 500 Mcg Tablet PO 01/02/25 07:59
On Hold: 12/05/24 08:41 DAILY LIZETTE
Dextrose 12.5 grams 12/04/24 15:48
Dextrose 50% (0.5 Grams/Ml) 50 Ml Syringe IV 01/01/25 15:47
[id number] PRN
hypoglycemia
Protocol
Diltiazem HCl 180 mg 12/04/24 20:00 12/04/24 19:53
Diltiazem 180 Mg Extended Release (24 H) Capsule PO 01/01/25 19:59 Not Given
On Hold: 12/05/24 08:40 BID LIZETTE
Diltiazem HCl 2.5 mg 12/05/24 08:42
Diltiazem 25 Mg/5 Ml Vial IV 01/02/25 08:41
Q6HPRN PRN
sustained HR >110
Glucagon 1 mg 12/04/24 15:48
Glucagon 1 Mg Vial IM 01/01/25 15:47
PRN PRN
hypoglycemia
Protocol
Sodium Chloride 1,000 mls @ 100 mls/hr 12/04/24 15:48 12/05/24 02:57
Nss IV 1,000 mls
.Q10H LIZETTE Administration
Piperacillin Sod/Tazobactam Sod 2.25 grams in 50 mls @ 100 mls/hr 12/04/24 18:00 12/05/24 05:32
Zosyn IV 50 mls
Q6H LIZETTE Administration
Insulin Aspart 0 units 12/04/24 16:30 12/04/24 18:14
Insulin Aspart Low Resistance 300 Units/3 Ml Pen.Injctr SC 01/01/25 16:29 5 units
AC LIZETTE Administration
Protocol
Latanoprost 1 drop 12/04/24 22:00 12/04/24 21:36
Latanoprost 0.005% (Ophthalmic Solution) 2.5 Ml Bottle BOTH EYES 01/01/25 21:59 1 drop
HS LIZETTE Administration
Magnesium Hydroxide 30 ml 12/04/24 15:48
Milk Of Magnesia 30 Ml Cup PO 01/01/25 15:47
[id number] PRN
constipation
Miconazole Nitrate 1 applic 12/04/24 20:00 12/04/24 21:35
Miconazole Powder Bottle TOPICAL 01/01/25 19:59 1 applic
BID LIZETTE Administration
Pt's Own ( 1 drop 12/05/24 08:00
Bepotastine Besilate BOTH EYES 01/02/25 07:59
1.5 % Drops) 1 Drop DAILY LIZETTE
Both Eyes Daily
Oxycodone HCl 2.5 mg 12/05/24 08:00
Oxycodone 5 Mg Regular Release Tablet PO 12/19/24 07:59
On Hold: 12/05/24 08:41 BID LIZETTE
Pantoprazole Sodium 40 mg 12/05/24 20:00
Pantoprazole Sodium 40 Mg/10 Ml Vial IV 01/02/25 19:59
BID LIZETTE
Saccharomyces Boulardii 500 mg 12/04/24 20:00 12/04/24 19:53
Saccharomyces Boulardi (Florastor) 250 Mg Capsule PO 01/01/25 19:59 Not Given
BID LIZETTE
Sodium Biphosphate/Sodium Phosphate 118 ml 12/04/24 15:48
Fleet Phosphate Enema (Adult) 135 Ml Bottle RECTAL 01/01/25 15:47
DAILYPRN PRN
if no bm aftr dulcalax
Sodium Chloride 0 flush 12/04/24 17:00
Sodium Chloride 0.9% (Flush) Syringe IV 01/01/25 16:59
PER PROTOCOL LIZETTE
Sodium Chloride 10 ml 12/05/24 20:00
Sodium Chloride 0.9% (Preservative Free) 10 Ml Vial IV 01/02/25 19:59
BID LIZETTE
Tamsulosin HCl 0.4 mg 12/04/24 20:00 12/04/24 19:53
Tamsulosin 0.4 Mg Capsule PO 01/01/25 19:59 Not Given
On Hold: 12/05/24 08:41 BID LIZETTE
Vancomycin HCl 125 mg 12/04/24 18:00 12/04/24 21:35
Vancomycin Oral Solution 50 Mg/Ml In Oral Syringe PO 12/05/24 23:59 Not Given
QID LIZETTE
Home Medications
�Medication �Instructions �Recorded
metformin 500 mg tablet,extended 500 mg PO BID Diabetes 04/10/19
release 24 hr
bepotastine besilate 1.5 % eye 1 drp BOTH EYES DAILY Eye Condition 11/10/22
drops
latanoprost 0.005 % eye drops 1 drp BOTH EYES HS Eye Condition 11/10/22
tamsulosin 0.4 mg capsule 0.4 mg PO BID Urinary Issue 11/10/22
ascorbic acid (vitamin C) 500 mg 500 mg PO DAILY Supplement 11/11/24
tablet (Vitamin C)
cholecalciferol (vitamin D3) 25 25 mcg PO DAILY Supplement 11/11/24
mcg (1,000 unit) tablet (Vitamin
D3)
cyanocobalamin (vitamin B-12) 1,000 mcg PO DAILY Supplement 11/11/24
1,000 mcg tablet
aspirin 81 mg tablet,delayed 81 mg PO DAILY Blood clot 11/19/24
release prevention/tx #30 tabs
diltiazem HCl 180 mg 180 mg PO BID Arrhythmia #60 caps 11/19/24
capsule,extended release 24 hr
labetalol 200 mg tablet 200 mg PO BID Arrhythmia #60 tabs 11/19/24
pantoprazole 40 mg tablet,delayed 40 mg PO BID Gastrointestinal 11/19/24
release issue #60 tabs
hydralazine 50 mg tablet 50 mg PO BID Blood pressure #60 11/22/24
tabs
miconazole nitrate 2 % topical 1 applic topical BID Groin rash 11/26/24
powder (Miconazorb AF) #85 grams
vancomycin 125 mg capsule 125 mg PO QID #40 caps 11/26/24
Saccharomyces boulardii 250 mg 500 mg PO BID 12/04/24
capsule (Florastor)
acetaminophen 325 mg tablet 650 mg PO Q6HPRN PRN mild pain 12/04/24
(Tylenol)
bisacodyl 10 mg rectal suppository 10 mg ID DAILYPRN PRN if no bm 12/04/24
(Dulcolax (bisacodyl)) aftr mom
magnesium hydroxide 400 mg/5 mL 2,400 mg PO [id number] PRN 12/04/24
oral suspension (Milk of Magnesia) constipation
oxybutynin chloride 5 mg 5 mg PO DAILY 12/04/24
tablet,extended release 24 hr
sodium phosphates 19 gram-7 118 ml ID DAILYPRN PRN if no bm 12/04/24
gram/118 mL enema (Fleet Enema) aftr dulcalax
Past History
Past History
ED Past Medical History: Arrthythmia, HTN, Hypercholesterolemia, NIDDM, Other (Kidney stones) and Other (Syncope)
ED Past Surgical History: Negative Cardiac
Family/Social History
Tobacco: Non-smoker
Alcohol: Occasional
Drug: None
Personal:
Living: with family
Employment: Retired
Family History: Other (Noncontributory)

Documented by User: Tobi Alexandra MD 12/05/24 10:58
CVA Assessment
NIH Stroke Score
NIH Total Score:: 12
--- NOTE | 2024-12-05 09:10 | CON.ID ---
Addendum entered and electronically signed by Jessica Dover MD 12/05/24 15:02:
See Update Note.
Original Note:
Consultation
-
Date/Time Consultation Requested: 12/05/24 08:33
Date/Time Consultation Performed: 12/05/2024
Requesting Provider: Dr. Pinto
Performing Provider: Alphonso Willett MD ; Jessica Dover MD
Reason for Consultation: Bactremeia
Chief Complaint / Past History
Chief Complaint
AMS
History of Present Illness
This is a 89-year-old male PMHx of paroxysmal atrial fibrillation, moderate mitral regurgitation, mild aortic stenosis, dementia, DM, hypertension, BPH, nephrolithiasis s/p bilateral ureteral stent, hyperlipidemia, C. difficile colitis, anemia of
chronic disease, constipation, bilateral shoulder pain, prior suicidal ideation, severe dysphagia presented to [facility] from [facility] on 12/04/2024 with altered mental status now s/p stroke alert not a TNK candidate due to unknown
symptom onset. undergoing stroke workup.
EMS noted blood sugar was 460.5
Recently admitted on 11/25 for ambulatory dysfunction and 11/27 to 11/28 for proctocolitis. He was found to be positive for C. difficile. He was treated with oral vancomycin; ongoing rx.
He also had a groin rash and was started miconazole.
He was previously admitted from 11/11 to 11/22 for bilateral hydronephrosis status post bilateral ureteral stent placement complicated by A-fib with RVR and hematuria at which time Eliquis was stopped and was put on aspirin 81 mg daily.
Urology following and changed the conklin,
Recommended extended antibiotic course 14 days for emphysematous cystitis (gas in bladder wall tissues)
initial WBC count was 26.
Past History
Past Medical History: Other (paroxysmal atrial fibrillation, moderate mitral regurgitation, mild aortic stenosis, dementia, diabetes, hypertension, BPH, nephrolithiasis status post bilateral ureteral stent, hyperlipidemia, C. difficile colitis,
anemia of chronic disease, constipation, bilateral shoulder min)
Allergy History:
No Known Allergies Allergy (Verified 12/04/24 11:28)
Medications Reviewed: Yes
Current Antibiotics:
zosyn and vanco
Social History
Tobacco: Non-Smoker
Alcohol: None
Drug: None
Family History
Family History: Not Pertinent
Review of Systems
Review of Systems
General: Other (unable to complete due to current condition)
Vital Signs
Temp Pulse Resp BP Pulse Ox
97.6 F 130 18 135/87 93
12/05/24 07:34 12/05/24 07:34 12/05/24 07:34 12/05/24 07:34 12/05/24 07:34
Physical Exam
Physical Exam
Constitutional: Acutely Ill
Gastrointestinal: Tender
Genito-Urinary: Conklin
Extremities: Negative Edema
Skin: Warm
Neurological: Awake; Negative Oriented
Lab / Diagnostic Study Results
12/05/24 07:47
Abs Immat Gran (auto) 0.2 10^3/uL (0-0.05) H 12/05/24 07:47
Absolute Neuts (auto) 18.4 10^3/uL (1.4-6.5) H 12/05/24 07:47
Absolute Lymphs (auto) 0.4 10^3/uL (1.2-3.4) L 12/05/24 07:47
Absolute Monos (auto) 0.7 10^3/uL (0.1-0.6) H 12/05/24 07:47
Absolute Basos (auto) 0.1 10^3/uL (0-0.2) 12/05/24 07:47
Immature Gran % 1.2 % (0-0.5) H 12/05/24 07:47
Neutrophils % 93.1 % (42.2-75.2) H 12/05/24 07:47
Lymphocytes % 2.1 % (20.5-51.1) L 12/05/24 07:47
Monocytes % 3.3 % (1.7-9.3) 12/05/24 07:47
Eosinophils % 0.0 % (0-6) 12/05/24 07:47
Basophils % 0.3 % (0-2) 12/05/24 07:47
PT 19.3 Sec (11.4-14.6) H 12/04/24 11:33
INR 1.57 12/04/24 11:33
Lactic Acid 2.9 mmol/L (0.7-2.0) H 12/04/24 11:28
Lactic Acid Cancelled 12/04/24 11:28
Ur Squamous Epith Cells 0-2 /LPF (Few) 12/04/24 11:55
Microbiology Results
Micro:
12/04/24 11:55 Urine Culture - Preliminary
Urine Gram negative bacilli
12/04/24 11:32 Blood Culture - Preliminary
Blood/Venous Positive culture in progress
Gram Stain - Preliminary
12/04/24 11:32 Blood Culture - Preliminary
Blood/Venous Positive culture in progress
Gram Stain - Preliminary
CR Chest 12/04/24: There is patchy airspace disease in both lower lobes, early pneumonia versus atelectasis
CT Head W/o Iv Contrast 12/04: There are moderate changes of cortical atrophy and chronic ischemic disease.
There is a probable polyp in the left maxillary sinus. This was not included on images obtained previously
CT Abd/pel Without Iv Or Oral: There is air in the kidneys and bladder. This could be related to recent stent placement. Please exclude possibility of infection
There is third spacing of fluid in both the abdomen and pelvis as well as the soft tissues. There is an increase in size in bilateral pleural effusions.
CT HEAD/NECK ANG STROKE ALERT:Atherosclerosis of the internal carotid arteries bilaterally, proximal right internal carotid artery with borderline hemodynamically significant stenosis of 65-70% and proximal left internal carotid artery approximately
50% stenosis. No findings to suggest internal carotid artery dissection bilaterally.
Atherosclerosis of the vertebral arterial system bilaterally with markedly dominant left vertebral artery. Relative diminutive distal right vertebral artery, cannot exclude subtle occlusion of the distal right vertebral artery with questionable
retrograde blood flow..
No findings to suggest proximal intracranial arterial stenosis bilaterally.
Bilateral pleural effusions.
CT HEAD STROKE ALERT W/o Cont 12/04
No acute intracranial abnormality.
ASPECT score: 10
Assessment / Plan
# Sepsis secondary to bactremia vs UTI vs pneumonia
# C. Diff
# EVAN
# Hematuria
# Paroxysmal atrial fibrillation
# severe dysphagia
# Diabetes
-Currently NPO; okay for vanco rectal; can switch vanco to ppx tomorrow since he is high risk
-continue zosyn for now; BC + klebsiella and there is a concern for aspiration pna
-ongoing stroke workup
Other Conditions affecting care:
# Hypertension
# BPH
# Recent groin fungal rash
# Anemia of chronic disease
# Valvular disease - moderate mitral regurgitation, mild aortic stenosis
# Hyperlipidemia
# Dementia
[2024-12-05 09:15] LABS: ALT (SGPT) 23 U/L (0-50); AST (SGOT) 16 U/L (17-59); Albumin 2.7 g/dl (3.5-5.0); Alkaline Phosphatase 119 U/L (38-126); Blood Urea Nitrogen 56 mg/dl (9-20); Calcium 7.8 mg/dl (8.4-10.2); Carbon Dioxide 19 mmol/L (22-30); Chloride 109 mmol/L (98-107); Glucose 256 mg/dl (70-99); Potassium 3.7 mmol/L (3.5-5.1); Sodium 139 mmol/L (135-145); Total Protein 5.1 g/dl (6.3-8.2); eGFR 23.00
--- NOTE | 2024-12-05 09:54 | W.PN.HOSP.TC ---
Addendum entered and electronically signed by Safia Galvan MD 12/05/24 12:59:
Seen and examined the patient. Agree with the plan put forth by the resident. See changes in my documentation
89-year-old man
-Hospitalized from 11/11/2024 to 11/22/2024 with bilateral hydronephrosis. He had bilateral ureteral stent placement. Later developed atrial fibrillation with RVR, hypertensive emergency . Patient was then cleared for p.o. diet he was discharged on
aspirin instead of Eliquis because of ongoing hematuria.
-Patient was taken home on 11/24/2024 because family was not happy with the care at [facility].
- could not care for him at home and brought him to the hospital on 11/25/2024. Patient also had ongoing hematuria at that time . Patient had leukocytosis CT of the abdomen pelvis at that time showed proctocolitis. No hydronephrosis. He was
found to have C. difficile and was discharged on oral vancomycin every 6 hours. Patient was discharged home on on 11/26/2024
-Pt brought back to the ER again on 11/27/2024 because she could not take care of him. No significant change in his condition at that time. Plan was to continue with vancomycin until 12/06/2024. Patient was discharged to [facility] on 11/28/2024.
-Patient was brought to the ER again on 12/04/24 because he was unarousable. EMS noted that blood sugar was 460.
-On 12/05/24 -Speech therapist noted later that he has a leftward gaze preference with drift on the right arm and having trouble swallowing and also facial asymmetry. also noted that 1 day after discharge on 11/29/2024 patient developed right eye
vision loss, slurred speech and generalized weakness. Patient did not recover from 5 days ago. Stroke alert was called and case was discussed by the on-call with [facility] neurologist. They recommended rectal aspirin and no TNK
Chest [id number] airspace disease in both lungs pneumonia versus atelectasis
CT abdomen and pelvis-air in the kidneys and bladder possibly secondary to recent stent placement. Third spacing of fluid in both abdomen and pelvis as well as soft tissues. Increase in size of bilateral pleural effusions
CTA head and neck-atherosclerosis of the internal carotid arteries bilaterally. Proximal right ICA with borderline hemodynamic significant stenosis 65 to 70% and proximal left internal carotid artery approximately 50% stenosis. No dissection.
Atherosclerosis of the vertebral artery system bilaterally with a markedly dominant left vertebral artery. Relative diminutive distal right vertebral artery cannot exclude subtle occlusion of the distal RVA. No findings to suggest proximal ICA
stenosis bilaterally. Bilateral pleural effusions.
Head CT-no acute intracranial abnormality, moderate changes of cortical atrophy and chronic ischemic disease. Probable polyp in the left maxillary sinus
EKG-atrial fibrillation
MRI of the brain reviewed by me-bilateral occipital strokes. Official reading is pending
On examination patient was awake and alert speech slightly impaired
Slow to respond
Cardiovascular system S1-S2 irregular, sm at apex
Chest clear to auscultation
Abdomen soft and nontender
No pedal edema questionable gaze palsy
Speech-dysarthria
Right upper extremity and lower extremity mild weakness
# CVA with mental status change, speech and swallow abnormality
Embolic versus ischemic
Patient has A-fib and was not on anticoagulation because of ongoing hematuria
Also has positive blood cultures-need to rule out endocarditis
Check MRI of the brain, carotid ultrasound
Needs a REYES
Neurochecks/NIH scale
Speech therapy PT OT evaluation
Keep n.p.o. for now
Rectal aspirin to be continued
Neurology consulted
MRI official pending
Neurology is okay with starting Eliquis. Waiting for clearance from urology
# Klebsiella sepsis
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
Source likely urine
Estrada catheter replacement done in the ER
Continue antibiotics
Defer ureteral stent procedure to urology
ID and Urology consulted
# C. difficile colitis
Was supposed to be on p.o. vancomycin until 12/06/2024
Extend the course with need for systemic antibiotics-currently on Zosyn
Rectal vancomycin ordered as patient is n.p.o.
# Acute kidney injury-IV fluids
Hold metformin
Follow creatinine
# Bilateral kidney stones with hydronephrosis
Status post cystoscopy cystoscopy, bilateral ureteral stent placement incidental finding of urethral stricture dilatation 11/11/2024
Patient was discharged without a Estrada catheter on Flomax during that admission.
# Paroxysmal atrial fibrillation
Hold Cardizem and labetalol as n.p.o.
IV Lopressor with as needed Cardizem for high rates
Resume anticoagulation when cleared per urology
# Severe dysphagia on 11/13/[address]24
CT without any acute changes
GI was consulted
PPI was started twice daily
Patient was cleared for a diet on 11/15/2024
Currently has dysphagia and is n.p.o.
# Diabetes-hemoglobin A1c 7.4. Was on metformin 500 mg twice daily as outpatient. Hold. Accu-Cheks and sliding scale coverage
# Hypertension-was on labetalol 200 mg twice daily, hydralazine 50 mg twice daily, Cardizem 180 mg. Prior to arrival. Continue beta-blockers IV now
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
# Dementia-Had suicidal ideation on 11/13/2024 psychiatry evaluated and was taken off of one-to-one
# Anemia secondary to chronic disease
# DVT prophylaxis-Add LIZETTE
# DNR status
Time spent over 50 min
Discussed with neurology
Discussed with nursing
Left a message for
Part of this note was created using voice recognition system. Occasional wrong word or��sound alike� substitutions may have inadvertently occurred due to the inherent limitations of voice recognition software. If noted kindly bring it to my
attention for correction.
Original Note:
Today's Communication/Plan
-
Brain MRI
Cardiology consult for REYES
Continue Vanco and Zosyn, appreciate ID
Rectal vancomycin
Rectal aspirin
Assessment / Plan
Assessment / Plan
Impression:
89-year-old male with past medical history of bilateral nephrosis secondary to renal calculi status post bilateral renal stents with ongoing hematuria on aspirin for anticoagulation, paroxysmal atrial fibrillation previously on Eliquis and aspirin
due to ongoing hematuria, C. difficile presents to the hospital for altered mental status with diagnosis of new stroke and sepsis likely secondary to UTI versus pneumonia.
Imaging:
Chest x-ray 12/04: There is patchy airspace disease in both lower lobes, early pneumonia versus atelectasis
Head CT 12/04: There are moderate changes of cortical atrophy and chronic ischemic disease. There is a probable polyp in the left maxillary sinus. This was not included on images obtained previously
Abdomen/pelvis CT 12/04:
There is air in the kidneys and bladder. This could be related to recent stent placement. Please exclude possibility of infection
There is third spacing of fluid in both the abdomen and pelvis as well as the soft tissues. There is an increase in size in bilateral pleural effusions.
Head and neck CTA 12/04:
-Atherosclerosis of the internal carotid arteries bilaterally, proximal right internal carotid artery with borderline hemodynamically significant stenosis of 65-70% and proximal left internal carotid artery approximately 50% stenosis. No findings to
suggest internal carotid artery dissection bilaterally.
-Atherosclerosis of the vertebral arterial system bilaterally with markedly dominant left vertebral artery. Relative diminutive distal right vertebral artery, cannot exclude subtle occlusion of the distal right vertebral artery with questionable
retrograde blood flow..
-No findings to suggest proximal intracranial arterial stenosis bilaterally.
-Bilateral pleural effusions.
Head CT 12/04:
No acute intracranial abnormality.
Plan:
Altered mental status, CVA
-- NIH 12 for unable to answer questions (2), partial gaze palsy (1), minor facial droop (1), right arm some effort against gravity (2), right leg no effort against gravity (3), mild aphasia (1), severe dysarthria( 2)
-- Head CT unremarkable, Head and neck CT right carotid 65-70% stenosis, left <50%, MRI pending
-- Patient has been off Eliquis since late October and now has gram-negative bacteremia - stroke etiology could be due to clot or vegetation
-- Cardiology consult for REYES
-- HgA1c 11/26/24 7.5, check lipid panel
-- Start statin when able to tolerate PO. Goal LDL <70
-- Telemetry
-- PT OT
-- Rectal aspirin 300 daily, start Plavix when able to tolerate PO
-- Not candidate for TNK as timing of stroke unclear
-- N.p.o. per speech eval
-- Neurology appreciated
Sepsis secondary to UTI vs pneumonia
-- Tachycardia, leukocytosis 26, UTI versus pneumonia, blood cultures klebsiella
-- Fluid resuscitation in ED
-- Started on cefepime switched to Zosyn and Vanco
-- Urine cultures pending
-- LA 2.9 on admission repeat pending
-- Appreciate ID
C.diff
-- Scheduled to finish oral vancomycin 12/06 (started 11/26)
-- Currently n.p.o. - rectal vancomycin enema
EVAN
-- Creatinine 2.3 -> 2.6, baseline 1.1
-- CT scan does not show any ureteral obstruction
-- Likely pre-renal in setting of shock and UTI
-- Estrada cath per Urology - low concern for post-renal cause
Ongoing hematuria
Nephrolithiasis status post bilateral ureteral stents
-- Zeynep-colored last night, yellow this morning
-- On aspirin for anticoagulation rather than Eliquis per urology due to ongoing hematuria
-- Urology looked at the CT scan and noted stents are in a good position would recommend Estrada cath
-- Follow-up outpatient to remove stents after infection is cleared
-- Urology appreciated
Paroxysmal atrial fibrillation
-- Aspirin for anticoagulation not Eliquis due to hematuria
-- At home on labetalol 200 twice daily, diltiazem 180 twice daily
-- Currently n.p.o., metoprolol 5 IV every 6 hours, diltiazem 2.5 mg IV every 6 hours as needed for heart rate sustained greater than 110
-- During prior admission, had episode of A-fib with RVR requiring Cardizem drip -monitor telemetry
History of severe dysphagia
-- Thought to be pill esophagitis during prior admission
-- PPI twice daily until 12/22 then re-eval with GI/PCP
-- Cleared by speech for regular diet during prior admission 11/28/24
-- Now NPO per speech with stroke
Hypertension
-- Home meds include hydralazine 50 twice daily, labetalol 200 twice daily, diltiazem 180 twice daily
-- Hydralazine 10 mg IV for SBP greater than 160 while NPO
# Diabetes -sliding scale insulin, metformin on hold, last hemoglobin A1c 7.5 on 11/26
# BPH -continue tamsulosin 0.4, oxybutynin
# Recent groin fungal rash -continue miconazole
# Anemia of chronic disease - hg currently stable
# Valvular disease - moderate mitral regurgitation, mild aortic stenosis
# Hyperlipidemia - npo start high intensity stating goal LDL <70 when able
# Bilateral shoulder pain
# Depression, prior suicidal ideation
# Glaucoma -continue latanoprost and bepotastine besilate eyedrops
DVT - SCD
DNR
NPO
Anticipated Discharge: > 48 hours
Subjective/Interval History
-
Date of Service: December 05, 2024
Tearful. Dysarthria noted speech difficult to interpret. Baseline unable to tell you the month or year based on prior encounters.
Objective Data
-
Labs:
Laboratory Results
12/05/24
07:47
WBC 19.8 H
Hgb 9.2 L
Hct 26.7 L
Plt Count 218
Sodium 139
Potassium 3.7
Chloride 109 H
Carbon Dioxide 19 L
BUN 56 H
Creatinine 2.6 H
Glucose 256 H
Calcium 7.8 L
Total Bilirubin 0.9
AST 16 L
ALT 23
Alkaline Phosphatase 119
Vital Signs:
Vital Signs
Temp Pulse Resp BP Pulse Ox
97.6 F 130 18 135/87 93
12/05/24 07:34 12/05/24 07:34 12/05/24 07:34 12/05/24 07:34 12/05/24 07:34
I&O
12/04/24 12/05/24 12/06/24
06:59 06:59 06:59
Intake Total 1200 / 1200
Output Total 450 / 450
Balance 750 / 750
Review of Systems
-
History Source: Patient (History of dementia and current dysarthria. Difficult to understand. )
EENT: Reports No Symptoms Reported
Respiratory: Reports Trouble Breathing
Cardiac: Reports No Symptoms
Abdomen/GI: Reports Diarrhea
Genitourinary: Reports Bleeding and Dark Urine
Neuro: Reports Weakness
Physical Exam
-
General: Other (Tearful)
Respiratory: Clear to Auscultation
Cardiac: Irregular Rhythm
GI: Soft, Nontender, Nondistended and Normal Bowel Sounds
Genito-urinary: Other (Groin rash improved from prior )
Musculoskeletal: No Cyanosis and No Edema
Skin: Warm and Dry
Neuro: Facial Droop and Other (Dysarthria, right sided facial droop, unable to lift right arm or right leg against gravity, unaware of or month (although patient has dementia at baseline), )
[2024-12-05] MEDS: ASPIRIN 300 MG RECTAL (10:45)
[2024-12-05] MEDS: NOVOLOG FLEXPEN-LOW RESISTANCE SC (10:50)
[2024-12-05] MEDS: DESENEX/MITRAZOL/ZEASORB 1 APPLIC TOPICAL ×2 (10:52→20:54)
--- NOTE | 2024-12-05 11:00 | PTOTSP ---
Speech Language Pathology
Pt seen for speech/language tx. Dysarthria waxes and wanes, from moderate to moderate to severe. Dysarthria appears worse than yesterday. This date, pt able to track PLANNING SPECIALIST to R with verbal cueing. Oriented to name and month/day of only. N
Pt also seen for dysphagia tx. Minimal P.O. trials provided secondary to significant signs of dysphagia/aspiration. Further P.O. trials deferred.
Recommend:
(1) Strict NPO
(2) Not appropriate for Aspiration Risk Hydration Protocol (ARHP) given suspected severe dysphagia with oral incoordination
(3) Non-oral meds
(4) Will likely require instrumental swallowing assessment pending overall medical plan
(5) Stand on R side of pt when possible to increase R attention
(6) PLANNING SPECIALIST to continue to follow for dysarthria, cognitive-linguistic, and dysphagia tx
--- NOTE | 2024-12-05 11:22 | CON.CAR ---
Addendum entered and electronically signed by Mateo Centeno MD 12/05/24 16:47:
I saw and examined the patient.
The RN TRAVELING's note was reviewed and I agree with the note.
Comment: 89 y/o male (cardiology patient of Dr. Caro) with permanent AFIB (not on Eliquis due to hematuria), moderate , DM2, hypertension, dyslipidemia, and dementia. He was recently here with urinary incontinence and was seen to have
bilateral ureteral stones and he is s/p stenting with urology. Hematuria was noted and Eliquis has been held.
Antonio unfortunately has had hematuria even on aspirin. He certainly now has an indication for anticoagulation, however, my fear is that with anticoagulation will cause worsening hematuria. His chadsvasc is likely at least a 6. Additionally, his echo
was similar to priors today. There was no obvious vegetation.
- Cont IV metoprolol for rate control while NPO
- Eliquis for AC when able per primary/urology
- not adequate REYES candidate given NPO status likely poor surgical candidacy etc
Original Note:
Consultation
Consultation Request
Date/Time Consultation Requested: 12/05/24 1041
Date/Time Consultation Performed: 12/05/24 1122
Requesting Provider: Sintia Pinto
Performing Provider: Cindy REED for Dr. Centeno
Reason for Consultation: AFIB off Eliquis for hematuria, stroke, bacteremia
Medical History
-
Chief Complaint: change MS
History of Present Illness:
89 y/o male (cardiology patient of Dr. Caro) with permanent AFIB (not on Eliquis due to hematuria), moderate , DM2, hypertension, dyslipidemia, and dementia. He was recently here with urinary incontinence and was seen to have bilateral
ureteral stones and he is s/p stenting with urology. Hematuria was noted and Eliquis has been held. He was also having significant dysphasia, which improved, and GI suspected pill esophagitis, but could not r/o esophagitis or stricture. After d/c,
he went to SNF, but soon came back and was diagnosed with CDIFF and treated with vanco. He is now back for change in MS. He was diagnosed with UTI sepsis and is being treated with abx. However, he developed symptoms concerning for stroke and neuro
consulted and now MRI is pending. We are consulted to assess for REYES due to stroke and bacteremia.
Past Medical History
Past Medical History: Arrhythmias, HTN, Hypercholesterolemia, NIDDM and Valvular Disease
Social History
Personal:
Family History
Family History: Reviewed & Not Pertinent
Allergies / Home Medications
Allergy/AdvReac Type Severity Reaction Status Date / Time
No Known Allergies Allergy Verified 12/04/24 11:28
�Medication �Instructions �Recorded �Confirmed �Type
metformin 500 mg tablet,extended 500 mg PO BID Diabetes 04/10/19 12/04/24 History
release 24 hr
bepotastine besilate 1.5 % eye 1 drp BOTH EYES DAILY Eye Condition 11/10/22 12/04/24 History
drops
latanoprost 0.005 % eye drops 1 drp BOTH EYES HS Eye Condition 11/10/22 12/04/24 History
tamsulosin 0.4 mg capsule 0.4 mg PO BID Urinary Issue 11/10/22 12/04/24 History
ascorbic acid (vitamin C) 500 mg 500 mg PO DAILY Supplement 11/11/24 12/04/24 History
tablet (Vitamin C)
cholecalciferol (vitamin D3) 25 25 mcg PO DAILY Supplement 11/11/24 12/04/24 History
mcg (1,000 unit) tablet (Vitamin
D3)
cyanocobalamin (vitamin B-12) 1,000 mcg PO DAILY Supplement 11/11/24 12/04/24 History
1,000 mcg tablet
aspirin 81 mg tablet,delayed 81 mg PO DAILY Blood clot 11/19/24 12/04/24 Rx
release prevention/tx #30 tabs
diltiazem HCl 180 mg 180 mg PO BID Arrhythmia #60 caps 11/19/24 12/04/24 Rx
capsule,extended release 24 hr
labetalol 200 mg tablet 200 mg PO BID Arrhythmia #60 tabs 11/19/24 12/04/24 Rx
pantoprazole 40 mg tablet,delayed 40 mg PO BID Gastrointestinal 11/19/24 12/04/24 Rx
release issue #60 tabs
hydralazine 50 mg tablet 50 mg PO BID Blood pressure #60 11/22/24 12/04/24 Rx
tabs
miconazole nitrate 2 % topical 1 applic topical BID Groin rash 11/26/24 12/04/24 Rx
powder (Miconazorb AF) #85 grams
vancomycin 125 mg capsule 125 mg PO QID #40 caps 11/26/24 12/04/24 Rx
Saccharomyces boulardii 250 mg 500 mg PO BID 12/04/24 12/04/24 History
capsule (Florastor)
acetaminophen 325 mg tablet 650 mg PO Q6HPRN PRN mild pain 12/04/24 12/04/24 History
(Tylenol)
bisacodyl 10 mg rectal suppository 10 mg SC DAILYPRN PRN if no bm 12/04/24 12/04/24 History
(Dulcolax (bisacodyl)) aftr mom
magnesium hydroxide 400 mg/5 mL 2,400 mg PO [id number] PRN 12/04/24 12/04/24 History
oral suspension (Milk of Magnesia) constipation
oxybutynin chloride 5 mg 5 mg PO DAILY 12/04/24 12/04/24 History
tablet,extended release 24 hr
sodium phosphates 19 gram-7 118 ml SC DAILYPRN PRN if no bm 12/04/24 12/04/24 History
gram/118 mL enema (Fleet Enema) aftr dulcalax
Review of Systems
-
Unable to obtain full review of systems at this time due to: Dementia
Physical Exam
Vital Signs
Temp Pulse Resp BP Pulse Ox
97.5 F 130 18 152/85 95
12/05/24 11:17 12/05/24 11:17 12/05/24 11:17 12/05/24 11:17 12/05/24 11:17
Lab Results
12/05/24 07:47
12/05/24 07:47
Physical Exam
General: Well Developed and No Apparent Distress
HEENT: Normocephalic and Anicteric
Respiratory: Non Labored Respirations
Cardiac: Irregular Rhythm
Skin: Warm and Dry
Neuro: Awake, Alert and Other (not oriented)
Psych: Calm and Confused
Impression / Plan
-
Sepsis, bacteremia, UTI:
-this diagnosis is threat to life
-on IV abx
-ID is consulted
-blood cx positive for klebsiella pyrogenes
-due to dementia and dysphasia, patient not appropriate at this time for REYES. Will check TTE.
Possible stroke:
-this diagnosis is threat to bodily function
-MRI is pending
-neuro on the case
-he has known AFIB and has been off of Eliquis for hematuria
-REYES comments as above
AFIB: permanent
-he is NPO per speech
-IV metoprolol is added, follow rates and BP with this
-he is off Eliquis for hematuria, but now with possible stroke as above, which is complex issue
HTN:
-as above, he is NPO, so monitor with addition of IV BB
Moderate :
-updated TTE pending
Hematuria:
-patient with recent diagnosis of ureteral stones s/p cystoscopy, bilateral ureteral stent placement
-urology on the case
-Eliquis has been on hold for this
-follow hgb and urine
EVAN:
-management per primary
Data Reviewed
-
EKG: Tracing Personally Visualized and interpreted (AFIB with RVR [address] Scan: Report Reviewed by me (head CT: No acute intracranial abnormality.)
Medical Tests (Nuc Med, Echo etc): Other (echo ordered and pending)
Labs: Labs Reviewed by me
[2024-12-05 11:30] LABS: Glycohemoglobin (HgbA1c) 8.0 % (4.0-5.6)
[2024-12-05 11:37] LABS: HDL Cholesterol 25 mg/dl; LDL Cholesterol, Calculated 72 mg/dl; Very Low Density Lipoprotein 25 mg/dl (0-30)
[2024-12-05 12:41] LABS: Glucose - Point of Care 261 mg/dl (70-99)
[2024-12-05] MEDS: VANCOMYCIN ENEMA 500 MG RECTAL ×3 (12:43→18:00)
[2024-12-05] MEDS: NOVOLOG FLEXPEN-LOW RESISTANCE 3 UNITS SC (12:45)
[2024-12-05] MEDS: LOPRESSOR 5 MG IV ×3 (12:47→23:45)
--- NOTE | 2024-12-05 13:19 | CM ---
CM following re: discharge planning.
Reviewed pt's chart, met with pt and pt's son at bedside.
Pt is an 89 year old male, admitted with primary dx of Sepsis/UTI. Past medical history of paroxysmal atrial fibrillation, moderate mitral regurgitation, mild aortic stenosis, dementia, diabetes, hypertension, BPH, nephrolithiasis status post
bilateral ureteral stent, hyperlipidemia, C. difficile colitis, anemia of chronic disease, constipation, bilateral shoulder pain, prior suicidal ideation, severe dysphagia.
Pt is not a great historian and pt's son politely asked to call pt's spouse who is a primary responsible alliance party and decision maker.
CM called pt's spouse and invited her for a meeting that held around 12:00 p.m. Pt's spouse stated that pt lives with her and 2 sons with developmental disability, has a daughter who estranged from the family and lives in [place]. Pt's spouse stated
she is retired teacher, stopped working at 83 and she is now 86. Pt's spouse stated she has been taking care of her for 2 years and will not be able to continue of doing it because of level of care he needs. Pt's spouse stated she does love
[facility] but it too far from her house and she lives next to [facility] and she is requested [facility] for a short term and a correction, care. Pt's spouse stated that pt has extermination inspector care insurance and pt is a and eligible for VA
benefits but never applied. Live-in caregiver services as an option discussed with pt's spouse and she preferred to place her to [facility] for a short term and a extermination inspector care. Pt's spouse stated she understands pt's current health
situation and she is open to discuss with MD a realistic plan of care. Pt's spouse stated that her is in and out 4 times from the hospital in the past 2 months.
Pt's spouse expressed her great satisfaction with family meeting outcome.
A referral to [facility] made, spoke to director paid media and she requested from pt's spouse to complete financial application. Pt's spouse is aware to meet with [facility] director paid media Cindy to start a process for admission to [facility]
with completing financial application.
PCP: Dr Shon Zambrano
Pharmacy: [facility], [place]
D/C plan: [facility] for a short term and a correction care. Pt's spouse is wo\\rking on completion of financial applicatiomn.
CM will follow with discharge plan updates as hospitalization progresses
--- NOTE | 2024-12-05 14:23 | W.PN.UPDATE ---
Update Note
Progress Note Update
Images show severe and extensive posterior circulation acute ischemic strokes in bilateral cerebellar hemispheres and occipital lobes to my review.
Despite this, would initiate replacement of aspirin with apixaban due to high risk of further ischemic injury.
Would review with family consideration for hospice.
Will follow peripherally
--- NOTE | 2024-12-05 15:02 | W.PN.UPDATE ---
Update Note
Progress Note Update
I personally performed a history and physical exam of the patient and discussed management with the resident. I reviewed the resident's note and agree with the documented findings and plan of care HPI/CC.
Exam:�� Sclera no icterus.� CV: irreg irreg, tachycardic.� Chest: decreased breathe sounds at bases.
������������ Abd: nondistended, pt grimaces with palpation diffusely, normoactive BS, soft
������������ : Estrada clear; Left CVA tenderness
������������ Ext: no edema
����������� Neuro: awake. Speech slurred
A/P:
# Complicated UTI/emphysematous pyelo�
# Klebsiella aerogenes bacteremia - urinary source
# Leukocytosis
# Recent hx bilateral obstructive uropathy s/p bilateral stent placement 11/11/24.
- Ucx GNR
��������� - Klebsiella aerogenes often associated with Amp-C resistance.
��������� - Replace Zosyn with cefepime 1g IV q12, renally adjusted.
��������� - Trend wbc/temps.
# Suspect aspiration PNA from dysphagia/change in mental status
- Cefepime as above.
-No need for anaerobic coverage at this time.
# Recent hx primary C. diff diarrhea dx 11/25/24
��������� - Currently on day 10 of 10 enteric Vancomycin q6.
��������� - Pt with dysphagia, using Vanco enema until DHT placed.
��������� - Diarrhea resolved.� No colitis on CT a/p
��������� - Tomorrow, can de-escalate to prophylactic Vancomycin 125 mg tube (or per rectum) daily while on systemic antibiotic.
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
��������� - Acute neuro changes
�������� - Brain MRI: acute and subacute infarcts both cerebellum, occipital lobes, left medulla
��������� - Suspect embolic CVA from Afib.� Of note, pt with afib not on anticoagulation due to persistent gross hematuria.��
- Doubt infectious endocarditis; extremely rare with Klebsiella
Repeat bcx's in am to make sure bacteremia is not sustained.
# EVAN
- abx dosing adjusted
[2024-12-05] MEDS: HEPARIN 5000 UNITS SC (15:51)
[2024-12-05] MEDS: MAXIPIME 1000 MG IV (18:00)
[2024-12-05] MEDS: STERILE WATER FOR INJECTION 10 ML IV (18:00)
[2024-12-05] MEDS: NOVOLOG FLEXPEN-LOW RESISTANCE 4 UNITS SC (18:06)
[2024-12-05 18:07] LABS: Glucose - Point of Care 304 mg/dl (70-99)
[2024-12-05] MEDS: NSS (PRESERVATIVE FREE) 10 ML IV (20:53)
[2024-12-05] MEDS: PROTONIX IV 40 MG IV (20:54)
[2024-12-06] VITALS (21 sets, daily range): BP systolic 123–163; BP diastolic 71–129
[2024-12-06 00:06] LABS: Glucose - Point of Care 209 mg/dl (70-99)
--- NOTE | 2024-12-06 00:25 | W.PN.UPDATE ---
Update Note
Progress Note Update
Patient's heart rate remains elevated after scheduled Metoprolol 5 mg IV Q6 and PRN dose Cardizem 2.5 mg IV Q6H PRN. HR 140-160's, BP 151/96. Cardizem gtt started @ 5 mg/hr, rate change by provider order only.
~1:30 am Pt HR remains elevated 120-130's, BP elevated. Increased Cardizem gtt to 10 mg/hr.
Patient attempting to pull at conklin catheter, ordered b/l soft limb restraints for protective intervention.
~5:00 am Pt HR remains elevated, Increased cardizem gtt to 15 mg/hr. TT extrusion die template maker Customer Program Manager, Dr. Resendiz, to update, Cardiology will evaluate shortly, no new orders.
[2024-12-06] MEDS: NOVOLOG FLEXPEN-LOW RESISTANCE 2 UNITS SC ×5 (00:34→23:58)
[2024-12-06] MEDS: HEPARIN 5000 UNITS SC ×3 (00:34→17:09)
[2024-12-06] MEDS: XALATAN OPHTHALMIC SOLUTION 1 DROP BOTH EYES ×2 (00:35→23:54)
[2024-12-06] MEDS: CARDIZEM 125 IV ×3 (00:41→19:04)
[2024-12-06] MEDS: VANCOMYCIN ENEMA RECTAL (01:38)
[2024-12-06] MEDS: NSS 1000 IV ×3 (03:13→20:48)
[2024-12-06] MEDS: TYLENOL/FEVERALL 650 MG RECTAL (03:27)
[2024-12-06] MEDS: LOPRESSOR 5 MG IV ×3 (05:56→17:41)
[2024-12-06] MEDS: MAXIPIME 1000 MG IV ×2 (06:14→17:40)
[2024-12-06] MEDS: STERILE WATER FOR INJECTION 10 ML IV ×2 (06:14→17:41)
[2024-12-06 06:21] LABS: Glucose - Point of Care 209 mg/dl (70-99)
--- NOTE | 2024-12-06 07:56 | PTCARENOTE ---
Around 21:40 pt sustaining in 130s on TELE. BIOSECURITY OFFICER notified, Cardizem 2.5mg IV PRN given. Pt still sustaining tachycardic 120s-150s and hypertensive.
Lopressor scheduled med 0000 given. pt still sustaining tachycardic and hypertensive. SEE VS INTERVENTIONS.
Per BIOSECURITY OFFICER Cardizem drip started at 5 mg/hr per order around 00:40-- See MAR & VS interventions.
0135 per BIOSECURITY OFFICER order dose increased to 10mg/hr... pt still sustaining tachycardic.-- See MAR & VS interventions.
Around 0300 this RN administered rectal tylenol r/t pts complaining of headache-- pt NPO; upon reeval. pts states no more headache. -- See MAR & VS interventions.
Pts sustained HR 130s-140, refractory to cardizem gtt, BIOSECURITY OFFICER notified.
At 0650 per BIOSECURITY OFFICER order dose increased to 15 mg/hr, EKG ordered-ATRIAL FIBRILLATION WITH RAPID VENTRICULAR RESPONSE. -- HR at this moment remains 130s-140s.
Day shift RN notified, no new orders at this time.
[2024-12-06 07:57] LABS: Hematocrit 30.7 % (39.0-52.0); Hemoglobin 10.4 g/dL (13.0-18.0); Mean Corp Hgb Conc. 33.9 g/dL (33.0-37.0); Mean Corpuscular Volume 84.8 fL (80.0-94.0); Nucleated Red Blood Cells % 0 % (-); Platelet Count 238 10^3/uL (130-400); Red Cell Dist. Width 14.9 % (11.5-14.5)
--- NOTE | 2024-12-06 08:15 | PTCARENOTE ---
NIHSS completed upon rounding with Nightshift RN. Pt NIH 23. VS obtained pt remains hypertensive and tachycardia as previous shift documented. Provider at bedside and notified of change and that pt also placed on Cardizem gtt overnight due to
persistent tachycardia. Son at bedside and updated. IVU transfer orders placed and canceled as provider consulted Hospice after speaking with son at bedside. Pt offers no complaints at this time. This RN notified clinical science consultant of consult.
--- NOTE | 2024-12-06 08:23 | W.PN.ID1 ---
Addendum entered and electronically signed by Beatriz Kc MD 12/06/24 11:45:
I saw and evaluated the patient. I reviewed the resident�s note and agree with findings and plan as documented in the resident�s note with the following additions/corrections.
Afib with RVR overnight
Labs reviewed
MRI brain: reviewed extensive infarction noted
A/P:
# Complicated UTI/emphysematous pyelo
# Klebsiella aerogenes bacteremia - urinary source
# Leukocytosis
# Recent hx bilateral obstructive uropathy s/p bilateral stent placement 11/11/24.
- Ucx GNR
��������� - Klebsiella aerogenes often associated with Amp-C resistance; awaiting final sensitivities
��������� - Replace Zosyn with cefepime 1g IV q12, renally adjusted.
��������� - Trend wbc/temps.
# Suspect aspiration PNA from dysphagia/change in mental status
- Cefepime as above.
- No need for anaerobic coverage at this time.
- at risk for relapse of aspiration
# Recent hx primary C. diff diarrhea dx 11/25/24
��������� - Currently on day 10 of 10 enteric Vancomycin q6.
��������� - Pt with dysphagia, using Vanco enema until DHT placed.
��������� - Diarrhea resolved.� No colitis on CT a/p
��������� - Tomorrow, can de-escalate to prophylactic Vancomycin 125 mg tube (or per rectum) daily while on systemic antibiotic as secondary ppx.
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
��������� - Acute neuro changes
�������� - Brain MRI: acute and subacute infarcts both cerebellum, occipital lobes, left medulla
��������� - Suspect embolic CVA from Afib.� Of note, pt with afib not on anticoagulation due to persistent gross hematuria.��
- Doubt infectious endocarditis; extremely rare with Klebsiella
Repeat bcx's x2 in am to make sure bacteremia is not sustained.
# EVAN
- abx dosing adjusted
If patient transitions to hospice then would stop antibiotics and treat any fevers or pain symptomatically.
AW
Original Note:
Date of Service
Date of Service: December 06, 2024
Today's Communication
Per the nurse and primary team; Family considering HOSPICE. Awaiting consult
recommend d/c the abx on hospice; if he develops fever, use tylenol
Assessment / Plan
# Sepsis secondary to complicated UTI/emphysematous pyelo
# Klebsiella bacteremia-urinary source
# EVAN
# Hematuria
# Paroxysmal atrial fibrillation
# severe dysphagia
# Diabetes
# Leukocytosis
# occipital cva
# Recent hx bilateral obstructive uropathy s/p bilateral stent placement 11/11/24.
� - Klebsiella aerogenes often associated with Amp-C resistance.
� - currently on cefepime 1g IV q12, renally adjusted.
� - Since the patient is going hospice; we recommend discontinuation of the antibiotics
# Recent hx primary C. diff diarrhea dx 11/25/24
���- Completed 10 day Vancomycin
���- No colitis on CT a/p
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
��������� - Acute neuro changes
�������� - Brain MRI: acute and subacute infarcts both cerebellum, occipital lobes, left medulla
��������� - Suspect embolic CVA from Afib.� Of note, pt with afib not on anticoagulation due to persistent gross hematuria.��
- Doubt infectious endocarditis; extremely rare with Klebsiella
Per the nurse and primary team; Family considering HOSPICE. Awaiting consult
Other Conditions affecting care:
# Hypertension
# BPH
# Recent groin fungal rash
# Anemia of chronic disease
# Valvular disease - moderate mitral regurgitation, mild aortic stenosis
# Hyperlipidemia
# Dementia
Chief Complaint
-: Bacteremia and Other (AMS)
Subjective / Review of Systems
not obtained due to current medical condition
Vital Signs / Physical Exam
Vital Signs
Vital Signs
Temp Pulse Resp BP Pulse Ox
98.5 F 110 18 162/95 96
12/06/24 07:32 12/06/24 07:32 12/06/24 07:32 12/06/24 07:32 12/06/24 07:32
Physical Exam
Constitutional: Acutely Ill
Cardiovascular: Irregular Rate
Pulmonary: Non Labored
Gastrointestinal: Soft
Genito-Urinary: Estrada
Neurological: Awake and Other (slurred speech); Negative Oriented
Psychological: Confused
Objective Data
Lab Data
Lab Results
12/06/24 07:14
PT 19.3 Sec (11.4-14.6) H 12/04/24 11:33
INR 1.57 12/04/24 11:33
Lactic Acid 1.5 mmol/L (0.7-2.0) 12/05/24 11:12
Total Bilirubin 0.9 mg/dl (0.2-1.3) 12/05/24 07:47
AST 16 U/L (17-59) L 12/05/24 07:47
ALT 23 U/L (0-50) 12/05/24 07:47
Alkaline Phosphatase 119 U/L (38-126) 12/05/24 07:47
Most recent labs reviewed.
Micro Results:
12/06/24 07:14 Blood Culture - Pending
Blood/Venous
12/04/24 11:32 Blood Culture - Preliminary
Blood/Venous Klebsiella aerogenes
Gram Stain - Final
12/04/24 11:55 Urine Culture - Preliminary
Urine Gram negative bacilli
12/04/24 11:32 Blood Culture - Preliminary
Blood/Venous Positive culture in progress
Gram Stain - Preliminary
CR Chest 12/04/24: There is patchy airspace disease in both lower lobes, early pneumonia versus atelectasis
CT Head W/o Iv Contrast 12/04: There are moderate changes of cortical atrophy and chronic ischemic disease.
There is a probable polyp in the left maxillary sinus. This was not included on images obtained previously
CT Abd/pel Without Iv Or Oral: There is air in the kidneys and bladder. This could be related to recent stent placement. Please exclude possibility of infection
There is third spacing of fluid in both the abdomen and pelvis as well as the soft tissues. There is an increase in size in bilateral pleural effusions.
CT HEAD/NECK ANG STROKE ALERT:Atherosclerosis of the internal carotid arteries bilaterally, proximal right internal carotid artery with borderline hemodynamically significant stenosis of 65-70% and proximal left internal carotid artery approximately
50% stenosis. No findings to suggest internal carotid artery dissection bilaterally.
Atherosclerosis of the vertebral arterial system bilaterally with markedly dominant left vertebral artery. Relative diminutive distal right vertebral artery, cannot exclude subtle occlusion of the distal right vertebral artery with questionable
retrograde blood flow..
No findings to suggest proximal intracranial arterial stenosis bilaterally.
Bilateral pleural effusions.
CT HEAD STROKE ALERT W/o Cont 12/04
No acute intracranial abnormality.
ASPECT score: 10
[2024-12-06 08:30] LABS: ALT (SGPT) 21 U/L (0-50); AST (SGOT) 18 U/L (17-59); Albumin 2.8 g/dl (3.5-5.0); Alkaline Phosphatase 124 U/L (38-126); Blood Urea Nitrogen 59 mg/dl (9-20); Calcium 7.7 mg/dl (8.4-10.2); Carbon Dioxide 17 mmol/L (22-30); Chloride 116 mmol/L (98-107); Estimated Creatinine Clearance 16 ml/min; Glucose 194 mg/dl (70-99); Potassium 3.7 mmol/L (3.5-5.1); Sodium 144 mmol/L (135-145); Total Protein 5.2 g/dl (6.3-8.2); eGFR 25.32
--- NOTE | 2024-12-06 08:45 | W.PN.UPDATE ---
Update Note
Progress Note Update
I saw and evaluated the patient. I reviewed the resident�s note and agree with findings and plan as documented in the resident�s note with the following additions/corrections.
Afib with RVR overnight
Labs reviewed
MRI brain: reviewed extensive infarction noted
A/P:
# Complicated UTI/emphysematous pyelo
# Klebsiella aerogenes bacteremia - urinary source
# Leukocytosis
# Recent hx bilateral obstructive uropathy s/p bilateral stent placement 11/11/24.
- Ucx GNR
��������� - Klebsiella aerogenes often associated with Amp-C resistance; awaiting final sensitivities
��������� - Replace Zosyn with cefepime 1g IV q12, renally adjusted.
��������� - Trend wbc/temps.
# Suspect aspiration PNA from dysphagia/change in mental status
- Cefepime as above.
- No need for anaerobic coverage at this time.
- at risk for relapse of aspiration
# Recent hx primary C. diff diarrhea dx 11/25/24
��������� - Currently on day 10 of 10 enteric Vancomycin q6.
��������� - Pt with dysphagia, using Vanco enema until DHT placed.
��������� - Diarrhea resolved.� No colitis on CT a/p
��������� - Tomorrow, can de-escalate to prophylactic Vancomycin 125 mg tube (or per rectum) daily while on systemic antibiotic as secondary ppx.
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
��������� - Acute neuro changes
�������� - Brain MRI: acute and subacute infarcts both cerebellum, occipital lobes, left medulla
��������� - Suspect embolic CVA from Afib.� Of note, pt with afib not on anticoagulation due to persistent gross hematuria.��
- Doubt infectious endocarditis; extremely rare with Klebsiella
Repeat bcx's x2 in am to make sure bacteremia is not sustained.
# EVAN
- abx dosing adjusted
If patient transitions to hospice then would stop antibiotics and treat any fevers or pain symptomatically.
AW
--- NOTE | 2024-12-06 09:02 | W.PN.HOSP.TC ---
Addendum entered and electronically signed by Safia Galvan MD 12/06/24 13:59:
Seen and examined the patient. Agree with the plan put forth by the resident. See changes in my documentation
89-year-old man
-Hospitalized from 11/11/2024 to 11/22/2024 with bilateral hydronephrosis. He had bilateral ureteral stent placement. Later developed atrial fibrillation with RVR, hypertensive emergency . Patient was then cleared for p.o. diet he was discharged on
aspirin instead of Eliquis because of ongoing hematuria.
-Patient was taken home on 11/24/2024 because family was not happy with the care at [facility].
- could not care for him at home and brought him to the hospital on 11/25/2024. Patient also had ongoing hematuria at that time . Patient had leukocytosis CT of the abdomen pelvis at that time showed proctocolitis. No hydronephrosis. He was
found to have C. difficile and was discharged on oral vancomycin every 6 hours. Patient was discharged home on on 11/26/2024
-Pt brought back to the ER again on 11/27/2024 because she could not take care of him. No significant change in his condition at that time. Plan was to continue with vancomycin until 12/06/2024. Patient was discharged to [facility] on 11/28/2024.
-Patient was brought to the ER again on 12/04/24 because he was unarousable. EMS noted that blood sugar was 460.
-On 12/05/24 -Speech therapist noted later that he has a leftward gaze preference with drift on the right arm and having trouble swallowing and also facial asymmetry. also noted that 1 day after discharge on 11/29/2024 patient developed right eye
vision loss, slurred speech and generalized weakness. Patient did not recover from 5 days ago. Stroke alert was called and case was discussed by the on-call with [facility] neurologist. They recommended rectal aspirin and no TNK
Chest m-yig-bthosd airspace disease in both lungs pneumonia versus atelectasis
CT abdomen and pelvis-air in the kidneys and bladder possibly secondary to recent stent placement. Third spacing of fluid in both abdomen and pelvis as well as soft tissues. Increase in size of bilateral pleural effusions
CTA head and neck-atherosclerosis of the internal carotid arteries bilaterally. Proximal right ICA with borderline hemodynamic significant stenosis 65 to 70% and proximal left internal carotid artery approximately 50% stenosis. No dissection.
Atherosclerosis of the vertebral artery system bilaterally with a markedly dominant left vertebral artery. Relative diminutive distal right vertebral artery cannot exclude subtle occlusion of the distal RVA. No findings to suggest proximal ICA
stenosis bilaterally. Bilateral pleural effusions.
Head CT-no acute intracranial abnormality, moderate changes of cortical atrophy and chronic ischemic disease. Probable polyp in the left maxillary sinus
EKG-atrial fibrillation
MRI of the brain reviewed by me-bilateral occipital strokes. Official reading is pending
On examination patient was awake and alert speech slightly impaired
Slow to respond
Cardiovascular system S1-S2 irregular, sm at apex
Chest clear to auscultation
Abdomen soft and nontender
No pedal edema questionable gaze palsy
Speech-dysarthria
Right upper extremity and lower extremity mild weakness
CUS- RIGHT: Calcified plaque is identified in the internal carotid artery. Carotid velocity measurements are consistent with 50 to 69% internal carotid artery stenosis. Vertebral artery flow is antegrade.
LEFT: Calcified plaque is identified in the proximal/mid common carotid artery, carotid bulb and internal carotid artery. Carotid velocity measurements are consistent with less than 50% internal carotid artery stenosis. Left vertebral artery was
not visualized on this examination..
MRI of the brain-acute/subacute infarction both cerebellar hemispheres right greater than left. Acute to subacute infarction involving both occipital lobes. Focus of acute to subacute infarction in the left anterior medulla
# Acute CVA with mental status change, speech and swallow abnormality
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
Patient has A-fib and was not on anticoagulation because of ongoing hematuria
Also has positive blood cultures-need to rule out endocarditis
MRI of the brain-acute/subacute infarction both cerebellar hemispheres right greater than left. Acute to subacute infarction involving both occipital lobes. Focus of acute to subacute infarction in the left anterior medulla
Neurochecks/NIH scale
Speech therapy PT OT evaluation
Keep n.p.o. for now
Rectal aspirin to be continued
Neurology consulted.
Endocarditis versus embolic CVA secondary to A-fib. May need REYES if family wants full treatment
Neurology is okay with starting Eliquis. Waiting for clearance from urology
# Klebsiella sepsis
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
Estrada catheter replacement done in the ER
Continue antibiotics
Defer ureteral stent procedure to urology
ID and Urology consulted
# C. difficile colitis
Was supposed to be on p.o. vancomycin until 12/06/2024
Extend the course with need for systemic antibiotics-currently on cefepime
Rectal vancomycin ordered as patient is n.p.o.
# Acute kidney injury-IV fluids
Hold metformin
Follow creatinine
# Bilateral kidney stones with hydronephrosis
Status post cystoscopy cystoscopy, bilateral ureteral stent placement incidental finding of urethral stricture dilatation 11/11/2024
Patient was discharged without a Estrada catheter on Flomax during that admission.
# Paroxysmal atrial fibrillation with RVR
Hold Cardizem and labetalol as n.p.o.
Cardizem drip started. Also on IV Lopressor
Resume anticoagulation when cleared per urology
Transfer to IMU in the mean time till hospice decision made
# Severe dysphagia on 11/13/2024
CT without any acute changes
GI was consulted
PPI was started twice daily
Patient was cleared for a diet on 11/15/2024
Currently has dysphagia and is n.p.o.
# Diabetes-hemoglobin A1c 7.4. Was on metformin 500 mg twice daily as outpatient. Hold. Accu-Cheks and sliding scale coverage
# Hypertension-was on labetalol 200 mg twice daily, hydralazine 50 mg twice daily, Cardizem 180 mg. Prior to arrival. Continue beta-blockers IV now
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
# Dementia-Had suicidal ideation on 11/13/2024 psychiatry evaluated and was taken off of one-to-one
# Anemia secondary to chronic disease
# DVT prophylaxis-Add LIZETTE
# DNR status
Time spent over 50 min
Discussed with at bedside
Discussed with nursing
Discussed with cardiology
Discussed with hospice nurse
Detailed discussion the patient's family. wants to talk to the rest of the family prior to deciding on hospice. He will be appropriate for home hospice once decision made. Discussed this with case management at bedside as well as environmental lawyer.
Patient's son discussed with the resident this morning and expressed interest in hospice-Home
Time spent more than 50 minutes
Part of this note was created using voice recognition system. Occasional wrong word or��sound alike� substitutions may have inadvertently occurred due to the inherent limitations of voice recognition software. If noted kindly bring it to my
attention for correction.
Original Note:
Today's Communication/Plan
-
Cardizem drip
Upgrade to IVU
Cefepime
1 mg Haldol for now -May need an as needed dose later for ongoing agitation
Assessment / Plan
Assessment / Plan
Impression:
89-year-old male with past medical history of bilateral nephrosis secondary to renal calculi status post bilateral renal stents with ongoing hematuria on aspirin for anticoagulation, paroxysmal atrial fibrillation previously on Eliquis and aspirin
due to ongoing hematuria, C. difficile presents to the hospital for altered mental status with diagnosis of new stroke and sepsis likely secondary to UTI versus pneumonia.
Imaging:
Chest x-ray 12/04: There is patchy airspace disease in both lower lobes, early pneumonia versus atelectasis
Head CT 12/04: There are moderate changes of cortical atrophy and chronic ischemic disease. There is a probable polyp in the left maxillary sinus. This was not included on images obtained previously
Abdomen/pelvis CT 12/04:
There is air in the kidneys and bladder. This could be related to recent stent placement. Please exclude possibility of infection
There is third spacing of fluid in both the abdomen and pelvis as well as the soft tissues. There is an increase in size in bilateral pleural effusions.
Head and neck CTA 12/04:
-Atherosclerosis of the internal carotid arteries bilaterally, proximal right internal carotid artery with borderline hemodynamically significant stenosis of 65-70% and proximal left internal carotid artery approximately 50% stenosis. No findings to
suggest internal carotid artery dissection bilaterally.
-Atherosclerosis of the vertebral arterial system bilaterally with markedly dominant left vertebral artery. Relative diminutive distal right vertebral artery, cannot exclude subtle occlusion of the distal right vertebral artery with questionable
retrograde blood flow..
-No findings to suggest proximal intracranial arterial stenosis bilaterally.
-Bilateral pleural effusions.
Head CT 12/04:
No acute intracranial abnormality.
Brain MRI:
Areas of acute to subacute infarction involving both cerebellar hemispheres, right greater than left.
Foci of acute to subacute infarction involving both occipital lobes.
Focus of acute to subacute infarction involving the left anterior medulla.
See above narrative for additional findings.
Plan:
Altered mental status, CVA
-- NIH 12 > 16 today
-- Head CT unremarkable, Head and neck CT right carotid 65-70% stenosis, left <50%
-- MRI acute to subacute stroke per above
-- Patient has been off Eliquis since late October and now has gram-negative bacteremia - stroke etiology could be due to clot or vegetation
-- Not REYES candidate given NPO status and poor surgical candidate per cards - normal echo no obvious vegetation - klebsiella low chance of vegetation formation
-- HgA1c 8.0, LDL 72 goal <70 - consider statin if able to tolerate PO
-- Telemetry
-- PT OT
-- Rectal aspirin 300 daily, start Plavix when able to tolerate PO
-- Not candidate for TNK as timing of stroke unclear
-- Continues to be N.p.o. per speech eval this am - VSE pending
-- Neurology appreciated
-- Family is considering hospice - son is agreeable however is concerned about taking care of him at home on her own. Conversations ongoing.
-- CM hospice following
Sepsis secondary to UTI vs pneumonia
-- Tachycardia, leukocytosis 26, UTI versus pneumonia, blood cultures klebsiella
-- Fluid resuscitation in ED
-- Started on cefepime switched to Zosyn and Vanco - > cefepime per ID
-- Urine cultures gram negtive bacilli
-- LA 2.9 on admission now wnl
-- Appreciate ID
C.diff
-- Scheduled to finish oral vancomycin 12/06 (started 11/26)
-- Currently n.p.o. - rectal vancomycin enema
EVAN
-- Creatinine 2.3 -> 2.6 -> 2.4, baseline 1.1
-- CT scan does not show any ureteral obstruction
-- Likely pre-renal in setting of shock and UTI
-- Estrada cath per Urology - low concern for post-renal cause
Ongoing hematuria
Nephrolithiasis status post bilateral ureteral stents
-- Zeynep-colored last night, yellow this morning
-- On aspirin for anticoagulation rather than Eliquis per urology due to ongoing hematuria
-- Urology looked at the CT scan and noted stents are in a good position would recommend Estrada cath
-- Follow-up outpatient to remove stents after infection is cleared
-- Urology appreciated
Paroxysmal atrial fibrillation
-- Aspirin for anticoagulation not Eliquis due to hematuria
-- At home on labetalol 200 twice daily, diltiazem 180 twice daily
-- Currently n.p.o., metoprolol 5 IV every 6 hours, diltiazem 2.5 mg IV every 6 hours as needed for heart rate sustained greater than 110
-- Transitioned to Cardizem drip overnight for HR in 140s - transferring to IVU
History of severe dysphagia
-- Thought to be pill esophagitis during prior admission
-- PPI twice daily until 12/22 then re-eval with GI/PCP
-- Cleared by speech for regular diet during prior admission 11/28/24
-- Now NPO per speech with stroke
Hypertension
-- Home meds include hydralazine 50 twice daily, labetalol 200 twice daily, diltiazem 180 twice daily
-- Hydralazine 10 mg IV for SBP greater than 160 while NPO
# Agitation
--Attempted to pull Estrada cath last night requiring restraints
--1 mg haloperidol for now, may need a as needed dose for agitation
# Diabetes -sliding scale insulin, metformin on hold, last hemoglobin A1c 7.5 on 11/26
# BPH -continue tamsulosin 0.4, oxybutynin
# Recent groin fungal rash -continue miconazole
# Anemia of chronic disease - hg currently stable
# Valvular disease - moderate mitral regurgitation, mild aortic stenosis
# Hyperlipidemia - npo start high intensity stating goal LDL <70 when able
# Bilateral shoulder pain
# Depression, prior suicidal ideation
# Glaucoma -continue latanoprost and bepotastine besilate eyedrops
DVT - SCD
DNR
NPO
Discussed hospice extensively with son this morning. He is agreeable and would like to take his dad home as he does not believe he will have any good quality of life here in the hospital. is concerned about taking care of him alone at home
and therefore declined hospice today. Son stated this morning that he will talk to his mom and siblings. Conversations ongoing.
Anticipated Discharge: 24 - 48 hours
Subjective/Interval History
-
Date of Service: December 06, 2024
Remains confused. Dysarthria ongoing. Pointed to my stethoscopy as appeared like he was saying he did not want it to be close to him anymore.
Objective Data
-
Labs:
Laboratory Results
12/06/24
07:14
WBC 16.1 H
Hgb 10.4 L
Hct 30.7 L
Plt Count 238
Sodium 144
Potassium 3.7
Chloride 116 H
Carbon Dioxide 17 L
BUN 59 H
Creatinine 2.4 H
Glucose 194 H
Calcium 7.7 L
Total Bilirubin 0.8
AST 18
ALT 21
Alkaline Phosphatase 124
Vital Signs:
Vital Signs
Temp Pulse Resp BP Pulse Ox
98.5 F 110 18 162/95 96
12/06/24 07:32 12/06/24 07:32 12/06/24 07:32 12/06/24 07:32 12/06/24 07:32
I&O
12/05/24 12/06/24 12/07/24
06:59 06:59 06:59
Intake Total 1200 / 1200 1060 / 1060
Output Total 450 / 450 1280 / 1280
Balance 750 / 750 -220 / -220
Review of Systems
-
Unable to obtain full review of systems at this time due to: Dementia and Acuity
Physical Exam
-
General: Slurred Speech and Appears Chronically Ill
Respiratory: Clear to Auscultation
Cardiac: Irregular Rhythm
GI: Soft, Nontender, Nondistended and Normal Bowel Sounds
Musculoskeletal: No Cyanosis and No Edema
Neuro: Awake
Psych: Confused
[2024-12-06] MEDS: ASPIRIN 300 MG RECTAL (10:03)
[2024-12-06] MEDS: NSS (PRESERVATIVE FREE) 10 ML IV ×2 (10:04→20:56)
[2024-12-06] MEDS: CARDIZEM 2.5 MG IV (10:05)
[2024-12-06] MEDS: PROTONIX IV 40 MG IV ×2 (10:09→20:55)
[2024-12-06] MEDS: VANCOMYCIN ENEMA 500 MG RECTAL (10:25)
[2024-12-06] MEDS: DESENEX/MITRAZOL/ZEASORB 1 APPLIC TOPICAL ×2 (10:30→20:50)
--- NOTE | 2024-12-06 11:42 | HOSPNOTE ---
Spoke with spouse about hospice care and the philosophy. At this time the spouse wants to continue aggressive measures and does not wish for hospice. I explained we could do comfort and seek placement if home is not an option (if spouse feels his
care would be overwhelming) we discussed hiring caregivers at home vs SNF with hospice and the room and board charge in a SNF. The spouse stated she is not sure hospice is appropriate at this time and still feels like he is going to 'get better'. I
am available to have further discussions if warranted.
--- NOTE | 2024-12-06 11:57 | CM ---
Chart reviewed and outsole caser received a consult for hospice, options reviewed and meeting set up with [facility] at 11:30am, per update from hospice patient's spouse is not agreeable to hospice and is seeking treatment for now and will
review hospice again later.
Plan; Referral sent to [facility]
[2024-12-06 12:06] LABS: Glucose - Point of Care 224 mg/dl (70-99)
[2024-12-06] MEDS: HALDOL 1 MG IV (13:07)
--- NOTE | 2024-12-06 13:11 | W.PN.CD ---
Today's Communication / Plan
-
Dilt gtt for AF RVR
Impression / Plan
-
Sepsis, bacteremia, UTI:
-this diagnosis is threat to life
-on IV abx
-ID is consulted
-blood cx positive for klebsiella pyrogenes
-due to dementia and dysphasia, patient not appropriate for REYES
- TTE No obvious vegetation
Stroke on MRI :
-this diagnosis is threat to bodily function
-MRI below
- Eliquis when OK from bleeding perspective
AFIB: permanent
-he is NPO per speech
- dilt gtt agree
-IV metoprolol is added, follow rates and BP with this
-he is off Eliquis indicated when OK from bleeding perspective
HTN:
-as above, he is NPO, so monitor with addition of IV BB
Moderate :
-echo below
Hematuria:
-patient with recent diagnosis of ureteral stones s/p cystoscopy, bilateral ureteral stent placement
-urology on the case
-Eliquis has been on hold for this
-follow hgb and urine
EVAN:
-management per primary
Subjective: Confused
Echo 12/05/2024
SUMMARY
1. Normal biventricular size and function without regional wall motion abnormalities.
2. LVEF is 55-60% by visual estimation. Mild LVH.
3. Mild aortic stenosis. Mild aortic regurgitation.
4. Normal estimated PASP at 27 mmHg.
5. No obvious vegetation.
6. Compared to prior from November 11, 2022, MR is now mild previously mild to moderate. Otherwise no significant change.
MRI: IMPRESSION: Areas of acute to subacute infarction involving both cerebellar hemispheres, right greater than left.
Foci of acute to subacute infarction involving both occipital lobes.
Focus of acute to subacute infarction involving the left anterior medulla.
Physical Exam
Vital Signs/Labs
Vital Signs
Temp Pulse Resp BP Pulse Ox
97.0 F 124 18 157/86 99
12/06/24 11:07 12/06/24 11:42 12/06/24 11:07 12/06/24 11:42 12/06/24 11:07
12/05/24 12/06/24 12/07/24
06:59 06:59 06:59
Actual Weight 119 lb 6.4 oz
12/06/24 07:14
12/06/24 07:14
PT 19.3 Sec (11.4-14.6) H 12/04/24 11:33
INR 1.57 12/04/24 11:33
Triglycerides 126 mg/dl (10-149) 12/05/24 07:47
LDL Cholesterol, Calc 72 mg/dl 12/05/24 07:47
VLDL Cholesterol, Calc 25 mg/dl (0-30) 12/05/24 07:47
HDL Cholesterol 25 mg/dl 12/05/24 07:47
Physical Exam
Constitutional: No acute distress and Confusion
EENT: Anicteric
Cardiovascular: Rhythm/rate is irregular
Respiratory: Respiratory effort normal
GI: Soft
Data Reviewed
-
Date of Service: December 06, 2024
Medical Decision Making: Reviewed Test Results
EKG: Tracing Personally Visualized and interpreted (af)
Echo: Tracing Personally Visualized and interpreted
Labs: Labs Reviewed by me
--- NOTE | 2024-12-06 13:38 | W.PN.URO.CBU ---
Today's Communication / Plan
-
Maintain conklin
Continue antibiotics
Assessment / Plan
-
89M with bilateral ureteral stones and urethral stricture
s/p urethral dilation and bilateral ureteral stent placement 10/2024
Readmitted with septic UTI
CT showing emphysematous cystitis and pyelitis
Also with large b/l ischemic stroke
- Continue abx course per ID
- Anticoagulation if necessary for treating acute stroke
- Maintain ureteral stents
- Conklin catheter can remain in place or be removed based on goals of care - if patient agitated by conklin may be better to remove it and d/c physical restraints as patient was not in acute retention on admission. Maintain conklin for tonight and will
reassess tomorrow. Given emphysematous cystitis, and now acute stroke, would prefer to maintain conklin at discharge if it is tolerated
- Per nursing family is not considering hospice at this time
- Follow up and timing for stone procedure per Dr. Brewer
Diagnosis
-
Date of Service: December 06, 2024
-
Patient Diagnosis:
Ureteral stones
urethral stricture
Sepsis
Emphysematous cystitis
Post Op Day:
Subjective
-
found to have larbe b/l strokes and considering hospice
agitated overnight trying to remove conklin and required restraints
Objective
-
Vital Signs
Temp Pulse Resp BP Pulse Ox
97.0 F 124 18 157/86 99
12/06/24 11:07 12/06/24 11:42 12/06/24 11:07 12/06/24 11:42 12/06/24 11:07
Intake and Output
12/05/24 12/06/24 12/07/24
06:59 06:59 06:59
Intake Total 1200 / 1200 1060 / 1060
Output Total 450 / 450 1280 / 1280
Balance 750 / 750 -220 / -220
Intake:
IV fluids (Total) 1100 / 1100 960 / 960
IV piggybacks 100 / 100 100 / 100
Output:
Urine, Conklin 450 / 450 600 / 600
Urine, Voided 680 / 680
Other:
How many times incontinent 2
MODERATE amount urine
Laboratory Results
12/06/24 07:14
12/06/24 07:14
Physical Exam
-
General - well developed, confused
Conklin in place, clear
--- NOTE | 2024-12-06 13:56 | PTCARENOTE ---
Addendum entered by Rakan Casillas RN 12/06/24 19:40:
Patient received from [address] [place] [address]. Eyes open, garbled speech, aphasia, head leaning to the left, right side has limited movement and left facial droop, tongue deviates left. Following some simple directions but not consistent. His speech is slurred,
difficult to understand, able to tell me his name and told me his year of . Able to read some words but limited and unable to identify objects and most of the words. Crackles right base, mouth care provided, tongue dry. A-fib HR 106-124,
irregular. NPO strict. Estrada to gravity, cloudy yellow urine. Enhanced precautions maintained. at bedside. Patient positioned closed to the nurses station and bed alarm placed
Addendum entered by Rakan Casillas RN 12/06/24 16:33:
Patient received from [address] [place] [address]. Eyes open, garbled speech, aphasia, head leaning to the left, right side has limited movement and left facial droop, tongue deviates left. Following some simple directions but not consistent. His speech is slurred,
difficult to understand, able to tell me his name and told me his year of . Able to read some words but limited and unable to identify objects and most of the words. Crackles right base, mouth care provided, tongue dry. A-fib HR 106-124,
irregular. NPO strict, tongue dry. Estrada to gravity, cloudy yellow urine. Enhanced precautions maintained. at bedside. Patient positioned closed to the nurses station and bed alarm placed
Original Note:
Patient received from [address] [place] [address]. Eyes open, garbled speech, aphasia, head leaning to the left, right sided weakness and right facial droop. Following some directions. Crackles right base. A-fib HR 106-124, irregular. NPO strict, tongue dry. Estrada to
gravity, cloudy yellow urine. Enhanced precautions maintained. at bedside. Patient positioned closed to the nurses station
--- NOTE | 2024-12-06 14:33 | PN.CDI ---
CDI
- -
CDI:
Physician Documentation Request
Admit Date: 12/04/24 14:34
Dear Doctor Millie,
Patient admitted with sepsis.
12/06 PN, 'Acute CVA with mental status change....Klebsiella sepsis.'
12/06 ID note, 'Complicated UTI/emphysematous pyelo...'
12/06 Update INTERVENTIONIST note, 'Patient attempting to pull at Estrada catheter, ordered b/l soft limb restraints for protective intervention.'
Patient received IV Zosyn.
Please provide in your note the likely diagnosis associated with the patient's altered mental status:
Metabolic encephalopathy
Toxic metabiotic encephalopathy
Other
Use of terms such as suspected, likely, concern for, or probable (associated with a specific diagnosis that is being evaluated, monitored, or treated as if it exists) are acceptable and can be coded in the inpatient setting, when documented at the
time of discharge.
Thank you,
iSs BOYCE,RN,CCDS
CDI Specialist
Available via [place] text
Please use your independent medical judgment in providing your response.
[2024-12-06 17:48] LABS: Glucose - Point of Care 221 mg/dl (70-99)
[2024-12-06 23:59] LABS: Glucose - Point of Care 219 mg/dl (70-99)
[2024-12-07] VITALS (18 sets, daily range): BP systolic 130–180; BP diastolic 66–135; PULSE 104–121; O2SAT 98; BMI 19.9
[2024-12-07] MEDS: LOPRESSOR 5 MG IV ×3 (00:02→11:34)
--- NOTE | 2024-12-07 00:39 | PTCARENOTE ---
Assumed care on pt at 1900, restless in bed pulling tubing and monitor's leads off, public information coordinator SWEATBAND DRUMMER made aware, new order for mitts restrains and 4 side rails up. Afib on Tele, HR 105-120's, cardizem gtt at 15 as per order, bp stable. IVF's infusing.
[facility] 24. Mouth and conklin care provided, T&R q2hr. Call zavala within reach, bed alarm in place.
[2024-12-07] MEDS: CARDIZEM 125 IV ×2 (03:40→12:21)
[2024-12-07 04:11] LABS: Hematocrit 31.4 % (39.0-52.0); Hemoglobin 10.3 g/dL (13.0-18.0); Mean Corp Hgb Conc. 32.8 g/dL (33.0-37.0); Mean Corpuscular Volume 87.0 fL (80.0-94.0); Nucleated Red Blood Cells % 0 % (-); Platelet Count 251 10^3/uL (130-400); Red Cell Dist. Width 15.1 % (11.5-14.5)
[2024-12-07 04:32] LABS: Alkaline Phosphatase 104 U/L (38-126); Blood Urea Nitrogen 60 mg/dl (9-20); Calcium 8.2 mg/dl (8.4-10.2); Carbon Dioxide 18 mmol/L (22-30); Chloride 121 mmol/L (98-107); Estimated Creatinine Clearance 16 ml/min; Glucose 194 mg/dl (70-99); Potassium 3.7 mmol/L (3.5-5.1); Sodium 149 mmol/L (135-145); Total Protein 5.2 g/dl (6.3-8.2); eGFR 25.32
[2024-12-07 04:33] LABS: ALT (SGPT) 19 U/L (0-50); AST (SGOT) 15 U/L (17-59); Albumin 2.8 g/dl (3.5-5.0)
[2024-12-07] MEDS: 0.45%NACL 1000 IV (05:39)
[2024-12-07] MEDS: NSS IV ×2 (05:39→15:21)
[2024-12-07] MEDS: MAXIPIME 1000 MG IV (05:43)
[2024-12-07] MEDS: STERILE WATER FOR INJECTION 10 ML IV (05:43)
--- NOTE | 2024-12-07 05:46 | PTCARENOTE ---
Sodium level 149 with morning labs, certified nutritionist SLEEVE BOTTOM FELLER made aware , NSS at 100ml/hr changed to 1/2 NSS at 100ml/hr. Cardizem infusing at 15mg/hr, tolerating well. Mitts/side rails restrains and bed alarm in place, pt remains restless, uncooperative with
care and physically aggressive at times. call zavala within reach, T & R q2hr.
[2024-12-07] MEDS: NOVOLOG FLEXPEN-LOW RESISTANCE 2 UNITS SC ×2 (06:03→12:33)
[2024-12-07 06:04] LABS: Glucose - Point of Care 223 mg/dl (70-99)
--- NOTE | 2024-12-07 06:29 | PTCARENOTE ---
Assumed care on pt at 1900, aaox3, very forgetful and restless all night, needing frequent repositioning and redirections. Nitro gtt initially at 10 reduced to 5mcg/min as pt has been denying CP. Heparin gtt restarted as per order and infusing at
1000unit/hr. Vpaced on the monitor, HR 70's, Pox 98% RA. BP stable. Pt's son reported at change of shift that Right hearing aid was missing, checked room and linen and unable to locate. Left MARIN charging. Call bel within reach, all safety measures in
place.
--- NOTE | 2024-12-07 06:36 | W.PN.UPDATE ---
Update Note
Progress Note Update
Na 144�>149, Cl 116-->121
Rx NSS IVF changed to 0.45%NaCl
--- NOTE | 2024-12-07 07:39 | W.PN.UPDATE ---
Update Note
Progress Note Update
I saw and evaluated the patient. I reviewed the resident�s note and agree with findings and plan as documented in the resident�s note.
Recent hospitalization summary:
-Hospitalized from 11/11/2024 to 11/22/2024 with bilateral hydronephrosis. He had bilateral ureteral stent placement. Later developed atrial fibrillation with RVR, hypertensive emergency. Patient was then cleared for p.o. diet he was discharged on
aspirin instead of Eliquis because of ongoing hematuria.
-Patient was taken home on 11/24/2024 because family was not happy with the care at [facility].
- could not care for him at home and brought him to the hospital on 11/25/2024. Patient also had ongoing hematuria at that time.Patient had leukocytosis and CT of the abdomen pelvis at that time showed proctocolitis. No hydronephrosis. He was
found to have C. difficile and was discharged on on 11/26/2024 on PO Vanco.
-brought back to the ER again on 11/27/2024 because she could not take care of him. No significant change in his condition at that time. Plan was to continue with vancomycin until 12/06/2024. Patient was discharged to [facility] on 11/28/2024.
-Patient was brought to the ER again on 12/04/24 because he was unarousable. EMS noted that blood sugar was 460.
-On 12/05/24 -Speech therapist noted later that he has a leftward gaze preference with drift on the right arm and having trouble swallowing and also facial asymmetry. also noted that 1 day after discharge on 11/29/2024 patient developed right eye
vision loss, slurred speech and generalized weakness. Patient did not recover from 5 days ago. Stroke alert was called and case was discussed by the on-call with Alex neurologist. They recommended rectal aspirin and no TNK.
Pt opens eyes to shoulder shake and mumbles.
Gen: NAD, Awake and alert
Eyes: EOMI, PERRLA, no scleral icterus.
Neck: supple.
CV: tachy, irreg/irreg, +S1/S2, no m/r/g.
Resp: CTAB, no rales, wheezes, or rhonchi.
Abd: +BS, soft, NT, ND
Skin: No rashes.
Neuro: CN 2-12 intact, non-focal.
Psych: Normal mood and affect.
12/04/24 11:55 Urine Urine Culture - Preliminary
Gram negative bacilli
12/04/24 11:32 Blood/Venous Blood Culture - Preliminary
Positive culture in progress
12/04/24 11:32 Blood/Venous Gram Stain - Preliminary
12/04/24 11:32 Blood/Venous Blood Culture - Preliminary
Klebsiella aerogenes
12/04/24 11:32 Blood/Venous Gram Stain - Final
MRI brain: Areas of acute to subacute infarction involving both cerebellar hemispheres, right greater than left. Foci of acute to subacute infarction involving both occipital lobes. Focus of acute to subacute infarction involving the left anterior
medulla.
Carotid U/S:
RIGHT: Calcified plaque is identified in the internal carotid artery. Carotid velocity measurements are consistent with 50 to 69% internal carotid artery stenosis. Vertebral artery flow is antegrade.
LEFT: Calcified plaque is identified in the proximal/mid common carotid artery, carotid bulb and internal carotid artery. Carotid velocity measurements are consistent with less than 50% internal carotid artery stenosis. Left vertebral artery was
not visualized on this examination.
CTA head/neck: Atherosclerosis of the internal carotid arteries bilaterally, proximal right internal carotid artery with borderline hemodynamically significant stenosis of 65-70% and proximal left internal carotid artery approximately 50% stenosis.
No findings to suggest internal carotid artery dissection bilaterally. Atherosclerosis of the vertebral arterial system bilaterally with markedly dominant left vertebral artery. Relative diminutive distal right vertebral artery, cannot exclude
subtle occlusion of the distal right vertebral artery with questionable retrograde blood flow. No findings to suggest proximal intracranial arterial stenosis bilaterally.
CT A/P: There is air in the kidneys and bladder. This could be related to recent stent placement. Please exclude possibility of infection. There is third spacing of fluid in both the abdomen and pelvis as well as the soft tissues. There is an
increase in size in bilateral pleural effusions.
Echo:
1. Normal biventricular size and function without regional wall motion abnormalities.
2. LVEF is 55-60% by visual estimation. Mild LVH.
3. Mild aortic stenosis. Mild aortic regurgitation.
4. Normal estimated PASP at 27 mmHg.
5. No obvious vegetation.
Acute B/L CVAs:
-likely embolic either due to afib vs septic emboli vs both
-with acute metabolic encephalopathy due to acute CVAs and speech and swallow abnormality
-underlying A-fib and was not on AC because of ongoing hematuria
-start AC as this is OK with Uro and neuro at this point
-cont ASA
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
-conklin catheter replaced in the ER
-prior ureteral stents
-ID/Uro following
-currently on Cefepime
-should family want aggressive care, will likely need REYES
PAF with RVR:
-cont Cardizem gtt
-start heparin gtt
Other problems:
C. difficile colitis (prior): cont rectal Vanco
EVAN: change IVFs to D5 1/2NS with hypernatremia (Na 149)
B/L ureterolithiasis with hydronephrosis: s/p cystoscopy, B/L ureteral stent placement with incidental finding of urethral stricture with dilatation 11/11/2024
Severe dysphagia on 11/13/2024
Dysphagia, currently NPO
DM2: a1c 7.4%, SSI/accuchecks
Essential HTN: cont Cardizem gtt, IV BB
Valvular heart disease: mod , mild-mod MR, mild-mod AI, mild-mod TR
Dementia
Anemia of chronic disease
Pt is hospice appropriate.
DNR/Heparin
--- NOTE | 2024-12-07 08:03 | W.PN.URO.CBU ---
Today's Communication / Plan
-
continue conklin
goals of care
Assessment / Plan
-
89M with bilateral ureteral stones and urethral stricture
s/p urethral dilation and bilateral ureteral stent placement 10/2024
Readmitted with septic UTI
CT showing emphysematous cystitis and pyelitis
Also with large b/l ischemic stroke
- Continue abx course per ID
- Anticoagulation if necessary for treating acute stroke
- Maintain ureteral stents
- Conklin catheter can remain in place or be removed based on goals of care -ideally in setting of infection would remain in place to ensure optimal bladder and kidney decompression
- Per nursing family is not considering hospice at this time
- Follow up and timing for stone procedure per Dr. Brewer
Diagnosis
-
Date of Service: December 07, 2024
-
Patient Diagnosis:
Ureteral stones
urethral stricture
Sepsis
Emphysematous cystitis
Subjective
-
pt confused in restraints
conklin in place- urine clear- eliquis not restarted
Objective
-
Vital Signs
Temp Pulse Resp BP Pulse Ox
98.0 F 110 18 140/83 98
12/07/24 03:23 12/07/24 06:30 12/07/24 03:23 12/07/24 06:00 12/07/24 03:36
Intake and Output
12/06/24 12/07/24 12/08/24
06:59 06:59 06:59
Intake Total 1060 / 1060 1380 / 1380
Output Total 1280 / 1280 975 / 975
Balance -220 / -220 405 / 405
Intake:
IV fluids (Total) 960 / 960 1380 / 1380
NSS 1200 / 1200
cardizem 180 / 180
IV piggybacks 100 / 100
Output:
Urine, Conklin 600 / 600 325 / 325
Urine, Voided 680 / 680 650 / 650
Laboratory Results
12/07/24 03:08
12/07/24 03:08
Review of Systems
-
Unable to obtain full review of systems at this time due to: Patient Non-verbal
Physical Exam
-
General - confused
Genitalia - conklin in place
[2024-12-07] MEDS: PROTONIX IV 40 MG IV (08:35)
[2024-12-07] MEDS: NSS (PRESERVATIVE FREE) 10 ML IV (08:35)
[2024-12-07] MEDS: HEPARIN 5000 UNITS SC ×2 (08:35)
[2024-12-07] MEDS: DESENEX/MITRAZOL/ZEASORB 1 APPLIC TOPICAL ×2 (08:36→21:24)
--- NOTE | 2024-12-07 09:04 | W.PN.HOSP.TC ---
Today's Communication/Plan
-
Heparin drip
Continue goals of care's discussion with family
Prophylactic vancomycin rectally
Continue cefepime
Assessment / Plan
Assessment / Plan
Impression:
89-year-old male with past medical history of bilateral nephrosis secondary to renal calculi status post bilateral renal stents with ongoing hematuria on aspirin for anticoagulation, paroxysmal atrial fibrillation previously on Eliquis and aspirin
due to ongoing hematuria, C. difficile presents to the hospital for altered mental status with diagnosis of new stroke and sepsis likely secondary to UTI versus pneumonia.
Imaging:
Chest x-ray 12/04: There is patchy airspace disease in both lower lobes, early pneumonia versus atelectasis
Head CT 12/04: There are moderate changes of cortical atrophy and chronic ischemic disease. There is a probable polyp in the left maxillary sinus. This was not included on images obtained previously
Abdomen/pelvis CT 12/04:
There is air in the kidneys and bladder. This could be related to recent stent placement. Please exclude possibility of infection
There is third spacing of fluid in both the abdomen and pelvis as well as the soft tissues. There is an increase in size in bilateral pleural effusions.
Head and neck CTA 12/04:
-Atherosclerosis of the internal carotid arteries bilaterally, proximal right internal carotid artery with borderline hemodynamically significant stenosis of 65-70% and proximal left internal carotid artery approximately 50% stenosis. No findings to
suggest internal carotid artery dissection bilaterally.
-Atherosclerosis of the vertebral arterial system bilaterally with markedly dominant left vertebral artery. Relative diminutive distal right vertebral artery, cannot exclude subtle occlusion of the distal right vertebral artery with questionable
retrograde blood flow..
-No findings to suggest proximal intracranial arterial stenosis bilaterally.
-Bilateral pleural effusions.
Head CT 12/04:
No acute intracranial abnormality.
Brain MRI:
Areas of acute to subacute infarction involving both cerebellar hemispheres, right greater than left.
Foci of acute to subacute infarction involving both occipital lobes.
Focus of acute to subacute infarction involving the left anterior medulla.
See above narrative for additional findings.
Plan:
Acute bilateral CVA
-- NIH 12 > 16 today
-- Head CT unremarkable, Head and neck CT right carotid 65-70% stenosis, left <50%
-- MRI acute to subacute stroke per above
-- Patient has been off Eliquis since late October and now has gram-negative bacteremia - stroke etiology could be due to clot or vegetation
-- Not REYES candidate given NPO status and poor surgical candidate per cards - normal echo no obvious vegetation - klebsiella low chance of vegetation formation
-- HgA1c 8.0, LDL 72 goal <70 - consider statin if able to tolerate PO
-- Telemetry
-- PT OT
-- Rectal aspirin 300 daily, start Plavix when able to tolerate PO
-- Not candidate for TNK as timing of stroke unclear
-- Continues to be N.p.o. per speech eval this am - VSE pending
-- Neurology appreciated
-- Family is considering hospice - son is agreeable however is concerned about taking care of him at home on her own. Conversations ongoing.
-- CM hospice following
Sepsis secondary to UTI
-- Tachycardia, leukocytosis 26, UTI versus pneumonia, blood cultures klebsiella
-- Fluid resuscitation in ED
-- Started on cefepime switched to Zosyn and Vanco - > cefepime per ID
-- Urine cultures gram negtive bacilli
-- LA 2.9 on admission now wnl
-- Appreciate ID
C.diff
-- Scheduled to finish oral vancomycin 12/06 (started 11/26)
-- Currently n.p.o. - rectal vancomycin enema
-- Continue prophylactic dose of rectal enema while on antibiotics
EVAN
-- Creatinine 2.3 -> 2.6 -> 2.4, baseline 1.1
-- CT scan does not show any ureteral obstruction
-- Likely pre-renal in setting of shock and UTI
-- Estrada cath per Urology - low concern for post-renal cause
-- Appreciate nephrology
Ongoing hematuria
Nephrolithiasis status post bilateral ureteral stents
-- Zeynep-colored last night, yellow this morning -no blood overnight
-- On aspirin for anticoagulation rather than Eliquis per urology due to ongoing hematuria -okay for anticoagulation per urology -started heparin drip
-- Estrada cath per urology
-- Follow-up outpatient to remove stents after infection is cleared
-- Urology appreciated
Paroxysmal atrial fibrillation
-- Aspirin for anticoagulation not Eliquis due to hematuria -now on heparin drip
-- At home on labetalol 200 twice daily, diltiazem 180 twice daily
-- Transitioned to cardizem drip and metoprolol 5 IV Q6 while NPO -> IVU
History of severe dysphagia
-- Thought to be pill esophagitis during prior admission
-- PPI twice daily until 12/22 then re-eval with GI/PCP
-- Cleared by speech for regular diet during prior admission 11/28/24
-- Now NPO per speech with stroke
Hypertension
-- Home meds include hydralazine 50 twice daily, labetalol 200 twice daily, diltiazem 180 twice daily
-- Hydralazine 5 mg IV for SBP greater than 160 while NPO
# Agitation
# Metabolic encephalopathy -multifactorial in setting of sepsis and stroke
-- Mitts overnight as patient was trying to pull lines
# Diabetes -sliding scale insulin, metformin on hold, last hemoglobin A1c 7.5 on 11/26
# BPH -continue tamsulosin 0.4, oxybutynin
# Recent groin fungal rash -continue miconazole
# Anemia of chronic disease - hg currently stable
# Valvular disease - moderate mitral regurgitation, mild aortic stenosis
# Hyperlipidemia - npo start high intensity stating goal LDL <70 when able
# Bilateral shoulder pain
# Depression, prior suicidal ideation
# Glaucoma -continue latanoprost and bepotastine besilate eyedrops
DVT - SCD
DNR
NPO
Anticipated Discharge: 24 - 48 hours
Subjective/Interval History
-
Date of Service: December 07, 2024
Dysarthria ongoing. Difficult to understand.
Objective Data
-
Labs:
Laboratory Results
12/07/24 12/07/24
03:08 08:42
WBC 10.7 Pending
Hgb 10.3 L Pending
Hct 31.4 L Pending
Plt Count 251 Pending
APTT Pending
Sodium 149 H
Potassium 3.7
Chloride 121 H
Carbon Dioxide 18 L
BUN 60 H
Creatinine 2.4 H
Glucose 194 H
Calcium 8.2 L
Total Bilirubin 0.8
AST 15 L
ALT 19
Alkaline Phosphatase 104
Vital Signs:
Vital Signs
Temp Pulse Resp BP Pulse Ox
98.0 F 120 18 143/75 98
12/07/24 03:23 12/07/24 08:45 12/07/24 03:23 12/07/24 08:37 12/07/24 03:36
I&O
12/06/24 12/07/24 12/08/24
06:59 06:59 06:59
Intake Total 1060 / 1060 1380 / 1380
Output Total 1280 / 1280 975 / 975
Balance -220 / -220 405 / 405
Review of Systems
-
Unable to obtain full review of systems at this time due to: Dementia and Acuity
Physical Exam
-
General: Comfortable
Respiratory: Clear to Auscultation
Cardiac: Irregular Rhythm
GI: Soft, Nontender, Nondistended and Normal Bowel Sounds
Musculoskeletal: No Cyanosis and No Edema
Neuro: Awake and Other (Facial droop, unable to lift right and left leg against gravity, dysarthria ongoing. NIH at least 13)
Psych: Calm
[2024-12-07 09:42] LABS: Hematocrit 28.9 % (39.0-52.0); Hemoglobin 9.8 g/dL (13.0-18.0); Mean Corp Hgb Conc. 33.9 g/dL (33.0-37.0); Mean Corpuscular Volume 86.8 fL (80.0-94.0); Platelet Count 235 10^3/uL (130-400); Red Cell Dist. Width 15.2 % (11.5-14.5)
[2024-12-07 09:48] LABS: APTT 24.7 Sec (23.4-35.0)
[2024-12-07] MEDS: ASPIRIN 300 MG RECTAL (10:00)
[2024-12-07] MEDS: VANCOMYCIN ENEMA 500 MG RECTAL (11:19)
[2024-12-07] MEDS: HEPARIN 25000 UNITS/250 ML IV (11:19)
[2024-12-07 12:33] LABS: Glucose - Point of Care 206 mg/dl (70-99)
--- NOTE | 2024-12-07 12:48 | PTCARENOTE ---
Pt is AOx1, garbled speech. Afib on tele monitor. at bedside. Estrada draining cloudy, yellow urine. Heparin gtt infusing per protocol. Cardizem drip infusing per orders. IVF infusing per orders. Call zavala within reach.
--- NOTE | 2024-12-07 12:57 | CM ---
sandra text from [facility] nurse requesting a referral be placed in careport- referral just put in. dc plans remain undetermined at this time, possible SNF/LTC or home with hospice. await [facility] bed avail.
--- NOTE | 2024-12-07 13:05 | HOSPNOTE ---
Hospice referral received. Hospice will meet with spouse at 130 pm today to discuss hospice and her options of home vs SNF vs evaluating for inpatient hospice eligibility. More information to follow. CM, Attending and Primary RN updated.
--- NOTE | 2024-12-07 13:44 | W.PN.CD ---
Today's Communication / Plan
-
GOC: my understanding is moving to hospice
Will check later to see if confirmed and if hospice then we will sign off
Impression / Plan
-
Sepsis, bacteremia, UTI:
-this diagnosis is threat to life
-on IV abx
-ID is consulted
-blood cx positive for klebsiella pyrogenes
-due to dementia and dysphasia, patient not appropriate for REYES
- TTE No obvious vegetation
Stroke on MRI :
-this diagnosis is threat to bodily function
-MRI below
- Eliquis when OK from bleeding perspective
AFIB: permanent
-he is NPO per speech
- dilt gtt agree
-IV metoprolol is added, follow rates and BP with this
-he is off Eliquis indicated when OK from bleeding perspective
HTN:
-as above, he is NPO, so monitor with addition of IV BB
Moderate :
-echo below
Hematuria:
-patient with recent diagnosis of ureteral stones s/p cystoscopy, bilateral ureteral stent placement
-urology on the case
-Eliquis has been on hold for this
-follow hgb and urine
EVAN:
-management per primary
Subjective: Confused
Echo 12/05/2024
SUMMARY
1. Normal biventricular size and function without regional wall motion abnormalities.
2. LVEF is 55-60% by visual estimation. Mild LVH.
3. Mild aortic stenosis. Mild aortic regurgitation.
4. Normal estimated PASP at 27 mmHg.
5. No obvious vegetation.
6. Compared to prior from November 11, 2022, MR is now mild previously mild to moderate. Otherwise no significant change.
MRI: IMPRESSION: Areas of acute to subacute infarction involving both cerebellar hemispheres, right greater than left.
Foci of acute to subacute infarction involving both occipital lobes.
Focus of acute to subacute infarction involving the left anterior medulla.
Physical Exam
Vital Signs/Labs
Vital Signs
Temp Pulse Resp BP Pulse Ox
98.2 F 94 16 141/79 94
12/07/24 08:00 12/07/24 11:41 12/07/24 11:41 12/07/24 11:34 12/07/24 11:41
12/06/24 12/07/24 12/08/24
06:59 06:59 06:59
Actual Weight 119 lb 6.4 oz
12/07/24 09:25
12/07/24 03:08
PT 19.3 Sec (11.4-14.6) H 12/04/24 11:33
INR 1.57 12/04/24 11:33
APTT 24.7 Sec (23.4-35.0) 12/07/24 09:25
Triglycerides 126 mg/dl (10-149) 12/05/24 07:47
LDL Cholesterol, Calc 72 mg/dl 12/05/24 07:47
VLDL Cholesterol, Calc 25 mg/dl (0-30) 12/05/24 07:47
HDL Cholesterol 25 mg/dl 12/05/24 07:47
Physical Exam
Constitutional: Confusion
Cardiovascular: Rhythm/rate is irregular
Respiratory: Respiratory effort normal
GI: Soft
Data Reviewed
-
Date of Service: December 07, 2024
Medical Decision Making: Reviewed Test Results
EKG: Tracing Personally Visualized and interpreted (af rvr)
Echo: Report Reviewed by me
Labs: Labs Reviewed by me
--- NOTE | 2024-12-07 14:46 | HOSPNOTE ---
Addendum entered by Rhonda Grier RN 12/07/24 16:29:
Plan is to transition patient to comfort measures today. Bed requested on [address]. Hospice will then meet spouse at 930 am tomorrow to sign patient onto inpatient hospice. Will notify MD and Admissions once consents are signed.
Original Note:
Hospice intro completed alongside service lisandro Mina. Patient assessed laying in bed, agitated, in mitts and 4 side rails up, aggressive with provision of care. This SN met with the patient's spouse and discussed at length hospice services
inpatient vs outpatient. Discussed that due to his current NPO status, and need for IV medications, this SN feels strongly that the patient would not be able to be managed in a home setting. Family is in agreement for [facility]IP hospice. This SN reached
out to Drs. Lopez and Millie, all in agreement with comfort measures now. Awaiting response from hospice team as to when we have an RN available to admit onto hospice services.
--- NOTE | 2024-12-07 14:49 | W.PN.UPDATE ---
Update Note
Progress Note Update
Patient's family is okay with hospice. Plan will be to discontinue current medications in favor for comfort care. Will discharge to inpatient hospice.
[2024-12-07] MEDS: MORPHINE SULFATE 2 MG IV ×2 (15:35→22:46)
--- NOTE | 2024-12-07 16:39 | PTCARENOTE ---
Pt changed to comfort measures. PRN morphine given as ordered. Will continue to monitor.
[2024-12-07] MEDS: XALATAN OPHTHALMIC SOLUTION 1 DROP BOTH EYES (21:32)
--- NOTE | 2024-12-07 22:51 | PTCARENOTE ---
Pt's BP was 180/100, prn hydralazine discontinued, Pt put on comfort measures today. Pt refused manual BP and seemed tense and agitated. This RN administered PRN 2mg morphine per order because pt seemed uncomfortable and is unable to verbalize his
pain. Pt now resting comfortably, will continue to monitor.
[2024-12-08 07:18] VITALS: BP 168/121
--- NOTE | 2024-12-08 07:41 | W.PN.UPDATE ---
Update Note
Progress Note Update
no sig change in pt's status
hospice is now being arranged
ok to remove conklin for comfort
call with any further questions
[2024-12-08] MEDS: MORPHINE SULFATE 2 MG IV (08:13)
[2024-12-08] MEDS: HALDOL 1 MG IV (08:21)
[2024-12-08] MEDS: FLUSH (NSS) 2 FLUSH IV (08:22)
[2024-12-08] MEDS: DESENEX/MITRAZOL/ZEASORB 1 APPLIC TOPICAL (08:23)
--- NOTE | 2024-12-08 08:47 | W.PN.HOSP.TC ---
Today's Communication/Plan
-
Comfort measures
Mitts to prevent pulling out conklin cath
Assessment / Plan
Assessment / Plan
Impression:
89-year-old male with past medical history of bilateral nephrosis secondary to renal calculi status post bilateral renal stents with ongoing hematuria on aspirin for anticoagulation, paroxysmal atrial fibrillation previously on Eliquis and aspirin
due to ongoing hematuria, C. difficile presents to the hospital for altered mental status with diagnosis of new stroke and sepsis likely secondary to UTI versus pneumonia.
Imaging:
Chest x-ray 12/04: There is patchy airspace disease in both lower lobes, early pneumonia versus atelectasis
Head CT 12/04: There are moderate changes of cortical atrophy and chronic ischemic disease. There is a probable polyp in the left maxillary sinus. This was not included on images obtained previously
Abdomen/pelvis CT 12/04:
There is air in the kidneys and bladder. This could be related to recent stent placement. Please exclude possibility of infection
There is third spacing of fluid in both the abdomen and pelvis as well as the soft tissues. There is an increase in size in bilateral pleural effusions.
Head and neck CTA 12/04:
-Atherosclerosis of the internal carotid arteries bilaterally, proximal right internal carotid artery with borderline hemodynamically significant stenosis of 65-70% and proximal left internal carotid artery approximately 50% stenosis. No findings to
suggest internal carotid artery dissection bilaterally.
-Atherosclerosis of the vertebral arterial system bilaterally with markedly dominant left vertebral artery. Relative diminutive distal right vertebral artery, cannot exclude subtle occlusion of the distal right vertebral artery with questionable
retrograde blood flow..
-No findings to suggest proximal intracranial arterial stenosis bilaterally.
-Bilateral pleural effusions.
Head CT 12/04:
No acute intracranial abnormality.
Brain MRI:
Areas of acute to subacute infarction involving both cerebellar hemispheres, right greater than left.
Foci of acute to subacute infarction involving both occipital lobes.
Focus of acute to subacute infarction involving the left anterior medulla.
See above narrative for additional findings.
Plan:
Acute bilateral CVA
-- Head CT unremarkable, Head and neck CT right carotid 65-70% stenosis, left <50%
-- MRI acute to subacute stroke per above
-- Patient has been off Eliquis since late October and now has gram-negative bacteremia - stroke etiology could be due to clot or vegetation
-- Not REYES candidate given NPO status and poor surgical candidate per cards - normal echo no obvious vegetation - klebsiella low chance of vegetation formation
-- Family is agreeable to transfer to hospice. Awaiting workforce management coordinator to flip the chart to inpatient hospice. Currently comfort measures.
Sepsis secondary to UTI
-- Tachycardia, leukocytosis 26, UTI versus pneumonia, blood cultures klebsiella
-- Fluid resuscitation in ED, Started on cefepime switched to Zosyn and Vanco - > cefepime per ID
-- Discontinued antibiotics in favor of comfort measures
C.diff
-- Finished course of oral vanc on 12/06
-- prophylactic vanc d/c as now off antibiotics in favor of comfort measures.
EVAN
-- Creatinine 2.3 -> 2.6 -> 2.4, baseline 1.1
-- Conklin cath in place
Ongoing hematuria
Nephrolithiasis status post bilateral ureteral stents
-- Zeynep-colored last night, yellow this morning -no blood overnight
-- On aspirin for anticoagulation rather than Eliquis per urology due to ongoing hematuria -okay for anticoagulation per urology -started heparin drip
-- Follow-up outpatient to remove stents after infection is cleared
-- Heparin d/c in favor of comfort measures
Paroxysmal atrial fibrillation
-- Aspirin for anticoagulation not Eliquis due to hematuria -> heparin drip > comfort
-- At home on labetalol 200 twice daily, diltiazem 180 twice daily
-- Transitioned to cardizem drip and metoprolol 5 IV Q6 while NPO -> IVU -> medsurg off diltiazem drip d/c for comfort
History of severe dysphagia
-- Thought to be pill esophagitis during prior admission
-- PPI twice daily until 12/22 then re-eval with GI/PCP
-- Cleared by speech for regular diet during prior admission 11/28/24
-- Now NPO per speech with stroke
Hypertension
-- Home meds include hydralazine 50 twice daily, labetalol 200 twice daily, diltiazem 180 twice daily
-- Hydralazine 5 mg IV for SBP greater than 160 while NPO - d/c for comfort
# Agitation
# Metabolic encephalopathy -multifactorial in setting of sepsis and stroke
-- Mitts overnight as patient was trying to pull lines
--Required one dose of haldol and 2mg morphine overnight for agitation.
# Diabetes -sliding scale insulin, metformin on hold, last hemoglobin A1c 7.5 on 11/26
# BPH -continue tamsulosin 0.4, oxybutynin
# Recent groin fungal rash -continue miconazole
# Anemia of chronic disease - hg currently stable
# Valvular disease - moderate mitral regurgitation, mild aortic stenosis
# Hyperlipidemia - npo start high intensity stating goal LDL <70 when able
# Bilateral shoulder pain
# Depression, prior suicidal ideation
# Glaucoma -continue latanoprost and bepotastine besilate eyedrops
DVT - SCD
DNR
NPO
All life saving medications have been discontinued in favor of comfort measures. Patient's family is agreeable. Will transfer to inpatient hospice once a workforce management coordinator arrives to flip the chart.
Anticipated Discharge: 24 - 48 hours
Subjective/Interval History
-
Date of Service: December 08, 2024
Patient in mitts for attempted to pull conklin cath out. In distress and asking for help repeatedly.
Objective Data
-
Vital Signs:
Vital Signs
Temp Pulse Resp BP Pulse Ox
97.2 F 128 18 168/121 96
12/08/24 07:18 12/08/24 07:18 12/08/24 07:18 12/08/24 07:18 12/08/24 07:18
I&O
12/07/24 12/08/24 12/09/24
06:59 06:59 06:59
Intake Total 1380 / 1380
Output Total 975 / 975 2900 / 2900 450 / 450
Balance 405 / 405 -2900 / -2900 -450 / -450
Review of Systems
-
Unable to obtain full review of systems at this time due to: Dementia and Acuity
Physical Exam
-
General: Slurred Speech and Appears Chronically Ill
Respiratory: Clear to Auscultation
Cardiac: Irregular Rhythm
GI: Soft, Nontender, Nondistended and Normal Bowel Sounds
Genito-urinary: Bloody Urine
Neuro: Awake, Slurred Speech, Facial Droop and Other (Unable to lift right arm and leg against gravity. )
Psych: Agitated
--- NOTE | 2024-12-08 09:31 | W.PN.UPDATE ---
Update Note
Progress Note Update
I saw and evaluated the patient. I reviewed the resident�s note and agree with findings and plan as documented in the resident�s note.
Recent hospitalization summary:
-Hospitalized from 11/11/2024 to 11/22/2024 with bilateral hydronephrosis. He had bilateral ureteral stent placement. Later developed atrial fibrillation with RVR, hypertensive emergency. Patient was then cleared for p.o. diet he was discharged on
aspirin instead of Eliquis because of ongoing hematuria.
-Patient was taken home on 11/24/2024 because family was not happy with the care at [facility].
- could not care for him at home and brought him to the hospital on 11/25/2024. Patient also had ongoing hematuria at that time.Patient had leukocytosis and CT of the abdomen pelvis at that time showed proctocolitis. No hydronephrosis. He was
found to have C. difficile and was discharged on on 11/26/2024 on PO Vanco.
-brought back to the ER again on 11/27/2024 because she could not take care of him. No significant change in his condition at that time. Plan was to continue with vancomycin until 12/06/2024. Patient was discharged to [facility] on 11/28/2024.
-Patient was brought to the ER again on 12/04/24 because he was unarousable. EMS noted that blood sugar was 460.
-On 12/05/24 -Speech therapist noted later that he has a leftward gaze preference with drift on the right arm and having trouble swallowing and also facial asymmetry. also noted that 1 day after discharge on 11/29/2024 patient developed right eye
vision loss, slurred speech and generalized weakness. Patient did not recover from 5 days ago. Stroke alert was called and case was discussed by the on-call with Alex neurologist. They recommended rectal aspirin and no TNK.
During physical exam pt spontaneously moves LUE but otherwise unresponsive.
Gen: NAD, NCAT
Neck: supple.
CV: remains tachy, irreg/irreg, +S1/S2, no m/r/g.
Resp: CTAB anteriorly, no rales, wheezes, or rhonchi.
Abd: +BS, soft, NT, ND
Skin: No rashes.
Psych: calm
12/04/24 11:32 Blood/Venous Blood Culture - Final
Klebsiella aerogenes
Klebsiella pneumoniae
12/04/24 11:32 Blood/Venous Gram Stain - Final
12/04/24 11:32 Blood/Venous Blood Culture - Final
Klebsiella aerogenes
Klebsiella pneumoniae
12/04/24 11:32 Blood/Venous Gram Stain - Final
12/06/24 07:14 Blood/Venous Blood Culture - Preliminary
No Growth in 48 hours- Final report to follow
12/06/24 10:13 Blood/Venous Blood Culture - Preliminary
No Growth in 24 hours- Final report to follow
12/04/24 11:55 Urine Urine Culture - Final
Klebsiella pneumoniae
Klebsiella aerogenes
MRI brain: Areas of acute to subacute infarction involving both cerebellar hemispheres, right greater than left. Foci of acute to subacute infarction involving both occipital lobes. Focus of acute to subacute infarction involving the left anterior
medulla.
Carotid U/S:
RIGHT: Calcified plaque is identified in the internal carotid artery. Carotid velocity measurements are consistent with 50 to 69% internal carotid artery stenosis. Vertebral artery flow is antegrade.
LEFT: Calcified plaque is identified in the proximal/mid common carotid artery, carotid bulb and internal carotid artery. Carotid velocity measurements are consistent with less than 50% internal carotid artery stenosis. Left vertebral artery was
not visualized on this examination.
CTA head/neck: Atherosclerosis of the internal carotid arteries bilaterally, proximal right internal carotid artery with borderline hemodynamically significant stenosis of 65-70% and proximal left internal carotid artery approximately 50% stenosis.
No findings to suggest internal carotid artery dissection bilaterally. Atherosclerosis of the vertebral arterial system bilaterally with markedly dominant left vertebral artery. Relative diminutive distal right vertebral artery, cannot exclude
subtle occlusion of the distal right vertebral artery with questionable retrograde blood flow. No findings to suggest proximal intracranial arterial stenosis bilaterally.
CT A/P: There is air in the kidneys and bladder. This could be related to recent stent placement. Please exclude possibility of infection. There is third spacing of fluid in both the abdomen and pelvis as well as the soft tissues. There is an
increase in size in bilateral pleural effusions.
Echo:
1. Normal biventricular size and function without regional wall motion abnormalities.
2. LVEF is 55-60% by visual estimation. Mild LVH.
3. Mild aortic stenosis. Mild aortic regurgitation.
4. Normal estimated PASP at 27 mmHg.
5. No obvious vegetation.
Pt now on comfort care. Cont haldol/morphine PRN, cont comfort meds only at this time.
From 12/07/24:
Acute B/L CVAs:
-likely embolic either due to afib vs septic emboli vs both
-with acute metabolic encephalopathy due to acute CVAs and speech and swallow abnormality
-underlying A-fib and was not on AC because of ongoing hematuria
-start AC as this is OK with Uro and neuro at this point
-cont ASA
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
-conklin catheter replaced in the ER
-prior ureteral stents
-ID/Uro following
-currently on Cefepime
-should family want aggressive care, will likely need REYES
PAF with RVR:
-cont Cardizem gtt
-start heparin gtt
Other problems:
C. difficile colitis (prior): cont rectal Vanco
EVAN: change IVFs to D5 1/2NS with hypernatremia (Na 149)
B/L ureterolithiasis with hydronephrosis: s/p cystoscopy, B/L ureteral stent placement with incidental finding of urethral stricture with dilatation 11/11/2024
Severe dysphagia on 11/13/2024
Dysphagia, currently NPO
DM2: a1c 7.4%, SSI/accuchecks
Essential HTN: cont Cardizem gtt, IV BB
Valvular heart disease: mod , mild-mod MR, mild-mod AI, mild-mod TR
Dementia
Anemia of chronic disease
--- NOTE | 2024-12-08 11:26 | HOSPNOTE ---
Patient admitted onto hospice services is an 89yo male with a terminal dx of cerebral infarction, unspecified. At the time of this admission is at the bedside, patient is calm and cooperative, unresponsive, agitated with provision of care.
Mottling to the bilateral knees, cyanotic nail beds, PPS 10% KPS 10%, FLACC 0 on assessment. Much emotional support to the patients spouse this visit. All questions and concerns addressed at this time. Patient remains GIP for agitation management.
--- NOTE | 2024-12-08 11:29 | W.DCSUMMARY ---
Discharge Summary
Discharge Data
Date of Admission: 12/04/24
Date of Discharge: 12/08/24
-
Pending Results: No
Hospital Course
Primary diagnosis:
Acute bilateral CVA
Sepsis secondary to UTI�Klebsiella
C. difficile colitis
Acute kidney injury
Bilateral kidney stones with hydronephrosis
Paroxysmal atrial fibrillation
Severe dysphagia
Secondary diagnoses:
Diabetes mellitus
Hypertension
Valvular heart disease
Dementia
Anemia of chronic disease
Hospital course:
89-year-old male presented to the hospital from [facility] for change in mental status and unarousable. Patient was noted to be tachycardic, WBC 26 with UTI and started on fluids and broad spectrum antibiotics in the ED. Chest x-ray revealed
atelectasis vs pneumonia. Head CT was unremarkable. By the time he got up to the floors he was more arousable. When speech therapy came to see him, she noticed left upper gaze preference and some facial asymmetry which is a big change from when she
saw him the week prior. A stroke alert was called and imaging was ordered. He was provided loading dose of aspirin per neurology. He was outside of TNK window as start of AMS unknown. Head CT and head and neck CTA were unremarkable however later
MRI revealed areas of acute to subacute infarct involving both cerebellar hemispheres and fossae of acute infarct in both occipital lobes and the left anterior medulla. Due to the patient's history of bilateral stent placement and ongoing hematuria,
the patient was unable to be on eliquis for anticoagulation and was only on aspirin. Stroke etiology thought to be due to embolis. Patient was unable to pass speech evaluation and was made NPO. Due to NPO status, unable to take home meds and
eventually placed on Cardizem drip for a.fib with RVR. He was briefly started on a heparin drip with clearance from urology. Due to impaired swallowing due to stroke and right sided hemiparesis, palliative care and hospice discussion was started
with family.
On 12/07, patient's agreeable to hospice. All life sustaining medications were discontinued in favor of comfort and dignity. Today, patient is being transitioned into inpatient hospice.
Imaging:
Brain MRI 12/05/2024:
Areas of acute to subacute infarction involving both cerebellar hemispheres, right greater than left.
Foci of acute to subacute infarction involving both occipital lobes.
Focus of acute to subacute infarction involving the left anterior medulla.
See above narrative for additional findings.
Head and neck CTA 12/04/2024:
Atherosclerosis of the internal carotid arteries bilaterally, proximal right internal carotid artery with borderline hemodynamically significant stenosis of 65-70% and proximal left internal carotid artery approximately 50% stenosis. No findings to
suggest internal carotid artery dissection bilaterally.
Atherosclerosis of the vertebral arterial system bilaterally with markedly dominant left vertebral artery. Relative diminutive distal right vertebral artery, cannot exclude subtle occlusion of the distal right vertebral artery with questionable
retrograde blood flow..
No findings to suggest proximal intracranial arterial stenosis bilaterally.
Bilateral pleural effusions.
Abdomen/pelvis CT 12/04/2024:
There is air in the kidneys and bladder. This could be related to recent stent placement. Please exclude possibility of infection
There is third spacing of fluid in both the abdomen and pelvis as well as the soft tissues. There is an increase in size in bilateral pleural effusions.
Discharge Plan
-
Referrals:
Arvind Reyes MD [Family Provider, [facility]]
Prescriptions:
No Action
metformin 500 MG tablet extended release 24 hr
500 mg PO BID
latanoprost 0.005 % drops
1 drp BOTH EYES HS
tamsulosin 0.4 mg capsule
0.4 mg PO BID
bepotastine besilate 1.5 % drops
1 drp BOTH EYES DAILY
cyanocobalamin (vitamin B-12) 1,000 mcg Tablet
1,000 mcg PO DAILY
ascorbic acid (vitamin C) [Vitamin C] 500 mg Tablet
500 mg PO DAILY
cholecalciferol (vitamin D3) [Vitamin D3] 25 mcg (1,000 unit) Tablet
25 mcg PO DAILY
diltiazem HCl 180 mg Capsule,Extended Release 24hr
180 mg PO BID Qty: 60 0RF
aspirin 81 mg Tablet,Delayed Release (Dr/Ec)
81 mg PO DAILY Qty: 30 0RF
labetalol 200 mg Tablet
200 mg PO BID Qty: 60 0RF
pantoprazole 40 mg tablet,delayed release (DR/EC)
40 mg PO BID Qty: 60 0RF
hydralazine 50 mg Tablet
50 mg PO BID Qty: 60 0RF
miconazole nitrate [Miconazorb AF] 2 % Powder
1 applic topical BID Qty: 85 0RF
vancomycin 125 mg capsule
125 mg PO QID Qty: 40 0RF
Rx Instructions:
for 10 days starting 11/26/24
oxybutynin chloride 5 mg Tablet Extended Release 24hr
5 mg PO DAILY
Saccharomyces boulardii [Florastor] 250 mg Capsule
500 mg PO BID
acetaminophen [Tylenol] 325 mg Tablet
650 mg PO Q6HPRN PRN (Reason: mild pain)
magnesium hydroxide [Milk of Magnesia] 400 mg/5 mL Suspension
2,400 mg PO [id number] PRN (Reason: constipation)
bisacodyl [Dulcolax (bisacodyl)] 10 mg Suppository
10 mg DE DAILYPRN PRN (Reason: if no bm aftr mom)
Fleet Enema 19-7 gram/118 mL Enema
118 ml DE DAILYPRN PRN (Reason: if no bm aftr dulcalax)
Care Plan Goals
Care Plan Goals:
Problem: Readiness for enhanced knowledge related to diagnosis and treatment plan
Goal: Understand your diagnosis and treatment plan needs, including medications if applicable.
Instructions: Know your diagnosis, underlying causes and treatment plan options, including medications if applicable. Consult with your health care team to learn about your diagnosis and treatment plan, including medications if applicable.
Discharge Date and Time
Print Language: THAI
== END 2024-12-08 12:05 | disposition hospice, inpatient (51) | DRG 871 ==
LOC: 2 NORTH 14:34
PROVIDERS: Hospitalist; Physician Assistant; ADMITTING PHYSICIAN Hospitalist; ATTENDING PHYSICIAN Internal Medicine; CONSULT PHYSICIAN Internal Medicine Cardiovascular Disease; CONSULT PHYSICIAN Psychiatry & Neurology Neurology; EMERGENCY PHYSICIAN Emergency Medicine; FAMILY PHYSICIAN Family Medicine; OTHER PHYSICIAN Internal Medicine Infectious Disease; OTHER PHYSICIAN Urology
DX: A41.59 Other Gram-negative sepsis (principal); G93.41 Metabolic encephalopathy; I63.443 Cerebral infarction due to embolism of bilateral cerebellar arteries; J69.0 Pneumonitis due to inhalation of food and vomit; I48.21 Permanent atrial fibrillation; A04.72 Enterocolitis due to Clostridium difficile, not specified as recurrent; N17.9 Acute kidney failure, unspecified; J90 Pleural effusion, not elsewhere classified; G81.91 Hemiplegia, unspecified affecting right dominant side; R47.01 Aphasia; N13.6 Pyonephrosis; Z51.5 Encounter for palliative care; R65.20 Severe sepsis without septic shock; I10 Essential (primary) hypertension; E78.00 Pure hypercholesterolemia, unspecified; E11.65 Type 2 diabetes mellitus with hyperglycemia; I08.0 Rheumatic disorders of both mitral and aortic valves; N40.0 Benign prostatic hyperplasia without lower urinary tract symptoms; D63.8 Anemia in other chronic diseases classified elsewhere; K59.00 Constipation, unspecified; R45.1 Restlessness and agitation; N30.80 Other cystitis without hematuria; I65.23 Occlusion and stenosis of bilateral carotid arteries; F32.A Depression, unspecified; R47.1 Dysarthria and anarthria; R47.02 Dysphasia; B35.6 Tinea cruris; M25.512 Pain in left shoulder; M25.511 Pain in right shoulder; Z66 Do not resuscitate; Z87.442 Personal history of urinary calculi; Z79.82 Long term (current) use of aspirin; Z87.440 Personal history of urinary (tract) infections; Z79.84 Long term (current) use of oral hypoglycemic drugs; Z91.51 Personal history of suicidal behavior; Z78.1 Physical restraint status
CPT/HCPCS: 51702; 70450; 70496; 70498; 70551; 71045; 74176; 80053; 80061; 81003; 81015; 82010; 82805; 82962; 83036; 83605; 85025; 85027; 85610; 85730; 86850; 86900; 86901; 87040; 87077; 87086; 87154; 87186; 87205; 92507; 92523; 92526; 92610; 93005; 93306; 93880; 96361; 96374; 97163; 97167; 99291; Q9967

== ENCOUNTER 2024-12-08 12:08 | Inpatient (IN) | payer OTHER, SELFPAY ==
--- NOTE | 2024-12-08 13:54 | CHAP ---
Antonio was sleeping comfortably, non-responsive. His Jane and son Amauri were present; they shared background about Antonio and about their family life. Jane and Antonio recently celebrated their 60th anniversary. Antonio is a people person with a gift
for defusing difficult situations. He has a strong spiritual foundation and appreciates the Bible, especially the Psalms, Proverbs, and the Gospel of [place]. Jane and Antonio mentioned that daughter Charis is estranged. Installation Supervisor provided emotional and
spiritual support through presence, active listening, Scripture reading and prayer. A prayer blanket was also provided, along with assurance of our on-going availability.
--- NOTE | 2024-12-08 14:42 | HPS.HSE ---
Family Physician
-
Family Physician: Shon Zambrano
Chief Complaint
-
Large CVA
History of Present Illness
89-year-old male presented to the hospital from [facility] for change in mental status and unarousable. Patient was noted to be tachycardic, WBC 26 with UTI and started on fluids and broad spectrum antibiotics in the ED. Chest x-ray revealed
atelectasis vs pneumonia. Head CT was unremarkable. By the time he got up to the floors he was more arousable. When speech therapy came to see him, she noticed left upper gaze preference and some facial asymmetry which is a big change from when she
saw him the week prior. A stroke alert was called and imaging was ordered. He was provided loading dose of aspirin per neurology. He was outside of TNK window as start of AMS unknown. Head CT and head and neck CTA were unremarkable however later
MRI revealed areas of acute to subacute infarct involving both cerebellar hemispheres and fossae of acute infarct in both occipital lobes and the left anterior medulla. Due to the patient's history of bilateral stent placement and ongoing hematuria,
the patient was unable to be on eliquis for anticoagulation and was only on aspirin. Stroke etiology thought to be due to embolis. Patient was unable to pass speech evaluation and was made NPO. Due to NPO status, unable to take home meds and
eventually placed on Cardizem drip for a.fib with RVR. He was briefly started on a heparin drip with clearance from urology. Due to impaired swallowing due to stroke and right sided hemiparesis, palliative care and hospice discussion was started
with family.
On 12/07, patient's agreeable to hospice. All life sustaining medications were discontinued in favor of comfort and dignity. Today, patient is being transitioned into inpatient hospice.
Medical History
Past Medical History
Past Medical History: Reports Other (see below)
Additional Past Medical History:
paroxysmal atrial fibrillation, moderate mitral regurgitation, mild aortic stenosis, dementia, diabetes, hypertension, BPH, nephrolithiasis status post bilateral ureteral stent, hyperlipidemia, C. difficile colitis, anemia of chronic disease,
constipation, bilateral shoulder pain, prior suicidal ideation
Past Surgical History: Reports Other (see below )
Additional Past Surgical History:
Tonsillectomy, Bilateral ureteral stents
Social History
Tobacco: Non-smoker
Alcohol: None
Drug: None
Personal:
Living: With Family
Family History
Family History: Not pertinent
Allergies / Home Medications
Allergies reflects when Allergies were last updated in [facility].
Home Medications with original date entered in [facility]
Allergy/Medication List:
Allergies
Allergy/AdvReac Type Severity Reaction Status Date / Time
No Known Allergies Allergy Verified 12/04/24 11:28
Home Medications
metformin 500 mg tablet,extended release 24 hr 500 mg PO BID Diabetes 04/10/19
bepotastine besilate 1.5 % eye drops 1 drp BOTH EYES DAILY Eye Condition 11/10/22
latanoprost 0.005 % eye drops 1 drp BOTH EYES HS Eye Condition 11/10/22
tamsulosin 0.4 mg capsule 0.4 mg PO BID Urinary Issue 11/10/22
ascorbic acid (vitamin C) 500 mg tablet (Vitamin C) 500 mg PO DAILY Supplement 11/11/24
cholecalciferol (vitamin D3) 25 mcg (1,000 unit) tablet (Vitamin D3) 25 mcg PO DAILY Supplement 11/11/24
cyanocobalamin (vitamin B-12) 1,000 mcg tablet 1,000 mcg PO DAILY Supplement 11/11/24
aspirin 81 mg tablet,delayed release 81 mg PO DAILY Blood clot prevention/tx #30 tabs 11/19/24
diltiazem HCl 180 mg capsule,extended release 24 hr 180 mg PO BID Arrhythmia #60 caps 11/19/24
labetalol 200 mg tablet 200 mg PO BID Arrhythmia #60 tabs 11/19/24
pantoprazole 40 mg tablet,delayed release 40 mg PO BID Gastrointestinal issue #60 tabs 11/19/24
hydralazine 50 mg tablet 50 mg PO BID Blood pressure #60 tabs 11/22/24
miconazole nitrate 2 % topical powder (Miconazorb AF) 1 applic topical BID Groin rash #85 grams 11/26/24
vancomycin 125 mg capsule 125 mg PO QID #40 caps 11/26/24
Saccharomyces boulardii 250 mg capsule (Florastor) 500 mg PO BID Supplement 12/04/24
acetaminophen 325 mg tablet (Tylenol) 650 mg PO Q6HPRN PRN mild pain 12/04/24
bisacodyl 10 mg rectal suppository (Dulcolax (bisacodyl)) 10 mg MA DAILYPRN PRN if no bm aftr mom 12/04/24
magnesium hydroxide 400 mg/5 mL oral suspension (Milk of Magnesia) 2,400 mg PO [id number] PRN constipation 12/04/24
oxybutynin chloride 5 mg tablet,extended release 24 hr 5 mg PO DAILY Urinary Issue 12/04/24
sodium phosphates 19 gram-7 gram/118 mL enema (Fleet Enema) 118 ml MA DAILYPRN PRN if no bm aftr dulcalax 12/04/24
Review of Systems
-
Unable to obtain full review of systems at this time due to: Acuity
Physical Exam
Physical Exam
General: Appears Chronically Ill
Respiratory: Clear
Cardiac: Irregular Rhythm and Tachycardia
GI: Soft, Non Distended and Normal Bowel Sounds
Genito-urinary: Bloody Urine
Musculoskeletal: No Clubbing and Cyanosis
Neuro: Slurred Speech, Facial Droop and Other (Inability to move right arm and leg against gravity)
Psych: Agitated
Impression/Plan
-
Recent hospitalization summary:
-Hospitalized from 11/11/2024 to 11/22/2024 with bilateral hydronephrosis. He had bilateral ureteral stent placement. Later developed atrial fibrillation with RVR, hypertensive emergency. Patient was then cleared for p.o. diet he was discharged on
aspirin instead of Eliquis because of ongoing hematuria.
-Patient was taken home on 11/24/2024 because family was not happy with the care at [facility].
- could not care for him at home and brought him to the hospital on 11/25/2024. Patient also had ongoing hematuria at that time.Patient had leukocytosis and CT of the abdomen pelvis at that time showed proctocolitis. No hydronephrosis. He was
found to have C. difficile and was discharged on on 11/26/2024 on PO Vanco.
-brought back to the ER again on 11/27/2024 because she could not take care of him. No significant change in his condition at that time. Plan was to continue with vancomycin until 12/06/2024. Patient was discharged to [facility] on 11/28/2024.
-Patient was brought to the ER again on 12/04/24 because he was unarousable. EMS noted that blood sugar was 460.
-On 12/05/24 -Speech therapist noted later that he has a leftward gaze preference with drift on the right arm and having trouble swallowing and also facial asymmetry. also noted that 1 day after discharge on 11/29/2024 patient developed right eye
vision loss, slurred speech and generalized weakness. Patient did not recover from 5 days ago. Stroke alert was called and case was discussed by the on-call with [facility] neurologist. They recommended rectal aspirin and no TNK.
After extensive discussion with family, agreed to transfer to inpatient hospice.
PLAN:
Acute bilateral CVA
-- Head CT unremarkable, Head and neck CT right carotid 65-70% stenosis, left <50%
-- MRI acute to subacute stroke per above
-- Patient has been off Eliquis since late October and now has gram-negative bacteremia - stroke etiology could be due to clot or vegetation
-- Not REYES candidate given NPO status and poor surgical candidate per cards - normal echo no obvious vegetation - klebsiella low chance of vegetation formation
-- Family is agreeable to transfer to hospice. Continue comfort care.
Sepsis secondary to UTI
-- Tachycardia, leukocytosis 26, UTI versus pneumonia, blood cultures klebsiella
-- Fluid resuscitation in ED, Started on cefepime switched to Zosyn and Vanco - > cefepime per ID
-- Discontinued antibiotics in favor of comfort measures
C.diff
-- Finished course of oral vanc on 12/06
-- prophylactic vanc d/c as now off antibiotics in favor of comfort measures.
EVAN
-- Creatinine 2.3 -> 2.6 -> 2.4, baseline 1.1
-- Estrada cath in place - can d/c for comfort
Ongoing hematuria
Nephrolithiasis status post bilateral ureteral stents
-- Zeynep-colored last night, yellow this morning -no blood overnight
-- On aspirin for anticoagulation rather than Eliquis per urology due to ongoing hematuria -okay for anticoagulation per urology -started heparin drip
-- Follow-up outpatient to remove stents after infection is cleared
-- Heparin d/c in favor of comfort measures
Paroxysmal atrial fibrillation
-- Aspirin for anticoagulation not Eliquis due to hematuria -> heparin drip > comfort
-- At home on labetalol 200 twice daily, diltiazem 180 twice daily
-- Transitioned to cardizem drip and metoprolol 5 IV Q6 while NPO -> IVU -> medsurg off diltiazem drip d/c for comfort
History of severe dysphagia
-- Thought to be pill esophagitis during prior admission
-- PPI twice daily until 12/22 then re-eval with GI/PCP
-- Cleared by speech for regular diet during prior admission 11/28/24
-- Now NPO per speech with stroke
Hypertension
-- Home meds include hydralazine 50 twice daily, labetalol 200 twice daily, diltiazem 180 twice daily
-- Hydralazine 5 mg IV for SBP greater than 160 while NPO - d/c for comfort
# Agitation
# Metabolic encephalopathy -multifactorial in setting of sepsis and stroke
-- Mitts overnight as patient was trying to pull lines
--Required one dose of haldol and 2mg morphine overnight for agitation.
# Diabetes -sliding scale insulin, metformin on hold, last hemoglobin A1c 7.5 on 11/26
# BPH -continue tamsulosin 0.4, oxybutynin - now npo
# Recent groin fungal rash -continue miconazole
# Anemia of chronic disease - hg currently stable
# Valvular disease - moderate mitral regurgitation, mild aortic stenosis
# Hyperlipidemia - npo start high intensity stating goal LDL <70 when able
# Bilateral shoulder pain
# Depression, prior suicidal ideation
# Glaucoma -continue latanoprost and bepotastine besilate eyedrops
DVT - SCD
DNR
NPO
Spoke to at bedside. She is grateful for our care. She shared some stories about her and sons.
[2024-12-08 20:26] VITALS: BP 168/109
[2024-12-09] MEDS: MORPHINE SULFATE 2 MG IV ×5 (01:41→18:06)
[2024-12-09] MEDS: VALIUM INJECTION 2.5 MG IV ×2 (02:34→18:06)
[2024-12-09] MEDS: HALDOL 1 MG IV (03:31)
[2024-12-09 07:14] VITALS: BP 174/142
--- NOTE | 2024-12-09 08:26 | W.PN.HOSP.TC ---
Today's Communication/Plan
-
Start step 1 morphine drip
Allow comfort feeds
Assessment / Plan
Assessment / Plan
Patient is now on comfort care. Continue morphine, Haldol, allow comfort feeds. Start morphine drip today per protocol as he required 3 continuous morphine doses.
From 12/08:
Acute bilateral CVA
-- Head CT unremarkable, Head and neck CT right carotid 65-70% stenosis, left <50%
-- MRI acute to subacute stroke per above
-- Patient has been off Eliquis since late October and now has gram-negative bacteremia - stroke etiology could be due to clot or vegetation
-- Not REYES candidate given NPO status and poor surgical candidate per cards - normal echo no obvious vegetation - klebsiella low chance of vegetation formation
-- Family is agreeable to transfer to hospice. Continue comfort care.
Sepsis secondary to UTI
-- Tachycardia, leukocytosis 26, UTI versus pneumonia, blood cultures klebsiella
-- Fluid resuscitation in ED, Started on cefepime switched to Zosyn and Vanco - > cefepime per ID
-- Discontinued antibiotics in favor of comfort measures
C.diff
-- Finished course of oral vanc on 12/06
-- prophylactic vanc d/c as now off antibiotics in favor of comfort measures.
EVAN
-- Creatinine 2.3 -> 2.6 -> 2.4, baseline 1.1
-- Estrada cath in place - can d/c for comfort
Ongoing hematuria
Nephrolithiasis status post bilateral ureteral stents
-- Zeynep-colored last night, yellow this morning -no blood overnight
-- On aspirin for anticoagulation rather than Eliquis per urology due to ongoing hematuria -okay for anticoagulation per urology -started heparin drip
-- Follow-up outpatient to remove stents after infection is cleared
-- Heparin d/c in favor of comfort measures
Paroxysmal atrial fibrillation
-- Aspirin for anticoagulation not Eliquis due to hematuria -> heparin drip > comfort
-- At home on labetalol 200 twice daily, diltiazem 180 twice daily
-- Transitioned to cardizem drip and metoprolol 5 IV Q6 while NPO -> IVU -> medsurg off diltiazem drip d/c for comfort
History of severe dysphagia
-- Thought to be pill esophagitis during prior admission
-- PPI twice daily until 12/22 then re-eval with GI/PCP
-- Cleared by speech for regular diet during prior admission 11/28/24
-- Now NPO per speech with stroke
Hypertension
-- Home meds include hydralazine 50 twice daily, labetalol 200 twice daily, diltiazem 180 twice daily
-- Hydralazine 5 mg IV for SBP greater than 160 while NPO - d/c for comfort
# Agitation
# Metabolic encephalopathy -multifactorial in setting of sepsis and stroke
-- Mitts overnight as patient was trying to pull lines
--Required one dose of haldol and 2mg morphine overnight for agitation.
# Diabetes -sliding scale insulin, metformin on hold, last hemoglobin A1c 7.5 on 11/26
# BPH -continue tamsulosin 0.4, oxybutynin - now npo
# Recent groin fungal rash -continue miconazole
# Anemia of chronic disease - hg currently stable
# Valvular disease - moderate mitral regurgitation, mild aortic stenosis
# Hyperlipidemia - npo start high intensity stating goal LDL <70 when able
# Bilateral shoulder pain
# Depression, prior suicidal ideation
# Glaucoma -continue latanoprost and bepotastine besilate eyedrops
DNR
DVT - on hospice
Anticipated Discharge: Within 24 hours
Subjective/Interval History
-
Date of Service: December 09, 2024
Sleeping this morning when I walked in. Noted to be agitated overnight and required 3 consecutive doses of morphine. Per protocol they are starting a morphine drip this morning. Acute bilateral CVA
Objective Data
-
Vital Signs:
Vital Signs
Temp Pulse Resp BP Pulse Ox
97.2 F 145 12 174/142 94
12/09/24 07:14 12/09/24 07:14 12/09/24 07:14 12/09/24 07:14 12/09/24 07:14
I&O
12/08/24 12/09/24 12/10/24
06:59 06:59 06:59
Intake Total 0 / 0
Output Total 2775 / 2775
Balance -2775 / -2775
Review of Systems
-
Unable to obtain full review of systems at this time due to: Dementia and Acuity
Physical Exam
-
General: Appears Chronically Ill
Respiratory: Clear to Auscultation
Cardiac: Irregular Rhythm and Tachycardic
GI: Soft, Nontender, Nondistended and Normal Bowel Sounds
Musculoskeletal: No Cyanosis and No Edema
Neuro: Facial Droop and Other (Right arm and leg unable to lift against gravity )
[2024-12-09] MEDS: MORPHINE 100 IV (09:22)
--- NOTE | 2024-12-09 11:38 | HOSPNOTE ---
Patient is still agitated and is now requiring a morphine drip. Patient is not restrained and has been medicated for agitation and pain. Patient continues to be inpatient appropriate for management of agitation and pain requiring IV medications.
Patient will be seed daily.
--- NOTE | 2024-12-09 12:49 | CM ---
CM following re: discharge planning.
Reviewed pt's chart.
pt is admitted to inpatient hospice level of care with hospice GIP yesterday, continue supportive care.
D/C plan: hospice GIP.
CM is available for emotional support.
--- NOTE | 2024-12-09 15:13 | HOSPNOTE ---
Healthcare Administrative Assistant visited 89 year old patient to conduct Initial CLAIM ATTORNEY Assessment. Patient recently admitted onto Hospice Services and GIP Level of Care with the Primary Diagnosis of CVA. Nurse reported medications administered and patient
resting. CLAIM ATTORNEY greeted patient and patient's spouse Jane upon entering patient's room, no response. Patient asleep and appeared to be resting comfortably, no signs of pain and/or distress observed. Spouse reading the Bible. CLAIM ATTORNEY asked Spouse how she's
doing, she responded this is a lot for her to handle on her own as she comes come from a large family and they supported each other her 2 remaining siblings are in SNF. CLAIM ATTORNEY expressed how patient appeared pain free and in peace, spouse responded he
is now but he had a mitten on his hand and didn't like that and was really agitated, mitten removed and medication administered. Spouse reported she and patient met in [place] and have been for 60 years, they have 3 children Dimas who
resides in [place], Amauri who resides in [place], Charis who resides in [place], and 1 granddaughter Jesusita who is stationed at the [employer]. She reported Charis is estranged from the family and that bothered patient. She reported Amauri is her
supports as he resides closer too her and she's working on building stronger relationships with their yazidi family. She reported Amauri just left from seeing patient and Dimas is due to see patient at any moment and she stays with patient as she
doesn't want him to alone. Family appeared to be coping appropriately. 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 He enjoyed reading [employer] stories, the Bible, and singing yazidi hymns. Patient grew up Zoroastrianism, converted to Presbyterian and then Non-Yarsanism, he is affiliated with [facility] in [place]. His
wishes are to be cremated and family is utilizing [employer] registration date 06/12/2018 and . Spouse reported patient loved their backyard and his ashes will be spread in the backyard.
Spouse interested in Bereavement Services. Prayer and Emotional Support Provided
Patient meets [facility] criteria for SN assessments, management of agitation, and pain requiring IV medications that could not be managed at home and/or in an Outpatient setting. Discharge planning continues.
CLAIM ATTORNEY will provide supportive services and monitor for additional services once a week while on GIP Level of Care.
[2024-12-09 20:17] VITALS: BP 143/95
[2024-12-10] MEDS: VALIUM INJECTION 2.5 MG IV ×2 (00:41→06:29)
[2024-12-10] MEDS: MORPHINE SULFATE 2 MG IV ×5 (01:26→11:21)
[2024-12-10 07:00] VITALS: BP 144/85
--- NOTE | 2024-12-10 07:38 | W.PN.HOSP.TC ---
Today's Communication/Plan
-
Continue comfort measures
Assessment / Plan
Assessment / Plan
Patient is now on comfort care. Continue morphine, Haldol, allow comfort feeds. On step 2 morphine drip.
From 12/08:
Acute bilateral CVA
-- Head CT unremarkable, Head and neck CT right carotid 65-70% stenosis, left <50%
-- MRI acute to subacute stroke per above
-- Patient has been off Eliquis since late October and now has gram-negative bacteremia - stroke etiology could be due to clot or vegetation
-- Not REYES candidate given NPO status and poor surgical candidate per cards - normal echo no obvious vegetation - klebsiella low chance of vegetation formation
-- Family is agreeable to transfer to hospice. Continue comfort care. Now step 2 morphine drip.
Sepsis secondary to UTI
-- Tachycardia, leukocytosis 26, UTI versus pneumonia, blood cultures klebsiella
-- Fluid resuscitation in ED, Started on cefepime switched to Zosyn and Vanco - > cefepime per ID
-- Discontinued antibiotics in favor of comfort measures
C.diff
-- Finished course of oral vanc on 12/06
-- prophylactic vanc d/c as now off antibiotics in favor of comfort measures.
EVAN
-- Creatinine 2.3 -> 2.6 -> 2.4, baseline 1.1
-- Estrada cath in place - can d/c for comfort
Ongoing hematuria
Nephrolithiasis status post bilateral ureteral stents
-- Zeynep-colored last night, yellow this morning -no blood overnight
-- On aspirin for anticoagulation rather than Eliquis per urology due to ongoing hematuria -okay for anticoagulation per urology -started heparin drip
-- Follow-up outpatient to remove stents after infection is cleared
-- Heparin d/c in favor of comfort measures
Paroxysmal atrial fibrillation
-- Aspirin for anticoagulation not Eliquis due to hematuria -> heparin drip > comfort
-- At home on labetalol 200 twice daily, diltiazem 180 twice daily
-- Transitioned to cardizem drip and metoprolol 5 IV Q6 while NPO -> IVU -> medsurg off diltiazem drip d/c for comfort
History of severe dysphagia
-- Thought to be pill esophagitis during prior admission
-- PPI twice daily until 12/22 then re-eval with GI/PCP
-- Cleared by speech for regular diet during prior admission 11/28/24
-- Now NPO per speech with stroke
Hypertension
-- Home meds include hydralazine 50 twice daily, labetalol 200 twice daily, diltiazem 180 twice daily
-- Hydralazine 5 mg IV for SBP greater than 160 while NPO - d/c for comfort
# Agitation
# Metabolic encephalopathy -multifactorial in setting of sepsis and stroke
-- Mitts overnight as patient was trying to pull lines
--Required one dose of haldol and 2mg morphine overnight for agitation.
# Diabetes -sliding scale insulin, metformin on hold, last hemoglobin A1c 7.5 on 11/26
# BPH -continue tamsulosin 0.4, oxybutynin - now npo
# Recent groin fungal rash -continue miconazole
# Anemia of chronic disease - hg currently stable
# Valvular disease - moderate mitral regurgitation, mild aortic stenosis
# Hyperlipidemia - npo start high intensity stating goal LDL <70 when able
# Bilateral shoulder pain
# Depression, prior suicidal ideation
# Glaucoma -continue latanoprost and bepotastine besilate eyedrops
DNR
DVT - on hospice
Anticipated Discharge: Within 24 hours
Subjective/Interval History
-
Date of Service: December 10, 2024
Asleep on morphine drip.
Objective Data
-
Vital Signs:
Vital Signs
Temp Pulse Resp BP Pulse Ox
97.7 F 137 17 143/95 95
12/09/24 20:17 12/09/24 20:17 12/09/24 20:17 12/09/24 20:17 12/09/24 23:54
I&O
12/09/24 12/10/24 12/11/24
06:59 06:59 06:59
Intake Total 0 / 0 0 / 0
Output Total 2775 / 2775 1200 / 1200
Balance -2775 / -2775 -1200 / -1200
Review of Systems
-
Unable to obtain full review of systems at this time due to: Dementia and Acuity
Physical Exam
-
General: Appears Chronically Ill
Respiratory: Clear to Auscultation
Cardiac: Irregular Rhythm
GI: Soft, Nondistended and Normal Bowel Sounds
Musculoskeletal: No Cyanosis and No Edema
Neuro: Facial Droop
--- NOTE | 2024-12-10 07:56 | W.PN.UPDATE ---
Update Note
Progress Note Update
I saw and evaluated the patient. I reviewed the resident�s note and agree with findings and plan as documented in the resident�s note.
Recent hospitalization summary:
-Hospitalized from 11/11/2024 to 11/22/2024 with bilateral hydronephrosis. He had bilateral ureteral stent placement. Later developed atrial fibrillation with RVR, hypertensive emergency. Patient was then cleared for p.o. diet he was discharged on
aspirin instead of Eliquis because of ongoing hematuria.
-Patient was taken home on 11/24/2024 because family was not happy with the care at [facility].
- could not care for him at home and brought him to the hospital on 11/25/2024. Patient also had ongoing hematuria at that time.Patient had leukocytosis and CT of the abdomen pelvis at that time showed proctocolitis. No hydronephrosis. He was
found to have C. difficile and was discharged on on 11/26/2024 on PO Vanco.
-brought back to the ER again on 11/27/2024 because she could not take care of him. No significant change in his condition at that time. Plan was to continue with vancomycin until 12/06/2024. Patient was discharged to [facility] on 11/28/2024.
-Patient was brought to the ER again on 12/04/24 because he was unarousable. EMS noted that blood sugar was 460.
-On 12/05/24 -Speech therapist noted later that he has a leftward gaze preference with drift on the right arm and having trouble swallowing and also facial asymmetry. also noted that 1 day after discharge on 11/29/2024 patient developed right eye
vision loss, slurred speech and generalized weakness. Patient did not recover from 5 days ago. Stroke alert was called and case was discussed by the on-call with Alex neurologist. They recommended rectal aspirin and no TNK.
Pt sleeping.
Gen: NAD, NCAT
Neck: supple.
CV: tachy, irreg/irreg, +S1/S2, no m/r/g.
Resp: CTAB anteriorly, no rales, wheezes, or rhonchi.
Abd: +BS, soft, NT, ND
Skin: No rashes.
Neuro: spontaneously moves LUE/LLE
Psych: calm
MRI brain: Areas of acute to subacute infarction involving both cerebellar hemispheres, right greater than left. Foci of acute to subacute infarction involving both occipital lobes. Focus of acute to subacute infarction involving the left anterior
medulla.
Carotid U/S:
RIGHT: Calcified plaque is identified in the internal carotid artery. Carotid velocity measurements are consistent with 50 to 69% internal carotid artery stenosis. Vertebral artery flow is antegrade.
LEFT: Calcified plaque is identified in the proximal/mid common carotid artery, carotid bulb and internal carotid artery. Carotid velocity measurements are consistent with less than 50% internal carotid artery stenosis. Left vertebral artery was
not visualized on this examination.
CTA head/neck: Atherosclerosis of the internal carotid arteries bilaterally, proximal right internal carotid artery with borderline hemodynamically significant stenosis of 65-70% and proximal left internal carotid artery approximately 50% stenosis.
No findings to suggest internal carotid artery dissection bilaterally. Atherosclerosis of the vertebral arterial system bilaterally with markedly dominant left vertebral artery. Relative diminutive distal right vertebral artery, cannot exclude
subtle occlusion of the distal right vertebral artery with questionable retrograde blood flow. No findings to suggest proximal intracranial arterial stenosis bilaterally.
CT A/P: There is air in the kidneys and bladder. This could be related to recent stent placement. Please exclude possibility of infection. There is third spacing of fluid in both the abdomen and pelvis as well as the soft tissues. There is an
increase in size in bilateral pleural effusions.
Echo:
1. Normal biventricular size and function without regional wall motion abnormalities.
2. LVEF is 55-60% by visual estimation. Mild LVH.
3. Mild aortic stenosis. Mild aortic regurgitation.
4. Normal estimated PASP at 27 mmHg.
5. No obvious vegetation.
Pt now on inpt hospice, cont morphine gtt, ativan PRN.
From 12/07/24:
Acute B/L CVAs:
-likely embolic either due to afib vs septic emboli vs both
-with acute metabolic encephalopathy due to acute CVAs and speech and swallow abnormality
-underlying A-fib and was not on AC because of ongoing hematuria
-start AC as this is OK with Uro and neuro at this point
-cont ASA
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
-conklin catheter replaced in the ER
-prior ureteral stents
-ID/Uro following
-currently on Cefepime
-should family want aggressive care, will likely need REYES
PAF with RVR:
-cont Cardizem gtt
-start heparin gtt
Other problems:
C. difficile colitis (prior): cont rectal Vanco
EVAN: change IVFs to D5 1/2NS with hypernatremia (Na 149)
B/L ureterolithiasis with hydronephrosis: s/p cystoscopy, B/L ureteral stent placement with incidental finding of urethral stricture with dilatation 11/11/2024
Severe dysphagia on 11/13/2024
Dysphagia, currently NPO
DM2: a1c 7.4%, SSI/accuchecks
Essential HTN: cont Cardizem gtt, IV BB
Valvular heart disease: mod , mild-mod MR, mild-mod AI, mild-mod TR
Dementia
Anemia of chronic disease
--- NOTE | 2024-12-10 09:41 | HOSPNOTE ---
Patient in no acute distress. Morphine infusing at a rate of 2mg/hr - PRN doses of Haldol and Valium given overnight. Patient remains GIP appropriate for the management of pain, agitation and anxiety. Hospice will continue to visit daily.
Discharge planning to commence when symptoms have been managed.
--- NOTE | 2024-12-10 14:15 | W.PN.DEATH ---
Pronouncement of
-
Called to see patient to pronounce.
No spontaneous heart tones or respirations noted.
Patient not responsive to verbal stimuli.
Patient is pronounced .
Family at bedside.
Time of : 14:08
Date of : 12/10/24
Cause of : Large CVA
Family Notified: Yes
--- NOTE | 2024-12-10 15:28 | W.DCSUMMARY ---
Discharge Summary
Discharge Data
Date of Admission: 12/08/24
Date of Discharge: 12/10/24
-
Pending Results: No
Hospital Course
Primary diagnosis:
Acute bilateral CVA
Sepsis secondary to UTI�Klebsiella
C. difficile colitis
Acute kidney injury
Bilateral kidney stones with hydronephrosis
Paroxysmal atrial fibrillation
Severe dysphagia
Secondary diagnoses:
Diabetes mellitus
Hypertension
Valvular heart disease
Dementia
Anemia of chronic disease
Hospital course:
89-year-old male presented to the hospital from [facility] for change in mental status and unarousable. Patient was noted to be tachycardic, WBC 26 with UTI and started on fluids and broad spectrum antibiotics in the ED. Chest x-ray revealed
atelectasis vs pneumonia. Head CT was unremarkable. By the time he got up to the floors he was more arousable. When speech therapy came to see him, she noticed left upper gaze preference and some facial asymmetry which is a big change from when she
saw him the week prior. A stroke alert was called and imaging was ordered. He was provided loading dose of aspirin per neurology. He was outside of TNK window as start of AMS unknown. Head CT and head and neck CTA were unremarkable however later
MRI revealed areas of acute to subacute infarct involving both cerebellar hemispheres and fossae of acute infarct in both occipital lobes and the left anterior medulla. Due to the patient's history of bilateral stent placement and ongoing hematuria,
the patient was unable to be on eliquis for anticoagulation and was only on aspirin. Stroke etiology thought to be due to embolis. Patient was unable to pass speech evaluation and was made NPO. Due to NPO status, unable to take home meds and
eventually placed on Cardizem drip for a.fib with RVR. He was briefly started on a heparin drip with clearance from urology. Due to impaired swallowing due to stroke and right sided hemiparesis, palliative care and hospice discussion was started
with family.
On 12/07, patient's agreeable to hospice. All life sustaining medications were discontinued in favor of comfort and dignity. The patient was transitioned to inpatient hospice and on 12/10/24 at 14:08pm. Family was at beside.
Imaging:
Brain MRI 12/05/2024:
Areas of acute to subacute infarction involving both cerebellar hemispheres, right greater than left.
Foci of acute to subacute infarction involving both occipital lobes.
Focus of acute to subacute infarction involving the left anterior medulla.
See above narrative for additional findings.
Head and neck CTA 12/04/2024:
Atherosclerosis of the internal carotid arteries bilaterally, proximal right internal carotid artery with borderline hemodynamically significant stenosis of 65-70% and proximal left internal carotid artery approximately 50% stenosis. No findings to
suggest internal carotid artery dissection bilaterally.
Atherosclerosis of the vertebral arterial system bilaterally with markedly dominant left vertebral artery. Relative diminutive distal right vertebral artery, cannot exclude subtle occlusion of the distal right vertebral artery with questionable
retrograde blood flow..
No findings to suggest proximal intracranial arterial stenosis bilaterally.
Bilateral pleural effusions.
Abdomen/pelvis CT 12/04/2024:
There is air in the kidneys and bladder. This could be related to recent stent placement. Please exclude possibility of infection
There is third spacing of fluid in both the abdomen and pelvis as well as the soft tissues. There is an increase in size in bilateral pleural effusions.
Discharge Plan
-
Patient Disposition:
Date/Time
Date/Time: 12/10/24 14:08
Discharge Date and Time
Discharge Date/Time: 12/10/24 14:08
Print Language: UPPER SORBIAN
== END 2024-12-10 14:08 | disposition expired | DRG 951 ==
LOC: 2 NORTH 12:08
PROVIDERS: ADMITTING PHYSICIAN Internal Medicine; FAMILY PHYSICIAN Family Medicine
DX: Z51.5 Encounter for palliative care (principal); I63.9 Cerebral infarction, unspecified; A41.9 Sepsis, unspecified organism; G93.41 Metabolic encephalopathy; N13.6 Pyonephrosis; F03.93 Unspecified dementia, unspecified severity, with mood disturbance; A04.72 Enterocolitis due to Clostridium difficile, not specified as recurrent; R45.851 Suicidal ideations; I16.1 Hypertensive emergency; N17.9 Acute kidney failure, unspecified; G81.91 Hemiplegia, unspecified affecting right dominant side; E11.9 Type 2 diabetes mellitus without complications; F32.A Depression, unspecified; I10 Essential (primary) hypertension; N40.0 Benign prostatic hyperplasia without lower urinary tract symptoms; I48.0 Paroxysmal atrial fibrillation; K59.00 Constipation, unspecified; E78.5 Hyperlipidemia, unspecified; M25.512 Pain in left shoulder; M25.511 Pain in right shoulder; D63.8 Anemia in other chronic diseases classified elsewhere; R47.81 Slurred speech; R29.810 Facial weakness; R45.1 Restlessness and agitation; R13.10 Dysphagia, unspecified; H54.61 Unqualified visual loss, right eye, normal vision left eye; H40.9 Unspecified glaucoma; B35.6 Tinea cruris; I08.0 Rheumatic disorders of both mitral and aortic valves; Z66 Do not resuscitate; Z79.82 Long term (current) use of aspirin; Z79.84 Long term (current) use of oral hypoglycemic drugs